=== PATIENT | male | born 1970 | race Two or more races ===

== ENCOUNTER 2020-07-07 16:18 | Emergency (ER) | payer OTHER, SELFPAY ==
[2020-07-07 16:29] VITALS: BP 167/90; PULSE 87; RESP 18; TEMP 36.8; O2SAT 98; BMI 33.4
== END 2020-07-08 00:59 | disposition left against medical advice (07) ==
LOC: HO.ED 07-08 00:33
PROVIDERS: Emergency Provider Emergency Medicine; PCP Internal Medicine
DX: R20.0 Anesthesia of skin (principal)
CPT/HCPCS: 99281; 99282

== ENCOUNTER 2020-10-06 11:44 | Emergency (ER) | payer OTHER, SELFPAY ==
--- NOTE | 2020-10-06 12:58 | ED_ITS ---
HPI - General Adult General Chief complaint: Ear Problems Stated complaint: eye problem,and swollen rt finger Time Seen by Provider: 10/06/20 12:29 Related Data Allergies Allergy/AdvReac Type Severity Reaction Status Date / Time SEASONAL ALLERGIES Allergy Mild stuffy nose Uncoded 07/07/20 16:29 [facility] Past Medical History Medical History (Updated 10/06/20 @ 13:01 by Shashi Montiel) Diabetes HTN (hypertension) Hyperlipemia Stroke Physical Exam Vital Signs: Vital Signs: Last Vital Signs Temp 98 F 10/06/20 12:59 Pulse 88 10/06/20 12:59 Resp 18 10/06/20 12:59 BP 166/80 H 10/06/20 12:59 Pulse Ox 95 10/06/20 12:59 Body Mass Index 31.6 Course Course Course Narrative: 1258-This is a rapid medical exam. 50 yo male with NIDDM, HLD, asthma, HTN here with left eye blurriness/floaters x 3 hours. No EDWARDS, weakness, dizziness. Has been noncompliant with his diabetes medication. Also c/o right finger pain. Pain with flexion and feels like it gets stuck with paresthesias. Had carpal tunnel done by spasukumar. No injury or trauma. BS 471. Charge nurse aware to direct bed.
[2020-10-06 12:59] VITALS: BP 166/80; PULSE 88; RESP 18; TEMP 36.6; O2SAT 95; BMI 31.6
--- NOTE | 2020-10-06 13:03 | XR_ITS ---
EXAMINATION: XR HAND, RIGHT CLINICAL INFORMATION: Pain and swelling COMPARISON: None TECHNIQUE: PA, lateral, and oblique views of the right hand. FINDINGS: Bone alignment is normal. No acute fracture or dislocation is seen. There is question of old trauma to the distal radius. There is mild arthritis at the radiocarpal joint, and first HALFWAY joint Joint spaces are otherwise normal. Soft tissues are normal. XR/XR hand RT min 3V IMPRESSION: Question old trauma to the distal radius. Mild arthritis at the radiocarpal joint and first HALFWAY joint.
[2020-10-06 13:07] LABS: Glucose, Whole Blood 471 mg/dL (60-115)
--- NOTE | 2020-10-06 13:24 | PC.NURSE ---
slight limp noted. pt states this is residual since cva 3 years ago. l eye vision changed to blurry with floaties at 10am. steady on feet. no other neuro deficits noted.
--- NOTE | 2020-10-06 13:42 | ED_ITS ---
HPI - General Adult General Chief complaint: Eye Problems Stated complaint: eye problem,and swollen rt finger Time Seen by Provider: 10/06/20 12:29 Source: patient Mode of arrival: ambulatory Limitations: no limitations History of Present Illness HPI narrative: This is a 50 years old male with history of diabetes type 2 no compliant with the diabetic regimen presented to the emergency room complaining of left blurred vision. He states that these follow by our compensation vice president in [place] Dr Novoa but he was unable to follow-up with him because they COVID the epidemic. Denies any fever, vomiting, diarrhea Onset (ago): day(s) (One day) Location: eyes (Left eye) Radiation: non-radiation Severity: moderate Quality: other (Floaters) Pain Consistency: constant Relieving factors: none Associated symptoms: denies other symptoms Related Data Allergies Allergy/AdvReac Type Severity Reaction Status Date / Time SEASONAL ALLERGIES Allergy Mild stuffy nose Uncoded 07/07/20 16:29 Review of Systems Review of Systems: Yes all other systems are reviewed and are negative Eyes: Eyes: Reports as per HPI ENT: Reports system reviewed and no additional complaints, except as documented Cardiovascular: Cardiovascular: Reports no additional cardiovascular compl aints Neurologic: Reports system reviewed and no additional complaints, except as documented [facility] Past Medical History Attestation statement: The following information was validated with the patient. Medical History Diabetes HTN (hypertension) Hyperlipemia Stroke Social History Social History Alcohol intake: never Smoking Status: Unknown if ever smoked Use of substances other than those prescribed or required for medical reasons: No Advance Directives: No Advance Directives Information Provided: No Physical Exam Vital Signs: Vital Signs: Last Vital Signs Temp 98 F 10/06/20 12:59 Pulse 71 10/06/20 15:11 Resp 16 10/06/20 15:11 BP 159/85 H 10/06/20 15:11 Pulse Ox 97 10/06/20 15:11 Body Mass Index 31.6 Const: General: cooperative Orientation/consciousness: oriented to person, oriented to place, oriented to time and patient oriented x3 HENMT: Head: Yes normal to inspection and Yes No palpable skull fracture present Ears: hearing grossly normal bilaterally Eyes: General: appearance normal, both eyes and all related structures Eyelids: Yes eyelids normal Conjunctivae: conjunctivae normal Sclerae: sclerae normal Corneas: corneas normal Neck: Neck: Yes normal visual inspection and Yes full ROM Chest: Breast/axilla inspection: normal inspection of the breasts Resp: Effort & Inspection: normal respiratory effort and able to speak in complete sentences Cardio: Jugular venous distension: no JVD Palpation: normal PMI Rate: regular rate Rhythm: regular rhythm and abnormal rhythm GI: Inspection: Yes normal to inspection Skin: General skin exam: no rashes or lesions noted Neuro: General: oriented to person, oriented to place, oriented to time and patient oriented x3 Course Reevaluation(s) Reevaluation #1: I discussed the case with the his ophthalmology Dr. Novoa he will see the patient tomorrow 15:00 he states that patient missed the appointment on July most likely is a vitrous hemorragy Time: 13:48 Reevaluation #2: Spoke with the compensation vice president patient will be followed up tomorrow, blood sugars much better he has no ketotic his bicarb is good this I will discharge him or more with Glucophage 500 mg b.i.d. I told the patient that he will need to follow up with is primary care physician as well Time: 16:02 Medical Decision Making Lab Data Result diagrams: 10/06/20 13:42 10/06/20 13:42 Labs: Lab Results 10/06/20 10/06/20 10/06/20 Range/Units 13:04 13:42 13:42 WBC 6.0 (4.8-10.8) X10*3/uL RBC 4.11 L (4.60-5.80) X10*6/uL Hgb 12.0 L (14.0-18.0) g/dl Hct 34.1 L (42-52) % MCV 83.0 (80-98) fL MCH 29.2 (27.0-33.0) pg MCHC 35.2 (31.0-36.0) g/dl RDW 11.9 (11.0-16.0) % Plt Count 198 (160-400) X10*3/uL MPV 9.6 (9.4-12.4) fL Immature Gran % (Auto) 0.2 (0.0-0.4) % Neut % (Auto) 78.4 H (45-73) % Lymph % (Auto) 17.1 L (20-40) % [place] % (Auto) 3.6 (2-11) % Eos % (Auto) 0.5 (0-4) % Baso % (Auto) 0.2 (0-2) % Lymph # (Auto) 1.0 L (1.2-4.9) X10*3/uL [place] # (Auto) 0.2 (0.1-1.2) X10*3/uL Eos # (Auto) 0.0 (0.0-0.4) X10*3/uL Baso # (Auto) 0.0 (0.0-0.2) X10*3/uL Abs Immat Gran (auto) 0.01 (0.00-0.03) X10*3/uL Absolute Neuts (auto) 4.7 (2.0-8.3) X10*3/uL Absolute Nucleated RBC 0.000 (0.0-0.012) X10*3/uL Nucleated RBC % (auto) 0.0 (0.0-0.2) /100WBC Hold Blue Top SEE NOTE Sodium (135-145) mmol/L Potassium (3.3-5.1) mmol/l Chloride (96-108) mmol/L Carbon Dioxide (22-29) mmol/L Anion Gap (12-20) BUN (9-16) mg/dL Creatinine (0.5-1.4) mg/dL Estim Creat Clear Calc Estimated GFR POC Glucose 471 H* (60-115) mg/dL Random Glucose (60-115) mg/dL Calcium (8.4-10.2) mg/dL Urine Color Urine Appearance Urine pH (5.0-8.0) Ur Specific [place] (1.005-1.025) Urine Protein (NEG-TRACE) MG/DL Urine Glucose (UA) (NEG) MG/DL Urine Ketones (NEG) MG/DL Urine Blood (NEG) Urine Nitrite (NEG) Ur Leukocyte Esterase (NEG) Urine RBC (0) /HPF Urine WBC (0-4) /HPF Ur Squamous Epith Cells /LPF Urine Bacteria /LPF 10/06/20 10/06/20 Range/Units 13:42 13:42 WBC (4.8-10.8) X10*3/uL RBC (4.60-5.80) X10*6/uL Hgb (14.0-18.0) g/dl Hct (42-52) % MCV (80-98) fL MCH (27.0-33.0) pg MCHC (31.0-36.0) g/dl RDW (11.0-16.0) % Plt Count (160-400) X10*3/uL MPV (9.4-12.4) fL Immature Gran % (Auto) (0.0-0.4) % Neut % (Auto) (45-73) % Lymph % (Auto) (20-40) % [place] % (Auto) (2-11) % Eos % (Auto) (0-4) % Baso % (Auto) (0-2) % Lymph # (Auto) (1.2-4.9) X10*3/uL [place] # (Auto) (0.1-1.2) X10*3/uL Eos # (Auto) (0.0-0.4) X10*3/uL Baso # (Auto) (0.0-0.2) X10*3/uL Abs Immat Gran (auto) (0.00-0.03) X10*3/uL Absolute Neuts (auto) (2.0-8.3) X10*3/uL Absolute Nucleated RBC (0.0-0.012) X10*3/uL Nucleated RBC % (auto) (0.0-0.2) /100WBC Hold Blue Top Sodium 136 (135-145) mmol/L Potassium 4.2 (3.3-5.1) mmol/l Chloride 102 (96-108) mmol/L Carbon Dioxide 27 (22-29) mmol/L Anion Gap 11 L (12-20) BUN 22 H (9-16) mg/dL Creatinine 1.92 H (0.5-1.4) mg/dL Estim Creat Clear Calc 50.1 Estimated GFR 37 POC Glucose (60-115) mg/dL Random Glucose 545 H* (60-115) mg/dL Calcium 8.4 (8.4-10.2) mg/dL Urine Color STRAW Urine Appearance CLEAR Urine pH 5.5 (5.0-8.0) Ur Specific [place] 1.010 (1.005-1.025) Urine Protein NEG (NEG-TRACE) MG/DL Urine Glucose (UA) >=1000 H (NEG) MG/DL Urine Ketones NEG (NEG) MG/DL Urine Blood NEG (NEG) Urine Nitrite NEG (NEG) Ur Leukocyte Esterase NEG (NEG) Urine RBC 0-2 (0) /HPF Urine WBC 0 (0-4) /HPF Ur Squamous Epith Cells TRACE /LPF Urine Bacteria NONE /LPF Discharge Plan Discharge Clinical Impression: Hyperglycemia Patient Disposition: Home, Self-Care Instructions: Diabetic Hyperglycemia (ED) Referrals: Lance Novoa MD [Physician] - 1 day (You have an appointment Tomorrow at [address] Novoa)
[2020-10-06] MEDS: 0.9 % Sodium Chloride 1,000 ML 999 ML IVCONT ×2 (13:45→15:37)
[2020-10-06 13:53] LABS: MANUAL DIFF FLAG NO
[2020-10-06 13:55] VITALS: BP 145/79; PULSE 78; RESP 18; O2SAT 97
[2020-10-06 13:56] LABS: Basophils Percent Auto 0.2 % (0-2); Eosinophils Percent Auto 0.5 % (0-4); Hematocrit 34.1 % (42-52); Imm Gran Abs Auto 0.01 X10*3/uL (0.00-0.03); Imm Gran Pct Auto 0.2 % (0.0-0.4); Lymphocytes Percent Auto 17.1 % (20-40); Mean Corpuscular HGB Conc 35.2 g/dl (31.0-36.0); Mean Corpuscular Hemoglobin 29.2 pg (27.0-33.0); Mean Platelet Volume 9.6 fL (9.4-12.4); Monocytes Absolute Auto 0.2 X10*3/uL (0.1-1.2); Monocytes Percent Auto 3.6 % (2-11); Neutrophils Absolute Auto 4.7 X10*3/uL (2.0-8.3); Neutrophils Percent Auto 78.4 % (45-73); Platelet Count 198 X10*3/uL (160-400); Red Blood Count 4.11 X10*6/uL (4.60-5.80); Red Cell Distribution Width 11.9 % (11.0-16.0)
[2020-10-06 14:08] LABS: Appearance Urine CLEAR; Color Urine STRAW; Glucose Urine UA >=1000 MG/DL (NEG); Leukocyte Esterase Urine NEG (NEG); Nitrite Urine NEG (NEG); PH 5.5 (5.0-8.0); Urine Blood NEG (NEG); Urine Ketones NEG (NEG); Urine Protein NEG (NEG-TRACE)
[2020-10-06 14:20] LABS: RBC Urine 0-2 /HPF (0); Squamous Epithelial Cell Urine TRACE /LPF; WBC Urine 0 /HPF (0-4)
[2020-10-06 14:31] LABS: Anion Gap 11 (12-20); Blood Urea Nitrogen 22 mg/dL (9-16); Calcium 8.4 mg/dL (8.4-10.2); Carbon Dioxide 27 mmol/L (22-29); Chloride 102 mmol/L (96-108); Creatinine Clr Calc Pharmacy 50.1; Estimated Glomerular Filt Rate 37; Glucose Random 545 mg/dL (60-115); Potassium 4.2 mmol/l (3.3-5.1); Sodium 136 mmol/L (135-145)
[2020-10-06 15:11] VITALS: BP 159/85; PULSE 71; RESP 16; O2SAT 97
--- NOTE | 2020-10-06 15:12 | PC.NURSE ---
no change in vision. up to br. steady on feet.
[2020-10-06] MEDS: Insulin Lispro 100 UNIT/ML 3 ML VIAL SUBCUT (15:37)
--- NOTE | 2020-10-06 15:49 | PC.NURSE ---
resting queitly. nad. no change in vision.
[2020-10-06 16:02] LABS: Glucose, Whole Blood 344 mg/dL (60-115)
[2020-10-06 16:11] LABS: Acetone, serum QL Negative (Negative)
== END 2020-10-06 16:23 | disposition home or self-care (01) ==
PROVIDERS: Nurse Practitioner Family; Emergency Provider Emergency Medicine; PCP Internal Medicine
DX: E11.65 Type 2 diabetes mellitus with hyperglycemia (principal)
CPT/HCPCS: 36415; 73130; 80048; 81001; 81003; 82009; 82947; 85025; 96360; 99284

== ENCOUNTER 2020-12-18 08:53 | Outpatient (REF) | payer OTHER, SELFPAY ==
--- NOTE | 2020-12-18 09:00 | ECG_ITS ---
Test Reason : HTN Blood Pressure : / mmHG Vent. Rate : 067 BPM Atrial Rate : 067 BPM P-R Int : 118 ms QRS Dur : 138 ms QT Int : 456 ms P-R-T Axes : -22 -28 -12 degrees QTc Int : 481 ms Normal sinus rhythm Right bundle branch block Abnormal ECG When compared with ECG of 10-NOV-2018 19:25, No significant change was found Referred By: Allison Santacruz Electronically Signed By:MARCOS SORIA MD
[2020-12-18 09:36] LABS: MANUAL DIFF FLAG NO
[2020-12-18 10:03] LABS: Basophils Percent Auto 0.2 % (0-2); Eosinophils Absolute Auto 0.1 X10*3/uL (0.0-0.4); Hematocrit 34.3 % (42-52); Hemoglobin 12.2 g/dl (14.0-18.0); Imm Gran Abs Auto 0.01 X10*3/uL (0.00-0.03); Imm Gran Pct Auto 0.2 % (0.0-0.4); Lymphocytes Absolute Auto 1.3 X10*3/uL (1.2-4.9); Lymphocytes Percent Auto 23.6 % (20-40); Mean Corpuscular HGB Conc 35.6 g/dl (31.0-36.0); Mean Corpuscular Hemoglobin 29.7 pg (27.0-33.0); Mean Corpuscular Volume 83.5 fL (80-98); Mean Platelet Volume 9.8 fL (9.4-12.4); Monocytes Absolute Auto 0.2 X10*3/uL (0.1-1.2); Monocytes Percent Auto 4.5 % (2-11); Neutrophils Absolute Auto 3.8 X10*3/uL (2.0-8.3); Neutrophils Percent Auto 69.5 % (45-73); Platelet Count 219 X10*3/uL (160-400); Red Blood Count 4.11 X10*6/uL (4.60-5.80); Red Cell Distribution Width 12.1 % (11.0-16.0); White Blood Count 5.4 X10*3/uL (4.8-10.8)
[2020-12-18 11:31] LABS: Alanine Aminotransferase 9 U/L (0-40); Albumin Level 4.5 g/dL (3.5-5.0); Alkaline Phosphatase 79 U/L (39-117); Anion Gap 12 (12-20); Aspartate Amino Transferase 14 U/L (5-37); Bilirubin Total 0.7 mg/dL (0.0-1.0); Blood Urea Nitrogen 21 mg/dL (9-16); Calcium 8.8 mg/dL (8.4-10.2); Carbon Dioxide 26 mmol/L (22-29); Chloride 107 mmol/L (96-108); Cholesterol 228 mg/dL; Estimated Glomerular Filt Rate 44; Glucose Fasting 191 mg/dL (60-99); HDL Cholesterol 51 mg/dL; LDL Cholesterol Calculated 156 mg/dl; Potassium 4.2 mmol/L (3.3-5.1); Sodium 141 mmol/L (135-145); Total Protein 6.8 g/dL (6.5-8.0); Triglycerides 108 mg/dL
== END 2020-12-18 08:54 | disposition home or self-care (01) ==
LOC: HO.LAB 08:53
PROVIDERS: PCP Internal Medicine; Visit Provider Internal Medicine
DX: D64.9 Anemia, unspecified (principal); E11.9 Type 2 diabetes mellitus without complications; E78.5 Hyperlipidemia, unspecified; I10 Essential (primary) hypertension; I45.10 Unspecified right bundle-branch block; R94.31 Abnormal electrocardiogram [ECG] [EKG]
CPT/HCPCS: 36415; 80053; 80061; 85025; 93005

== ENCOUNTER → 2020-12-22 08:21 | Outpatient (BNVA) | payer OTHER, SELFPAY | PROVIDERS: PCP Internal Medicine; Visit Provider Nurse Practitioner Gerontology | DX: E11.319 Type 2 diabetes mellitus with unspecified 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 macular edema (principal); E78.5 Hyperlipidemia, unspecified; I10 Essential (primary) hypertension | CPT/HCPCS: 82947; 99212 ==

== ENCOUNTER 2021-02-13 08:48 | Emergency (ER) | payer OTHER, SELFPAY ==
--- NOTE | ~2021-02-13 | XR_ITS ---
EXAMINATION: XR CHEST CLINICAL INFORMATION: Chest pain. COMPARISON: Chest 11/10/2018 TECHNIQUE: Frontal view of the chest was obtained. FINDINGS: No significant abnormality is noted involving the heart, lungs, mediastinum, bony thorax or soft tissues. XR/XR chest 1V IMPRESSION: Unremarkable chest examination.
--- NOTE | ~2021-02-13 | CT_ITS ---
EXAMINATION: CT ANGIOGRAM OF THE CHEST WITH AND WITHOUT CONTRAST (CT PULMONARY ANGIOGRAM FOR PE) CLINICAL INFORMATION: Reason for Exam chest pain elevated ddimer COMPARISON: Previous chest x-ray from earlier the same day TECHNIQUE: Prior to contrast administration, noncontrast localization images were obtained. Subsequently, multidetector volumetric imaging was performed from the thoracic inlet to below the diaphragms following the administration of 65 mL Omnipaque 350 intravenous contrast. No contrast reaction reported Sagittal, coronal, and MIP oblique sagittal reformatted images were obtained on the CT workstation, uploaded to PACS, and reviewed. This CT examination was performed using dose optimization techniques as appropriate, variously including the following: *Automated exposure control *Adjustment of mA and/or kV according to patient size (this includes techniques or standardized protocols for targeted exams where dose is matched to indication/reason for exam; i.e. extremities or head) *Use of iterative reconstruction technique Total exam dose-length product 291 mGy-cm FINDINGS: QUALITY OF STUDY/CONTRAST BOLUS: Satisfactory. PULMONARY ARTERIES: No central or segmental pulmonary emboli. THORACIC AORTA: No aneurysm or dissection. LUNG: No focal consolidation, nodules or masses. PLEURA: No pleural effusion or pneumothorax. MEDIASTINUM: The heart is slightly enlarged.. No pericardial effusion. No hilar or mediastinal lymphadenopathy. No evidence of septal bowing or right heart strain. CHEST WALL/AXILLA: No axillary or internal mammary lymphadenopathy. OSSEOUS STRUCTURES: There is congenital scoliosis and T5 hemivertebra or butterfly vertebrae. There are degenerative changes of the lower thoracic spine. UPPER ABDOMEN: Unremarkable. No reflux of contrast into the hepatic veins to suggest elevated right heart pressures. CT/CT angio chest PE protocol IMPRESSION: No evidence of pulmonary embolism. Probably enlarged heart. Congenital scoliosis. VTE: negative
--- NOTE | 2021-02-13 09:00 | ED.CHESTPAIN ---
HPI - Chest Pain General Chief Complaint: Chest Pain Stated Complaint: CHEST TIGHTNESS Time Seen by Provider: 02/13/21 09:00 Source: patient Mode of arrival: ambulatory Limitations: no limitations History of Present Illness MD complaint: chest pain Onset (ago): week(s) (1) Timing of current episode: episodic Prior episodes: No Onset: during exertion Pain location: left chest and right chest Pain radiation: none Severity: moderate Quality: tightness Relieving factors: rest Exacerbating factors: exertion Associated symptoms: dyspnea Treatment prior to arrival: none Related Data Previous Rx's Medication Instructions Recorded lisinopril 40 mg tablet 40 mg PO DAILY 90 Days #90 tab 11/05/20 metformin 1,000 mg tablet,extended 1,000 mg PO BID 90 Days #180 tab 11/05/20 release 24hr atorvastatin 40 mg tablet 40 mg PO BEDTIME #30 tab 12/22/20 blood sugar diagnostic #50 ea 12/22/20 blood-glucose meter #1 ea 12/22/20 flash glucose sensor 1 ea TOPICAL Q2W #6 ea 12/22/20 lancets 28 gauge #100 ea 12/22/20 dulaglutide 0.75 mg/0.5 mL 0.75 mg SUBCUT QWEEK #2 ml 01/22/21 subcutaneous pen injector Allergies Allergy/AdvReac Type Severity Reaction Status Date / Time SEASONAL ALLERGIES Allergy Mild stuffy nose Uncoded 12/22/20 08:45 Review of Systems Review of Systems: Constitutional : No Weight loss, No Fever, No Chills ENT/Mouth : No sore throat, No Rhinorrhea Eyes: No Eye Pain, No Swelling Cardiovascular : pos Chest Pain, pos SOB, pos Dyspnea on Exertion, No Orthopnea, No Edema, No Palpitations Respiratory : No Cough, No Sputum Gastrointestinal : no Nausea, No Vomiting, No Diarrhea, No abdominal Pain, No Hematochezia, No Melena Genitourinary : No Dysuria, No Urinary Frequency Musculoskeletal : No joint pain, No Myalgias, No Joint Swelling Skin : No Skin Lesions, No rash Neuro : No Weakness, No Numbness, No Dizziness, No Headache Psych : No Anxiety/Panic, No Depression Heme/Lymph: No Bruising, No Lymphadenopathy Endocrine : No Polyuria, No Polydipsia All other systems reviewed and are negative PMFSH Past Medical History Attestation statement: The following information was validated with the patient. Medical History Anemia Arthritis Carpal tunnel syndrome Diabetes Essential hypertension HTN (hypertension) Hyperlipemia Hyperlipidemia LDL goal <70 Nephrolithiasis Phlebitis Stroke Type 2 diabetes mellitus with unspecified 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 macular edema Surgical History H/O vitrectomy History of carpal tunnel surgery of right wrist Family History Family History Father Asthma Mother Diabetes mellitus Social History Social History Household Members: Significant Other Alcohol intake: never Smoking Status: Never smoker Tobacco Type: Cigarette Use of substances other than those prescribed or required for medical reasons: No Advance Directives: No Advance Directives Information Provided: No Physical Exam Vital Signs: Vital Signs: Last Vital Signs Temp 99.1 F 02/13/21 09:12 Pulse 62 02/13/21 10:18 Resp 20 02/13/21 10:18 BP 162/85 H 02/13/21 10:18 Pulse Ox 98 02/13/21 10:18 Body Mass Index 30.2 Appearance: Alert. Oriented X3. No acute distress. Eyes: Pupils equal, round and reactive to light. ENT: Pharynx normal. Neck: Normal inspection. Neck supple. CVS: Normal heart rate and rhythm. Pulses normal. Respiratory: No respiratory distress. Breath sounds normal. Abdomen: Soft and nontender. Skin: Skin warm and dry. Normal skin color. Normal skin turgor. Extremities: No lower extremity edema. No calf ttp Neuro: Oriented X 3. No motor deficit. No sensory deficit. Course Course Course Narrative: ddimer elevated CTA PE ordered to r/o PE discussed case with Dr. Shetty patient notes he feels better with nitro and aspirin plan is to obtain CTA if negative contact Dr. Shetty for transfer to [facility] and heparinize the patient aspirin and metoprolol ordered as well plan to transfer to [facility] MDM - Chest Pain MDM Narrative Medical decision making narrative: 50 yo male with DM, HTN, HLD here with chest pain on and off with dyspnea on exertion x 1 week, at this time will need labs, troponin, CXR, EKG, nitro and aspirin for symptoms, no known CAD no prior cardiac workup Lab Data Result diagrams: 02/13/21 09:23 02/13/21 09:23 Labs: Lab Results 02/13/21 02/13/21 02/13/21 Range/Units 09:23 09:23 09:23 WBC 4.8 (4.8-10.8) X10*3/uL RBC 3.53 L (4.60-5.80) X10*6/uL Hgb 10.5 L (14.0-18.0) g/dl Hct 30.4 L (42-52) % MCV 86.1 (80-98) fL MCH 29.7 (27.0-33.0) pg MCHC 34.5 (31.0-36.0) g/dl RDW 12.3 (11.0-16.0) % Plt Count 174 (160-400) X10*3/uL MPV 9.6 (9.4-12.4) fL Immature Gran % (Auto) 0.2 (0.0-0.4) % Neut % (Auto) 72.3 (45-73) % Lymph % (Auto) 22.5 (20-40) % [place] % (Auto) 3.8 (2-11) % Eos % (Auto) 1.0 (0-4) % Baso % (Auto) 0.2 (0-2) % Lymph # (Auto) 1.1 L (1.2-4.9) X10*3/uL [place] # (Auto) 0.2 (0.1-1.2) X10*3/uL Eos # (Auto) 0.1 (0.0-0.4) X10*3/uL Baso # (Auto) 0.0 (0.0-0.2) X10*3/uL Abs Immat Gran (auto) 0.01 (0.00-0.03) X10*3/uL Absolute Neuts (auto) 3.5 (2.0-8.3) X10*3/uL Absolute Nucleated RBC 0.000 (0.0-0.012) X10*3/uL Nucleated RBC % (auto) 0.0 (0.0-0.2) /100WBC PT 12.4 (10.8-13.0) SEC INR 1.0 (0.9-1.1) APTT 32.5 (24.1-38.0) SEC D-Dimer 935 NG/ML Sodium 142 (135-145) mmol/L Potassium 4.1 (3.3-5.1) mmol/L Chloride 107 (96-108) mmol/L Carbon Dioxide 28 (22-29) mmol/L Anion Gap 11 L (12-20) BUN 18 H (9-16) mg/dL Creatinine 1.40 (0.5-1.4) mg/dL Estim Creat Clear Calc 67.6 Estimated GFR 53 Random Glucose 185 H D (60-115) mg/dL Calcium 8.7 (8.4-10.2) mg/dL Magnesium 1.5 L (1.6-2.6) mg/dL Total Bilirubin 0.4 (0.0-1.0) mg/dL Direct Bilirubin 0.2 (0.0-0.5) mg/dL AST 13 (5-37) U/L ALT 10 (0-40) U/L Alkaline Phosphatase 59 D (39-117) U/L Troponin I High Sens (<3.5-35.0) ng/L Total Protein 6.1 L (6.5-8.0) g/dL Albumin 4.0 (3.5-5.0) g/dL Lipase 37 (8-78) U/L COVID-19 (JAMIE) (Negative) COVID-19 Clin Com 02/13/21 02/13/21 Range/Units 09:23 09:26 WBC (4.8-10.8) X10*3/uL RBC (4.60-5.80) X10*6/uL Hgb (14.0-18.0) g/dl Hct (42-52) % MCV (80-98) fL MCH (27.0-33.0) pg MCHC (31.0-36.0) g/dl RDW (11.0-16.0) % Plt Count (160-400) X10*3/uL MPV (9.4-12.4) fL Immature Gran % (Auto) (0.0-0.4) % Neut % (Auto) (45-73) % Lymph % (Auto) (20-40) % [place] % (Auto) (2-11) % Eos % (Auto) (0-4) % Baso % (Auto) (0-2) % Lymph # (Auto) (1.2-4.9) X10*3/uL [place] # (Auto) (0.1-1.2) X10*3/uL Eos # (Auto) (0.0-0.4) X10*3/uL Baso # (Auto) (0.0-0.2) X10*3/uL Abs Immat Gran (auto) (0.00-0.03) X10*3/uL Absolute Neuts (auto) (2.0-8.3) X10*3/uL Absolute Nucleated RBC (0.0-0.012) X10*3/uL Nucleated RBC % (auto) (0.0-0.2) /100WBC PT (10.8-13.0) SEC INR (0.9-1.1) APTT (24.1-38.0) SEC D-Dimer NG/ML Sodium (135-145) mmol/L Potassium (3.3-5.1) mmol/L Chloride (96-108) mmol/L Carbon Dioxide (22-29) mmol/L Anion Gap (12-20) BUN (9-16) mg/dL Creatinine (0.5-1.4) mg/dL Estim Creat Clear Calc Estimated GFR Random Glucose (60-115) mg/dL Calcium (8.4-10.2) mg/dL Magnesium (1.6-2.6) mg/dL Total Bilirubin (0.0-1.0) mg/dL Direct Bilirubin (0.0-0.5) mg/dL AST (5-37) U/L ALT (0-40) U/L Alkaline Phosphatase (39-117) U/L Troponin I High Sens 20.6 (<3.5-35.0) ng/L Total Protein (6.5-8.0) g/dL Albumin (3.5-5.0) g/dL Lipase (8-78) U/L COVID-19 (JAMIE) Negative (Negative) COVID-19 Clin Com See Note ECG Data ECG #1: Attestation: I personally reviewed and interpreted this ECG as follows: ECG interpretation date: 02/13/21 ECG interpretation time: 09:16 Interpretation: Rate: 72 Rhythm: NSR [place]: left Normal P waves. Normal JUNIOR. RBBB ST T wave : nonspecific in V4-V6, no ANDREI qTC: normal prior studies: slight change in V4-V6 nonspecific The study has been interpreted contemporaneously by me. . Discharge Plan Discharge Clinical Impression: Unstable angina pectoris Patient Disposition: [facility] Transfer Details: [facility] Prescriptions: No Action (DME) FreeStyle Test Strip See Rx Instructions .ROUTE .MEDSUPPLY Qty: 50 RF: 11 (DME) blood-glucose meter [FreeStyle [place] Lite] Kit See Rx Instructions .ROUTE .MEDSUPPLY Qty: 1 RF: 0 FreeStyle Ronen 14 Day Sensor Kit 1 ea topical Q2W Qty: 6 RF: 3 (DME) lancets [FreeStyle Lancets] 28 gauge misc See Rx Instructions .ROUTE .MEDSUPPLY Qty: 100 RF: 11 dulaglutide [Trulicity] 0.75 mg/0.5 mL pen injector 0.75 mg subcut QWEEK Qty: 2 RF: 0 lisinopril 40 mg tablet 40 mg PO DAILY 90 Days Qty: 90 RF: 1 metformin 1,000 mg tablet extended release 24hr 1,000 mg PO BID 90 Days Qty: 180 RF: 3 atorvastatin 40 mg tablet 40 mg PO BEDTIME Qty: 30 RF: 3
--- NOTE | 2021-02-13 09:05 | ECG_ITS ---
Test Reason : CHEST PAIN Blood Pressure : / mmHG Vent. Rate : 072 BPM Atrial Rate : 072 BPM P-R Int : 114 ms QRS Dur : 134 ms QT Int : 446 ms P-R-T Axes : -11 -43 002 degrees QTc Int : 488 ms Normal sinus rhythm Left axis deviation Right bundle branch block Abnormal ECG When compared with ECG of 18-DEC-2020 08:05, No significant change was found Referred By: Guera Buitrago Electronically Signed By:MARCOS SORIA MD
[2021-02-13 09:12] VITALS: BP 167/77; PULSE 75; RESP 13; TEMP 37.3; O2SAT 99; BMI 30.5
[2021-02-13] MEDS: Aspirin 81 MG TAB.CHEW 162 MG PO (09:18)
[2021-02-13 09:19] VITALS: BP 167/77; PULSE 75
[2021-02-13] MEDS: Nitroglycerin 0.4 MG TAB.SUBL SUBLINGUAL (09:19)
[2021-02-13 09:36] LABS: MANUAL DIFF FLAG NO
[2021-02-13 09:37] LABS: Basophils Percent Auto 0.2 % (0-2); Eosinophils Absolute Auto 0.1 X10*3/uL (0.0-0.4); Hematocrit 30.4 % (42-52); Hemoglobin 10.5 g/dl (14.0-18.0); Imm Gran Abs Auto 0.01 X10*3/uL (0.00-0.03); Imm Gran Pct Auto 0.2 % (0.0-0.4); Lymphocytes Absolute Auto 1.1 X10*3/uL (1.2-4.9); Lymphocytes Percent Auto 22.5 % (20-40); Mean Corpuscular HGB Conc 34.5 g/dl (31.0-36.0); Mean Corpuscular Hemoglobin 29.7 pg (27.0-33.0); Mean Corpuscular Volume 86.1 fL (80-98); Mean Platelet Volume 9.6 fL (9.4-12.4); Monocytes Absolute Auto 0.2 X10*3/uL (0.1-1.2); Monocytes Percent Auto 3.8 % (2-11); Neutrophils Absolute Auto 3.5 X10*3/uL (2.0-8.3); Neutrophils Percent Auto 72.3 % (45-73); Platelet Count 174 X10*3/uL (160-400); Red Blood Count 3.53 X10*6/uL (4.60-5.80); Red Cell Distribution Width 12.3 % (11.0-16.0); White Blood Count 4.8 X10*3/uL (4.8-10.8)
[2021-02-13 09:46] LABS: D Dimer 935 NG/ML
[2021-02-13 09:48] LABS: COVID-19 Test Negative (Negative)
[2021-02-13 09:57] LABS: Alanine Aminotransferase 10 U/L (0-40); Alkaline Phosphatase 59 U/L (39-117); Anion Gap 11 (12-20); Aspartate Amino Transferase 13 U/L (5-37); Bilirubin Direct 0.2 mg/dL (0.0-0.5); Bilirubin Total 0.4 mg/dL (0.0-1.0); Blood Urea Nitrogen 18 mg/dL (9-16); Calcium 8.7 mg/dL (8.4-10.2); Carbon Dioxide 28 mmol/L (22-29); Chloride 107 mmol/L (96-108); Creatinine Clr Calc Pharmacy 67.6; Estimated Glomerular Filt Rate 53; Glucose Random 185 mg/dL (60-115); Lipase 37 U/L (8-78); Magnesium 1.5 mg/dL (1.6-2.6); Potassium 4.1 mmol/L (3.3-5.1); Sodium 142 mmol/L (135-145); Total Protein 6.1 g/dL (6.5-8.0)
[2021-02-13 10:01] LABS: Troponin-I High Sensitivity 20.6 ng/L (<3.5-35.0)
[2021-02-13 10:18] VITALS: BP 162/85; PULSE 62; RESP 20; O2SAT 98
[2021-02-13] MEDS: Magnesium Sulfate/H2O 2 GM/50 ML PIGGYBACK IV (10:18)
--- NOTE | 2021-02-13 10:22 | P.CONCA_ITS ---
History of Present Illness History of Present Illness Date of Service: 02/14/21 Requesting physician: Guera Buitrago Chief complaint: CHEST TIGHTNESS Narrative: 50-year-old gentleman who is here for shortness of breath and chest tightness ongoing for few days. He said he started noticing chest tightness with exercise. There has not been any symptoms at rest. He is able to walk close to 1 block when he gets chest tightness. He is saying his symptoms are progressing any he is having more frequent episodes. He is diabetic. He has a previous stroke. He was noticed to have elevated D-dimer and was waiting to get CTA to rule out pulmonary embolism. ECG showing right bundle-branch block with nonspecific ST-T changes. Review of Systems Review of Systems: Chest pain Yes all other systems are reviewed and are negative [facility] Past Medical History Medical History Anemia Arthritis Carpal tunnel syndrome Diabetes Essential hypertension HTN (hypertension) Hyperlipemia Hyperlipidemia LDL goal <70 Nephrolithiasis Phlebitis Stroke Type 2 diabetes mellitus with unspecified 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 macular edema Family History Family History Father Asthma Mother Diabetes mellitus Surgical History Surgical History H/O vitrectomy History of carpal tunnel surgery of right wrist Social History Social History Household Members: Significant Other Alcohol intake: never Smoking Status: Never smoker Tobacco Type: Cigarette Use of substances other than those prescribed or required for medical reasons: No Advance Directives: No Advance Directives Information Provided: No Meds Allergies Allergy/AdvReac Type Severity Reaction Status Date / Time SEASONAL ALLERGIES Allergy Mild stuffy nose Uncoded 12/22/20 08:45 Active Medications: Current Medications Generic Name Dose Route Start Last Admin Trade Name Freq PRN Reason Stop Dose Admin Magnesium Sulfate 2 gm in 50 mls @ 50 mls/hr 02/13/21 10:11 02/13/21 10:18 IV 02/13/21 11:10 50 mls/hr ONCE ONE Administration Physical Exam Vital Signs: Vital Signs: Last Vital Signs Temp 99.1 F 02/13/21 09:12 Pulse 62 02/13/21 10:18 Resp 20 02/13/21 10:18 BP 162/85 H 02/13/21 10:18 Pulse Ox 98 02/13/21 10:18 Body Mass Index 30.5 GENERAL APPEARANCE: in no acute distress, pleasant. NECK: no carotid bruit, no jugular venous distention. SKIN: no suspicious lesions, warm and dry. HEART: no murmurs, regular rate and rhythm. LUNGS: clear to auscultation bilaterally. ABDOMEN: soft, nontender. EXTREMITIES: no edema. PERIPHERAL PULSES: equal. Results Labs and Meds Result diagrams: 02/13/21 09:23 02/13/21 09:23 Lab results: Laboratory Results - last 24 hr 02/13/21 02/13/21 02/13/21 09:23 09:23 09:23 WBC 4.8 RBC 3.53 L Hgb 10.5 L Hct 30.4 L MCV 86.1 MCH 29.7 MCHC 34.5 RDW 12.3 Plt Count 174 MPV 9.6 Immature Gran % (Auto) 0.2 Neut % (Auto) 72.3 Lymph % (Auto) 22.5 [place] % (Auto) 3.8 Eos % (Auto) 1.0 Baso % (Auto) 0.2 Lymph # (Auto) 1.1 L [place] # (Auto) 0.2 Eos # (Auto) 0.1 Baso # (Auto) 0.0 Abs Immat Gran (auto) 0.01 Absolute Neuts (auto) 3.5 Absolute Nucleated RBC 0.000 Nucleated RBC % (auto) 0.0 D-Dimer 935 Sodium 142 Potassium 4.1 Chloride 107 Carbon Dioxide 28 Anion Gap 11 L BUN 18 H Creatinine 1.40 Estim Creat Clear Calc 67.6 Estimated GFR 53 Random Glucose 185 H D Calcium 8.7 Magnesium 1.5 L Total Bilirubin 0.4 Direct Bilirubin 0.2 AST 13 ALT 10 Alkaline Phosphatase 59 D Troponin I High Sens Total Protein 6.1 L Albumin 4.0 Lipase 37 COVID-19 (JAMIE) COVID-19 Clin Com 02/13/21 02/13/21 09:23 09:26 WBC RBC Hgb Hct MCV MCH MCHC RDW Plt Count MPV Immature Gran % (Auto) Neut % (Auto) Lymph % (Auto) [place] % (Auto) Eos % (Auto) Baso % (Auto) Lymph # (Auto) [place] # (Auto) Eos # (Auto) Baso # (Auto) Abs Immat Gran (auto) Absolute Neuts (auto) Absolute Nucleated RBC Nucleated RBC % (auto) D-Dimer Sodium Potassium Chloride Carbon Dioxide Anion Gap BUN Creatinine Estim Creat Clear Calc Estimated GFR Random Glucose Calcium Magnesium Total Bilirubin Direct Bilirubin AST ALT Alkaline Phosphatase Troponin I High Sens 20.6 Total Protein Albumin Lipase COVID-19 (JAMIE) Negative COVID-19 Clin Com See Note Imaging Radiologist's impression: Impressions Chest X-Ray 02/13/21 09:06 IMPRESSION: Unremarkable chest examination. Assessment and Plan (1) Unstable angina: Status: Acute (2) Essential hypertension: Status: Acute 50-year-old gentleman who is here for exertional chest discomfort and shor tness of breath. D-dimer is elevated. He is going to get pulmonary CT angiogram to rule out PE. If he does not have pulmonary embolism, I think he should be treated as unstable angina and should be started on heparin drip. Add metoprolol 25 mg twice a day. Blood pressure is elevated and he will need better control. I have discussed with the patient that if he does not have pulmonary embolism t hen we should transfer to [facility] and do diagnostic angiogram. He is agreeable. I will do echocardiogram to assess LV for any wall motion abnormality. Thank you for allowing me to participate in the care of your patient. Please feel free to contact me if you have any questions.
[2021-02-13 10:49] LABS: Prothrombin Time 12.4 SEC (10.8-13.0)
[2021-02-13 10:52] LABS: Partial Thromboplastin Time 32.5 SEC (24.1-38.0)
[2021-02-13] MEDS: iohexoL 350 MG/ML 100 ML INFUS..BTL IV (11:05)
[2021-02-13 11:12] VITALS: BMI 30.2
[2021-02-13 11:47] VITALS: BP 164/85; PULSE 64
[2021-02-13] MEDS: Metoprolol Tartrate 25 MG TABLET PO (11:47)
[2021-02-13] MEDS: Heparin Sodium,Porcine 5,000 UNIT/ML VIAL 4000 UNIT IVPUSH (11:50)
[2021-02-13] MEDS: Heparin Sodium,Porcine/1/2NS 25,000 UNIT/250 ML IV.SOLN 12.6 UNIT IVCONT (11:54)
--- NOTE | 2021-02-13 12:00 | CA_ITS ---
Transthoracic Echocardiogram Patient (Last, First, Middle): Kal Sellers, Gender: Male Date of : 1970 Age: 50 Procedure Date: 02/13/2021 Procedure Type: Transthoracic Echocardiogram Location: ER Height: 172.72 cm Weight: 99.79 kg BSA: 2.13 m2 Heart Rate: bpm BP: 164 / 85 mmHg Staff Design Engineer: Referring MD: Reynaldo Shetty MD Symptoms: Chest pain and SOB Study Quality: Good ECG Rhythm: Sinus Conclusions: - 1. Moderately reduced LV systolic function with regional wall motion abnormality with impaired relaxation filling pattern 2. Mildly dilated left atrium 3. Normal cardiac valvular Doppler 4. Normal RV systolic pressure 5. No pericardial effusion Findings Left Ventricle Normal left ventricular cavity size. There is mildly increased left ventricular wall thickness. The left ventricular systolic function is moderately decreased. The visually estimated ejection fraction is between 35 40%. Spectral Doppler is indicative of an impaired relaxation filling pattern. E/E prime ratio is between 8 and 15 consistent with indeterminate filling pressures. Wall Motion Rest Echo Findings The inferolateral wall and basal anterolateral segment are hypokinetic. The basal inferior segment is akinetic. All other scored wall segments showed normal motion. Right Ventricle Normal right ventricular cavity size and systolic function. Atria The left atrium is mildly dilated. There is no evidence of interatrial shunt. The right atrium is normal in size. Aortic Valve Normal aortic valve structure and function. There is no aortic valve stenosis. There is no aortic valve regurgitation. Mitral Valve Normal mitral valve structure and function. There is trace mitral valve regurgitation. There is no mitral valve stenosis. Pulmonic Valve The pulmonic valve is likely normal. There is trace to mild pulmonic valve regurgitation. Tricuspid Valve Normal tricuspid valve structure. There is trace tricuspid valve regurgitation. The right ventricular systolic pressure is normal. The right ventricular systolic pressure is 17 mmHg. Normal right atrial pressure. There is no evidence of pulmonary hypertension. Great Vessels All visible segments of the aorta are normal in size. The pulmonary artery was not well visualized. Venous The inferior vena cava is normal in size and collapses greater than 50% with inspiration. Pericardium/Pleural There is no evidence of pericardial effusion. Prior Study Comparison No prior study available for comparison. Measurements 2D Linear Measurements IVSd: 1.20 0.6-0.9/0.6-1.0 cm LVIDd: 5.52 3.9-5.3/4.2-5.9 cm LVIDd Index: 2.59 2.4-3.2/2.2-3.1 cm/m2 LVIDs: 4.64 2.0-3.6 cm LVPWd: 1.29 0.7-1.1 cm Ao Root: 3.70 2.1-3.5 cm LA Diam: 3.60 2.7-3.8/3.0-4.0 cm LAIDs Index: 1.69 1.5-2.3 cm/m2 LV Mass: 359.55 67-162/88-224 g LV Mass Index: 168.81 43-95/49-115 g/m2 LVOT Diam: 2.20 3.0+(-)1.3 cm 2D Systolic Function EF 4C: 40.90 >55% EF 2C: 35.50 >55% EF BiP: 37.80 >55% Mitral Valve MV Pk E: 1.10 MV PK A: 0.96 MV Decel Time: 176.00 E/A: 1.20 E'Lateral: 7.45 E'Medial: 6.19 E/E' Med: 17.80 E/E' Lat: 14.80 PHT: 52.00 MVA PHT: 4.23 Decel [place]: 6.25 Aortic Valve AoV Pk Reji: 1.57 AoV Mn Reji: 0.97 AoV VTI: 0.38 AoV Pk Grad: 10.00 Aov Mn Grad: 5.00 MARY Cont.VTI: 2.27 LVOT LVOT Pk Reji: 0.95 LVOT Mn Reji: 0.63 LVOT VTI: 0.23 LVOT Pk Grad: 4.00 LVOT Mn Grad: 2.00 LVOT Diam: 2.20 LVOT Area: 3.80 Diastolic Function MV Pk E: 1.10 MV Pk A: 0.96 E/A: 1.20 E'Medial: 6.19 E/E' Med: 17.80 E' Laterial: 7.45 E/E' Lat: 14.80 Tricuspid Valve TR Pk Reji: 1.88 TR Pk Grad: 14.00 RA Press: 3.00 RVSP: 17.00 Great Vessels Aorta Ao Root-2D: 3.70 2.0-3.7 cm Ao Asc: 3.50 2.1-3.4 cm Pulmonary Valve PV Pk Reji: 0.93 Peak PV Grad: 3.00 Updated in Other Vendor System with Status of Final Eze Watt MD electronically signed on 02/13/2021 12:38:39 PM with status of Final
--- NOTE | 2021-02-13 12:12 | PC.NURSE ---
REPORT GIVEN TO [facility] RN, PATIENT WAITING ON EMS FOR TRANSPORT, HEPARIN INFUSING.
== END 2021-02-13 12:28 | disposition short-term general hospital (02) ==
PROVIDERS: Emergency Provider Emergency Medicine; PCP Internal Medicine
DX: I20.0 Unstable angina (principal); I10 Essential (primary) hypertension; Z20.822 Contact with and (suspected) exposure to COVID-19; Z79.899 Other long term (current) drug therapy
CPT/HCPCS: 36415; 71045; 71275; 80048; 80076; 83690; 83735; 84484; 85025; 85379; 85610; 85730; 87635; 93005; 93306; 96365; 96375; 99285; J3475; Q9967

== ENCOUNTER 2021-03-30 10:56 | Emergency (ER) | payer OTHER, SELFPAY ==
--- NOTE | ~2021-03-30 | XR_ITS ---
EXAMINATION: XR TOES, LEFT CLINICAL INFORMATION: Trauma COMPARISON: None TECHNIQUE: 3 views of the left toes were obtained. FINDINGS: There is no visible acute fracture, dislocation or subluxation seen. Mild loss of first MTP joint with periapical spurring is noted. There is mild soft tissue swelling along the first digit. XR/XR toe LT min 2V IMPRESSION: No visible acute fracture or dislocation. Mild soft tissue swelling first digit distal toe
[2021-03-30 11:33] VITALS: BP 164/91; PULSE 66; RESP 18; TEMP 36.7; O2SAT 98; BMI 29.0
--- NOTE | 2021-03-30 12:30 | ED_ITS ---
HPI - Wound/Laceration General Chief Complaint: Wound/Laceration Stated Complaint: left foot lac Time Seen by Provider: 03/30/21 12:27 Source: patient Mode of arrival: ambulatory Limitations: no limitations History of Present Illness HPI narrative: 50 y/o male presenting with left great toe laceration that he sustained this morning when he accidentally kicked the metal part on a stair while bringing in groceries. He reports a deep laceration at the base of his left great toe on the bottom. No active bleeding. He is ambulatory but reports some discomfort when he walks. No numbness, tingling. He states his last tdap was >10 years ago. Onset (ago): hour(s) (1) Extremity Location: left: foot (base of left great toe) Place: home Patient tetanus UTD: No Context: accidental Associated symptoms: pain Related Data Home Medications Medication Instructions Recorded Confirmed amlodipine 5 mg tablet 5 mg PO DAILY 02/24/21 02/24/21 aspirin 81 mg tablet,delayed 81 mg PO DAILY 02/24/21 02/24/21 release isosorbide mononitrate 30 mg 30 mg PO DAILY 02/24/21 02/24/21 tablet,extended release 24 hr metoprolol tartrate 50 mg tablet 50 mg PO BID 02/24/21 02/24/21 Previous Rx's Medication Instructions Recorded lisinopril 40 mg tablet 40 mg PO DAILY 90 Days #90 tab 11/05/20 metformin 1,000 mg tablet,extended 1,000 mg PO BID 90 Days #180 tab 11/05/20 release 24hr blood sugar diagnostic #50 ea 12/22/20 blood-glucose meter #1 ea 12/22/20 flash glucose sensor 1 ea TOPICAL Q2W #6 ea 12/22/20 lancets 28 gauge #100 ea 12/22/20 dulaglutide 0.75 mg/0.5 mL 0.75 mg SUBCUT QWEEK #2 ml 01/22/21 subcutaneous pen injector atorvastatin 40 mg tablet 40 mg PO BEDTIME #90 tab 03/24/21 cephalexin 500 mg PO Q6H 7 Days #28 cap 03/30/21 Allergies Allergy/AdvReac Type Severity Reaction Status Date / Time SEASONAL ALLERGIES Allergy Mild stuffy nose Uncoded 03/30/21 11:33 Review of Systems Review of Systems: Constitutional: No Fever, No Chills Gastrointestinal: No Nausea, No Vomiting Musculoskeletal: + joint pain, No Myalgias Skin: + Skin Lesions, No rash Neuro: No Weakness, No Numbness, No Dizziness, No Headache Psych: No Anxiety/Panic, No Depression Heme/Lymph: No Bruising, No Lymphadenopathy PMFSH Past Medical History Attestation statement: The following information was validated with the patient. Medical History Anemia Arthritis Carpal tunnel syndrome Diabetes Essential hypertension HTN (hypertension) Hyperlipemia Hyperlipidemia LDL goal <70 Nephrolithiasis Phlebitis Stroke Type 2 diabetes mellitus with unspecified 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 macular edema Surgical History (Updated 03/30/21 @ 11:37 by Aisha Mead RN) H/O cardiac catheterization H/O vitrectomy History of carpal tunnel surgery of right wrist Family History Family History Father Asthma Mother Diabetes mellitus Social History Social History (Updated 02/24/21 @ 08:12 by Allison Santacruz MD) Household Members: Significant Other Alcohol intake: never Advance Directives: No Advance Directives Information Provided: No Physical Exam Vital Signs: Vital Signs: Last Vital Signs Temp 98.0 F 03/30/21 11:33 Pulse 66 03/30/21 11:33 Resp 18 03/30/21 11:33 BP 164/91 H 03/30/21 11:33 Pulse Ox 98 03/30/21 11:33 Body Mass Index 29.0 Appearance: Alert. Oriented X3. No acute distress. HEENT: normal inspection CVS: Normal heart rate and rhythm. Pulses normal. Respiratory: No respiratory distress. Skin: Skin warm and dry. Normal skin color. Normal skin turgor. No rashes. Extremities: plantar aspect of left great toe base with laceration along the en tire base of his toe, normal toe ROM, sensation, NV intact distally. Neuro: Oriented X 3. No motor deficit. No sensory deficit. Course Course Course Narrative: 50 yo male presenting with laceration to left great toe, amenable to suture repair. Xray negative. Tdap given. Hx Dm will give ppx keflex to prevent infection. Procedures Laceration Laceration 1: Site: lower extremity Side (If applicable): left Size (cm): 4 Description: linear Depth: simple, single layer Local Anesthetic: lidocaine 2% Amount of anesthesia used (mL): 3 Pre-repair: wound explored, irrigated extensively and deep structures intact Skin layer closed with: nylon Size (cm): 4-0 Number of sutures: 6 Critical Care Time Critical Care Time Critical Care Time: No Discharge Plan Discharge Clinical Impression: Laceration Patient Disposition: Home, Self-Care Instructions: Laceration (ED) Additional Instructions: You will need your sutures out in 10 days. Do not get wet for 24 hours. After that you can briefly wash with soap and water then pat dry. Do not submerge in water, no swimming. Use bacitracin two times per day and keep clean and dry. Take the prescribed antibiotic as directed to help prevent infection. Follow up with your doctor as needed. If you develop signs of infection including worsening pain, swelling, redness or drainage of pus come back to the ER for further evaluation. Prescriptions: New cephalexin 500 mg capsule 500 mg PO Q6H 7 Days Qty: 28 RF: 0 No Action (DME) FreeStyle Test Strip See Rx Instructions .ROUTE .MEDSUPPLY Qty: 50 RF: 11 (DME) blood-glucose meter [FreeStyle [place] Lite] Kit See Rx Instructions .ROUTE .MEDSUPPLY Qty: 1 RF: 0 FreeStyle [place] 14 Day Sensor Kit 1 ea topical Q2W Qty: 6 RF: 3 (DME) lancets [FreeStyle Lancets] 28 gauge misc See Rx Instructions .ROUTE .MEDSUPPLY Qty: 100 RF: 11 dulaglutide [Trulicity] 0.75 mg/0.5 mL pen injector 0.75 mg subcut QWEEK Qty: 2 RF: 0 atorvastatin 40 mg tablet 40 mg PO BEDTIME Qty: 90 RF: 0 lisinopril 40 mg tablet 40 mg PO DAILY 90 Days Qty: 90 RF: 1 metformin 1,000 mg tablet extended release 24hr 1,000 mg PO BID 90 Days Qty: 180 RF: 3 aspirin [Adult Aspirin Regimen] 81 mg tablet,delayed release (DR/EC) 81 mg PO DAILY RF: 0 amlodipine 5 mg tablet 5 mg PO DAILY RF: 0 metoprolol tartrate 50 mg tablet 50 mg PO BID RF: 0 isosorbide mononitrate 30 mg tablet extended release 24 hr 30 mg PO DAILY RF: 0 Interventions: ED Discharge Assessment Last Done: 03/30/21 14:03 Discharge Date/Time: 03/30/21 14:04
[2021-03-30] MEDS: Lidocaine HCl 2 % MPF 5 ML VIAL INFILTRATI (12:47)
[2021-03-30] MEDS: Diphth,Pertus(ACell),Tet Adult 0.5 ML SYRINGE IM (12:47)
== END 2021-03-30 14:04 | disposition home or self-care (01) ==
PROVIDERS: Emergency Provider Emergency Medicine Emergency Medical Services; PCP Internal Medicine
DX: S91.112A Laceration without foreign body of left great toe without damage to nail, initial encounter (principal); E11.9 Type 2 diabetes mellitus without complications; I10 Essential (primary) hypertension; Z79.84 Long term (current) use of oral hypoglycemic drugs; Z79.899 Other long term (current) drug therapy; W22.09XA Striking against other stationary object, initial encounter; Y93.89 Activity, other specified; Y92.009 Unspecified place in unspecified non-institutional (private) residence as the place of occurrence of the external cause; Y99.9 Unspecified external cause status
CPT/HCPCS: 12002; 73660; 90471; 90715; 99283; 99284

== ENCOUNTER 2021-04-09 09:47 | Emergency (ER) | payer OTHER, SELFPAY ==
[2021-04-09 09:50] VITALS: BP 193/95; PULSE 71; RESP 16; TEMP 36.7; O2SAT 99; BMI 28.1
--- NOTE | 2021-04-09 10:21 | ED.WOUNDLAC ---
HPI - Wound/Laceration General Chief Complaint: Wound/Laceration Stated Complaint: suture removal Time Seen by Provider: 04/09/21 10:21 History of Present Illness HPI narrative: patient presents for suture removal at base of left big toe after lacerating 10 days ago, no complaints no redness no pain no swelling Related Data Home Medications Medication Instructions Recorded Confirmed amlodipine 5 mg tablet 5 mg PO DAILY 02/24/21 02/24/21 aspirin 81 mg tablet,delayed 81 mg PO DAILY 02/24/21 02/24/21 release isosorbide mononitrate 30 mg 30 mg PO DAILY 02/24/21 02/24/21 tablet,extended release 24 hr metoprolol tartrate 50 mg tablet 50 mg PO BID 02/24/21 02/24/21 Previous Rx's Medication Instructions Recorded lisinopril 40 mg tablet 40 mg PO DAILY 90 Days #90 tab 11/05/20 metformin 1,000 mg tablet,extended 1,000 mg PO BID 90 Days #180 tab 11/05/20 release 24hr blood sugar diagnostic #50 ea 12/22/20 blood-glucose meter #1 ea 12/22/20 flash glucose sensor 1 ea TOPICAL Q2W #6 ea 12/22/20 lancets 28 gauge #100 ea 12/22/20 dulaglutide 0.75 mg/0.5 mL 0.75 mg SUBCUT QWEEK #2 ml 01/22/21 subcutaneous pen injector atorvastatin 40 mg tablet 40 mg PO BEDTIME #90 tab 03/24/21 cephalexin 500 mg PO Q6H 7 Days #28 cap 03/30/21 Allergies Allergy/AdvReac Type Severity Reaction Status Date / Time SEASONAL ALLERGIES Allergy Mild stuffy nose Uncoded 03/30/21 11:33 Review of Systems Review of Systems: no fever no redness no pain no swelling no numbness no weakness Yes all other systems are reviewed and are negative PMFSH Past Medical History Source: nursing notes reviewed Medical History Anemia Arthritis Carpal tunnel syndrome Diabetes Essential hypertension HTN (hypertension) Hyperlipemia Hyperlipidemia LDL goal <70 Nephrolithiasis Phlebitis Stroke Type 2 diabetes mellitus with unspecified 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 macular edema Surgical History (Updated 03/30/21 @ 11:37 by Aisha Mead RN) H/O cardiac catheterization H/O vitrectomy History of carpal tunnel surgery of right wrist Family History Family History Father Asthma Mother Diabetes mellitus Social History Social History (Updated 02/24/21 @ 08:12 by Allison Santacruz MD) Household Members: Significant Other Alcohol intake: never Advance Directives: No Advance Directives Information Provided: No Physical Exam Vital Signs: Vital Signs: Last Vital Signs Temp 98.0 F 04/09/21 09:50 Pulse 71 04/09/21 09:50 Resp 16 04/09/21 09:50 BP 193/95 H 04/09/21 09:50 Pulse Ox 99 04/09/21 09:50 Body Mass Index 28.1 general appearance no acute distress Head is normocephalic atraumatic Neck is supple Respiratory no distress Left foot exam there are sutures in place on the palmar surface of left big toe at the base of the toe, there is no redness no swelling no discharge no lymphangitis there is full range of motion in the toe no evidence of infection Course Course Course Narrative: sutures are removed with no wound dehiscence no discharge no surrounding infection Discharge Plan Discharge Clinical Impression: Visit for suture removal Patient Disposition: Home, Self-Care Additional Instructions: sutures removed, wound looks good no sign of infection Return any concerns Prescriptions: No Action (DME) FreeStyle Test Strip See Rx Instructions .ROUTE .MEDSUPPLY Qty: 50 RF: 11 (DME) blood-glucose meter [FreeStyle [place] Lite] Kit See Rx Instructions .ROUTE .MEDSUPPLY Qty: 1 RF: 0 FreeStyle [place] 14 Day Sensor Kit 1 ea topical Q2W Qty: 6 RF: 3 (DME) lancets [FreeStyle Lancets] 28 gauge misc See Rx Instructions .ROUTE .MEDSUPPLY Qty: 100 RF: 11 dulaglutide [Trulicity] 0.75 mg/0.5 mL pen injector 0.75 mg subcut QWEEK Qty: 2 RF: 0 atorvastatin 40 mg tablet 40 mg PO BEDTIME Qty: 90 RF: 0 cephalexin 500 mg capsule 500 mg PO Q6H 7 Days Qty: 28 RF: 0 lisinopril 40 mg tablet 40 mg PO DAILY 90 Days Qty: 90 RF: 1 metformin 1,000 mg tablet extended release 24hr 1,000 mg PO BID 90 Days Qty: 180 RF: 3 aspirin [Adult Aspirin Regimen] 81 mg tablet,delayed release (DR/EC) 81 mg PO DAILY RF: 0 amlodipine 5 mg tablet 5 mg PO DAILY RF: 0 metoprolol tartrate 50 mg tablet 50 mg PO BID RF: 0 isosorbide mononitrate 30 mg tablet extended release 24 hr 30 mg PO DAILY RF: 0 Interventions: ED Discharge Assessment Last Done: 04/09/21 10:31 Discharge Date/Time: 04/09/21 10:32
== END 2021-04-09 10:32 | disposition home or self-care (01) ==
PROVIDERS: Emergency Provider Emergency Medicine; PCP Internal Medicine
DX: Z48.02 Encounter for removal of sutures (principal); S91.112D Laceration without foreign body of left great toe without damage to nail, subsequent encounter; X58.XXXD Exposure to other specified factors, subsequent encounter
CPT/HCPCS: 99283

== ENCOUNTER → 2021-08-20 14:21 | Outpatient (BNVA) | payer MEDICAID, SELFPAY | PROVIDERS: PCP Internal Medicine; Referring Provider Internal Medicine; Visit Provider Internal Medicine Cardiovascular Disease | DX: I10 Essential (primary) hypertension (principal); I47.2 Ventricular tachycardia; E11.319 Type 2 diabetes mellitus with unspecified 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 macular edema; E78.5 Hyperlipidemia, unspecified; Z87.891 Personal history of nicotine dependence; Z98.61 Coronary angioplasty status; Z98.890 Other specified postprocedural states; J30.2 Other seasonal allergic rhinitis; Z79.4 Long term (current) use of insulin; Z79.82 Long term (current) use of aspirin; Z79.899 Other long term (current) drug therapy | CPT/HCPCS: 99212 ==

== ENCOUNTER → 2021-11-19 13:46 | Outpatient (BNVA) | payer MEDICAID, SELFPAY | PROVIDERS: PCP Nurse Practitioner Family; Referring Provider Nurse Practitioner Family; Visit Provider Internal Medicine Cardiovascular Disease | DX: I47.2 Ventricular tachycardia (principal); I20.8 Other forms of angina pectoris; Z98.61 Coronary angioplasty status | CPT/HCPCS: 93005; 99212 ==

== ENCOUNTER → 2021-12-30 13:23 | Outpatient (REF) | payer MEDICAID, SELFPAY ==
--- NOTE | 2021-12-30 13:26 | CA_ITS ---
Transthoracic Echocardiogram Patient (Last, First, Middle): Kal Sellers, Gender: Male Date of : 1970 Age: 51 Procedure Date: 12/30/2021 Procedure Type: Transthoracic Echocardiogram Location: OP Height: 172.72 cm Weight: 89.81 kg BSA: 2.04 m2 Heart Rate: bpm BP: 136 / 78 mmHg Doctor Of Naprapathic Medicine: NEERAJ Referring MD: Reynaldo Shetty MD Symptoms: I47.2 - Ventricular tachycardia Study Quality: Fair Conclusions: - Normal left ventricular size and systolic function. There is mildly increased left ventricular wall thickness. The visually estimated ejection fraction is between 55-60%. - Spectral Doppler is indicative of an impaired relaxation filling pattern. E/E prime ratio is >15, consistent with elevated filling pressures. Low global longitudinal strain. - The basal inferior and basal inferoseptal segments are akinetic. - The left atrium is moderately dilated. Findings Left Ventricle Normal left ventricular size and systolic function. There is mildly increased left ventricular wall thickness. The visually estimated ejection fraction is between 55-60%. Abnormal diastolic function is noted. Spectral Doppler is indicative of an impaired relaxation filling pattern. E/E prime ratio is >15, consistent with elevated filling pressures. Low global longitudinal strain. Wall Motion Rest Echo Findings The basal inferior and basal inferoseptal segments are akinetic. Right Ventricle Normal right ventricular cavity size and systolic function. Atria The left atrium is moderately dilated. The right atrium is normal in size. Aortic Valve Normal aortic valve structure and function. There is no aortic valve stenosis. There is no aortic valve regurgitation. Mitral Valve The mitral valve appears normal. There is no mitral valve regurgitation. There is no mitral valve stenosis. Pulmonic Valve The pulmonic valve is likely normal. There is no pulmonic valve regurgitation. Tricuspid Valve Normal tricuspid valve structure. There is trace tricuspid valve regurgitation. Normal right atrial pressure. There is no evidence of pulmonary hypertension. Great Vessels All visible segments of the aorta are normal in size. The visualized portions of the pulmonary artery and branches are normal. Venous The inferior vena cava is normal in size and collapses greater than 50% with inspiration. Pericardium/Pleural There is no evidence of pericardial effusion. Prior Study Comparison Changes noted compared to prior study dated: 02/13/2021. LVEF is normal. Measurements 2D Linear Measurements IVSd: 1.25 0.6-0.9/0.6-1.0 cm LVIDd: 4.86 3.9-5.3/4.2-5.9 cm LVIDd Index: 2.38 2.4-3.2/2.2-3.1 cm/m2 LVIDs: 3.03 2.0-3.6 cm LVPWd: 1.52 0.7-1.1 cm LA Diam: 3.50 2.7-3.8/3.0-4.0 cm LAIDs Index: 1.72 1.5-2.3 cm/m2 LV Mass: 342.58 67-162/88-224 g LV Mass Index: 167.93 43-95/49-115 g/m2 LVOT Diam: 2.20 3.0+(-)1.3 cm 2D Systolic Function EF 4C: 60.50 >55% EF 2C: 61.00 >55% EF BiP: 60.10 >55% Mitral Valve MV Pk E: 0.94 MV PK A: 1.02 MV Decel Time: 232.00 E/A: 0.90 E'Lateral: 7.51 E'Medial: 4.79 E/E' Med: 19.50 E/E' Lat: 12.50 PHT: 68.00 MVA PHT: 3.24 Decel [place]: 4.03 Aortic Valve AoV Pk Reji: 1.84 AoV Mn Reji: 1.20 AoV VTI: 0.37 AoV Pk Grad: 14.00 Aov Mn Grad: 7.00 MARY Cont.VTI: 2.39 LVOT LVOT Pk Reji: 1.04 LVOT Mn Reji: 0.73 LVOT VTI: 0.23 LVOT Pk Grad: 4.00 LVOT Mn Grad: 2.00 LVOT Diam: 2.20 LVOT Area: 3.80 Diastolic Function MV Pk E: 0.94 MV Pk A: 1.02 E/A: 0.90 E'Medial: 4.79 E/E' Med: 19.50 E' Laterial: 7.51 E/E' Lat: 12.50 Right Ventricle TAPSE (mm): 21.20 TVS' Reji: 11.10 Tricuspid Valve TR Pk Reji: 1.72 TR Pk Grad: 12.00 RA Press: 3.00 RVSP: 15.00 Great Vessels Aorta Sinus of Valsalva: 3.80 2.0-3.[address] [place]: 2.41 1.7-3.4 cm Ao Asc: 3.30 2.1-3.4 cm Ao Arch: 3.40 Updated in Other Vendor System with Status of Final Reynaldo Shetty MD electronically signed on 01/01/2022 10:54:39 PM with status of Final
== END ==
LOC: HO.CARD 13:23
PROVIDERS: PCP Nurse Practitioner Family; Visit Provider Internal Medicine Cardiovascular Disease
DX: I47.2 Ventricular tachycardia (principal)
CPT/HCPCS: 93306

== ENCOUNTER 2022-01-07 13:44 | Outpatient (REF) | payer MEDICAID, SELFPAY ==
--- NOTE | ~2022-01-07 | US_ITS ---
EXAMINATION: US VENOUS ULTRASOUND WITH DOPPLER LOWER EXTREMITY, LEFT CLINICAL INFORMATION: Left foot swelling and redness COMPARISON: None TECHNIQUE: Ultrasound of the deep veins is performed from the hip to the calf with compression sonography and color and pulse Doppler assessment. Spectral analysis with color-flow imaging is performed. FINDINGS: There is normal venous compression and respiratory variation and augmented flow. The visualized common femoral vein, superficial femoral vein, profunda femoral vein, popliteal vein, and the trifurcation region shows no evidence of deep venous thrombosis. There is no significant popliteal fossa cyst. If the patient's symptoms persist, followup ultrasound in 5 days 7 days might be of value to exclude proximal propagation from a non-visualized calf vein. US/US venous duplex LE LT IMPRESSION: No DVT demonstrated in the left lower extremity.
== END 2022-01-07 13:45 | disposition home or self-care (01) ==
LOC: HO.US 13:44
PROVIDERS: Visit Provider Nurse Practitioner Family
DX: R60.0 Localized edema (principal); M79.89 Other specified soft tissue disorders
CPT/HCPCS: 93971

== ENCOUNTER → 2022-04-28 13:16 | Outpatient (BNVA) | payer MEDICAID, SELFPAY | PROVIDERS: PCP Nurse Practitioner Family; Referring Provider Nurse Practitioner Family; Visit Provider Internal Medicine Cardiovascular Disease | DX: I20.8 Other forms of angina pectoris (principal); I47.2 Ventricular tachycardia; Z98.61 Coronary angioplasty status | CPT/HCPCS: 99212 ==

== ENCOUNTER 2022-11-16 10:02 | Emergency (ER) | payer MEDICAID, SELFPAY ==
--- NOTE | ~2022-11-16 | XR_ITS ---
EXAMINATION: XR CHEST CLINICAL INFORMATION: Chest pain COMPARISON: 02/13/2021 TECHNIQUE: 2 views of the chest were obtained. FINDINGS: Lungs are well expanded and clear. No pleural effusion or pneumothorax. Cardiac silhouette is normal in size. Pulmonary vascular pattern is normal. A loop recorder projects over the left anterior chest wall. Chronic mild scoliosis of the mildly degenerated thoracic spine. XR/XR chest 2V IMPRESSION: No acute pulmonary disease compared to 02/13/2021.
--- NOTE | 2022-11-16 10:04 | ECG_ITS ---
Test Reason : chest pain Blood Pressure : / mmHG Vent. Rate : 059 BPM Atrial Rate : 059 BPM P-R Int : 120 ms QRS Dur : 122 ms QT Int : 436 ms P-R-T Axes : -24 -31 -05 degrees QTc Int : 431 ms Sinus bradycardia Left axis deviation Right bundle branch block Abnormal ECG When compared with ECG of 13-FEB-2021 09:15, T wave inversion no longer evident in Anterior leads QT has shortened Referred By: Generic ED Physician Electronically Signed By:
[2022-11-16 10:05] VITALS: BP 144/65; PULSE 65; RESP 20; TEMP 36.3; O2SAT 98; BMI 29.2
--- NOTE | 2022-11-16 10:40 | ED.CHESTPAIN ---
HPI - Chest Pain General Chief Complaint: Chest Pain Stated Complaint: Chest tightness Time Seen by Provider: 11/16/22 10:40 Source: patient Mode of arrival: ambulatory Limitations: no limitations History of Present Illness HPI narrative: 52 [id number] with pmHx of HLD, HTN, unstable angina, DMII, NSVT, s/p ILR placement c/o 4 days intermittent sternal chest tightness and 1 day of intermittent RLQ tenderness, diarrhea, cough, and subjective fevers. Chest tightness reproducible with palpation, no change with inspiration. Denies chills, fatigue, weight loss, N/V, dysuria, or SOB. MD complaint: chest heaviness Onset (ago): day(s) (4) Timing of current episode: episodic Pain location: parasternal Pain radiation: none Quality: tightness Related Data Home Medications Medication Instructions Recorded Confirmed amlodipine 5 mg tablet 5 mg PO DAILY 02/24/21 04/28/22 aspirin 81 mg tablet,delayed 81 mg PO DAILY 02/24/21 04/28/22 release (Adult Aspirin Regimen) atorvastatin 80 mg tablet 80 mg PO DAILY 08/20/21 04/28/22 isosorbide mononitrate 60 mg 60 mg PO QAM 08/20/21 04/28/22 tablet,extended release 24 hr metoprolol tartrate 75 mg tablet 75 mg PO BID 08/20/21 04/28/22 ticagrelor 90 mg tablet (Brilinta) 90 mg PO BID 08/20/21 04/28/22 cholecalciferol (vitamin D3) 50 50 mcg PO DAILY 11/19/21 04/28/22 mcg (2,000 unit) capsule empagliflozin 10 mg tablet 10 mg PO QAM 11/19/21 04/28/22 (Jardiance) hydroxyzine HCl 10 mg tablet 10 - 20 mg PO BID PRN anxiety 11/19/21 04/28/22 Previous Rx's Medication Instructions Recorded metformin 1,000 mg tablet,extended 1,000 mg PO BID 90 days #180 tabs 11/05/20 release 24hr blood sugar diagnostic (FreeStyle #50 ea 12/22/20 Test strips) blood-glucose meter (FreeStyle #1 ea 12/22/20 Grapevine Lite kit) flash glucose sensor (FreeStyle 1 ea topical Q2W #6 ea 12/22/20 Ronen 14 Day Sensor kit) lancets 28 gauge (FreeStyle #100 ea 12/22/20 Lancets) lisinopril 40 mg tablet 40 mg PO DAILY 90 days #90 tabs 06/17/21 Allergies Allergy/AdvReac Type Severity Reaction Status Date / Time SEASONAL ALLERGIES Allergy Mild stuffy nose Uncoded 04/28/22 13:25 Review of Systems Constitutional: Constitutional: Reports no additional constitutional complaints, Denies chills, Reports fever(s) and Denies night sweats Eyes: Eyes: Reports no additional eye complaints, Denies blurry vision, Denies change in vision, Denies diplopia, Denies eye discharge, Denies loss of vision and Denies eye pain ENT: Denies dizziness Cardiovascular: Cardiovascular: Reports no additional cardiovascular complaints, Reports chest pain, Reports chest pain at rest, Reports chest pain with activity, Denies lightheadedness, Denies Loss of Consciousness and Denies dyspnea Respiratory: Respiratory: Reports no additional respiratory complaints and Denies dyspnea Gastrointestinal: Gastrointestinal: Reports no additional gastrointestinal complaints, Reports abdominal pain (RLQ), Denies melena, Denies hematochezia, Denies change in bowel habits, Denies change in stool character and Reports diarrhea Genitourinary: Genitourinary: Reports no additional male genitourinary complaints, Denies hematuria, Denies oliguria, Denies difficulty urinating, Denies dysuria, Denies urinary frequency, Denies urinary hesitancy, Denies urinary incontinence and Denies urinary urgency Musculoskeletal: Musculoskeletal: Reports no additional musculoskeletal complaints, Denies numbness and Denies tingling Neurologic: Denies dizziness, Denies loss of vision, Denies numbness and Denies tingling Psychiatric: Psychiatric: Reports no additional psychiatric complaints Endocrine: Endocrine: Reports no additional endocrine complaints Hematologic/Lymphatic: Hematologic/Lymphatic: Reports no additional hematologic/lymphatic complaints Allergic/Immunologic: Allergic/Immunologic: Reports no additional allergic/immunologic complaints PMFSH Past Medical History Attestation statement: The following information was validated with the patient. 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 macular edema Surgical History H/O cardiac catheterization H/O vitrectomy History of carpal tunnel surgery of right wrist Family History Family History Father Asthma Mother Diabetes mellitus Social History Social History Household Members: Significant Other Alcohol intake: never Patient Tobacco Use Status: Former Tobacco user Quit Date: 2012 Years Smoked: 6 +/- Advance Directives: No Advance Directives Information Provided: Yes Physical Exam Vital Signs: Vital Signs: Last Vital Signs Temp 97.3 F 11/16/22 10:05 Pulse 50 11/16/22 14:02 Resp 12 11/16/22 14:02 BP 148/62 H 11/16/22 14:02 Pulse Ox 98 11/16/22 14:02 O2 Del Method 11/16/22 14:02 BMI result Body Mass Index 29.2 Const: General: cooperative, comfortable, alert, awake and poor hygiene Nutritional Appearance: well nourished Orientation/consciousness: patient oriented x3 Limitations: no limitations HEENT: Head: Yes normal to inspection and Yes atraumatic Ears: hearing grossly normal bilaterally and external ears normal General nose exam: Normal external nose present, no nasal discharge noted and no epistaxis Face and sinus: Yes normal facial exam, No abrasion and No laceration Mouth: Normal oral and palatal mucosa present, no drooling and no muffled voice Eyes: General: appearance normal, both eyes and all related structures Periorbital: periorbital findings normal Eyelids: Yes eyelids normal Conjunctivae: conjunctivae normal Pupils: Equal, round and reactive pupils present EOM: EOMs intact bilaterally Neck: Neck: Yes normal visual inspection, Yes full ROM and Yes no lymphadenopathy Lymphatic: no lymphadenopathy noted Chest: Chest palpation & inspection: normal inspection of the chest and other (ILR left chest wall) Resp: Effort & Inspection: normal respiratory effort and able to speak in complete sentences Auscultation: clear to auscultation bilaterally Cardio: Rate: regular rate Rhythm: regular rhythm Heart sounds: S1 normal heart sound present and S2 normal heart sound present GI: Inspection: Yes normal to inspection Auscultation: normal bowel sounds Rectal Exam - Male: Yes tenderness (RLQ) Neuro: General: patient oriented x3 and moves all extremities Cranial nerves: Yes Equal, round and reactive pupils present Cognition (Neuro): normal cognition Motor exam (neuro): 5/5 motor strength present throughout Sensory Exam: Normal double simultaneous stimulation for sensation Coordination: [id number] test normal Extrem: General: Yes normal to inspection, Yes full ROM and Yes capillary refill normal Psych: Appearance: grossly normal Mental Status: mental status grossly normal Affect: normal affect Attitude: cooperative Thought process: Normal thought process present Thought content: Normal thought content present Insight: Good insight present (Psych) Medications Administered Discontinued Medications Generic Name Dose Route Start Last Admin Trade Name Freq PRN Reason Stop Dose Admin Sodium Chloride 1,000 mls @ 999 mls/hr 11/16/22 11:15 11/16/22 15:32 Ns IV 11/16/22 12:15 Infused .Q1H1M PRINCESS Infusion Medical Decision Making Medical Decision Making [facility] Narrative: Patient is a 52 year old assigned male at with a history of HLD, HTN, unstable angina, DMII, NSVT, s/p ILR placement c/o 4 days intermittent sternal chest tightness and 1 day of intermittent RLQ tenderness, diarrhea, cough, and subjective fevers. Patient's physical exam showed pain with palpation of the chest but was otherwise unremarkable. Patient's blood work was unremarkable. Patient's EKG was unremarkable. Patient's chest x-ray showed no acute process. I explained my physical exam findings as well as all test results to the patient. I answered all questions asked by the patient. I stressed the importance of the patient taking his medication as prescribed. I stressed the importance of the patient following up with his primary care provider and his proposal lead writer. I stressed the importance of the patient returning to the emergency department immediately if his symptoms were to worsen or if he were to develop any dizziness, shortness of breath, difficulty breathing, chest pain, blurry vision, loss of vision, nausea, vomiting, abdominal pain, fever, chills, back pain, or any other complaints. Patient verbalized agreement and understanding with this treatment plan and discharge. Differential Diagnosis Differential Diagnoses: The differential diagnosis associated with the presentation includes chest pain, chest wall pain Lab Data [facility] Lab Attestation statement: I reviewed the patient's lab results. 11/16/22 10:37 11/16/22 10:37 Labs: Lab Results 11/16/22 11/16/22 11/16/22 Range/Units 10:37 10:37 10:37 WBC 5.3 (4.8-10.8) X10*3/uL RBC 3.86 L (4.60-5.80) X10*6/uL Hgb 11.6 L (14.0-18.0) g/dl Hct 33.5 L (42.0-52.0) % MCV 86.8 (80.0-98.0) fL MCH 30.1 (27.0-33.0) pg MCHC 34.6 (31.0-36.0) g/dl RDW 12.9 (11.0-16.0) % Plt Count 208 (160-400) X10*3/uL MPV 9.5 (9.4-12.4) fL Immature Gran % (Auto) 0.2 (0.0-0.4) % Neut % (Auto) 79.6 H (45-73) % Lymph % (Auto) 13.6 L (20-40) % Deuel % (Auto) 5.1 (2-11) % Eos % (Auto) 1.3 (0-4) % Baso % (Auto) 0.2 (0-2) % Lymph # (Auto) 0.7 L (1.2-4.9) X10*3/uL Deuel # (Auto) 0.3 (0.1-1.2) X10*3/uL Eos # (Auto) 0.1 (0.0-0.4) X10*3/uL Baso # (Auto) 0.0 (0.0-0.2) X10*3/uL Abs Immat Gran (auto) 0.01 (0.00-0.03) X10*3/uL Absolute Neuts (auto) 4.2 (2.0-8.3) x10*3/uL Absolute Nucleated RBC 0.000 (0.0-0.012) X10*3/uL Nucleated RBC % (auto) 0.0 (0.0-0.2) /100WBC PT (10.0-13.1) SEC INR (0.9-1.1) APTT (26.0-36.4) SEC Sodium 143 (135-145) mmol/L Potassium 4.5 (3.3-5.1) mmol/L Chloride 110 H (96-108) mmol/L Carbon Dioxide 24 (22-29) mmol/L Anion Gap 14 (12-20) BUN 19 H (9-16) mg/dL Creatinine 1.60 H (0.5-1.4) mg/dL Estim Creat Clear Calc 56.6 Estimated GFR 45 Random Glucose 130 H (60-115) mg/dL Calcium 8.8 (8.4-10.2) mg/dL Total Bilirubin 0.7 (0.0-1.0) mg/dL Direct Bilirubin 0.2 (0.0-0.5) mg/dL AST 19 (5-37) U/L ALT 22 (0-40) U/L Alkaline Phosphatase 68 (39-117) U/L Troponin I High Sens 6.6 (<3.5-35.0) ng/L Total Protein 6.2 L (6.5-8.0) g/dL Albumin 4.2 (3.5-5.0) g/dL Lipase 29 (8-78) U/L Urine Opiates Screen (Not Detect) Urine Fentanyl Screen (Not Detect) Ur Barbiturates Screen (Not Detect) Ur Phencyclidine Scrn (Not Detect) Ur Amphetamines Screen (Not Detect) U Benzodiazepines Scrn (Not Detect) Urine Cocaine Screen (Not Detect) U Marijuana (THC) Screen (Not Detect) COVID-19 (JAMIE) (Negative) COVID-19 Clin Com Influenza Type A (PCR) (Negative) Influenza Type B (PCR) (Negative) RSV RNA Qual (PCR) (Negative) SARS-CoV-2 RNA (RT-PCR) (Negative) 11/16/22 11/16/22 11/16/22 Range/Units 10:37 11:27 11:31 WBC (4.8-10.8) X10*3/uL RBC (4.60-5.80) X10*6/uL Hgb (14.0-18.0) g/dl Hct (42.0-52.0) % MCV (80.0-98.0) fL MCH (27.0-33.0) pg MCHC (31.0-36.0) g/dl RDW (11.0-16.0) % Plt Count (160-400) X10*3/uL MPV (9.4-12.4) fL Immature Gran % (Auto) (0.0-0.4) % Neut % (Auto) (45-73) % Lymph % (Auto) (20-40) % Deuel % (Auto) (2-11) % Eos % (Auto) (0-4) % Baso % (Auto) (0-2) % Lymph # (Auto) (1.2-4.9) X10*3/uL Deuel # (Auto) (0.1-1.2) X10*3/uL Eos # (Auto) (0.0-0.4) X10*3/uL Baso # (Auto) (0.0-0.2) X10*3/uL Abs Immat Gran (auto) (0.00-0.03) X10*3/uL Absolute Neuts (auto) (2.0-8.3) x10*3/uL Absolute Nucleated RBC (0.0-0.012) X10*3/uL Nucleated RBC % (auto) (0.0-0.2) /100WBC PT 11.9 (10.0-13.1) SEC INR 1.0 (0.9-1.1) APTT 30.1 (26.0-36.4) SEC Sodium (135-145) mmol/L Potassium (3.3-5.1) mmol/L Chloride (96-108) mmol/L Carbon Dioxide (22-29) mmol/L Anion Gap (12-20) BUN (9-16) mg/dL Creatinine (0.5-1.4) mg/dL Estim Creat Clear Calc Estimated GFR Random Glucose (60-115) mg/dL Calcium (8.4-10.2) mg/dL Total Bilirubin (0.0-1.0) mg/dL Direct Bilirubin (0.0-0.5) mg/dL AST (5-37) U/L ALT (0-40) U/L Alkaline Phosphatase (39-117) U/L Troponin I High Sens (<3.5-35.0) ng/L Total Protein (6.5-8.0) g/dL Albumin (3.5-5.0) g/dL Lipase (8-78) U/L Urine Opiates Screen (Not Detect) Urine Fentanyl Screen (Not Detect) Ur Barbiturates Screen (Not Detect) Ur Phencyclidine Scrn (Not Detect) Ur Amphetamines Screen (Not Detect) U Benzodiazepines Scrn (Not Detect) Urine Cocaine Screen (Not Detect) U Marijuana (THC) Screen (Not Detect) COVID-19 (JAMIE) Negative (Negative) COVID-19 Clin Com See Note Influenza Type A (PCR) NEGATIVE (Negative) Influenza Type B (PCR) NEGATIVE (Negative) RSV RNA Qual (PCR) NEGATIVE (Negative) SARS-CoV-2 RNA (RT-PCR) NEGATIVE (Negative) 11/16/22 11/16/22 11/16/22 Range/Units 11:31 14:11 14:11 WBC (4.8-10.8) X10*3/uL RBC (4.60-5.80) X10*6/uL Hgb (14.0-18.0) g/dl Hct (42.0-52.0) % MCV (80.0-98.0) fL MCH (27.0-33.0) pg MCHC (31.0-36.0) g/dl RDW (11.0-16.0) % Plt Count (160-400) X10*3/uL MPV (9.4-12.4) fL Immature Gran % (Auto) (0.0-0.4) % Neut % (Auto) (45-73) % Lymph % (Auto) (20-40) % Deuel % (Auto) (2-11) % Eos % (Auto) (0-4) % Baso % (Auto) (0-2) % Lymph # (Auto) (1.2-4.9) X10*3/uL Deuel # (Auto) (0.1-1.2) X10*3/uL Eos # (Auto) (0.0-0.4) X10*3/uL Baso # (Auto) (0.0-0.2) X10*3/uL Abs Immat Gran (auto) (0.00-0.03) X10*3/uL Absolute Neuts (auto) (2.0-8.3) x10*3/uL Absolute Nucleated RBC (0.0-0.012) X10*3/uL Nucleated RBC % (auto) (0.0-0.2) /100WBC PT (10.0-13.1) SEC INR (0.9-1.1) APTT (26.0-36.4) SEC Sodium (135-145) mmol/L Potassium (3.3-5.1) mmol/L Chloride (96-108) mmol/L Carbon Dioxide (22-29) mmol/L Anion Gap (12-20) BUN (9-16) mg/dL Creatinine (0.5-1.4) mg/dL Estim Creat Clear Calc Estimated GFR Random Glucose (60-115) mg/dL Calcium (8.4-10.2) mg/dL Total Bilirubin (0.0-1.0) mg/dL Direct Bilirubin (0.0-0.5) mg/dL AST (5-37) U/L ALT (0-40) U/L Alkaline Phosphatase (39-117) U/L Troponin I High Sens 6.9 7.7 (<3.5-35.0) ng/L Total Protein (6.5-8.0) g/dL Albumin (3.5-5.0) g/dL Lipase (8-78) U/L Urine Opiates Screen Not Detected (Not Detect) Urine Fentanyl Screen Not Detected (Not Detect) Ur Barbiturates Screen Not Detected (Not Detect) Ur Phencyclidine Scrn Not Detected (Not Detect) Ur Amphetamines Screen Not Detected (Not Detect) U Benzodiazepines Scrn Not Detected (Not Detect) Urine Cocaine Screen Not Detected (Not Detect) U Marijuana (THC) Screen Not Detected (Not Detect) COVID-19 (JAMIE) (Negative) COVID-19 Clin Com Influenza Type A (PCR) (Negative) Influenza Type B (PCR) (Negative) RSV RNA Qual (PCR) (Negative) SARS-CoV-2 RNA (RT-PCR) (Negative) Independent Interpretation I performed an independent interpretation of an: EKG Interpretation: Vent. Rate: 059 BPM ? ? Atrial Rate: 059 BPM P-R Int: 120 ms? QRS Dur: 122 ms QT Int: 436 ms ? ? ? P-R-T Axes: -24 -31 -05 degrees QTc Int: 431 ms ? Sinus bradycardia Left axis deviation Right bundle branch block Abnormal ECG When compared with ECG of 13-FEB-2021 09:15, T wave inversion no longer evident in Anterior leads QT has shortened DD/ 1022 Radiology Impression Radiologist Impression: My interpretation is in agreement with the radiologist's impression of this imaging study. EXAMINATION: XR CHEST CLINICAL INFORMATION: Chest pain COMPARISON: 02/13/2021 TECHNIQUE: 2 views of the chest were obtained. FINDINGS: Lungs are well expanded and clear. No pleural effusion or pneumothorax. Cardiac silhouette is normal in size. Pulmonary vascular pattern is normal. A loop recorder projects over the left anterior chest wall. Chronic mild scoliosis of the mildly degenerated thoracic spine. XR/XR chest 2V IMPRESSION: No acute pulmonary disease compared to 02/13/2021. Dictated By: Kevin Mcgovern MD Signed By: Electronically signed by Kevin Mcgovern MD 11/16/22 1210 Discharge Plan Discharge Clinical Impression: Chest pain Patient Disposition: Home, Self-Care Additional Instructions: Follow up with your primary care provider. Return to the emergency department immediately if your symptoms worsen or if you develop any dizziness, shortness of breath, difficulty breathing, chest pain, blurry vision, loss of vision, nausea, vomiting, abdominal pain, fever, chills, back pain, or any other complaints. Prescriptions: No Action (DME) FreeStyle Test Strip See Rx Instructions .ROUTE .MEDSUPPLY Qty: 50 11RF Rx Instructions: Use 1 test strip twice a day (DME) blood-glucose meter [FreeStyle Grapevine Lite] Kit See Rx Instructions .ROUTE .MEDSUPPLY Qty: 1 0RF Rx Instructions: As directed FreeStyle Ronen 14 Day Sensor Kit 1 ea topical Q2W Qty: 6 3RF (DME) lancets [FreeStyle Lancets] [address] [facility] See Rx Instructions .ROUTE .MEDSUPPLY Qty: 100 11RF Rx Instructions: Use 1 lancet twice a day lisinopril 40 mg tablet 40 mg PO DAILY 90 Days Qty: 90 1RF metformin 1,000 mg tablet extended release 24hr 1,000 mg PO BID 90 Days Qty: 180 3RF aspirin [Adult Aspirin Regimen] 81 mg tablet,delayed release (DR/EC) 81 mg PO DAILY amlodipine 5 mg tablet 5 mg PO DAILY Brilinta 90 mg tablet 90 mg PO BID metoprolol tartrate 75 mg tablet 75 mg PO BID isosorbide mononitrate 60 mg tablet extended release 24 hr 60 mg PO QAM atorvastatin 80 mg tablet 80 mg PO DAILY cholecalciferol (vitamin D3) 50 mcg (2,000 unit) capsule 50 mcg PO DAILY hydroxyzine HCl 10 mg tablet 10 - 20 mg PO BID PRN (Reason: anxiety) Jardiance 10 mg tablet 10 mg PO QAM [place] [facility] [place] (Follow up with your proposal lead writer. ) [facility] [place] (Call to establish and follow up with a primary care provider. If you already have a primary care provider, please follow up with them. ) [facility] [place]Provider Group] (Call to establish and follow up with a primary care provider. If you already have a primary care provider, please follow up with them. ) [facility] [place] Group] (Call to establish and follow up with a primary care provider. If you already have a primary care provider, please follow up with them. ) Stand Alone Forms: Work/School Release Interventions: ED Discharge Assessment Last Done: 11/16/22 15:33 Discharge Date/Time: 11/16/22 15:33 Print Language: Bengali
[2022-11-16 10:44] LABS: Basophils Percent Auto 0.2 % (0-2); Eosinophils Absolute Auto 0.1 X10*3/uL (0.0-0.4); Eosinophils Percent Auto 1.3 % (0-4); Hematocrit 33.5 % (42.0-52.0); Hemoglobin 11.6 g/dl (14.0-18.0); Imm Gran Abs Auto 0.01 X10*3/uL (0.00-0.03); Imm Gran Pct Auto 0.2 % (0.0-0.4); Lymphocytes Absolute Auto 0.7 X10*3/uL (1.2-4.9); Lymphocytes Percent Auto 13.6 % (20-40); MANUAL DIFF FLAG NO; Mean Corpuscular HGB Conc 34.6 g/dl (31.0-36.0); Mean Corpuscular Hemoglobin 30.1 pg (27.0-33.0); Mean Corpuscular Volume 86.8 fL (80.0-98.0); Mean Platelet Volume 9.5 fL (9.4-12.4); Monocytes Absolute Auto 0.3 X10*3/uL (0.1-1.2); Monocytes Percent Auto 5.1 % (2-11); Neutrophils Absolute Auto 4.2 x10*3/uL (2.0-8.3); Neutrophils Percent Auto 79.6 % (45-73); Platelet Count 208 X10*3/uL (160-400); Red Blood Count 3.86 X10*6/uL (4.60-5.80); Red Cell Distribution Width 12.9 % (11.0-16.0); White Blood Count 5.3 X10*3/uL (4.8-10.8)
[2022-11-16 11:01] LABS: Alanine Aminotransferase 22 U/L (0-40); Albumin Level 4.2 g/dL (3.5-5.0); Alkaline Phosphatase 68 U/L (39-117); Anion Gap 14 (12-20); Aspartate Amino Transferase 19 U/L (5-37); Bilirubin Direct 0.2 mg/dL (0.0-0.5); Bilirubin Total 0.7 mg/dL (0.0-1.0); Blood Urea Nitrogen 19 mg/dL (9-16); Calcium 8.8 mg/dL (8.4-10.2); Carbon Dioxide 24 mmol/L (22-29); Chloride 110 mmol/L (96-108); Creatinine Clr Calc Pharmacy 56.6; Estimated Glomerular Filt Rate 45; Glucose Random 130 mg/dL (60-115); Lipase 29 U/L (8-78); Potassium 4.5 mmol/L (3.3-5.1); Sodium 143 mmol/L (135-145); Total Protein 6.2 g/dL (6.5-8.0)
[2022-11-16 11:11] LABS: Troponin-I High Sensitivity 6.6 ng/L (<3.5-35.0)
[2022-11-16 11:35] LABS: COVID-19 Test Negative (Negative); IDNOW Serial# 55D5AD1C
[2022-11-16 11:44] LABS: Prothrombin Time 11.9 SEC (10.0-13.1)
[2022-11-16 11:46] LABS: Partial Thromboplastin Time 30.1 SEC (26.0-36.4)
[2022-11-16 12:02] LABS: Troponin-I High Sensitivity 6.9 ng/L (<3.5-35.0)
[2022-11-16] MEDS: 0.9 % Sodium Chloride 1,000 ML 999 ML IV (12:11)
[2022-11-16 12:46] VITALS: BP 135/68; PULSE 55; RESP 16; O2SAT 98
--- NOTE | 2022-11-16 12:47 | PC.NURSE ---
pt resting quiety in nsr on the monitor unable to provide urine spec at this time
[2022-11-16 13:03] LABS: Influenza A PCR NEGATIVE (Negative); Influenza B PCR NEGATIVE (Negative); Resp Syncy Virus RNA Qual PCR NEGATIVE (Negative); SARS COV2 PCR INHOUSE NEGATIVE (Negative)
[2022-11-16 14:02] VITALS: BP 148/62; PULSE 50; RESP 12; O2SAT 98
[2022-11-16 14:28] LABS: Amphetamine Screen Urine Not Detected (Not Detect); Barbiturates, Urine Not Detected (Not Detect); Benzodiazepines Screen Urine Not Detected (Not Detect); Cannabinoid Screen Urine Not Detected (Not Detect); Cocaine Screen Urine Not Detected (Not Detect); Fentanyl, urine Not Detected (Not Detect); Opiate Screen Urine Not Detected (Not Detect); Phencyclidine Screen Urine Not Detected (Not Detect)
[2022-11-16 14:37] LABS: Troponin-I High Sensitivity 7.7 ng/L (<3.5-35.0)
--- NOTE | 2022-11-16 15:26 | PC.NURSE ---
this rn assumed care of pt @ 1500. awaiting for completion of iv fluids. once fluids have completed pt ready for discharge.
--- NOTE | 2022-11-16 15:32 | PC.NURSE ---
iv removed at time of discharge. pt ambulatory at time of discharge. pt provided with discharge packet and work note. pt verbalized understanding of discharge plan
== END 2022-11-16 15:33 | disposition home or self-care (01) ==
PROVIDERS: Physician Assistant Medical; Emergency Provider Emergency Medicine
DX: R07.89 Other chest pain (principal); I10 Essential (primary) hypertension; Z20.822 Contact with and (suspected) exposure to COVID-19; Z20.828 Contact with and (suspected) exposure to other viral communicable diseases; Z79.899 Other long term (current) drug therapy
CPT/HCPCS: 0241U; 36415; 71046; 80048; 80076; 80307; 83690; 84484; 85025; 85610; 85730; 87635; 93005; 96360; 96361; 99284; 99285

== ENCOUNTER 2022-12-12 13:37 | Inpatient (IN) | payer MEDICAID, SELFPAY ==
--- NOTE | ~2022-12-12 | CT_ITS ---
EXAMINATION: CT abdomen pelvis wo IV con CLINICAL INFORMATION: Reason for Exam right flank/lower quad pain COMPARISON: No prior CT available for comparison. TECHNIQUE: Multidetector volumetric imaging was performed from the superior aspect of the liver through the pubic symphysis , noncontrasted study Sagittal and coronal reformatted images were obtained on the technologist's workstation. This CT examination was performed using dose optimization techniques as appropriate, variously including the following: *Automated exposure control *Adjustment of mA and/or kV according to patient size (this includes techniques or standardized protocols for targeted exams where dose is matched to indication/reason for exam; i.e. extremities or head) *Use of iterative reconstruction technique DLP: 515 mGy-cm FINDINGS: LOWER THORAX: Included lung bases are clear. HEPATOBILIARY: No focal hepatic lesions. No biliary ductal dilatation. GALLBLADDER: There are multiple gallstones in the gallbladder. SPLEEN: Spleen is normal in size. PANCREAS: No focal mass or ductal dilatation. STOMACH AND GASTROINTESTINAL TRACT: Stomach is grossly unremarkable. Diffusely dilated small bowel loops, reaching up to the terminal ileum, the content of which is fecalized suggesting an ileus versus partial and/or early small bowel obstruction. There is excess amount of stool in the colon cecum, ascending, transverse, descending and sigmoid colon and rectum possible constipation. No CT evidence of appendicitis. ADRENALS: No adrenal nodules. KIDNEYS/URETERS: No hydronephrosis, stones or solid mass lesions. URINARY BLADDER: Partially decompressed. PELVIC VISCERA: Unremarkable PERITONEUM: No free air or fluid. LYMPH NODES: No lymphadenopathy. VASCULAR:Abdominal aorta normal in size, no aneurysm found. BONES, ABDOMINAL WALL AND SOFT TISSUES: Age-appropriate changes of the spine and skeletal system, no destructive osteolytic or osteosclerotic bone lesion found CT/CT abdomen pelvis wo IV con IMPRESSION: * Diffusely dilated small bowel loops reaching up to the terminal ileum, the content of which is fecalized suggesting an ileus versus partial and/or early small bowel obstruction. * Excess amount of stool in the colon possible constipation. * Cholelithiasis. * No CT evidence of bowel perforation.
[2022-12-12 13:44] VITALS: BP 143/65; PULSE 51; RESP 17; TEMP 36.6; O2SAT 98; BMI 28.1
--- NOTE | 2022-12-12 14:04 | PC.NURSE ---
Patient presents to ED RUQ abd pain some tenderness noted with auscultation palpation no guarding noted. BS quad x 4 patient reports flatus. Denies hematuria or dysuria reports pain feels like when he has had kidney stones in the past. AOx 4 neuros intact patient ambulatory with steady gait. No SOB or respiratory distress noted. IV access obtained labs collected and sent will CTM
[2022-12-12 14:05] LABS: Glucose, Whole Blood 155 mg/dL (60-115)
[2022-12-12 14:05] LABS: Glucose, Whole Blood 54 mg/dL (60-115)
[2022-12-12 14:05] LABS: MANUAL DIFF FLAG NO
--- NOTE | 2022-12-12 14:07 | ED.ABDPAIN ---
HPI - Abdominal Pain General Chief Complaint: Abdominal Pain Stated Complaint: Abd pain/vomiting Time Seen by Provider: 12/12/22 13:56 Source: patient Mode of arrival: ambulatory History of Present Illness HPI narrative: 52-year-old male with a history of renal colic and denies any intra-abdominal surgeries presents with abdominal discomfort primarily on the right . This all started at approximately 03:00 this morning and patient states he has had vomiting but denies any fevers or chills and denies any passing of gas. Patient states that he has continued to have a bowel movement. Related Data Home Medications Medication Instructions Recorded Confirmed aspirin 81 mg tablet,delayed 81 mg PO DAILY 02/24/21 12/12/22 release (Adult Aspirin Regimen) atorvastatin 80 mg tablet 80 mg PO BEDTIME 08/20/21 12/12/22 isosorbide mononitrate 60 mg 60 mg PO DAILY 08/20/21 12/12/22 tablet,extended release 24 hr metoprolol tartrate 75 mg tablet 75 mg PO BID 08/20/21 12/12/22 ticagrelor 90 mg tablet (Brilinta) 90 mg PO BID 08/20/21 12/12/22 empagliflozin 10 mg tablet 10 mg PO DAILY 11/19/21 12/12/22 (Jardiance) hydroxyzine HCl 10 mg tablet 10 - 20 mg PO BID PRN anxiety 11/19/21 12/12/22 amlodipine 10 mg tablet 1 tab PO DAILY 12/12/22 12/12/22 Previous Rx's Medication Instructions Recorded metformin 1,000 mg tablet,extended 1,000 mg PO BID 90 days #180 tabs 11/05/20 release 24hr blood sugar diagnostic (FreeStyle #50 ea 12/22/20 Test strips) blood-glucose meter (FreeStyle #1 ea 12/22/20 [place] Lite kit) lancets 28 gauge (FreeStyle #100 ea 12/22/20 Lancets) lisinopril 40 mg tablet 40 mg PO DAILY 90 days #90 tabs 06/17/21 Allergies Allergy/AdvReac Type Severity Reaction Status Date / Time SEASONAL ALLERGIES Allergy Mild stuffy nose Uncoded 04/28/22 13:25 Review of Systems Review of Systems Pertinent positives and negatives as stated in HPI PMFSH Past Medical History Source: nursing notes reviewed Medical History Anemia Arthritis Carpal tunnel syndrome Diabetes Essential hypertension HTN (hypertension) Hyperlipemia Hyperlipidemia LDL goal <70 Nephrolithiasis Phlebitis Stroke Type 2 diabetes mellitus with unspecified 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 macular edema Surgical History H/O cardiac catheterization H/O vitrectomy History of carpal tunnel surgery of right wrist Family History Family History Father Asthma Mother Diabetes mellitus Social History Social History Household Members: Significant Other Alcohol intake: unknown Patient Tobacco Use Status: Former Tobacco user Quit Date: 2012 Smoked: 6 +/- Smoked in Last 30 Days: No Use of substances other than those prescribed or required for medical reasons: Unknown Advance Directives: No Advance Directives Information Provided: Yes Physical Exam ED Vital Signs: Vital Signs - 24 hr 12/12/22 13:44 Temperature 98 F Pulse Rate 51 Respiratory Rate 17 Blood Pressure 143/65 H Pulse Oximetry 98 Oxygen Delivery Method Room Air BMI result Body Mass Index 28.1 VITAL SIGNS: Reviewed. GENERAL: Well developed, well nourished, in no acute distress. HEAD: Normocephalic/atraumatic EYES: PERRLA, EOMI LUNGS: Normal breath sounds. No adventitious sounds or accessory muscle use. SpO2<98> CARDIOVASCULAR: Regular rate and rhythm without noted murmurs ABDOMEN: Soft, non-tender, non-distended with bowel sounds. MUSCULOSKELETAL: No tenderness, deformities, or effusions noted on gross inspection. EXTREMITIES: No cyanosis, clubbing or edema. SKIN: Inspection of the skin reveals no rashes NEUROLOGIC: Alert and oriented x 4. Strength and sensation to light touch were grossly intact x 4. Medical Decision Making Medical Decision Making MDM Narrative: 52-year-old male with history and clinical presentation for which we will rule out renal colic, appendicitis, UTI, SBO although based on history this is felt to be less likely patient's symptoms seem more consistent with SBO. - The noted point of care glucose of 54 is erroneously, this is contaminated with IV fluids. I a reviewed all the investigations in my interpretation is that this patient has an SBO/ ileus. On further discussion with General surgery they have determined that patient's findings are most consistent with ileus and recommend admission to medicine and they will consult on the patient. 1734: I spoke with patient at bedside with manager of planning and explained to him that he does not have a kidney stone and instead that he has a blockage of his bowels and that he will not be able to either drink presently and will need to be on IV fluids and admitted. Patient acknowledges understanding and states that his pain has completely resolved at this time. Differential Diagnosis Please see the discussion above Consult Healthcare Provider 1721: I discussed this patient with the inpatient hospitalist who accepts admission. Lab Data please see the discussion above 12/12/22 13:56 12/12/22 13:56 Labs: Lab Results 12/12/22 12/12/22 12/12/22 Range/Units 13:56 13:56 13:56 WBC 9.6 (4.8-10.8) X10*3/uL RBC 4.22 L (4.60-5.80) X10*6/uL Hgb 12.6 L (14.0-18.0) g/dl Hct 36.0 L (42.0-52.0) % MCV 85.3 (80.0-98.0) fL MCH 29.9 (27.0-33.0) pg MCHC 35.0 (31.0-36.0) g/dl RDW 12.8 (11.0-16.0) % Plt Count 257 (160-400) X10*3/uL MPV 9.1 L (9.4-12.4) fL Immature Gran % (Auto) 0.3 (0.0-0.4) % Neut % (Auto) 85.7 H (45-73) % Lymph % (Auto) 8.9 L (20-40) % [place] % (Auto) 4.2 (2-11) % Eos % (Auto) 0.8 (0-4) % Baso % (Auto) 0.1 (0-2) % Lymph # (Auto) 0.9 L (1.2-4.9) X10*3/uL [place] # (Auto) 0.4 (0.1-1.2) X10*3/uL Eos # (Auto) 0.1 (0.0-0.4) X10*3/uL Baso # (Auto) 0.0 (0.0-0.2) X10*3/uL Abs Immat Gran (auto) 0.03 (0.00-0.03) X10*3/uL Absolute Neuts (auto) 8.2 (2.0-8.3) x10*3/uL Absolute Nucleated RBC 0.000 (0.0-0.012) X10*3/uL Nucleated RBC % (auto) 0.0 (0.0-0.2) /100WBC Sodium 143 (135-145) mmol/L Potassium 4.0 (3.3-5.1) mmol/L Chloride 109 H (96-108) mmol/L Carbon Dioxide 21 L (22-29) mmol/L Anion Gap 17 (12-20) BUN 19 H (9-16) mg/dL Creatinine 1.65 H (0.5-1.4) mg/dL Estim Creat Clear Calc 54.0 Estimated GFR 44 POC Glucose (60-115) mg/dL Random Glucose 154 H (60-115) mg/dL Calcium 9.2 (8.4-10.2) mg/dL Total Bilirubin 0.9 (0.0-1.0) mg/dL AST 22 (5-37) U/L ALT 29 (0-40) U/L Alkaline Phosphatase 60 (39-117) U/L Total Protein 6.4 L (6.5-8.0) g/dL Albumin 4.3 (3.5-5.0) g/dL Urine Color Yellow Urine Appearance Clear Urine pH 5.0 (5.0-9.0) Ur Specific [place] >= 1.030 H (1.005-1.025) Urine Protein Negative (Neg-Trace) mg/dL Urine Glucose (UA) >=1000 H (Negative) mg/dL Urine Ketones Negative (Negative) mg/dL Urine Blood Negative (Negative) Urine Nitrite Negative (Negative) Ur Leukocyte Esterase Small (1+) H (Negative) Urine RBC 0-2 (0-2) /HPF Urine WBC 21-50 H (0-5) /HPF Ur Squamous Epith Cells 3-5 (0-2) /HPF Urine Bacteria 1+ (None Seen) Hyaline Casts 3-5 (0-2) /LPF Urine Yeast Present 12/12/22 12/12/22 Range/Units 14:00 14:02 WBC (4.8-10.8) X10*3/uL RBC (4.60-5.80) X10*6/uL Hgb (14.0-18.0) g/dl Hct (42.0-52.0) % MCV (80.0-98.0) fL MCH (27.0-33.0) pg MCHC (31.0-36.0) g/dl RDW (11.0-16.0) % Plt Count (160-400) X10*3/uL MPV (9.4-12.4) fL Immature Gran % (Auto) (0.0-0.4) % Neut % (Auto) (45-73) % Lymph % (Auto) (20-40) % [place] % (Auto) (2-11) % Eos % (Auto) (0-4) % Baso % (Auto) (0-2) % Lymph # (Auto) (1.2-4.9) X10*3/uL [place] # (Auto) (0.1-1.2) X10*3/uL Eos # (Auto) (0.0-0.4) X10*3/uL Baso # (Auto) (0.0-0.2) X10*3/uL Abs Immat Gran (auto) (0.00-0.03) X10*3/uL Absolute Neuts (auto) (2.0-8.3) x10*3/uL Absolute Nucleated RBC (0.0-0.012) X10*3/uL Nucleated RBC % (auto) (0.0-0.2) /100WBC Sodium (135-145) mmol/L Potassium (3.3-5.1) mmol/L Chloride (96-108) mmol/L Carbon Dioxide (22-29) mmol/L Anion Gap (12-20) BUN (9-16) mg/dL Creatinine (0.5-1.4) mg/dL Estim Creat Clear Calc Estimated GFR POC Glucose 54 L* 155 H (60-115) mg/dL Random Glucose (60-115) mg/dL Calcium (8.4-10.2) mg/dL Total Bilirubin (0.0-1.0) mg/dL AST (5-37) U/L ALT (0-40) U/L Alkaline Phosphatase (39-117) U/L Total Protein (6.5-8.0) g/dL Albumin (3.5-5.0) g/dL Urine Color Urine Appearance Urine pH (5.0-9.0) Ur Specific [place] (1.005-1.025) Urine Protein (Neg-Trace) mg/dL Urine Glucose (UA) (Negative) mg/dL Urine Ketones (Negative) mg/dL Urine Blood (Negative) Urine Nitrite (Negative) Ur Leukocyte Esterase (Negative) Urine RBC (0-2) /HPF Urine WBC (0-5) /HPF Ur Squamous Epith Cells (0-2) /HPF Urine Bacteria (None Seen) Hyaline Casts (0-2) /LPF Urine Yeast External Record Review External record reviewed: Outpatient record and Prior outpatient labs Chronic Conditions Patient?s care impacted by: Diabetes and Hypertension Medications Administered Discontinued Medications Generic Name Dose Route Start Last Admin Trade Name Joseq PRN Reason Stop Dose Admin Sodium Chloride 1,000 mls @ 999 mls/hr 12/12/22 15:45 12/12/22 16:55 Ns IV 12/12/22 16:45 Infused .Q1H1M PRINCESS Infusion Ketorolac Tromethamine 15 mg 12/12/22 15:34 12/12/22 15:40 Ketorolac Tromethamine 30 Mg/Ml Vial IVPUSH 12/12/22 15:35 15 mg ONCE ONE Administration Discharge Plan Discharge Clinical Impression: Ileus Patient Disposition: Admitted As Inpatient Prescriptions: No Action (DME) FreeStyle Test Strip See Rx Instructions .ROUTE .MEDSUPPLY Qty: 50 11RF Rx Instructions: Use 1 test strip twice a day (DME) blood-glucose meter [FreeStyle [place] Lite] Kit See Rx Instructions .ROUTE .MEDSUPPLY Qty: 1 0RF Rx Instructions: As directed (DME) lancets [FreeStyle Lancets] 28 gauge misc See Rx Instructions .ROUTE .MEDSUPPLY Qty: 100 11RF Rx Instructions: Use 1 lancet twice a day lisinopril 40 mg tablet 40 mg PO DAILY 90 Days Qty: 90 1RF amlodipine 10 mg tablet 1 tab PO DAILY metformin 1,000 mg tablet extended release 24hr 1,000 mg PO BID 90 Days Qty: 180 3RF aspirin [Adult Aspirin Regimen] 81 mg tablet,delayed release (DR/EC) 81 mg PO DAILY Brilinta 90 mg tablet 90 mg PO BID metoprolol tartrate 75 mg tablet 75 mg PO BID isosorbide mononitrate 60 mg tablet extended release 24 hr 60 mg PO DAILY atorvastatin 80 mg tablet 80 mg PO BEDTIME hydroxyzine HCl 10 mg tablet 10 - 20 mg PO BID PRN (Reason: anxiety) Jardiance 10 mg tablet 10 mg PO DAILY
[2022-12-12 14:09] LABS: Basophils Percent Auto 0.1 % (0-2); Eosinophils Absolute Auto 0.1 X10*3/uL (0.0-0.4); Eosinophils Percent Auto 0.8 % (0-4); Hemoglobin 12.6 g/dl (14.0-18.0); Imm Gran Abs Auto 0.03 X10*3/uL (0.00-0.03); Imm Gran Pct Auto 0.3 % (0.0-0.4); Lymphocytes Absolute Auto 0.9 X10*3/uL (1.2-4.9); Lymphocytes Percent Auto 8.9 % (20-40); Mean Corpuscular Hemoglobin 29.9 pg (27.0-33.0); Mean Corpuscular Volume 85.3 fL (80.0-98.0); Mean Platelet Volume 9.1 fL (9.4-12.4); Monocytes Absolute Auto 0.4 X10*3/uL (0.1-1.2); Monocytes Percent Auto 4.2 % (2-11); Neutrophils Absolute Auto 8.2 x10*3/uL (2.0-8.3); Neutrophils Percent Auto 85.7 % (45-73); Platelet Count 257 X10*3/uL (160-400); Red Blood Count 4.22 X10*6/uL (4.60-5.80); Red Cell Distribution Width 12.8 % (11.0-16.0); White Blood Count 9.6 X10*3/uL (4.8-10.8)
[2022-12-12 14:10] LABS: Appearance Urine Clear; Color Urine Yellow; Glucose Urine UA >=1000 mg/dL (Negative); Leukocyte Esterase Urine Small (1+) (Negative); Nitrite Urine Negative (Negative); Specific Gravity - Urine >= 1.030 (1.005-1.025); UMIC TRIGGER UACC YES; Urine Blood Negative (Negative); Urine Ketones Negative (Negative); Urine Protein Negative (Neg-Trace)
[2022-12-12 14:22] LABS: Alanine Aminotransferase 29 U/L (0-40); Albumin Level 4.3 g/dL (3.5-5.0); Alkaline Phosphatase 60 U/L (39-117); Anion Gap 17 (12-20); Aspartate Amino Transferase 22 U/L (5-37); Bilirubin Total 0.9 mg/dL (0.0-1.0); Blood Urea Nitrogen 19 mg/dL (9-16); Calcium 9.2 mg/dL (8.4-10.2); Carbon Dioxide 21 mmol/L (22-29); Chloride 109 mmol/L (96-108); Estimated Glomerular Filt Rate 44; Glucose Random 154 mg/dL (60-115); Sodium 143 mmol/L (135-145); Total Protein 6.4 g/dL (6.5-8.0)
[2022-12-12 14:41] LABS: Bacteria Urine 1+ (None Seen); RBC Urine 0-2 /HPF (0-2); UACC Culture Trigger YES; WBC Urine 21-50 /HPF (0-5)
--- NOTE | 2022-12-12 15:22 | PC.NURSE ---
Patient sleeping easily aroused no distress noted will CTM
[2022-12-12] MEDS: 0.9 % Sodium Chloride 1,000 ML 999 ML IV (15:40)
[2022-12-12] MEDS: Ketorolac Tromethamine 30 MG/ML VIAL 15 MG IVPUSH (15:40)
--- NOTE | 2022-12-12 16:40 | ECG_ITS ---
Test Reason : abd pain Blood Pressure : / mmHG Vent. Rate : 063 BPM Atrial Rate : 063 BPM P-R Int : 120 ms QRS Dur : 118 ms QT Int : 438 ms P-R-T Axes : -27 -47 004 degrees QTc Int : 448 ms Normal sinus rhythm Incomplete right bundle branch block Left anterior fascicular block Abnormal ECG When compared with ECG of 16-NOV-2022 10:28, No significant change was found Referred By: Chery Curiel Electronically Signed By:Reynaldo Shetty
--- NOTE | 2022-12-12 17:13 | PM.CNGS ---
History of Present Illness Consult details Consult date: 12/13/22 Reason for consult: abdominal pain Narrative: The patient is a 52-year-old gentleman with a past history of type 2 diabetes with a hemoglobin A1c of 5.8, anemia secondary to chronic kidney issues who states he has never had an EGD or colonoscopy to evaluate his anemia. The patient is seen in consultation for abdominal pain and a CT concerning for ileus versus constipation versus small-bowel obstruction. The patient reports he is passing gas this morning and relates a history that he felt hungry at 02:30 in the morning on Tuesday and ate a oscar. Several hours later, he developed gas bloating the nausea and vomiting and then came to the emergency department. CT demonstrated a fair stool burden and small bowel dilation so is asked to get involved since he has no prior abd surgical history. The patient has radiopaque gallstones but denies any upper abdominal pain. He lives by himself and no one he has been in contact with as any GI illness that he is aware of. This morning, the patient reports he is passing gas and feels better. Review of Systems Review of Systems: Yes all other systems are reviewed and are negative Constitutional: Constitutional: Reports as per HPI [facility] Past Medical History Medical History Anemia Arthritis Carpal tunnel syndrome Diabetes Essential hypertension HTN (hypertension) Hyperlipemia Hyperlipidemia LDL goal <70 Nephrolithiasis Phlebitis Stroke Type 2 diabetes mellitus with unspecified 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 macular edema Family History Family History Father Asthma Mother Diabetes mellitus Surgical History Surgical History H/O cardiac catheterization H/O vitrectomy History of carpal tunnel surgery of right wrist Social History Social History Household Members: None Housing: Apartment Do you presently have visiting nurse or other home services: No Alcohol intake: unknown Patient Tobacco Use Status: Former Tobacco user Quit Date: 2012 Years Smoked: 6 +/- Smoked in Last 30 Days: No Use of substances other than those prescribed or required for medical reasons: No Currently Displaying Signs/Symptoms of Drug Intoxication Withdrawal: No Have you been hit, kicked, punched, or otherwise hurt by someone within the past year? If so, by whom?: No Do you feel safe in your current relationship?: No Current Relationship Advance Directives: No Advance Directives Information Provided: Yes Do you have thoughts of harming others: None Do you have a plan to hurt others: No Plan Recently lost weight without trying: No Nutrition Risks: No Nutritional Risk Poor oral hygiene: No Meds Allergies Allergy/AdvReac Type Severity Reaction Status Date / Time No Known Allergies Allergy Verified 12/12/22 21:57 Active Medications: Current Medications Pharmacy Consult (Consult Rx Perform Med Rec) 1 each MISCELLANE ONCE PRN PRN Reason: Consult order Home Medications Medication Instructions Recorded Confirmed Last Taken Type aspirin 81 mg tablet,delayed 81 mg PO DAILY 02/24/21 12/12/22 12/12/22 09:00 History release (Adult Aspirin Regimen) atorvastatin 80 mg tablet 80 mg PO BEDTIME 08/20/21 12/12/22 12/11/22 History isosorbide mononitrate 60 mg 60 mg PO DAILY 08/20/21 12/12/22 12/12/22 09:00 History tablet,extended release 24 hr metoprolol tartrate 75 mg tablet 75 mg PO BID 08/20/21 12/12/22 12/12/22 09:00 History ticagrelor 90 mg tablet (Brilinta) 90 mg PO BID 08/20/21 12/12/22 12/12/22 09:00 History empagliflozin 10 mg tablet 10 mg PO DAILY 11/19/21 12/12/22 12/12/22 09:00 History (Jardiance) hydroxyzine HCl 10 mg tablet 10 - 20 mg PO BID PRN anxiety 11/19/21 12/12/22 Unknown History amlodipine 10 mg tablet 1 tab PO DAILY 12/12/22 12/12/22 12/12/22 09:00 History Physical Exam Vital Signs: Vital Signs: Last Vital Signs Temp 98 F 12/12/22 13:44 Pulse 51 12/12/22 13:44 Resp 17 12/12/22 13:44 BP 143/65 H 12/12/22 13:44 Pulse Ox 98 12/12/22 13:44 O2 Del Method 12/12/22 13:44 BMI result Body Mass Index 28.1 The patient is non-toxic & in good spirits NC/AT, PERRLA, EOMI Mood, affect & judgment all appear appropriate Sclera anicteric conjunctiva pink and moist Oropharynx is clear with no aphthous ulcers, Mallampati class 4, mucous membranes moist Neck is supple with no masses, adenopathy or bruits Heart is regular, normal S1-S2 no rubs or murmurs Lungs are clear and equal anteriorly with no audible wheezing, rubs or dullness to percussion Abdomen is overweight with no demonstrable hernias. His abdomen is completely benign with no peritoneal irritation to percussion and no HSM, rebound, rigidity, guarding, masses or bruits are present. Rectal exam is deferred Skin has good turgor and is free of rashes Extremities free of cyanosis clubbing edema Results Labs 12/12/22 13:56 12/12/22 13:56 Labs: Abnormal lab results 12/12/22 12/12/22 12/12/22 Range/Units 13:56 13:56 13:56 RBC 4.22 L (4.60-5.80) X10*6/uL Hgb 12.6 L (14.0-18.0) g/dl Hct 36.0 L (42.0-52.0) % MPV 9.1 L (9.4-12.4) fL Neut % (Auto) 85.7 H (45-73) % Lymph % (Auto) 8.9 L (20-40) % Lymph # (Auto) 0.9 L (1.2-4.9) X10*3/uL Chloride 109 H (96-108) mmol/L Carbon Dioxide 21 L (22-29) mmol/L BUN 19 H (9-16) mg/dL Creatinine 1.65 H (0.5-1.4) mg/dL POC Glucose (60-115) mg/dL Random Glucose 154 H (60-115) mg/dL Total Protein 6.4 L (6.5-8.0) g/dL Ur Specific [place] >= 1.030 H (1.005-1.025) Urine Glucose (UA) >=1000 H (Negative) mg/dL Ur Leukocyte Esterase Small (1+) H (Negative) Urine WBC 21-50 H (0-5) /HPF 12/12/22 12/12/22 Range/Units 14:00 14:02 RBC (4.60-5.80) X10*6/uL Hgb (14.0-18.0) g/dl Hct (42.0-52.0) % MPV (9.4-12.4) fL Neut % (Auto) (45-73) % Lymph % (Auto) (20-40) % Lymph # (Auto) (1.2-4.9) X10*3/uL Chloride (96-108) mmol/L Carbon Dioxide (22-29) mmol/L BUN (9-16) mg/dL Creatinine (0.5-1.4) mg/dL POC Glucose 54 L* 155 H (60-115) mg/dL Random Glucose (60-115) mg/dL Total Protein (6.5-8.0) g/dL Ur Specific [place] (1.005-1.025) Urine Glucose (UA) (Negative) mg/dL Ur Leukocyte Esterase (Negative) Urine WBC (0-5) /HPF Short CBC 12/12/22 Range/Units 13:56 WBC 9.6 (4.8-10.8) X10*3/uL Hgb 12.6 L (14.0-18.0) g/dl Hct 36.0 L (42.0-52.0) % Plt Count 257 (160-400) X10*3/uL BMP 12/12/22 13:56 Sodium 143 Potassium 4.0 Chloride 109 H Carbon Dioxide 21 L BUN 19 H Creatinine 1.65 H Calcium 9.2 Liver Function 12/12/22 Range/Units 13:56 Total Bilirubin 0.9 (0.0-1.0) mg/dL AST 22 (5-37) U/L ALT 29 (0-40) U/L Alkaline Phosphatase 60 (39-117) U/L Albumin 4.3 (3.5-5.0) g/dL Urine 12/12/22 Range/Units 13:56 Urine Color Yellow Urine Appearance Clear Urine pH 5.0 (5.0-9.0) Ur Specific [place] >= 1.030 H (1.005-1.025) Urine Protein Negative (Neg-Trace) mg/dL Urine Glucose (UA) >=1000 H (Negative) mg/dL All other labs normal. 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 Anemia should be evaluated if no endoscopy/colonoscopy has been performed at his age. Will follow--call with questions Dr. Curiel raised concerns about possible gallstone ileus. Since there is no pneumobilia and the patient has calcified stones with no evidence of a calcified intraluminal mass, I would encourage repeating the CT with oral contrast to better assess the patient's anatomy or considering a small-bowel follow-through. Given the patient's interval improvement in passing gas, I do not believe this to be a surgical case based on interval improvement, benign abdomen and passing of flatus. Time Spent With Patient Time: Total time managing care of this patient today ____ minutes. Procedures Date of Service Date of Service: 12/13/22
--- NOTE | 2022-12-12 17:23 | PHA.MEDREC ---
Pharmacy Consult ? Medication Reconciliation Pharmacy has completed the medication reconciliation. Spoke to patient to confirm meds.
[2022-12-12] MEDS: 0.9 % Sodium Chloride 1,000 ML 100 ML IVCONT (17:41)
--- NOTE | 2022-12-12 17:42 | PM.IMHP ---
History of Present Illness Date of Service: 12/12/22 Attending physician on admission: Alexandro Lujan Chief Complaint: Abdominal Pain Pt is a 52-year-old male with a PMH significant for?cardiomyopathy, LAD PCI, hx of VT with ILR , HTN, HLD, CKD stage 3, CVA 2 years ago, and scg-prpswwy-ayotxniit diabetes who presents to the ED with?severe abdominal pain. Pt states pain began early this morning at 2:30 after eating a oscar. Pain was located primarily in the right lower quadrant, felt like his intestines were being compressed, and rated a 9/10. He tried to sleep but was kept up d/t pain. Pain continued throughout the morning and pt also experienced 3 episodes of vomiting, which was uncharacteristic for him and prompted his visit to the ED. patient notes he did have a normal bowel movement this morning, but denies passing any flatus since. Patient denies a history of abdominal surgeries. No fever, chills, diarrhea. Denies chest pain/pressure, palpitations. No shortness of breath. Pt also complains of small subcutaneous lesion on right thigh which he associates with increased muscle cramps the past few months. In the ED labs were significant for stable H&H of 12.6/36.0, creatinine of 1.65 (seemingly at baseline), and POC of 54. CT?of abdomen/pelvis showed diffusely dilated small bowel loops with fecalized content, suggestive of ileus versus partial and/or SBO. Pt was treated with IVF and ketorolac. Pt will be admitted to the hospital for treatment and management of ileus. [facility] Medical History Anemia Arthritis Carpal tunnel syndrome Diabetes Essential hypertension HTN (hypertension) Hyperlipemia Hyperlipidemia LDL goal <70 Nephrolithiasis Phlebitis Stroke Type 2 diabetes mellitus with unspecified 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 macular edema Family History Father Asthma Mother Diabetes mellitus Surgical History H/O cardiac catheterization H/O vitrectomy History of carpal tunnel surgery of right wrist Social History Household Members: None Housing: Apartment Do you presently have visiting nurse or other home services: No Alcohol intake: unknown Patient Tobacco Use Status: Former Tobacco user Quit Date: 2012 Smoked: 6 +/- Smoked in Last 30 Days: No Use of substances other than those prescribed or required for medical reasons: No Currently Displaying Signs/Symptoms of Drug Intoxication Withdrawal: No Have you been hit, kicked, punched, or otherwise hurt by someone within the past year? If so, by whom?: No Do you feel safe in your current relationship?: No Current Relationship Advance Directives: No Advance Directives Information Provided: Yes Do you have thoughts of harming others: None Do you have a plan to hurt others: No Plan Recently lost weight without trying: No Nutrition Risks: No Nutritional Risk Poor oral hygiene: No Meds Allergies Allergy/AdvReac Type Severity Reaction Status Date / Time No Known Allergies Allergy Verified 12/12/22 21:57 Active Medications: Current Medications Sodium Chloride (Ns) 1,000 mls @ 100 mls/hr IVCONT .Q10H PRINCESS Last Admin: 12/12/22 17:41 Dose: 100 mls/hr Pharmacy Consult (Consult Rx Perform Med Rec) 1 each MISCELLANE ONCE PRN PRN Reason: Consult order Home Medications Medication Instructions Recorded Confirmed Last Taken Type aspirin 81 mg tablet,delayed 81 mg PO DAILY 02/24/21 12/12/22 12/12/22 09:00 History release (Adult Aspirin Regimen) atorvastatin 80 mg tablet 80 mg PO BEDTIME 08/20/21 12/12/22 12/11/22 History isosorbide mononitrate 60 mg 60 mg PO DAILY 08/20/21 12/12/22 12/12/22 09:00 History tablet,extended release 24 hr metoprolol tartrate 75 mg tablet 75 mg PO BID 08/20/21 12/12/22 12/12/22 09:00 History ticagrelor 90 mg tablet (Brilinta) 90 mg PO BID 08/20/21 12/12/22 12/12/22 09:00 History empagliflozin 10 mg tablet 10 mg PO DAILY 11/19/21 12/12/22 12/12/22 09:00 History (Jardiance) hydroxyzine HCl 10 mg tablet 10 - 20 mg PO BID PRN anxiety 11/19/21 12/12/22 Unknown History amlodipine 10 mg tablet 1 tab PO DAILY 12/12/22 12/12/22 12/12/22 09:00 History Physical Exam Vital Signs and Narrative: Vital Signs: Last Vital Signs Temp 98 F 12/12/22 13:44 Pulse 51 12/12/22 13:44 Resp 17 12/12/22 13:44 BP 143/65 H 12/12/22 13:44 Pulse Ox 98 12/12/22 13:44 O2 Del Method 12/12/22 13:44 BMI result Body Mass Index 28.1 Results Labs 12/12/22 13:56 12/12/22 13:56 Labs: Laboratory Results - last 24 hr 12/12/22 12/12/22 12/12/22 13:56 13:56 13:56 MCV 85.3 MCH 29.9 MCHC 35.0 RDW 12.8 Plt Count 257 MPV 9.1 L Immature Gran % (Auto) 0.3 Neut % (Auto) 85.7 H Lymph % (Auto) 8.9 L [place] % (Auto) 4.2 Eos % (Auto) 0.8 Baso % (Auto) 0.1 Lymph # (Auto) 0.9 L [place] # (Auto) 0.4 Eos # (Auto) 0.1 Baso # (Auto) 0.0 Abs Immat Gran (auto) 0.03 Absolute Neuts (auto) 8.2 Absolute Nucleated RBC 0.000 Nucleated RBC % (auto) 0.0 Anion Gap 17 Estim Creat Clear Calc 54.0 Estimated GFR 44 POC Glucose Random Glucose 154 H Calcium 9.2 Total Bilirubin 0.9 AST 22 ALT 29 Alkaline Phosphatase 60 Total Protein 6.4 L Albumin 4.3 Urine Color Yellow Urine Appearance Clear Urine pH 5.0 Ur Specific [place] >= 1.030 H Urine Protein Negative Urine Glucose (UA) >=1000 H Urine Ketones Negative Urine Blood Negative Urine Nitrite Negative Ur Leukocyte Esterase Small (1+) H Urine RBC 0-2 Urine WBC 21-50 H Ur Squamous Epith Cells 3-5 Urine Bacteria 1+ Hyaline Casts 3-5 Urine Yeast Present 12/12/22 12/12/22 14:00 14:02 MCV MCH MCHC RDW Plt Count MPV Immature Gran % (Auto) Neut % (Auto) Lymph % (Auto) [place] % (Auto) Eos % (Auto) Baso % (Auto) Lymph # (Auto) [place] # (Auto) Eos # (Auto) Baso # (Auto) Abs Immat Gran (auto) Absolute Neuts (auto) Absolute Nucleated RBC Nucleated RBC % (auto) Anion Gap Estim Creat Clear Calc Estimated GFR POC Glucose 54 L* 155 H Random Glucose Calcium Total Bilirubin AST ALT Alkaline Phosphatase Total Protein Albumin Urine Color Urine Appearance Urine pH Ur Specific [place] Urine Protein Urine Glucose (UA) Urine Ketones Urine Blood Urine Nitrite Ur Leukocyte Esterase Urine RBC Urine WBC Ur Squamous Epith Cells Urine Bacteria Hyaline Casts Urine Yeast Imaging Radiologist's Impressions: Impressions Abdomen/Pelvis CT 12/12/22 16:17 IMPRESSION: * Diffusely dilated small bowel loops reaching up to the terminal ileum, the content of which is fecalized suggesting an ileus versus partial and/or early small bowel obstruction. * Excess amount of stool in the colon possible constipation. * Cholelithiasis. * No CT evidence of bowel perforation. Assessment and Plan (1) Ileus: Status: Acute Plan Pt is a 52-year-old male with a PMH significant for?cardiomyopathy, LAD PCI, hx of VT with ILR , HTN, HLD, CKD stage 3, CVA 2 years ago, and pyq-iinjtff-mdyalcnio diabetes who presents to the ED with?severe abdominal pain. Pt will be admitted to the hospital for treatment and management of ileus Abdominal pain Patient complains of sudden onset right-sided abdominal pain CT with air and stool in colon and rectum most consistent with ileus Patient will be placed on bowel rest, NPO IVF: Lactated Ringer's Discontinue ketorolac due to CKD Morphine 2 mg for pain management Follow [facility], [facility] General surgery consult CKD stage 3 Patient's creatinine 1.65, stable seemingly at baseline Patient will be receiving IVF Continue lisinopril Follow [facility] Anemia of chronic disease Patient's H&H 12.6/36.0, stable seemingly at baseline Most likely secondary to CKD No indication of acute blood loss Right thigh lesion Patient complaining of small subcutaneous lesion on right thigh Follow-up outpatient with PCP CAD Continue Brilinta Hx of CVA Continue aspirin, statin HTN Continue amlodipine Non insulin-dependent diabetes Continue Jardiance Hold metformin SSI Full Code Attending:?Dr. Lujan DVT Prophylaxis: Lovenox Pt will require a hospitalization of at least two nights for treatment of?ileus with bowel rest and IVF. Time Spent With Patient Time: Total time managing care of this patient today ____ minutes. Quality Stroke Does the patient have a stroke diagnosis?: No VTE Prior VTE?: No VTE Risk Level:: Medical - moderate - high VTE Device Contraindication: Treatment Not Indicated VTE Drug Contraindication: N/A - Med Ordered
[2022-12-12 17:54] LABS: Magnesium 1.8 mg/dL (1.6-2.6)
[2022-12-12 18:02] LABS: COVID-19 Test Negative (Negative); IDNOW Serial# 16C4AD1C
[2022-12-12] MEDS: Lactated Ringers 1,000 ML 100 ML IVCONT (18:45)
--- NOTE | 2022-12-12 18:55 | PM.EVENT ---
Event Note Date of Service: 12/12/22 Event Note: Addendum to history and physical by the advanced practice provider, ANGI Dick I interviewed and examined the patient. I discussed their presentation and management with the YAMILEX. I reviewed the history and physical and agree with the documentation, with the following additions and corrections: 52yo M with DM2, CAD, CKD3, hx CVA Presenting with abdominal discomfort and lack of gas or BM since this morning. No surgical history. Abd mildly distended with faint bowel sounds. Found on CT to have ileus vs. early pSBO. Plan admit to M/S, IV fluids, bowel rest, surgical consultation. Time Spent With Patient Time: Total time managing care of this patient today ____ minutes.
[2022-12-12 19:01] LABS: Estimated Average Glucose 120 mg/dL; Hemoglobin A1c % 5.8 %
--- NOTE | 2022-12-12 19:40 | PC.NURSE ---
assumed care of pt aox4, denies pain, denies n/v pt ambulated to restroom safely/independently
[2022-12-12 20:35] LABS: Glucose, Whole Blood 97 mg/dL (60-115)
--- NOTE | 2022-12-12 20:50 | PC.NURSE ---
PO meds not given, hospitalist held meds
--- NOTE | 2022-12-12 20:54 | PC.NURSE ---
Report given to MENDEL Barnes (S3).
[2022-12-12] MEDS: Heparin Sodium,Porcine 5,000 UNIT/ML VIAL 5000 UNIT SUBCUT (20:58)
--- NOTE | 2022-12-12 21:13 | PC.NURSE ---
per hospitalist (on floor at time) discontinue NS and start LR
--- NOTE | 2022-12-12 21:15 | PC.NURSE ---
med rec completed by pharmacy
[2022-12-12 21:33] LABS: Glucose, Whole Blood 95 mg/dL (60-115)
[2022-12-12 23:42] VITALS: BP 126/66; PULSE 66; RESP 16; TEMP 36.3; O2SAT 99
[2022-12-13] MEDS: Lactated Ringers 1,000 ML 100 ML IVCONT ×2 (01:59→12:18)
[2022-12-13 03:01] VITALS: BP 121/58; PULSE 55; RESP 16; TEMP 36.8; O2SAT 97
[2022-12-13] MEDS: Heparin Sodium,Porcine 5,000 UNIT/ML VIAL 5000 UNIT SUBCUT ×3 (04:05→20:59)
[2022-12-13 06:52] VITALS: BP 143/75; PULSE 55; RESP 18; TEMP 36.6; O2SAT 98
[2022-12-13 06:55] LABS: Anion Gap 12 (12-20); Blood Urea Nitrogen 18 mg/dL (9-16); Calcium 8.1 mg/dL (8.4-10.2); Carbon Dioxide 24 mmol/L (22-29); Chloride 113 mmol/L (96-108); Estimated Glomerular Filt Rate 57; Glucose Random 81 mg/dL (60-115); Magnesium 1.7 mg/dL (1.6-2.6); Potassium 3.9 mmol/L (3.3-5.1); Sodium 145 mmol/L (135-145)
[2022-12-13 07:12] LABS: Glucose, Whole Blood 69 mg/dL (60-115)
[2022-12-13] MEDS: Aspirin Enteric Coated 81 MG TABLET.DR PO (08:19)
[2022-12-13] MEDS: Isosorbide Mononitrate 60 MG TAB.ER.24H PO (08:19)
[2022-12-13] MEDS: Empagliflozin 10 MG TABLET PO (08:19)
[2022-12-13] MEDS: Ticagrelor 90 MG TABLET PO (08:19)
[2022-12-13] MEDS: amLODIPine Besylate 10 MG TABLET PO (08:19)
[2022-12-13] MEDS: lisinopriL 40 MG TABLET PO (08:19)
[2022-12-13] MEDS: Metoprolol Tartrate 25 MG TABLET 75 MG PO (08:21)
[2022-12-13] MEDS: 0.9 % Sodium Chloride Flush 3 ML SYRINGE IVFLUSH ×2 (08:23→21:01)
[2022-12-13 11:12] LABS: Glucose, Whole Blood 78 mg/dL (60-115)
--- NOTE | 2022-12-13 11:22 | P.PNIM_ITS ---
Subjective Subjective Date of Service: 12/13/22 Interval History: passed small amount gas this morning minimal abd pain Review of Systems Review of Systems: Yes all other systems are reviewed and are negative Physical Exam Vital Signs: Vital Signs: Last Vital Signs Temp 98 F 12/13/22 06:52 Pulse 55 12/13/22 06:52 Resp 18 12/13/22 06:52 BP 143/75 H 12/13/22 06:52 Pulse Ox 98 12/13/22 06:52 O2 Del Method 12/13/22 06:52 BMI result Body Mass Index 28.1 Gen: in no acute distress HEENT: sclera anicteric, moist mucus membranes Neck: supple Lungs: clear to auscultation bilaterally Heart: regular rate and rhythm, no murmurs Abd: soft but no bowel sounds auscultated Ext: no edema Skin: warm/well-perfused Neuro: alert and oriented x3, no focal findings Psych: appropriate affect Objective Data Active Medications Acetaminophen (Acetaminophen 325 Mg Tablet) 650 mg PO Q6H PRN PRN Reason: Pain, Mild (Pain Scale 1-3) Amlodipine Besylate (Amlodipine Besylate 10 Mg Tablet) 10 mg PO DAILY [facility]; Protocol Last Admin: 12/13/22 08:19 Dose: 10 mg Documented By: BENITA Aspirin (Aspirin Enteric Coated 81 Mg Tablet.) 81 mg PO DAILY [facility] Last Admin: 12/13/22 08:19 Dose: 81 mg Documented By: BENITA Atorvastatin Calcium (Atorvastatin Calcium 80 Mg Tablet) 80 mg PO BEDTIME [facility] Last Admin: 12/12/22 20:48 Dose: Not Given Documented By: JOYCE Non-Admin Reason: NPO Empagliflozin (Empagliflozin 10 Mg Tablet) 10 mg PO DAILY [facility] Last Admin: 12/13/22 08:19 Dose: 10 mg Documented By: BENITA Glucose (Glucose Gel 15 Gm Gel..Gram.) 15 gm PO Q15M PRN; Protocol PRN Reason: per Hypoglycemia Standing Ord. Heparin Sodium (Porcine) (Heparin Sodium,Porcine 5,000 Unit/Ml Vial) 5,000 unit SUBCUT Q8H [facility] Last Admin: 12/13/22 04:05 Dose: 5,000 unit Documented By: MITCH Dextrose (D10) 250 mls @ 750 mls/hr IV Q15M PRN; Protocol PRN Reason: per Hypoglycemia Standing Ord. Lactated Ringer's (Lr) 1,000 mls @ 100 mls/hr IVCONT .Q10H [facility] Last Admin: 12/13/22 01:59 Dose: 100 mls/hr Documented By: MITCH Insulin Human Lispro (Insulin Lispro 100 Unit/Ml 3 Ml Vial) 0 unit SUBCUT QIDACHS [facility]; Protocol Last Admin: 12/13/22 11:15 Dose: Not Given Documented By: BENITA Non-Admin Reason: No Insulin Coverage Isosorbide Mononitrate (Isosorbide Mononitrate 60 Mg Tab.Er.24h) 60 mg PO DAILY [facility]; Protocol Last Admin: 12/13/22 08:19 Dose: 60 mg Documented By: BENITA Lisinopril (Lisinopril 40 Mg Tablet) 40 mg PO DAILY [facility]; Protocol Last Admin: 12/13/22 08:19 Dose: 40 mg Documented By: BENITA Metoprolol Tartrate (Metoprolol Tartrate 25 Mg Tablet) 75 mg PO BID [facility]; Protocol Last Admin: 12/13/22 08:21 Dose: 75 mg Documented By: BENITA Morphine Sulfate (Morphine Sulfate 2 Mg/Ml Cartridge) 2 mg IVPUSH Q4H PRN; Protocol PRN Reason: Pain, Severe (Pain Scale 7-10) Ondansetron HCl (Ondansetron Hcl 4 Mg/2 Ml Vial) 4 mg IVPUSH Q8H PRN PRN Reason: Nausea and Vomiting Pharmacy Consult (Consult Rx Perform Med Rec) 1 each MISCELLANE ONCE PRN PRN Reason: Consult order Sodium Chloride (0.9 % Sodium Chloride Flush 3 Ml Syringe) 3 ml IVFLUSH QSHIFT [facility] Last Admin: 12/13/22 08:23 Dose: 3 ml Documented By: BENITA Ticagrelor (Ticagrelor 90 Mg Tablet) 90 mg PO BID [facility] Last Admin: 12/13/22 08:19 Dose: 90 mg Documented By: BENITA Labs 12/12/22 13:56 12/13/22 05:33 Labs: Laboratory Results - last 24 hr 12/12/22 12/12/22 12/12/22 13:56 13:56 13:56 MCV 85.3 MCH 29.9 MCHC 35.0 RDW 12.8 Plt Count 257 MPV 9.1 L Immature Gran % (Auto) 0.3 Neut % (Auto) 85.7 H Lymph % (Auto) 8.9 L [place] % (Auto) 4.2 Eos % (Auto) 0.8 Baso % (Auto) 0.1 Lymph # (Auto) 0.9 L [place] # (Auto) 0.4 Eos # (Auto) 0.1 Baso # (Auto) 0.0 Abs Immat Gran (auto) 0.03 Absolute Neuts (auto) 8.2 Absolute Nucleated RBC 0.000 Nucleated RBC % (auto) 0.0 Anion Gap 17 Estim Creat Clear Calc 54.0 Estimated GFR 44 POC Glucose Random Glucose 154 H Estimat Average Glucose Hemoglobin A1c % Calcium 9.2 Magnesium 1.8 Total Bilirubin 0.9 AST 22 ALT 29 Alkaline Phosphatase 60 Total Protein 6.4 L Albumin 4.3 Urine Color Yellow Urine Appearance Clear Urine pH 5.0 Ur Specific [place] >= 1.030 H Urine Protein Negative Urine Glucose (UA) >=1000 H Urine Ketones Negative Urine Blood Negative Urine Nitrite Negative Ur Leukocyte Esterase Small (1+) H Urine RBC 0-2 Urine WBC 21-50 H Ur Squamous Epith Cells 3-5 Urine Bacteria 1+ Hyaline Casts 3-5 Urine Yeast Present COVID-19 (JAMIE) [facility] 12/12/22 12/12/22 12/12/22 14:00 14:00 14:02 MCV MCH MCHC RDW Plt Count MPV Immature Gran % (Auto) Neut % (Auto) Lymph % (Auto) [place] % (Auto) Eos % (Auto) Baso % (Auto) Lymph # (Auto) [place] # (Auto) Eos # (Auto) Baso # (Auto) Abs Immat Gran (auto) Absolute Neuts (auto) Absolute Nucleated RBC Nucleated RBC % (auto) Anion Gap Estim Creat Clear Calc Estimated GFR POC Glucose 54 L* 155 H Random Glucose Estimat Average Glucose 120 Hemoglobin A1c % 5.8 Calcium Magnesium Total Bilirubin AST ALT Alkaline Phosphatase Total Protein Albumin Urine Color Urine Appearance Urine pH Ur Specific [place] Urine Protein Urine Glucose (UA) Urine Ketones Urine Blood Urine Nitrite Ur Leukocyte Esterase Urine RBC Urine WBC Ur Squamous Epith Cells Urine Bacteria Hyaline Casts Urine Yeast COVID-19 (JAMIE) [facility] 03/09/2412/12/22 12/12/22 17:16 20:32 21:29 MCV MCH MCHC RDW Plt Count MPV Immature Gran % (Auto) Neut % (Auto) Lymph % (Auto) [place] % (Auto) Eos % (Auto) Baso % (Auto) Lymph # (Auto) [place] # (Auto) Eos # (Auto) Baso # (Auto) Abs Immat Gran (auto) Absolute Neuts (auto) Absolute Nucleated RBC Nucleated RBC % (auto) Anion Gap Estim Creat Clear Calc Estimated GFR POC Glucose 97 95 Random Glucose Estimat Average Glucose Hemoglobin A1c % Calcium Magnesium Total Bilirubin AST ALT Alkaline Phosphatase Total Protein Albumin Urine Color Urine Appearance Urine pH Ur Specific [place] Urine Protein Urine Glucose (UA) Urine Ketones Urine Blood Urine Nitrite Ur Leukocyte Esterase Urine RBC Urine WBC Ur Squamous Epith Cells Urine Bacteria Hyaline Casts Urine Yeast COVID-19 (JAMIE) Negative COVID-19 Clin Com See Note 12/13/22 12/13/22 12/13/22 05:33 06:52 11:01 MCV MCH MCHC RDW Plt Count MPV Immature Gran % (Auto) Neut % (Auto) Lymph % (Auto) [place] % (Auto) Eos % (Auto) Baso % (Auto) Lymph # (Auto) [place] # (Auto) Eos # (Auto) Baso # (Auto) Abs Immat Gran (auto) Absolute Neuts (auto) Absolute Nucleated RBC Nucleated RBC % (auto) Anion Gap 12 Estim Creat Clear Calc 68.0 Estimated GFR 57 POC Glucose 69 78 Random Glucose 81 Estimat Average Glucose Hemoglobin A1c % Calcium 8.1 L D Magnesium 1.7 Total Bilirubin AST ALT Alkaline Phosphatase Total Protein Albumin Urine Color Urine Appearance Urine pH Ur Specific [place] Urine Protein Urine Glucose (UA) Urine Ketones Urine Blood Urine Nitrite Ur Leukocyte Esterase Urine RBC Urine WBC Ur Squamous Epith Cells Urine Bacteria Hyaline Casts Urine Yeast COVID-19 (JAMIE) COVID-19 Clin Com Microbiology Microbiology Results: Microbiology 12/12/22 Unknown Urine Culture - Final Urine clean catch - Urine amanda top No growth. Assessment and Plan (1) Ileus: Status: Acute Plan 52yo M with DM2, CAD s/p PCI, hx VT currently with ILR, CKD3, hx CVA, HTN admitted for ileus # ileus - Surgery consulted, continue bowel rest pending return of bowel function, continue IV fluids # CKD3 - SCr at baseline # HTN - continue lisinopril, amlodipine, metoprolol # anemia of CKD - H+H stable # CAD # hx CVA - continue ASA, ticagrelor, statin, Imdur, metoprolol # DM2 - continue empagliflozin # VTE ppx: UFH # dispo: anticipate home once ileus resolved In my clinical judgment, the patient requires continued inpatient hospitalization for the following reasons: IV fluids Time Spent With Patient Time: Total time managing care of this patient today 35____ minutes. Quality Stroke Does the patient have a stroke diagnosis?: No VTE Prior VTE?: No VTE Risk Level:: Medical - moderate - high VTE Device Contraindication: Treatment Not Indicated VTE Drug Contraindication: N/A - Med Ordered
--- NOTE | 2022-12-13 11:23 | MHC.CM.PN ---
pt is independent lives alone will not need servceis when dcd his car is in [place] he is covid vax x 3
[2022-12-13] MEDS: Acetaminophen 325 MG TABLET 650 MG PO (13:43)
--- NOTE | 2022-12-13 15:00 | PM.CNCAR ---
History of Present Illness History of Present Illness Date of Service: 12/13/22 Requesting physician: Alexandro Lujan Chief complaint: Ileus, h/o CAD Narrative: Pleasant 52 gentleman who follows with me in the office presenting with abdominal pain, nausea and obstipation and diagnosed with ileus. He has history of coronary disease with previous LAD PCI in July 2021. He also had moderate RCA stenosis at that time which was assessed with IFR and was negative. With conservative management his ileus is improving already. He is denying any significant chest discomfort shortness of breath. He has been compliant with medications. He previously had nonsustained VT but after the LAD PCI he did not have any further nonsustained ventricular tachycardia. COUNT INCLUDES THE [facility] Past Medical History Medical History Anemia Arthritis Carpal tunnel syndrome Diabetes Essential hypertension HTN (hypertension) Hyperlipemia Hyperlipidemia LDL goal <70 Nephrolithiasis Phlebitis Stroke Type 2 diabetes mellitus with unspecified 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 macular edema Family History Family History Father Asthma Mother Diabetes mellitus Surgical History Surgical History H/O cardiac catheterization H/O vitrectomy History of carpal tunnel surgery of right wrist Social History Social History Household Members: None Housing: Apartment Do you presently have visiting nurse or other home services: No Alcohol intake: unknown Patient Tobacco Use Status: Former Tobacco user Quit Date: 2012 Years Smoked: 6 +/- Smoked in Last 30 Days: No Use of substances other than those prescribed or required for medical reasons: No Currently Displaying Signs/Symptoms of Drug Intoxication Withdrawal: No Have you been hit, kicked, punched, or otherwise hurt by someone within the past year? If so, by whom?: No Do you feel safe in your current relationship?: No Current Relationship Advance Directives: No Advance Directives Information Provided: Yes Do you have thoughts of harming others: None Do you have a plan to hurt others: No Plan Recently lost weight without trying: No Nutrition Risks: No Nutritional Risk Poor oral hygiene: No service: No Meds Allergies Allergy/AdvReac Type Severity Reaction Status Date / Time No Known Allergies Allergy Verified 12/12/22 21:57 Active Medications: Current Medications Acetaminophen (Acetaminophen 325 Mg Tablet) 650 mg PO Q6H PRN PRN Reason: Pain, Mild (Pain Scale 1-3) Last Admin: 12/13/22 13:43 Dose: 650 mg Amlodipine Besylate (Amlodipine Besylate 10 Mg Tablet) 10 mg PO DAILY ON LICENSE OF [facility]; Protocol Last Admin: 12/13/22 08:19 Dose: 10 mg Aspirin (Aspirin Enteric Coated 81 Mg Tablet.Dr) 81 mg PO DAILY ON LICENSE OF [facility] Last Admin: 12/13/22 08:19 Dose: 81 mg Atorvastatin Calcium (Atorvastatin Calcium 80 Mg Tablet) 80 mg PO BEDTIME ON LICENSE OF [facility] Last Admin: 12/12/22 20:48 Dose: Not Given Empagliflozin (Empagliflozin 10 Mg Tablet) 10 mg PO DAILY ON LICENSE OF [facility] Last Admin: 12/13/22 08:19 Dose: 10 mg Glucose (Glucose Gel 15 Gm Gel..Gram.) 15 gm PO Q15M PRN; Protocol PRN Reason: per Hypoglycemia Standing Ord. Heparin Sodium (Porcine) (Heparin Sodium,Porcine 5,000 Unit/Ml Vial) 5,000 unit SUBCUT Q8H ON LICENSE OF [facility] Last Admin: 12/13/22 12:27 Dose: 5,000 unit Dextrose (D10) 250 mls @ 750 mls/hr IV Q15M PRN; Protocol PRN Reason: per Hypoglycemia Standing Ord. Lactated Ringer's (Lr) 1,000 mls @ 100 mls/hr IVCONT .Q10H ON LICENSE OF [facility] Last Admin: 12/13/22 12:18 Dose: 100 mls/hr Insulin Human Lispro (Insulin Lispro 100 Unit/Ml 3 Ml Vial) 0 unit SUBCUT QIDACHS ON LICENSE OF [facility]; Protocol Last Admin: 12/13/22 11:15 Dose: Not Given Isosorbide Mononitrate (Isosorbide Mononitrate 60 Mg Tab.Er.24h) 60 mg PO DAILY ON LICENSE OF [facility]; Protocol Last Admin: 12/13/22 08:19 Dose: 60 mg Lisinopril (Lisinopril 40 Mg Tablet) 40 mg PO DAILY ON LICENSE OF [facility]; Protocol Last Admin: 12/13/22 08:19 Dose: 40 mg Metoprolol Tartrate (Metoprolol Tartrate 25 Mg Tablet) 75 mg PO BID ON LICENSE OF [facility]; Protocol Last Admin: 12/13/22 08:21 Dose: 75 mg Morphine Sulfate (Morphine Sulfate 2 Mg/Ml Cartridge) 2 mg IVPUSH Q4H PRN; Protocol PRN Reason: Pain, Severe (Pain Scale 7-10) Ondansetron HCl (Ondansetron Hcl 4 Mg/2 Ml Vial) 4 mg IVPUSH Q8H PRN PRN Reason: Nausea and Vomiting Pharmacy Consult (Consult Rx Perform Med Rec) 1 each MISCELLANE ONCE PRN PRN Reason: Consult order Sodium Chloride (0.9 % Sodium Chloride Flush 3 Ml Syringe) 3 ml [facility] Last Admin: 12/13/22 08:23 Dose: 3 ml Home Medications Medication Instructions Recorded Confirmed Last Taken Type aspirin 81 mg tablet,delayed 81 mg PO DAILY 02/24/21 12/12/22 12/12/22 09:00 History release (Adult Aspirin Regimen) atorvastatin 80 mg tablet 80 mg PO BEDTIME 08/20/21 12/12/22 12/11/22 History isosorbide mononitrate 60 mg 60 mg PO DAILY 08/20/21 12/12/22 12/12/22 09:00 History tablet,extended release 24 hr metoprolol tartrate 75 mg tablet 75 mg PO BID 08/20/21 12/12/22 12/12/22 09:00 History ticagrelor 90 mg tablet (Brilinta) 90 mg PO BID 08/20/21 12/12/22 12/12/22 09:00 History empagliflozin 10 mg tablet 10 mg PO DAILY 11/19/21 12/12/22 12/12/22 09:00 History (Jardiance) hydroxyzine HCl 10 mg tablet 10 - 20 mg PO BID PRN anxiety 11/19/21 12/12/22 Unknown History amlodipine 10 mg tablet 1 tab PO DAILY 12/12/22 12/12/22 12/12/22 09:00 History Physical Exam Vital Signs: Vital Signs: Last Vital Signs Temp 98 F 12/13/22 06:52 Pulse 55 12/13/22 06:52 Resp 18 12/13/22 06:52 BP 143/75 H 12/13/22 06:52 Pulse Ox 98 12/13/22 06:52 O2 Del Method 12/13/22 06:52 BMI result Body Mass Index 28.1 GENERAL APPEARANCE: in no acute distress, pleasant. NECK: no carotid bruit, no jugular venous distention. SKIN: no suspicious lesions, warm and dry. HEART: no murmurs, regular rate and rhythm. LUNGS: clear to auscultation bilaterally. ABDOMEN: soft, nontender. EXTREMITIES: no edema. PERIPHERAL PULSES: equal. NEUROLOGIC: No gross deficits, AAO X 3 Objective Labs and Meds 12/12/22 13:56 12/13/22 05:33 Lab results: Laboratory Results - last 24 hr 12/12/22 12/12/22 12/12/22 13:56 14:00 17:16 Sodium Potassium Chloride Carbon Dioxide Anion Gap BUN Creatinine Estim Creat Clear Calc Estimated GFR POC Glucose Random Glucose Estimat Average Glucose 120 Hemoglobin A1c % 5.8 Calcium Magnesium 1.8 COVID-19 (JAMIE) Negative COVID-19 Clin Com See Note 12/12/22 12/12/22 12/13/22 20:32 21:29 05:33 Sodium 145 Potassium 3.9 Chloride 113 H Carbon Dioxide 24 Anion Gap 12 BUN 18 H Creatinine 1.31 Estim Creat Clear Calc 68.0 Estimated GFR 57 POC Glucose 97 95 Random Glucose 81 Estimat Average Glucose Hemoglobin A1c % Calcium 8.1 L D Magnesium 1.7 COVID-19 (JAMIE) COVID-19 Clin Com 12/13/22 12/13/22 06:52 11:01 Sodium Potassium Chloride Carbon Dioxide Anion Gap BUN Creatinine Estim Creat Clear Calc Estimated GFR POC Glucose 69 78 Random Glucose Estimat Average Glucose Hemoglobin A1c % Calcium Magnesium COVID-19 (JAMIE) COVID-19 Clin Com Imaging Radiologist's impression: Impressions Abdomen/Pelvis CT 12/12/22 16:17 IMPRESSION: * Diffusely dilated small bowel loops reaching up to the terminal ileum, the content of which is fecalized suggesting an ileus versus partial and/or early small bowel obstruction. * Excess amount of stool in the colon possible constipation. * Cholelithiasis. * No CT evidence of bowel perforation. Assessment and Plan (1) Ileus: Status: Acute (2) S/P coronary angioplasty: Status: Acute Plan Pleasant 2-year-old gentleman who is here with ileus. He is already improving with conservative management. He has known history of coronary disease with previous LAD PCI in July 2021. He also already finished 1 year of dual antiplatelet therapy. Brilinta can be stopped. He should continue baby aspirin as before and aspirin should not be interrupted. If he requires any procedures then he is intermediate risk for perioperative cardiovascular complications. No further workup is required inpatient. Thank you for allowing me to participate in the care of your patient. Please feel free to contact me if you have any questions. Time Spent With Patient Time: Total time managing care of this patient today ____ minutes. Procedures Date of Service Date of Service: 12/13/22
[2022-12-13 15:12] VITALS: BP 133/74; PULSE 58; RESP 16; TEMP 37.1; O2SAT 95
[2022-12-13 16:22] LABS: Glucose, Whole Blood 137 mg/dL (60-115)
[2022-12-13 20:44] LABS: Glucose, Whole Blood 131 mg/dL (60-115)
[2022-12-13] MEDS: Atorvastatin Calcium 80 MG TABLET PO (20:59)
[2022-12-13 23:22] VITALS: BP 134/72; PULSE 61; RESP 16; TEMP 36.9; O2SAT 98
[2022-12-14] MEDS: Heparin Sodium,Porcine 5,000 UNIT/ML VIAL 5000 UNIT SUBCUT (05:39)
[2022-12-14 07:30] VITALS: BP 143/79; PULSE 53; RESP 16; TEMP 36.9; O2SAT 97
[2022-12-14] MEDS: Metoprolol Tartrate 25 MG TABLET 75 MG PO (07:37)
[2022-12-14] MEDS: lisinopriL 40 MG TABLET PO (07:37)
[2022-12-14] MEDS: Isosorbide Mononitrate 60 MG TAB.ER.24H PO (07:37)
[2022-12-14] MEDS: Empagliflozin 10 MG TABLET PO (07:37)
[2022-12-14] MEDS: 0.9 % Sodium Chloride Flush 3 ML SYRINGE IVFLUSH (07:37)
[2022-12-14] MEDS: amLODIPine Besylate 10 MG TABLET PO (07:37)
[2022-12-14] MEDS: Aspirin Enteric Coated 81 MG TABLET.DR PO (07:37)
[2022-12-14 07:40] LABS: Hematocrit 32.6 % (42.0-52.0); Hemoglobin 11.5 g/dl (14.0-18.0); Mean Corpuscular HGB Conc 35.3 g/dl (31.0-36.0); Mean Corpuscular Hemoglobin 29.7 pg (27.0-33.0); Mean Corpuscular Volume 84.2 fL (80.0-98.0); Mean Platelet Volume 9.5 fL (9.4-12.4); Platelet Count 219 X10*3/uL (160-400); Red Blood Count 3.87 X10*6/uL (4.60-5.80); Red Cell Distribution Width 12.6 % (11.0-16.0); White Blood Count 4.4 X10*3/uL (4.8-10.8)
[2022-12-14 07:42] LABS: Glucose, Whole Blood 102 mg/dL (60-115)
--- NOTE | 2022-12-14 09:10 | P.PNGS_ITS ---
Subjective Subjective Date of Service: 12/14/22 Patient reports: no new complaints, feels better, tolerating a regular diet, flatus and bowel movement Interval history: The patient continues to endorse interval improvement. He had a regular breakfast, states he is passing gas and having bowel movements and denies any abdominal pain. He also denies chest pain, difficulty breathing or shortness of breath. He has no new complaints. Physical Exam Vital Signs: Vital Signs: Last Vital Signs Temp 98.4 F 12/14/22 07:30 Pulse 53 12/14/22 07:30 Resp 16 12/14/22 07:30 BP 143/79 H 12/14/22 07:30 Pulse Ox 97 12/14/22 07:30 O2 Del Method 12/14/22 07:30 BMI result Body Mass Index 28.1 On exam he is nontoxic Sclera remain anicteric He is in no acute respiratory distress Abdomen is soft and nontender with no hernia, rebound, rigidity guarding or tenderness. Lower extremities are free of any swelling or palpable cord Objective Data Active Medications Acetaminophen (Acetaminophen 325 Mg Tablet) 650 mg PO Q6H PRN PRN Reason: Pain, Mild (Pain Scale 1-3) Last Admin: 12/13/22 13:43 Dose: 650 mg Documented By: BENITA Amlodipine Besylate (Amlodipine Besylate 10 Mg Tablet) 10 mg PO DAILY [facility]; Protocol Last Admin: 12/14/22 07:37 Dose: 10 mg Documented By: BENITA Aspirin (Aspirin Enteric Coated 81 Mg Tablet.) 81 mg PO DAILY [facility] Last Admin: 12/14/22 07:37 Dose: 81 mg Documented By: BENITA Atorvastatin Calcium (Atorvastatin Calcium 80 Mg Tablet) 80 mg PO BEDTIME [facility] Last Admin: 12/13/22 20:59 Dose: 80 mg Documented By: VANCE Empagliflozin (Empagliflozin 10 Mg Tablet) 10 mg PO DAILY [facility] Last Admin: 12/14/22 07:37 Dose: 10 mg Documented By: BENITA Glucose (Glucose Gel 15 Gm Gel..Gram.) 15 gm PO Q15M PRN; Protocol PRN Reason: per Hypoglycemia Standing Ord. Heparin Sodium (Porcine) (Heparin Sodium,Porcine 5,000 Unit/Ml Vial) 5,000 unit SUBCUT Q8H [facility] Last Admin: 12/14/22 05:39 Dose: 5,000 unit Documented By: VANCE Comments: pt was asleep Dextrose (D10) 250 mls @ 750 mls/hr IV Q15M PRN; Protocol PRN Reason: per Hypoglycemia Standing Ord. Insulin Human Lispro (Insulin Lispro 100 Unit/Ml 3 Ml Vial) 0 unit SUBCUT QIDACHS [facility]; Protocol Last Admin: 12/14/22 07:29 Dose: Not Given Documented By: BENITA Non-Admin Reason: No Insulin Coverage Isosorbide Mononitrate (Isosorbide Mononitrate 60 Mg Tab.Er.24h) 60 mg PO DAILY [facility]; Protocol Last Admin: 12/14/22 07:37 Dose: 60 mg Documented By: BENITA Lisinopril (Lisinopril 40 Mg Tablet) 40 mg PO DAILY [facility]; Protocol Last Admin: 12/14/22 07:37 Dose: 40 mg Documented By: BENITA Metoprolol Tartrate (Metoprolol Tartrate 25 Mg Tablet) 75 mg PO BID [facility]; Protocol Last Admin: 12/14/22 07:37 Dose: 75 mg Documented By: BENITA Morphine Sulfate (Morphine Sulfate 2 Mg/Ml Cartridge) 2 mg IVPUSH Q4H PRN; Protocol PRN Reason: Pain, Severe (Pain Scale 7-10) Ondansetron HCl (Ondansetron Hcl 4 Mg/2 Ml Vial) 4 mg IVPUSH Q8H PRN PRN Reason: Nausea and Vomiting Pharmacy Consult (Consult Rx Perform Med Rec) 1 each MISCELLANE ONCE PRN PRN Reason: Consult order Sodium Chloride (0.9 % Sodium Chloride Flush 3 Ml Syringe) 3 ml IVFLUSH QSHIFT [facility] Last Admin: 12/14/22 07:37 Dose: 3 ml Documented By: BENITA Labs 12/14/22 05:37 12/13/22 05:33 Labs: Laboratory Results - last 24 hr 12/13/22 12/13/22 12/13/22 11:01 16:11 20:23 MCV MCH MCHC RDW Plt Count MPV Absolute Nucleated RBC Nucleated RBC % (auto) POC Glucose 78 137 H 131 H 12/14/22 12/14/22 05:37 07:28 MCV 84.2 MCH 29.7 MCHC 35.3 RDW 12.6 Plt Count 219 MPV 9.5 Absolute Nucleated RBC 0.000 Nucleated RBC % (auto) 0.0 POC Glucose 102 Microbiology Microbiology Results: Microbiology 12/12/22 Unknown Urine Culture - Final Urine clean catch - Urine amanda top No growth. Procedures Date of Service Date of Service: 12/14/22 Progress Note: A&P Assessment and plan (1) Ileus: Status: Acute (2) Stable angina: Status: Acute (3) Type 2 diabetes mellitus with unspecified 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 macular edema: Status: Acute (4) Hyperlipidemia LDL goal <70: Status: Acute (5) Anemia: Status: Acute (6) Diabetes: Status: Acute Plan It is unclear whether the patient had a GI bug, constipation that was clinically significant but there is no acute surgical pathology so I will sign off the case. If there is ongoing concern, repeat CT with oral and IV contrast or small-bowel follow-through is an option but clinically, I would expect this to be low yield. His chronic comorbidities and anemia should be evaluated on an outpatient basis by his PCP and sap fico architect. Thank you for asking me to participate in his care. Time Spent With Patient Time: Total time managing care of this patient today ____ minutes. Quality Stroke Does the patient have a stroke diagnosis?: No VTE Prior VTE?: No VTE Risk Level:: Medical - moderate - high VTE Device Contraindication: Treatment Not Indicated VTE Drug Contraindication: N/A - Med Ordered
--- NOTE | 2022-12-14 10:31 | PM.DS ---
DS: Providers Provider Date of Service: 12/14/22 Date of admission: 12/12/22 18:31 Date of discharge: 12/14/22 Primary care physician: [facility] Consults: 12/12/22 18:36 Consult to Cardiology Routine Consulting Provider: [facility] Cardiovascular Services Reason for consultation: Ileus Has provider been notified: Yes 12/12/22 19:01 Consult to General Surgery Stat Consulting Provider: Rashad Acevdeo Reason for consultation: SBO Has provider been notified: Yes DS: Diagnosis Discharge Diagnosis (1) Ileus: Status: Acute (2) Anemia: Status: Acute (3) S/P coronary angioplasty: Status: Acute DS: Summary Hospital Course Hospital Course: from admission H+P by hospitalist ANGI Ann, 12/12/22: Pt is a 52-year-old male with a PMH significant for?cardiomyopathy, LAD PCI, hx of VT with ILR , HTN, HLD, CKD stage 3, CVA 2 years ago, and aun-[id number]-[id number] diabetes who presents to the ED with?severe abdominal pain. Pt states pain began early this morning at 2:30 after eating a oscar. Pain was located primarily in the right lower quadrant, felt like his intestines were being compressed, and rated a 9/10. He tried to sleep but was kept up d/t pain. Pain continued throughout the morning and pt also experienced 3 episodes of vomiting, which was uncharacteristic for him and prompted his visit to the ED. patient notes he did have a normal bowel movement this morning, but denies passing any flatus since.? Patient denies a history of abdominal surgeries.? No fever, chills, diarrhea.? Denies chest pain/pressure, palpitations. No shortness of breath. Pt also complains of small subcutaneous lesion on right thigh which he associates with increased muscle cramps the past few months. In the ED labs were significant for stable H&H of 12.6/36.0, creatinine of 1.65 (seemingly at baseline), and POC of 54. CT?of abdomen/pelvis showed diffusely dilated small bowel loops with fecalized content, suggestive of ileus versus partial and/or SBO. Pt was treated with IVF and ketorolac. Pt will be admitted to the hospital for treatment and management of ileus. 52yo M with DM2, CAD s/p PCI, hx VT currently with ILR, CKD3, hx CVA, HTN admitted for ileus. Surgery consulted, no operative management indicated. Ileus resolved with bowel rest and IV fluid hydration. As for CKD3, SCr remained at baseline. He has normocytic anemia that is chronic and likely due to CKD3 but should undergo age-appropriate colon CA screening as outpt. He was seen by his try on baster and Brillinta was discontinued as it has been over a year since PCI. He was discharged home in stable condition. Time Spent with Patient Time attestation: Total time managing care of this patient today ____ minutes. Discharge coordination time: Greater than 30 minutes Quality: Safe Use of Opioids Does Pt have an Active Cancer Diagnosis on the Problem List?: No Quality: Stroke Does the patient have a stroke diagnosis?: No Physical Exam Vital Signs: Vital Signs: Last Vital Signs Temp 98.4 F 12/14/22 07:30 Pulse 53 12/14/22 07:30 Resp 16 12/14/22 07:30 BP 143/79 H 12/14/22 07:30 Pulse Ox 97 12/14/22 07:30 O2 Del Method 12/14/22 07:30 BMI result Body Mass Index 28.1 Gen: in no acute distress HEENT: sclera anicteric, moist mucus membranes Neck: supple Lungs: clear to auscultation bilaterally Heart: regular rate and rhythm, no murmurs Abd: soft, non-tender, non-distended Ext: no edema Skin: warm/well-perfused Neuro: alert and oriented x3, no focal findings Psych: appropriate affect DS: Data Data Completed and Pending Completed studies during hospitalization [Text1]: Laboratory Results WBC 4.4 X10*3/uL (4.8-10.8) L 12/14/22 05:37 RBC 3.87 X10*6/uL (4.60-5.80) L 12/14/22 05:37 Hgb 11.5 g/dl (14.0-18.0) L 12/14/22 05:37 Hct 32.6 % (42.0-52.0) L 12/14/22 05:37 MCV 84.2 fL (80.0-98.0) 12/14/22 05:37 MCH 29.7 pg (27.0-33.0) 12/14/22 05:37 MCHC 35.3 g/dl (31.0-36.0) 12/14/22 05:37 RDW 12.6 % (11.0-16.0) 12/14/22 05:37 Plt Count 219 X10*3/uL (160-400) 12/14/22 05:37 MPV 9.5 fL (9.4-12.4) 12/14/22 05:37 Immature Gran % (Auto) 0.3 % (0.0-0.4) 12/12/22 13:56 Neut % (Auto) 85.7 % (45-73) H 12/12/22 13:56 Lymph % (Auto) 8.9 % (20-40) L 12/12/22 13:56 [place] % (Auto) 4.2 % (2-11) 12/12/22 13:56 Eos % (Auto) 0.8 % (0-4) 12/12/22 13:56 Baso % (Auto) 0.1 % (0-2) 12/12/22 13:56 Lymph # (Auto) 0.9 X10*3/uL (1.2-4.9) L 12/12/22 13:56 [place] # (Auto) 0.4 X10*3/uL (0.1-1.2) 12/12/22 13:56 Eos # (Auto) 0.1 X10*3/uL (0.0-0.4) 12/12/22 13:56 Baso # (Auto) 0.0 X10*3/uL (0.0-0.2) 12/12/22 13:56 Abs Immat Gran (auto) 0.03 X10*3/uL (0.00-0.03) 12/12/22 13:56 Absolute Neuts (auto) 8.2 x10*3/uL (2.0-8.3) 12/12/22 13:56 Absolute Nucleated RBC 0.000 X10*3/uL (0.0-0.012) 12/14/22 05:37 Nucleated RBC % (auto) 0.0 /100WBC (0.0-0.2) 12/14/22 05:37 Sodium 145 mmol/L (135-145) 12/13/22 05:33 Potassium 3.9 mmol/L (3.3-5.1) 12/13/22 05:33 Chloride 113 mmol/L (96-108) H 12/13/22 05:33 Carbon Dioxide 24 mmol/L (22-29) 12/13/22 05:33 Anion Gap 12 (12-20) 12/13/22 05:33 BUN 18 mg/dL (9-16) H 12/13/22 05:33 Creatinine 1.31 mg/dL (0.5-1.4) 12/13/22 05:33 Estim Creat Clear Calc 68.0 12/13/22 05:33 Estimated GFR 57 12/13/22 05:33 POC Glucose 102 mg/dL (60-115) 12/14/22 07:28 Random Glucose 81 mg/dL (60-115) 12/13/22 05:33 Estimat Average Glucose 120 mg/dL 12/12/22 14:00 Hemoglobin A1c % 5.8 % 12/12/22 14:00 Calcium 8.1 mg/dL (8.4-10.2) L D 12/13/22 05:33 Magnesium 1.7 mg/dL (1.6-2.6) 12/13/22 05:33 Total Bilirubin 0.9 mg/dL (0.0-1.0) 12/12/22 13:56 AST 22 U/L (5-37) 12/12/22 13:56 ALT 29 U/L (0-40) 12/12/22 13:56 Alkaline Phosphatase 60 U/L (39-117) 12/12/22 13:56 Total Protein 6.4 g/dL (6.5-8.0) L 12/12/22 13:56 Albumin 4.3 g/dL (3.5-5.0) 12/12/22 13:56 Urine Color Yellow 12/12/22 13:56 Urine Appearance Clear 12/12/22 13:56 Urine pH 5.0 (5.0-9.0) 12/12/22 13:56 Ur Specific [place] >= 1.030 (1.005-1.025) H 12/12/22 13:56 Urine Protein Negative mg/dL (Neg-Trace) 12/12/22 13:56 Urine Glucose (UA) >=1000 mg/dL (Negative) H 12/12/22 13:56 Urine Ketones Negative mg/dL (Negative) 12/12/22 13:56 Urine Blood Negative (Negative) 12/12/22 13:56 Urine Nitrite Negative (Negative) 12/12/22 13:56 Ur Leukocyte Esterase Small (1+) (Negative) H 12/12/22 13:56 Urine RBC 0-2 /HPF (0-2) 12/12/22 13:56 Urine WBC 21-50 /HPF (0-5) H 12/12/22 13:56 Ur Squamous Epith Cells 3-5 /HPF (0-2) 12/12/22 13:56 Urine Bacteria 1+ (None Seen) 12/12/22 13:56 Hyaline Casts 3-5 /LPF (0-2) 12/12/22 13:56 Urine Yeast Present 12/12/22 13:56 COVID-19 (JAMIE) Negative (Negative) 12/12/22 17:16 COVID-19 Clin Com See Note 12/12/22 17:16 Impressions Abdomen/Pelvis CT 12/12/22 16:17 IMPRESSION: * Diffusely dilated small bowel loops reaching up to the terminal ileum, the content of which is fecalized suggesting an ileus versus partial and/or early small bowel obstruction. * Excess amount of stool in the colon possible constipation. * Cholelithiasis. * No CT evidence of bowel perforation. Discharge Plan Discharge Anticipated Discharge Date/Time: 12/14/22 10:22 Patient Disposition: Home, Self-Care Discharge Diagnosis: ileus, coronary artery diseae Referrals: [facility] [Primary Care Provider] - 1 Week Reynaldo Shetty MD [Physician] - 1 Week Discharge Medications: Continued (DME) FreeStyle Test Strip See Rx Instructions .ROUTE .MEDSUPPLY Qty: 50 11RF Rx Instructions: Use 1 test strip twice a day (DME) blood-glucose meter [FreeStyle [place] Lite] Kit See Rx Instructions .ROUTE .MEDSUPPLY Qty: 1 0RF Rx Instructions: As directed (DME) lancets [FreeStyle Lancets] 28 gauge misc See Rx Instructions .ROUTE .MEDSUPPLY Qty: 100 11RF Rx Instructions: Use 1 lancet twice a day lisinopril 40 mg tablet 40 mg PO DAILY 90 Days Qty: 90 1RF amlodipine 10 mg tablet 1 tab PO DAILY metformin 1,000 mg tablet extended release 24hr 1,000 mg PO BID 90 Days Qty: 180 3RF aspirin [Adult Aspirin Regimen] 81 mg tablet,delayed release (DR/EC) 81 mg PO DAILY metoprolol tartrate 75 mg tablet 75 mg PO BID isosorbide mononitrate 60 mg tablet extended release 24 hr 60 mg PO DAILY atorvastatin 80 mg tablet 80 mg PO BEDTIME hydroxyzine HCl 10 mg tablet 10 - 20 mg PO BID PRN (Reason: anxiety) Jardiance 10 mg tablet 10 mg PO DAILY Discontinued Brilinta 90 mg tablet 90 mg PO BID Discharge Orders: Discharge Order (Routine); Ordered 12/14/22 Ordered By: Alexandro Lujan Diet: Diabetic diet Activity on Discharge: As tolerated Stand Alone Forms: Patient Portal Discharge page Care Plan Goals: GI health, heart health Health Concerns: ileus, coronary artery diseae Plan of Treatment: ileus resolved CAD: stop Brillinta, follow-up with Cardiology in 1 month Please follow up with your primary care doctor within 1 week. Return to the hospital if you experience recurrent or worsening symptoms. Assessment: See Discharge Summary.
--- NOTE | 2022-12-14 10:43 | MHC.CM.PN ---
DP: PT HAS BEEN MEDICALLY CLEARED FOR DC HOME, NO SERVICES. RN AWARE. PT HAS OWN RIDE HOME, CAR IN LOT
== END 2022-12-14 10:51 | disposition home or self-care (01) | DRG 247 ==
LOC: HO.ED 17:38 → HO.EDOVER 18:40 → HO.S3 20:15
PROVIDERS: Surgery; Admitting Provider Student in an Organized Health Care Education/Training Program; Emergency Provider Student in an Organized Health Care Education/Training Program; Visit Provider Family Medicine
DX: K56.7 Ileus, unspecified (principal); E11.22 Type 2 diabetes mellitus with diabetic chronic kidney disease; D63.1 Anemia in chronic kidney disease; I12.9 Hypertensive chronic kidney disease with stage 1 through stage 4 chronic kidney disease, or unspecified chronic kidney disease; N18.30 Chronic kidney disease, stage 3 unspecified; I25.118 Atherosclerotic heart disease of native coronary artery with other forms of angina pectoris; Z86.73 Personal history of transient ischemic attack (TIA), and cerebral infarction without residual deficits; E78.5 Hyperlipidemia, unspecified; E11.319 Type 2 diabetes mellitus with unspecified 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 macular edema; Z95.5 Presence of coronary angioplasty implant and graft; Z20.822 Contact with and (suspected) exposure to COVID-19; Z87.891 Personal history of nicotine dependence; Z79.82 Long term (current) use of aspirin; Z79.84 Long term (current) use of oral hypoglycemic drugs; Z79.899 Other long term (current) drug therapy
CPT/HCPCS: 36415; 74176; 80048; 80053; 81001; 82947; 83036; 83735; 85025; 85027; 87086; 87635; 93005; 99285; J1643; J1885

== ENCOUNTER 2023-01-12 06:36 | Emergency (ER) | payer MEDICAID, SELFPAY ==
[2023-01-12 06:43] VITALS: BP 132/65; PULSE 61; RESP 16; TEMP 36.4; O2SAT 97; BMI 27.3
[2023-01-12 07:02] VITALS: BP 127/70; PULSE 61; RESP 18; TEMP 36.4; O2SAT 98
--- NOTE | 2023-01-12 07:06 | PC.NURSE ---
Pt arrived d/t ? of metal fraqment in Right and maybe Left eye. Pt states he was grinding metal yesterday and feels like a piece went into his eye. Right eye is red, and tearful. Describes a burning and scratching pain /10
--- NOTE | 2023-01-12 08:36 | ED_ITS ---
HPI - Eye Problem General Chief complaint: Eye Problems Stated complaint: Eye issue Time Seen by Provider: 01/12/23 07:51 Source: patient and RN notes reviewed Limitations: no limitations History of Present Illness HPI Narrative: This is a 52-year-old male, with a past medical history of diabetes, and asthma who presents emergency department today with complaints of ?foreign body in his bilateral eyes since yesterday. Patient reports that while he was working on his car he believes that a piece of metal flew into his right eye. He immediately attempted to remove the metal from his eye but is unsure if he was able to. He reports that he feels as though there are foreign bodies in his bilateral eyes right worse than left. He woke up this morning in his right eye was crusted shut. He reports that he has also had excessive drainage from his right eye. He denies any visual changes or eye pain. He has a history of foreign bodies in his eye in the past and this feels similar. No other complaints or concerns at this time. MD chief complaint: eye injury Onset (ago): day(s) Onset description: sudden Duration: constant Location: both eyes Eye Symptoms: foreign body sensation and discharge Place: home Mechanism: direct trauma and occurred while hammering/grinding Severity: moderate If Pain, Quality: aching Associated symptoms: none Treatments Prior to Arrival: none Related Data Home Medications Medication Instructions Recorded Confirmed aspirin 81 mg tablet,delayed 81 mg PO DAILY 02/24/21 12/12/22 release (Adult Aspirin Regimen) atorvastatin 80 mg tablet 80 mg PO BEDTIME 08/20/21 12/12/22 isosorbide mononitrate 60 mg 60 mg PO DAILY 08/20/21 12/12/22 tablet,extended release 24 hr metoprolol tartrate 75 mg tablet 75 mg PO BID 08/20/21 12/12/22 empagliflozin 10 mg tablet 10 mg PO DAILY 11/19/21 12/12/22 (Jardiance) hydroxyzine HCl 10 mg tablet 10 - 20 mg PO BID PRN anxiety 11/19/21 12/12/22 amlodipine 10 mg tablet 1 tab PO DAILY 12/12/22 12/12/22 Previous Rx's Medication Instructions Recorded metformin 1,000 mg tablet,extended 1,000 mg PO BID 90 days #180 tabs 11/05/20 release 24hr blood sugar diagnostic (FreeStyle #50 ea 12/22/20 Test strips) blood-glucose meter (FreeStyle #1 ea 12/22/20 Midkiff Lite kit) lancets 28 gauge (FreeStyle #100 ea 12/22/20 Lancets) lisinopril 40 mg tablet 40 mg PO DAILY 90 days #90 tabs 06/17/21 sulfacetamide sodium 10 % eye drops 1 drp ophthalmic (eye) Q3H #15 mL 01/12/23 Allergies Allergy/AdvReac Type Severity Reaction Status Date / Time No Known Allergies Allergy Verified 12/12/22 21:57 Review of Systems Review of Systems: Yes all other systems are reviewed and are negative [facility] Past Medical History Medical History Anemia Arthritis Carpal tunnel syndrome Diabetes Essential hypertension HTN (hypertension) Hyperlipemia Hyperlipidemia LDL goal <70 Nephrolithiasis Phlebitis Stroke Type 2 diabetes mellitus with unspecified 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 macular edema Surgical History H/O cardiac catheterization H/O vitrectomy History of carpal tunnel surgery of right wrist Family History Family History Father Asthma Mother Diabetes mellitus Social History Social History Household Members: None Housing: Apartment Do you presently have visiting nurse or other home services: No Alcohol intake: unknown Patient Tobacco Use Status: Former Tobacco user Quit Date: 2012 Years Smoked: 6 +/- Smoked in Last 30 Days: No Use of substances other than those prescribed or required for medical reasons: No Advance Directives: No Advance Directives Information Provided: Yes service: No Physical Exam Vital Signs: Vital Signs: Last Vital Signs Temp 98.0 F 01/12/23 09:28 Pulse 54 01/12/23 09:28 Resp 18 01/12/23 09:28 BP 134/76 01/12/23 09:28 Pulse Ox 98 01/12/23 09:28 O2 Del Method Room Air 01/12/23 09:28 BMI result Body Mass Index 27.3 Appearance: Alert. Oriented X3. No acute distress. Eyes: Pupils equal, round and reactive to light. EOMI without pain. Right eye conjunctiva with no obvious foreign body, conjunctivae is injected with clear drainage. Left eye conjunctiva mildly injected with no obvious foreign body. Linear, black, 3 mm in foreign body noted to the right upper inner eyelid with lid eversion, successfully removed with tip of cotton swab. Fluorescein uptake noted at the 8 o'clock position of the right eye. Left eye with no fluorescein uptake, no foreign body visualized. No residual rust ring. Left ocular pressure 20mmHg, right ocular pressure 15mmHg. ENT: Pharynx normal. Neck: Normal inspection. Neck supple. CVS: Normal heart rate and rhythm. Pulses normal. Respiratory: No respiratory distress. Breath sounds normal. Skin: Skin warm and dry. Normal skin color. Normal skin turgor. No rashes. Extremities: No lower extremity edema. Neuro: Oriented X 3. No motor deficit. No sensory deficit. Medications Administered Discontinued Medications Generic Name Dose Route Start Last Admin Trade Name Freq PRN Reason Stop Dose Admin Fluorescein Sodium 1 strip 01/12/23 08:22 01/12/23 08:56 Fluorescein Sodium Strip EYE-BOTH 01/12/23 08:23 1 strip ONCE ONE Administration Tetracaine HCl 3 drop 01/12/23 08:22 01/12/23 08:56 Tetracaine Hcl/Pf 0.5% Oph Susanna 4 Ml Drops EYE-BOTH 01/12/23 08:23 3 drop ONCE ONE Administration Medical Decision Making Medical Decision Making MDM Narrative: 52-year-old male, with a past medical history of diabetes and asthma, presenting for evaluation of foreign body sensation in his bilateral eyes since yesterday. Visual acuity test within normal limits, eye examination performed, see procedure note. Foreign body successfully removed from right eye. Pt feeling better and does not feel foreign body sensation after removal of this. Patient is a diabetic also having corneal abrasion after removal of foreign body, will treat with 7 day course of bleph-10. Counseled the importance of wearing safety glasses. Advised to return with any new or worsening symptoms. Patient understands and agrees with plan. Differential Diagnosis Differential Diagnoses: The differential diagnosis associated with the presentation includes Foreign body, conjunctivitis, iritis, periorbital cellulitis, hordeolum Chronic Conditions Patient?s care impacted by: Diabetes Procedures FB Removal Eye Time Out performed: Yes Location: eye (L) and eye (R) Topical anesthetic used: tetracaine Foreign body: metal Evidence of corneal penetration: No Technique: cotton tip swab Procedure performed under: direct visualization with magnification Patient tolerated procedure: well Discharge Plan Discharge Clinical Impression: Abrasion, corneal, Foreign body in eye Patient Disposition: Home, Self-Care Instructions: Corneal Abrasion (ED), Eye Foreign Body (ED) Additional Instructions: We successfully removed a foreign body from the right eye today. Please use antibiotic eyedrops in both eyes as directed to prevent infection. Use these eyedrops for seven days. Please follow-up with your eye doctor regarding this visit. If any new or worsening symptoms occur, please return for re-evaluation. Prescriptions: New sulfacetamide sodium 10 % drops 1 drp ophthalmic (eye) Q3H Qty: 15 0RF No Action (DME) FreeStyle Test Strip See Rx Instructions .ROUTE .MEDSUPPLY Qty: 50 11RF Rx Instructions: Use 1 test strip twice a day (DME) blood-glucose meter [FreeStyle Midkiff Lite] Kit See Rx Instructions .ROUTE .MEDSUPPLY Qty: 1 0RF Rx Instructions: As directed (DME) lancets [FreeStyle Lancets] 28 gauge misc See Rx Instructions .ROUTE .MEDSUPPLY Qty: 100 11RF Rx Instructions: Use 1 lancet twice a day lisinopril 40 mg tablet 40 mg PO DAILY 90 Days Qty: 90 1RF amlodipine 10 mg tablet 1 tab PO DAILY metformin 1,000 mg tablet extended release 24hr 1,000 mg PO BID 90 Days Qty: 180 3RF aspirin [Adult Aspirin Regimen] 81 mg tablet,delayed release (DR/EC) 81 mg PO DAILY metoprolol tartrate 75 mg tablet 75 mg PO BID isosorbide mononitrate 60 mg tablet extended release 24 hr 60 mg PO DAILY atorvastatin 80 mg tablet 80 mg PO BEDTIME hydroxyzine HCl 10 mg tablet 10 - 20 mg PO BID PRN (Reason: anxiety) Jardiance 10 mg tablet 10 mg PO DAILY Interventions: ED Discharge Assessment Last Done: 01/12/23 09:28 Discharge Date/Time: 01/12/23 09:29
[2023-01-12] MEDS: Fluorescein Sodium STRIP 1 STRIP EYE-BOTH (08:56)
[2023-01-12] MEDS: Tetracaine HCl/PF 0.5% Oph Sol 4 ML DROPS 3 DROP EYE-BOTH (08:56)
[2023-01-12 09:28] VITALS: BP 134/76; PULSE 54; RESP 18; TEMP 36.7; O2SAT 98
== END 2023-01-12 09:29 | disposition home or self-care (01) ==
PROVIDERS: Emergency Provider Emergency Medicine
DX: T15.01XA Foreign body in cornea, right eye, initial encounter (principal); X58.XXXA Exposure to other specified factors, initial encounter; Y93.89 Activity, other specified; Y92.9 Unspecified place or not applicable; Y99.9 Unspecified external cause status; J45.909 Unspecified asthma, uncomplicated; E11.9 Type 2 diabetes mellitus without complications; I10 Essential (primary) hypertension; E78.5 Hyperlipidemia, unspecified
CPT/HCPCS: 99283; 99284

== ENCOUNTER 2023-03-30 16:25 | Emergency (ER) | payer MEDICAID, SELFPAY ==
--- NOTE | ~2023-03-30 | XR_ITS ---
EXAMINATION: XR CHEST CLINICAL INFORMATION: Chest pain. COMPARISON: 11/16/2022 chest radiographs. TECHNIQUE: Frontal view of the chest was obtained. FINDINGS: No significant abnormality is noted involving the heart, lungs, mediastinum, bony thorax or soft tissues. A leadless pacemaker is again seen in place. XR/XR chest 1V IMPRESSION: No acute cardiopulmonary process.
[2023-03-30 16:27] VITALS: BP 107/59; PULSE 59; RESP 18; TEMP 36.8; O2SAT 96; BMI 25.8
--- NOTE | 2023-03-30 16:29 | ED.CHESTPAIN ---
HPI - Chest Pain General Chief Complaint: Chest Pain Stated Complaint: Chest pain/SOB/Has pace maker Time Seen by Provider: 03/30/23 18:14 Source: patient Mode of arrival: ambulatory History of Present Illness HPI narrative: 52-year-old male with history sternal chest discomfort for 3 days that radiates into his back and he describes as tightness, denies any new cough/sore throat/fever/chills/skozus-dlibqykt-ouvovego. Patient is reporting a headache and has a pacemaker at baseline but denies any associated diaphoresis/dizziness. Related Data Home Medications Medication Instructions Recorded Confirmed aspirin 81 mg tablet,delayed 81 mg PO DAILY 02/24/21 12/12/22 release (Adult Aspirin Regimen) atorvastatin 80 mg tablet 80 mg PO BEDTIME 08/20/21 12/12/22 isosorbide mononitrate 60 mg 60 mg PO DAILY 08/20/21 12/12/22 tablet,extended release 24 hr metoprolol tartrate 75 mg tablet 75 mg PO BID 08/20/21 12/12/22 empagliflozin 10 mg tablet 10 mg PO DAILY 11/19/21 12/12/22 (Jardiance) hydroxyzine HCl 10 mg tablet 10 - 20 mg PO BID PRN anxiety 11/19/21 12/12/22 amlodipine 10 mg tablet 1 tab PO DAILY 12/12/22 12/12/22 Previous Rx's Medication Instructions Recorded metformin 1,000 mg tablet,extended 1,000 mg PO BID 90 days #180 tabs 11/05/20 release 24hr blood sugar diagnostic (FreeStyle #50 ea 12/22/20 Test strips) blood-glucose meter (FreeStyle #1 ea 12/22/20 Tolna Lite kit) lancets 28 gauge (FreeStyle #100 ea 12/22/20 Lancets) lisinopril 40 mg tablet 40 mg PO DAILY 90 days #90 tabs 06/17/21 sulfacetamide sodium 10 % eye drops 1 drp ophthalmic (eye) Q3H #15 mL 01/12/23 Allergies Allergy/AdvReac Type Severity Reaction Status Date / Time No Known Allergies Allergy Verified 03/30/23 16:30 Review of Systems Review of Systems: Pertinent positives and negatives as stated in HPI PMFSH Past Medical History Source: nursing notes reviewed Medical History Anemia Arthritis Carpal tunnel syndrome Diabetes Essential hypertension HTN (hypertension) Hyperlipemia Hyperlipidemia LDL goal <70 Nephrolithiasis NSVT (nonsustained ventricular tachycardia) Phlebitis Stable angina Stroke Type 2 diabetes mellitus with unspecified 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 macular edema Unstable angina Surgical History H/O cardiac catheterization H/O vitrectomy History of carpal tunnel surgery of right wrist S/P coronary angioplasty Family History Family History Father Asthma Mother Diabetes mellitus Social History Social History Household Members: None Housing: Apartment Do you presently have visiting nurse or other home services: No Alcohol intake: never Patient Tobacco Use Status: Former Tobacco user Quit Date: 2012 Smoked: 6 +/- Smoked in Last 30 Days: No Use of substances other than those prescribed or required for medical reasons: No Advance Directives: No Advance Directives Information Provided: No service: No Physical Exam Vital Signs: Vital Signs: Last Vital Signs Temp 98.4 F 03/30/23 22:03 Pulse 70 03/30/23 22:03 Resp 17 03/30/23 22:03 BP 140/79 H 03/30/23 22:03 Pulse Ox 97 03/30/23 22:03 O2 Del Method Room Air 03/30/23 22:03 BMI result Body Mass Index 25.8 VITAL SIGNS: Reviewed. GENERAL: Well developed, well nourished, in no acute distress. HEAD: Normocephalic/atraumatic EYES: PERRLA, EOMI EARS: Ext canals without abnormality NOSE: Nares patent bilateral OROPHARYNX: no oral lesions noted, posterior pharynx clear NECK: Supple, no adenopathy LUNGS: Normal breath sounds. No adventitious sounds or accessory muscle use. SpO2<96> CARDIOVASCULAR: Regular rate and rhythm without noted murmurs, no JVD or lower extremity edema. ABDOMEN: Soft, non-tender, non-distended with bowel sounds. MUSCULOSKELETAL: No tenderness, deformities, or effusions noted on gross inspection. EXTREMITIES: No cyanosis, clubbing or edema. SKIN: Inspection of the skin reveals no rashes NEUROLOGIC: Alert and oriented x 4. Strength and sensation to light touch were grossly intact x 4. Course Course Course Narrative: RME: 52yo M w/PMHx CAD, HTN, CKD, DM, Pacemarker on Eliquis (per patient), c/o nonradiating substernal CP & SOB x 3 days. Denies N/V. Admits received exciting news yesterday which may be related EKG, Labs, CXR ordered Full HPI, ROS and PE to be performed by primary ED provider. Medications Administered Discontinued Medications Generic Name Dose Route Start Last Admin Trade Name Megan PRN Reason Stop Dose Admin Al Hydroxide/Mg Hydroxide 30 ml 03/30/23 19:53 03/30/23 20:13 Magnesium Hydrox/Alum Hydrox 30 Ml Oral.Susp PO 03/30/23 19:54 30 ml ONCE ONE Administration Sodium Chloride 1,000 mls @ 999 mls/hr 03/30/23 20:00 03/30/23 22:34 Ns IV 03/30/23 21:00 Infused .Q1H1M PRINCESS Infusion Lidocaine HCl 10 ml 03/30/23 19:53 03/30/23 20:26 Lidocaine Hcl Viscous 2 % 15 Ml Solution MUCOUS MEM 03/30/23 19:54 Not Given ONCE ONE Medical Decision Making Medical Decision Making MDM Narrative: 52-year-old male with history and clinical presentation suggestive of possible cardiopulmonary etiology no clinical suspicion at this time for pneumonia, the discomfort increases with deep inspiration and suspect the possibility of musculoskeletal etiology or possible GI via acid reflux. Manner of pain is not consistent with pericarditis. In addition, patient endorse that he had received emotional news yesterday in the form of his daughter contacting him after 20 years. On review of patient's chart he is had a recent device check on 03/16. I reviewed all investigations and the troponin is not elevated and in the context of no acute changes on the EKG on likely to be cardiac related, no evidence to suggest pneumonia there is no leukocytosis, anemia as chronically stable, patient does have a new ANA but on review of his medication list there are several medications that may have contributed to this in the context of decreased water intake. He will receive 1 L of IV fluids and if the renal function trends downward who will be given strict instructions to follow-up with his primary care provider for reassessment of medications and alternatives. On re-evaluation and repeat lab work, patient's renal function is improving indicative of reversibility in the outpatient setting and will strongly encourage patient to increase water intake as well as discuss his medications with his primary care provider as there are numerous medications that may need to be adjusted or alternatives be started in place of. My interpretation is that this patient is experienced noncardiac type chest pain and may be musculoskeletal or reflux in etiology. Differential Diagnosis Please see the discussion above Admission/Observation Consideration of admission/observation: Escalation of care including admission/observation considered Lab Data Please see the discussion above 03/30/23 18:15 03/30/23 18:15 Labs: Lab Results 03/30/23 03/30/23 03/30/23 Range/Units 18:15 18:15 18:15 WBC 7.4 (4.8-10.8) X10*3/uL RBC 3.95 L (4.60-5.80) X10*6/uL Hgb 11.9 L (14.0-18.0) g/dl Hct 34.8 L (42.0-52.0) % MCV 88.1 (80.0-98.0) fL MCH 30.1 (27.0-33.0) pg MCHC 34.2 (31.0-36.0) g/dl RDW 12.4 (11.0-16.0) % Plt Count 214 (160-400) X10*3/uL MPV 9.5 (9.4-12.4) fL Immature Gran % (Auto) 0.1 (0.0-0.4) % Neut % (Auto) 75.3 H (45-73) % Lymph % (Auto) 18.5 L (20-40) % [place] % (Auto) 5.1 (2-11) % Eos % (Auto) 0.9 (0-4) % Baso % (Auto) 0.1 (0-2) % Lymph # (Auto) 1.4 (1.2-4.9) X10*3/uL [place] # (Auto) 0.4 (0.1-1.2) X10*3/uL Eos # (Auto) 0.1 (0.0-0.4) X10*3/uL Baso # (Auto) 0.0 (0.0-0.2) X10*3/uL Abs Immat Gran (auto) 0.01 (0.00-0.03) X10*3/uL Absolute Neuts (auto) 5.6 (2.0-8.3) x10*3/uL Absolute Nucleated RBC 0.000 (0.0-0.012) X10*3/uL Nucleated RBC % (auto) 0.0 (0.0-0.2) /100WBC PT (10.0-13.1) SEC INR (0.9-1.1) Sodium 139 (135-145) mmol/L Potassium 4.5 (3.3-5.1) mmol/L Chloride 108 (96-108) mmol/L Carbon Dioxide 24 (22-29) mmol/L Anion Gap 12 (12-20) BUN 31 H (9-16) mg/dL Creatinine 2.04 H (0.5-1.4) mg/dL Estim Creat Clear Calc 40.0 Estimated GFR 34 Random Glucose 97 (60-115) mg/dL Calcium 9.6 D (8.4-10.2) mg/dL Magnesium 1.8 (1.6-2.6) mg/dL Total Bilirubin 0.9 (0.0-1.0) mg/dL Direct Bilirubin 0.3 (0.0-0.5) mg/dL AST 18 (5-37) U/L ALT 19 (0-40) U/L Alkaline Phosphatase 59 (39-117) U/L Total Creatine Kinase 141 (38-174) U/L Troponin I High Sens 6.7 (<3.5-35.0) ng/L B-Natriuretic Peptide (<100) pg/mL Total Protein 7.1 (6.5-8.0) g/dL Albumin 4.3 (3.5-5.0) g/dL 03/30/23 03/30/23 03/30/23 Range/Units 18:15 18:15 22:14 WBC (4.8-10.8) X10*3/uL RBC (4.60-5.80) X10*6/uL Hgb (14.0-18.0) g/dl Hct (42.0-52.0) % MCV (80.0-98.0) fL MCH (27.0-33.0) pg MCHC (31.0-36.0) g/dl RDW (11.0-16.0) % Plt Count (160-400) X10*3/uL MPV (9.4-12.4) fL Immature Gran % (Auto) (0.0-0.4) % Neut % (Auto) (45-73) % Lymph % (Auto) (20-40) % [place] % (Auto) (2-11) % Eos % (Auto) (0-4) % Baso % (Auto) (0-2) % Lymph # (Auto) (1.2-4.9) X10*3/uL [place] # (Auto) (0.1-1.2) X10*3/uL Eos # (Auto) (0.0-0.4) X10*3/uL Baso # (Auto) (0.0-0.2) X10*3/uL Abs Immat Gran (auto) (0.00-0.03) X10*3/uL Absolute Neuts (auto) (2.0-8.3) x10*3/uL Absolute Nucleated RBC (0.0-0.012) X10*3/uL Nucleated RBC % (auto) (0.0-0.2) /100WBC PT 11.8 (10.0-13.1) SEC INR 1.0 (0.9-1.1) Sodium 139 (135-145) mmol/L Potassium 4.0 (3.3-5.1) mmol/L Chloride 110 H (96-108) mmol/L Carbon Dioxide 23 (22-29) mmol/L Anion Gap 10 L (12-20) BUN 28 H (9-16) mg/dL Creatinine 1.72 H (0.5-1.4) mg/dL Estim Creat Clear Calc 47.5 Estimated GFR 42 Random Glucose 92 (60-115) mg/dL Calcium 8.8 D (8.4-10.2) mg/dL Magnesium (1.6-2.6) mg/dL Total Bilirubin (0.0-1.0) mg/dL Direct Bilirubin (0.0-0.5) mg/dL AST (5-37) U/L ALT (0-40) U/L Alkaline Phosphatase (39-117) U/L Total Creatine Kinase (38-174) U/L Troponin I High Sens (<3.5-35.0) ng/L B-Natriuretic Peptide 43 (<100) pg/mL Total Protein (6.5-8.0) g/dL Albumin (3.5-5.0) g/dL Independent Interpretation I performed an independent interpretation of an: EKG Interpretation: Sinus bradycardia, RBBB at baseline, HR-58, NH within normal limits. Radiology Impression Radiologist Impression: There is no pneumonia and otherwise my interpretation is in agreement with radiology's impression. External Record Review External record reviewed: Office record, Outpatient record and Prior outpatient labs Chronic Conditions Patient?s care impacted by: Diabetes and Hypertension Discharge Plan Discharge Clinical Impression: Atypical chest pain, ANA (acute kidney injury) Patient Disposition: Home, Self-Care Instructions: Acute Kidney Injury (DC), Noncardiac Chest Pain (ED) Additional Instructions: 1. Resume all home medications as prescribed at this time. However, it is important that you follow-up with your primary care provider to discuss adjustment of your medications to help improve your renal function. 2. Please follow-up with your primary care provider by calling the office in the morning. Increase the amount of water that you are drinking. Return to the ER for any worsening symptoms. Prescriptions: No Action (DME) FreeStyle Test Strip See Rx Instructions .ROUTE .MEDSUPPLY Qty: 50 11RF Rx Instructions: Use 1 test strip twice a day (DME) blood-glucose meter [FreeStyle Tolna Lite] Kit See Rx Instructions .ROUTE .MEDSUPPLY Qty: 1 0RF Rx Instructions: As directed (DME) lancets [FreeStyle Lancets] 28 gauge misc See Rx Instructions .ROUTE .MEDSUPPLY Qty: 100 11RF Rx Instructions: Use 1 lancet twice a day lisinopril 40 mg tablet 40 mg PO DAILY 90 Days Qty: 90 1RF amlodipine 10 mg tablet 1 tab PO DAILY sulfacetamide sodium 10 % drops 1 drp ophthalmic (eye) Q3H Qty: 15 0RF metformin 1,000 mg tablet extended release 24hr 1,000 mg PO BID 90 Days Qty: 180 3RF aspirin [Adult Aspirin Regimen] 81 mg tablet,delayed release (DR/EC) 81 mg PO DAILY metoprolol tartrate 75 mg tablet 75 mg PO BID isosorbide mononitrate 60 mg tablet extended release 24 hr 60 mg PO DAILY atorvastatin 80 mg tablet 80 mg PO BEDTIME hydroxyzine HCl 10 mg tablet 10 - 20 mg PO BID PRN (Reason: anxiety) Jardiance 10 mg tablet 10 mg PO DAILY Referrals: [facility] [Primary Care Provider] -
--- NOTE | 2023-03-30 16:30 | ECG_ITS ---
Test Reason : chest pain Blood Pressure : / mmHG Vent. Rate : 058 BPM Atrial Rate : 058 BPM P-R Int : 120 ms QRS Dur : 132 ms QT Int : 448 ms P-R-T Axes : -21 -56 018 degrees QTc Int : 439 ms Sinus bradycardia Right bundle branch block Left anterior fascicular block Bifascicular block Abnormal ECG When compared with ECG of 12-DEC-2022 18:29, T wave inversion no longer evident in Anterior leads Referred By: Dolores Barrera Electronically Signed By:Reynaldo Shetty
[2023-03-30 18:29] LABS: MANUAL DIFF FLAG NO
[2023-03-30 18:31] LABS: Basophils Percent Auto 0.1 % (0-2); Eosinophils Absolute Auto 0.1 X10*3/uL (0.0-0.4); Eosinophils Percent Auto 0.9 % (0-4); Hematocrit 34.8 % (42.0-52.0); Hemoglobin 11.9 g/dl (14.0-18.0); Imm Gran Abs Auto 0.01 X10*3/uL (0.00-0.03); Imm Gran Pct Auto 0.1 % (0.0-0.4); Lymphocytes Absolute Auto 1.4 X10*3/uL (1.2-4.9); Lymphocytes Percent Auto 18.5 % (20-40); Mean Corpuscular HGB Conc 34.2 g/dl (31.0-36.0); Mean Corpuscular Hemoglobin 30.1 pg (27.0-33.0); Mean Corpuscular Volume 88.1 fL (80.0-98.0); Mean Platelet Volume 9.5 fL (9.4-12.4); Monocytes Absolute Auto 0.4 X10*3/uL (0.1-1.2); Monocytes Percent Auto 5.1 % (2-11); Neutrophils Absolute Auto 5.6 x10*3/uL (2.0-8.3); Neutrophils Percent Auto 75.3 % (45-73); Platelet Count 214 X10*3/uL (160-400); Red Blood Count 3.95 X10*6/uL (4.60-5.80); Red Cell Distribution Width 12.4 % (11.0-16.0); White Blood Count 7.4 X10*3/uL (4.8-10.8)
[2023-03-30 18:36] LABS: Prothrombin Time 11.8 SEC (10.0-13.1)
[2023-03-30 18:47] LABS: Alanine Aminotransferase 19 U/L (0-40); Albumin Level 4.3 g/dL (3.5-5.0); Alkaline Phosphatase 59 U/L (39-117); Anion Gap 12 (12-20); Aspartate Amino Transferase 18 U/L (5-37); Bilirubin Direct 0.3 mg/dL (0.0-0.5); Bilirubin Total 0.9 mg/dL (0.0-1.0); Blood Urea Nitrogen 31 mg/dL (9-16); Calcium 9.6 mg/dL (8.4-10.2); Carbon Dioxide 24 mmol/L (22-29); Chloride 108 mmol/L (96-108); Estimated Glomerular Filt Rate 34; Glucose Random 97 mg/dL (60-115); Magnesium 1.8 mg/dL (1.6-2.6); Potassium 4.5 mmol/L (3.3-5.1); Sodium 139 mmol/L (135-145); Total Protein 7.1 g/dL (6.5-8.0)
[2023-03-30 18:51] LABS: B Type Natriuretic Peptide 43 pg/mL (<100)
[2023-03-30 18:53] LABS: Troponin-I High Sensitivity 6.7 ng/L (<3.5-35.0)
[2023-03-30 19:20] VITALS: BP 130/71; PULSE 66; RESP 13; TEMP 36.6; O2SAT 96
[2023-03-30] MEDS: 0.9 % Sodium Chloride 1,000 ML 999 ML IV (19:57)
[2023-03-30] MEDS: Magnesium Hydrox/Alum Hydrox 30 ML ORAL.SUSP PO (20:13)
[2023-03-30 20:16] VITALS: BP 146/76; PULSE 72; RESP 18; TEMP 36.6; O2SAT 95
[2023-03-30 22:03] VITALS: BP 140/79; PULSE 70; RESP 17; TEMP 36.9; O2SAT 97
[2023-03-30 22:30] LABS: Anion Gap 10 (12-20); Blood Urea Nitrogen 28 mg/dL (9-16); Calcium 8.8 mg/dL (8.4-10.2); Carbon Dioxide 23 mmol/L (22-29); Chloride 110 mmol/L (96-108); Creatinine Clr Calc Pharmacy 47.5; Estimated Glomerular Filt Rate 42; Glucose Random 92 mg/dL (60-115); Sodium 139 mmol/L (135-145)
== END 2023-03-30 22:49 | disposition home or self-care (01) ==
PROVIDERS: Physician Assistant; Emergency Provider Student in an Organized Health Care Education/Training Program
DX: R07.89 Other chest pain (principal); N17.9 Acute kidney failure, unspecified; E11.9 Type 2 diabetes mellitus without complications; I10 Essential (primary) hypertension; R06.02 Shortness of breath; Z87.891 Personal history of nicotine dependence; Z79.899 Other long term (current) drug therapy; Z79.84 Long term (current) use of oral hypoglycemic drugs
CPT/HCPCS: 36415; 71045; 80048; 80076; 82550; 83735; 83880; 84484; 85025; 85610; 93005; 96360; 96361; 99284; 99285

== ENCOUNTER 2023-04-15 13:04 | Outpatient (REF) | payer MEDICAID, SELFPAY ==
[2023-04-15 16:31] LABS: Estimated Average Glucose 123 mg/dL; Hemoglobin A1c % 5.9 %
== END 2023-04-15 13:05 | disposition home or self-care (01) ==
LOC: HO.HHCL 13:04
PROVIDERS: Visit Provider Registered Nurse
DX: E11.9 Type 2 diabetes mellitus without complications (principal)
CPT/HCPCS: 36415; 83036

== ENCOUNTER → 2023-04-16 23:59 | Outpatient (BNV) | payer MEDICAID, SELFPAY ==
--- NOTE | 2023-04-27 09:44 | MHC.OFFVIS ---
Intake Intake Visit Reasons: Remote ILR Check- Medtronic Allergies No Known Allergies Allergy (Verified 03/30/23 16:30) PFSH Medical History Anemia Arthritis Carpal tunnel syndrome Diabetes Essential hypertension HTN (hypertension) Hyperlipemia Hyperlipidemia LDL goal <70 Nephrolithiasis NSVT (nonsustained ventricular tachycardia) Phlebitis Stable angina Stroke Type 2 diabetes mellitus with unspecified 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 macular edema Unstable angina Surgical History H/O cardiac catheterization H/O vitrectomy History of carpal tunnel surgery of right wrist S/P coronary angioplasty Family History Father Asthma Mother Diabetes mellitus Social History Household Members: None Housing: Apartment Do you presently have visiting nurse or other home services: No Alcohol intake: never Patient Tobacco Use Status: Former Tobacco user Quit Date: 2012 Years Smoked: 6 +/- service: No Office Procedures Cardiac Device Check Cardiac Device Check Details: Medtronic LINQ II ILR No new [place]. [place]. [id number] Cardiac Interrogation, subcut cardiac rhythm monitor Procedure code (CPT) selection complete Assessment & Plan Assessment & Plan (1) NSVT (nonsustained ventricular tachycardia): Code(s): I47.2 - Ventricular tachycardia Coding Level of Care Code Procedure Only Diagnoses NSVT (nonsustained ventricular tachycardia) I47.2 CPT Codes Cardiac Device Check - Cardiac Device 16: [id number] Cardiac Interrogation, subcut cardiac rhythm monitor ([id number])
== END ==
PROVIDERS: Visit Provider Internal Medicine Cardiovascular Disease
DX: I47.20 Ventricular tachycardia, unspecified (principal)
CPT/HCPCS: 93298

== ENCOUNTER → 2023-05-17 23:59 | Outpatient (BNV) | payer MEDICAID, SELFPAY ==
--- NOTE | 2023-06-08 12:27 | MHC.OFFVIS ---
Intake Intake Visit Reasons: Remote ILR Check- Medtronic Allergies No Known Allergies Allergy (Verified 03/30/23 16:30) PFSH Medical History Anemia Arthritis Carpal tunnel syndrome Diabetes Essential hypertension HTN (hypertension) Hyperlipemia Hyperlipidemia LDL goal <70 Nephrolithiasis NSVT (nonsustained ventricular tachycardia) Phlebitis Stable angina Stroke Type 2 diabetes mellitus with unspecified 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 macular edema Unstable angina Surgical History H/O cardiac catheterization H/O vitrectomy History of carpal tunnel surgery of right wrist S/P coronary angioplasty Family History Father Asthma Mother Diabetes mellitus Social History Household Members: None Housing: Apartment Do you presently have visiting nurse or other home services: No Alcohol intake: never Patient Tobacco Use Status: Former Tobacco user Quit Date: 2012 Years Smoked: 6 +/- service: No Office Procedures Cardiac Device Check Cardiac Device Check Details: Medtronic Implantable loop recorder. No new alerts. [id number] Cardiac Interrogation, subcut cardiac rhythm monitor Procedure code (CPT) selection complete Assessment & Plan Assessment & Plan (1) NSVT (nonsustained ventricular tachycardia): Code(s): I47.2 - Ventricular tachycardia Coding Level of Care Code Procedure Only Diagnoses NSVT (nonsustained ventricular tachycardia) I47.2 CPT Codes Cardiac Device Check - Cardiac Device 16: [id number] Cardiac Interrogation, subcut cardiac rhythm monitor ([id number])
== END ==
PROVIDERS: Visit Provider Internal Medicine Cardiovascular Disease
DX: I47.20 Ventricular tachycardia, unspecified (principal)
CPT/HCPCS: 93298

== ENCOUNTER 2023-05-20 11:28 | Outpatient (REF) | payer MEDICAID, SELFPAY ==
[2023-05-20 13:35] LABS: Appearance Urine Clear; Color Urine Yellow; Glucose Urine UA >=1000 mg/dL (Negative); Leukocyte Esterase Urine Small (1+) (Negative); Nitrite Urine Negative (Negative); PH 5.5 (5.0-9.0); Specific Gravity - Urine >= 1.030 (1.005-1.025); UMIC TRIGGER UACC YES; Urine Blood Negative (Negative); Urine Ketones Negative (Negative); Urine Protein Trace mg/dL (Neg-Trace)
[2023-05-20 13:43] LABS: Bacteria Urine Trace (None Seen); Hyaline Casts Urine 0-2 /LPF (0-2); RBC Urine 0-2 /HPF (0-2); Squamous Epithelial Cell Urine 0-2 /HPF (0-2); UACC Culture Trigger YES
[2023-05-20 14:30] LABS: Prostate Specific Antigen 0.97 ng/mL (<0.05-4.0)
== END 2023-05-20 11:29 | disposition home or self-care (01) ==
LOC: HO.HHCL 11:28
PROVIDERS: Visit Provider Internal Medicine Geriatric Medicine
DX: Z12.5 Encounter for screening for malignant neoplasm of prostate (principal); N40.0 Benign prostatic hyperplasia without lower urinary tract symptoms
CPT/HCPCS: 36415; 81001; 84153; 87086

== ENCOUNTER 2023-06-17 10:10 | Outpatient (REF) | payer MEDICAID, SELFPAY ==
[2023-06-17 12:24] LABS: Alanine Aminotransferase 13 U/L (0-40); Albumin Level 4.6 g/dL (3.5-5.0); Alkaline Phosphatase 71 U/L (39-117); Anion Gap 14 (12-20); Aspartate Amino Transferase 20 U/L (5-37); Bilirubin Total 0.6 mg/dL (0.0-1.0); Blood Urea Nitrogen 12 mg/dL (9-16); Calcium 9.6 mg/dL (8.4-10.2); Carbon Dioxide 28 mmol/L (22-29); Chloride 107 mmol/L (96-108); Cholesterol 140 mg/dL (<200); Estimated Glomerular Filt Rate 44; Glucose Random 128 mg/dL (60-115); HDL Cholesterol 55 mg/dL (>40); LDL Cholesterol Calculated 70 mg/dL (<100); Potassium 4.2 mmol/L (3.3-5.1); Sodium 145 mmol/L (135-145); Total Protein 7.4 g/dL (6.5-8.0); Triglycerides 75 mg/dL (<150)
== END 2023-06-17 10:11 | disposition home or self-care (01) ==
LOC: HO.HHCL 10:10
PROVIDERS: Visit Provider General Practice
DX: I12.9 Hypertensive chronic kidney disease with stage 1 through stage 4 chronic kidney disease, or unspecified chronic kidney disease (principal); N18.31 Chronic kidney disease, stage 3a
CPT/HCPCS: 36415; 80053; 80061

== ENCOUNTER → 2023-06-17 23:59 | Outpatient (BNV) | payer MEDICAID, SELFPAY ==
--- NOTE | 2023-06-29 21:37 | MHC.OFFVIS ---
Intake Intake Visit Reasons: remote ILR check- Medtronic Allergies No Known Allergies Allergy (Verified 03/30/23 16:30) PFSH Medical History Anemia Arthritis Carpal tunnel syndrome Diabetes Essential hypertension HTN (hypertension) Hyperlipemia Hyperlipidemia LDL goal <70 Nephrolithiasis NSVT (nonsustained ventricular tachycardia) Phlebitis Stable angina Stroke Type 2 diabetes mellitus with unspecified 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 macular edema Unstable angina Surgical History H/O cardiac catheterization H/O vitrectomy History of carpal tunnel surgery of right wrist S/P coronary angioplasty Family History Father Asthma Mother Diabetes mellitus Social History Household Members: None Housing: Apartment Do you presently have visiting nurse or other home services: No Alcohol intake: never Patient Tobacco Use Status: Former Tobacco user Quit Date: 2012 Years Smoked: 6 +/- service: No Office Procedures Cardiac Device Check Cardiac Device Check Details: ILR No new alerts. [id number] Cardiac Interrogation, subcut cardiac rhythm monitor Procedure code (CPT) selection complete Assessment & Plan Assessment & Plan (1) NSVT (nonsustained ventricular tachycardia): Code(s): I47.2 - Ventricular tachycardia Coding Level of Care Code Procedure Only Diagnoses NSVT (nonsustained ventricular tachycardia) I47.2 CPT Codes Cardiac Device Check - Cardiac Device 16: [id number] Cardiac Interrogation, subcut cardiac rhythm monitor ([id number])
== END ==
PROVIDERS: Visit Provider Internal Medicine Cardiovascular Disease
DX: I47.20 Ventricular tachycardia, unspecified (principal)
CPT/HCPCS: 93298

== ENCOUNTER 2023-08-16 17:30 | Outpatient (REF) | payer MEDICAID, SELFPAY ==
[2023-08-16 17:42] LABS: Appearance Urine Clear; Color Urine Yellow; Glucose Urine UA >=1000 mg/dL (Negative); Leukocyte Esterase Urine Negative (Negative); Nitrite Urine Negative (Negative); PH 5.5 (5.0-9.0); Specific Gravity - Urine >= 1.030 (1.005-1.025); UMIC TRIGGER UACC YES; Urine Blood Negative (Negative); Urine Ketones Negative (Negative); Urine Protein 100 (2+) mg/dL (Neg-Trace)
[2023-08-16 17:48] LABS: Bacteria Urine None Seen (None Seen); Hyaline Casts Urine 0-2 /LPF (0-2); RBC Urine 0-2 /HPF (0-2); Squamous Epithelial Cell Urine 0-2 /HPF (0-2); WBC Urine 0-5 /HPF (0-5)
== END 2023-08-16 17:31 | disposition home or self-care (01) ==
LOC: HO.HHCLNP 17:30
PROVIDERS: Visit Provider Nurse Practitioner Primary Care
DX: N40.0 Benign prostatic hyperplasia without lower urinary tract symptoms (principal)
CPT/HCPCS: 81001

== ENCOUNTER → 2023-08-18 23:59 | Outpatient (BNV) | payer MEDICAID, SELFPAY ==
--- NOTE | 2023-08-19 16:06 | MHC.OFFVIS ---
Intake Intake Visit Reasons: Remote ILR Check- Medtronic Allergies No Known Allergies Allergy (Verified 03/30/23 16:30) PFSH Medical History Anemia Arthritis Carpal tunnel syndrome Diabetes Essential hypertension HTN (hypertension) Hyperlipemia Hyperlipidemia LDL goal <70 Nephrolithiasis NSVT (nonsustained ventricular tachycardia) Phlebitis Stable angina Stroke Type 2 diabetes mellitus with unspecified 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 macular edema Unstable angina Surgical History H/O cardiac catheterization H/O vitrectomy History of carpal tunnel surgery of right wrist S/P coronary angioplasty Family History Father Asthma Mother Diabetes mellitus Social History Household Members: None Housing: Apartment Do you presently have visiting nurse or other home services: No Alcohol intake: never Patient Tobacco Use Status: Former Tobacco user Quit Date: 2012 Years Smoked: 6 +/- service: No Office Procedures Cardiac Device Check Cardiac Device Check Details: ILR No new alerts. [id number] Cardiac Interrogation, subcut cardiac rhythm monitor Procedure code (CPT) selection complete Assessment & Plan Assessment & Plan (1) NSVT (nonsustained ventricular tachycardia): Code(s): I47.2 - Ventricular tachycardia Orders: Orders AMB Cardiac Device Follow-up 08/18/23 I47.2 - Ventricular tachycardia Coding Level of Care Code Procedure Only Diagnoses NSVT (nonsustained ventricular tachycardia) I47.2 CPT Codes Cardiac Device Check - Cardiac Device 16: [id number] Cardiac Interrogation, subcut cardiac rhythm monitor ([id number])
== END ==
PROVIDERS: Visit Provider Internal Medicine Cardiovascular Disease
DX: I47.20 Ventricular tachycardia, unspecified (principal); Z95.818 Presence of other cardiac implants and grafts
CPT/HCPCS: 93298

== ENCOUNTER 2023-09-05 19:43 | Emergency (ER) | payer MEDICAID, SELFPAY ==
--- NOTE | 2023-09-05 | ECG_ITS ---
Test Reason : chest pain Blood Pressure : / mmHG Vent. Rate : 065 BPM Atrial Rate : 065 BPM P-R Int : 150 ms QRS Dur : 136 ms QT Int : 434 ms P-R-T Axes : -14 -31 -06 degrees QTc Int : 451 ms Normal sinus rhythm Left axis deviation Right bundle branch block Abnormal ECG When compared with ECG of 30-MAR-2023 16:36, T wave inversion now evident in Anterior leads Referred By: Generic ED Physician Electronically Signed By:GUILHERME DRUMMOND
--- NOTE | ~2023-09-05 | XR_ITS ---
EXAMINATION: XR CHEST CLINICAL INFORMATION: Chest pain. COMPARISON: Chest radiographs dated 03/22/2023. TECHNIQUE: AP and lateral views of the chest were obtained. FINDINGS: The heart, great vessels, pulmonary vasculature and mediastinum are normal. A monitoring manager device is noted. The lungs show no focal infiltrate, effusion or pneumothorax. There is no acute osseous abnormality. There is a mild lower thoracic levoscoliosis. There is multi-level thoracolumbar spondylosis. XR/XR chest 2V IMPRESSION: No active cardiopulmonary disease.
--- NOTE | 2023-09-05 19:47 | ED.GENADULT ---
HPI - General Adult General Chief complaint: Chest Pain Stated complaint: chest pain h/o stroke Time Seen by Provider: 09/05/23 23:41 Source: patient Mode of arrival: ambulatory Limitations: no limitations History of Present Illness HPI narrative: 53 yo male with PMH of HTN, CVA, NSVT with medtronic ICD, HTN, LAD PCI, cardiomyopathy, CKD, DM, states three days of chest tightness sore throat and not feeling well. He is fully vaccinated for COVID. complaint: chest tightness, sore throat Onset (ago): day(s) (3) Location: mouth and chest Radiation: non-radiation Severity: mild Quality: other (tight) Pain Consistency: intermittent Relieving factors: none Exacerbating factors: none Associated symptoms: other (cough, cold symptoms) Treatments prior to arrival: none Related Data Home Medications Medication Instructions Recorded Confirmed aspirin 81 mg tablet,delayed 81 mg PO DAILY 02/24/21 12/12/22 release (Adult Aspirin Regimen) atorvastatin 80 mg tablet 80 mg PO BEDTIME 08/20/21 12/12/22 isosorbide mononitrate 60 mg 60 mg PO DAILY 08/20/21 12/12/22 tablet,extended release 24 hr metoprolol tartrate 75 mg tablet 75 mg PO BID 08/20/21 12/12/22 empagliflozin 10 mg tablet 10 mg PO DAILY 11/19/21 12/12/22 (Jardiance) hydroxyzine HCl 10 mg tablet 10 - 20 mg PO BID PRN anxiety 11/19/21 12/12/22 amlodipine 10 mg tablet 1 tab PO DAILY 12/12/22 12/12/22 Previous Rx's Medication Instructions Recorded metformin 1,000 mg tablet,extended 1,000 mg PO BID 90 days #180 tabs 11/05/20 release 24hr blood sugar diagnostic (FreeStyle #50 ea 12/22/20 Test strips) blood-glucose meter (FreeStyle #1 ea 12/22/20 [place] Lite kit) lancets 28 gauge (FreeStyle #100 ea 12/22/20 Lancets) lisinopril 40 mg tablet 40 mg PO DAILY 90 days #90 tabs 06/17/21 sulfacetamide sodium 10 % eye drops 1 drp ophthalmic (eye) Q3H #15 mL 01/12/23 nirmatrelvir 150 mg-ritonavir 100 See Rx Instructions PO .COMPLEX 09/06/23 mg tablets in a dose pack #20 ea (Paxlovid) Allergies Allergy/AdvReac Type Severity Reaction Status Date / Time No Known Allergies Allergy Verified 03/30/23 16:30 Review of Systems Review of Systems: Constitutional : No Weight loss, No Fever, No Chills ENT/Mouth : pos sore throat, No Rhinorrhea Eyes: No Eye Pain, No Swelling Cardiovascular : pos Chest Pain, no SOB, no Dyspnea on Exertion, No Orthopnea, No Edema, No Palpitations Respiratory : No Cough, No Sputum Gastrointestinal : noNausea, No Vomiting, No Diarrhea, No abdominal Pain, No Hematochezia, No Melena Genitourinary : No Dysuria, No Urinary Frequency Musculoskeletal : No joint pain, No Myalgias, No Joint Swelling, pos back pain Skin : No Skin Lesions, No rash Neuro : No Weakness, No Numbness, No Dizziness, No Headache Psych : No Anxiety/Panic, No Depression Heme/Lymph: No Bruising, No Lymphadenopathy Endocrine : No Polyuria, No Polydipsia All other systems reviewed and are negative [facility] Past Medical History Attestation statement: The following information was validated with the patient. Source: old records reviewed Medical History Stable angina NSVT (nonsustained ventricular tachycardia) Unstable angina Carpal tunnel syndrome Nephrolithiasis Phlebitis Arthritis Type 2 diabetes mellitus with unspecified 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 macular edema Essential hypertension Hyperlipidemia LDL goal <70 Anemia HTN (hypertension) Stroke Hyperlipemia Diabetes Surgical History S/P coronary angioplasty H/O cardiac catheterization H/O vitrectomy History of carpal tunnel surgery of right wrist Family History Family History Father Asthma Mother Diabetes mellitus Social History Social History Household Members: None Housing: Apartment Do you presently have visiting nurse or other home services: No Alcohol intake: never Comment: S3 Patient Tobacco Use Status: Former Tobacco user Quit Date: 2012 Smoked: 6 +/- Smoked in Last 30 Days: No Use of substances other than those prescribed or required for medical reasons: No Advance Directives: No Advance Directives Information Provided: Yes service: No Physical Exam ED Vital Signs: Vital Signs - 24 hr 09/05/23 19:48 09/05/23 22:12 09/05/23 23:54 Temperature 98.1 F 98.1 F 97.9 F Pulse Rate 68 62 61 Respiratory Rate 16 18 16 Blood Pressure 139/74 161/72 H 136/76 Pulse Oximetry 98 99 98 Oxygen Delivery Method Room Air Room Air Room Air BMI result Body Mass Index 29.2 Appearance: Alert. Oriented X3. No acute distress. Eyes: Pupils equal, round and reactive to light. ENT: Pharynx normal. Neck: Normal inspection. Neck supple. CVS: Normal heart rate and rhythm. Pulses normal. Respiratory: No respiratory distress. Breath sounds normal. Abdomen: Soft and nontender. Skin: Skin warm and dry. Normal skin color. Normal skin turgor. Extremities: No lower extremity edema. No calf ttp Neuro: Oriented X 3. No motor deficit. No sensory deficit. Course Course Course Narrative: RME performed by Penny Duff PA-C. Patient is a 53 year old assigned male at presenting to the emergency department with chest pain. Labs, imaging, swabs ordered. Patient placed back in the waiting room pending room availability and results. Reevaluation(s) Reevaluation #1: would have to hold amlodipine, atorvastatin, isosorbide, hydroxyzine if he starts renal dose of paxlovid. Reevaluation #2: patient wants paxlovid. Medications Administered Discontinued Medications Generic Name Dose Route Start Last Admin Trade Name Freq PRN Reason Stop Dose Admin Sodium Chloride 1,000 mls @ 999 mls/hr 09/05/23 23:45 09/06/23 00:32 Ns IV 09/06/23 00:45 Infused .Q1H1M PRINCESS Infusion Sodium Chloride 500 mls @ 500 mls/hr 09/06/23 00:15 09/06/23 00:38 Ns IV 09/06/23 01:14 500 mls/hr .Q1H PRINCESS Administration Medical Decision Making Medical Decision Making [facility] Narrative: 53 yo male with PMH of HTN, CVA, NSVT with medtronic ICD, HTN, LAD PCI, cardiomyopathy, CKD, DM, here with c/o viral illness and chest tightness - he has sore throat as well, clear lungs, no hypoxia at this time will need labs, CXR, COVID - given hx troponin x 2 and EKG - ddimer if covid positive. will discuss paxlovid with patient. Differential Diagnosis Differential Diagnoses: The differential diagnosis associated with the presentation includes atypical chest pain, pneumonia, COVID, VTE Admission/Observation Consideration of admission/observation: Escalation of care including admission/observation considered CXR negative, trop flat x 2, unchanged EKG, ddimer negative Lab Data [facility] Lab Attestation statement: I reviewed the patient's lab results. 09/05/23 20:09 09/05/23 20:09 Labs: Lab Results 09/05/23 09/06/23 Range/Units 20:09 00:07 WBC 5.8 (4.8-10.8) X10*3/uL RBC 3.84 L (4.60-5.80) X10*6/uL Hgb 11.6 L (14.0-18.0) g/dl Hct 33.3 L (42.0-52.0) % MCV 86.7 (80.0-98.0) fL MCH 30.2 (27.0-33.0) pg MCHC 34.8 (31.0-36.0) g/dl RDW 12.1 (11.0-16.0) % Plt Count 188 (160-400) X10*3/uL MPV 9.5 (9.4-12.4) fL Immature Gran % (Auto) 0.2 (0.0-0.4) % Neut % (Auto) 69.2 (45-73) % Lymph % (Auto) 24.6 (20-40) % Hayes % (Auto) 4.3 (2-11) % Eos % (Auto) 1.5 (0-4) % Baso % (Auto) 0.2 (0-2) % Lymph # (Auto) 1.4 (1.2-4.9) X10*3/uL Hayes # (Auto) 0.3 (0.1-1.2) X10*3/uL Eos # (Auto) 0.1 (0.0-0.4) X10*3/uL Baso # (Auto) 0.0 (0.0-0.2) X10*3/uL Abs Immat Gran (auto) 0.01 (0.00-0.03) X10*3/uL Absolute Neuts (auto) 4.0 (2.0-8.3) x10*3/uL Absolute Nucleated RBC 0.000 (0.0-0.012) X10*3/uL Nucleated RBC % (auto) 0.0 (0.0-0.2) /100WBC PT 11.4 (11.1-13.3) SEC INR 0.9 (0.9-1.1) APTT 27.4 (26.0-36.4) SEC D-Dimer High Sensitivty < 150 NG/ML Sodium 143 (135-145) mmol/L Potassium 4.3 (3.3-5.1) mmol/L Chloride 108 (96-108) mmol/L Carbon Dioxide 25 (22-29) mmol/L Anion Gap 14 (12-20) BUN 20 H (9-16) mg/dL Creatinine 1.97 H (0.5-1.4) mg/dL Estim Creat Clear Calc 45.4 Estimated GFR 35 Random Glucose 244 H (60-115) mg/dL Calcium 8.8 D (8.4-10.2) mg/dL Magnesium 1.7 (1.6-2.6) mg/dL Total Bilirubin 0.5 (0.0-1.0) mg/dL AST 17 (5-37) U/L ALT 15 (0-40) U/L Alkaline Phosphatase 73 (39-117) U/L Troponin I High Sens 8.7 9.7 (<3.5-35.0) ng/L Total Protein 6.9 (6.5-8.0) g/dL Albumin 4.2 (3.5-5.0) g/dL Influenza Type A (PCR) NEGATIVE (Negative) Influenza Type B (PCR) NEGATIVE (Negative) RSV RNA Qual (PCR) NEGATIVE (Negative) SARS-CoV-2 RNA (RT-PCR) POSITIVE A (Negative) Independent Interpretation I performed an independent interpretation of an: EKG and Plain X-Ray (normal ) Interpretation: Rate:65 Rhythm: NSR [place]: normal Normal P waves. Normal JUNIOR. RBBB ST T wave : inverted t waves in III, V1, and V3, no ANDREI qTC: normal prior studies: no acute ischemia The study has been interpreted contemporaneously by me. . Radiology Impression Discussion of test interpretation with radiology: I have reviewed the radiologist's reading. External Record Review External record reviewed: Office record Prescription Management I considered prescription management with: Antiviral Discharge Plan Discharge Clinical Impression: COVID-19 Patient Disposition: Home, Self-Care Instructions: COVID-19 (Coronavirus Disease 2019) (ED) Additional Instructions: return for worsening pain, inability to eat or drink, difficulty breathing, you are so short of breath you cannot walk to your own bathroom or any other concerns. WHILE ON PAXLOVID HOLD AMLODIPINE, ATORVASTATIN, ISOSORBIDE, HYDROXYZINE AND START 3 DAYS AFTER YOU FINISH THE PAXLOVID. REPEAT KIDNEY FUNCTION WITH YOUR DOCTOR IN 2 DAYS. Prescriptions: New Paxlovid 150-100 mg tablets,dose pack See Rx Instructions .ROUTE .COMPLEX Qty: 20 0RF Rx Instructions: take ONE 150 mg tablet of nirmatrelvir with ONE 100 mg tablet of ritonavir twice daily for 5 days No Action (DME) FreeStyle Test Strip See Rx Instructions .ROUTE .MEDSUPPLY Qty: 50 11RF Rx Instructions: Use 1 test strip twice a day (DME) blood-glucose meter [FreeStyle [place] Lite] Kit See Rx Instructions .ROUTE .MEDSUPPLY Qty: 1 0RF Rx Instructions: As directed (DME) lancets [FreeStyle Lancets] 28 gauge misc See Rx Instructions .ROUTE .MEDSUPPLY Qty: 100 11RF Rx Instructions: Use 1 lancet twice a day lisinopril 40 mg tablet 40 mg PO DAILY 90 Days Qty: 90 1RF amlodipine 10 mg tablet 1 tab PO DAILY sulfacetamide sodium 10 % drops 1 drp ophthalmic (eye) Q3H Qty: 15 0RF metformin 1,000 mg tablet extended release 24hr 1,000 mg PO BID 90 Days Qty: 180 3RF aspirin [Adult Aspirin Regimen] 81 mg tablet,delayed release (DR/EC) 81 mg PO DAILY metoprolol tartrate 75 mg tablet 75 mg PO BID isosorbide mononitrate 60 mg tablet extended release 24 hr 60 mg PO DAILY atorvastatin 80 mg tablet 80 mg PO BEDTIME hydroxyzine HCl 10 mg tablet 10 - 20 mg PO BID PRN (Reason: anxiety) Jardiance 10 mg tablet 10 mg PO DAILY Stand Alone Forms: Work/School Release Interventions: ED Discharge Assessment Last Done: 09/06/23 01:37 Discharge Date/Time: 09/06/23 01:37
[2023-09-05 19:48] VITALS: BP 139/74; PULSE 68; RESP 16; TEMP 36.7; O2SAT 98; BMI 29.2
[2023-09-05 20:15] LABS: MANUAL DIFF FLAG NO
[2023-09-05 20:16] LABS: Basophils Percent Auto 0.2 % (0-2); Eosinophils Absolute Auto 0.1 X10*3/uL (0.0-0.4); Eosinophils Percent Auto 1.5 % (0-4); Hematocrit 33.3 % (42.0-52.0); Hemoglobin 11.6 g/dl (14.0-18.0); Imm Gran Abs Auto 0.01 X10*3/uL (0.00-0.03); Imm Gran Pct Auto 0.2 % (0.0-0.4); Lymphocytes Absolute Auto 1.4 X10*3/uL (1.2-4.9); Lymphocytes Percent Auto 24.6 % (20-40); Mean Corpuscular HGB Conc 34.8 g/dl (31.0-36.0); Mean Corpuscular Hemoglobin 30.2 pg (27.0-33.0); Mean Corpuscular Volume 86.7 fL (80.0-98.0); Mean Platelet Volume 9.5 fL (9.4-12.4); Monocytes Absolute Auto 0.3 X10*3/uL (0.1-1.2); Monocytes Percent Auto 4.3 % (2-11); Neutrophils Percent Auto 69.2 % (45-73); Platelet Count 188 X10*3/uL (160-400); Red Blood Count 3.84 X10*6/uL (4.60-5.80); Red Cell Distribution Width 12.1 % (11.0-16.0); White Blood Count 5.8 X10*3/uL (4.8-10.8)
[2023-09-05 20:23] LABS: INTERNATIONAL NORM RATIO 0.9 (0.9-1.1); Prothrombin Time 11.4 SEC (11.1-13.3)
[2023-09-05 20:25] LABS: Partial Thromboplastin Time 27.4 SEC (26.0-36.4)
[2023-09-05 20:30] LABS: Alanine Aminotransferase 15 U/L (0-40); Albumin Level 4.2 g/dL (3.5-5.0); Alkaline Phosphatase 73 U/L (39-117); Anion Gap 14 (12-20); Aspartate Amino Transferase 17 U/L (5-37); Bilirubin Total 0.5 mg/dL (0.0-1.0); Blood Urea Nitrogen 20 mg/dL (9-16); Calcium 8.8 mg/dL (8.4-10.2); Carbon Dioxide 25 mmol/L (22-29); Chloride 108 mmol/L (96-108); Creatinine Clr Calc Pharmacy 45.4; Estimated Glomerular Filt Rate 35; Glucose Random 244 mg/dL (60-115); Magnesium 1.7 mg/dL (1.6-2.6); Potassium 4.3 mmol/L (3.3-5.1); Sodium 143 mmol/L (135-145); Total Protein 6.9 g/dL (6.5-8.0)
[2023-09-05 20:39] LABS: Troponin-I High Sensitivity 8.7 ng/L (<3.5-35.0)
[2023-09-05 20:53] LABS: Influenza A PCR NEGATIVE (Negative); Influenza B PCR NEGATIVE (Negative); Resp Syncy Virus RNA Qual PCR NEGATIVE (Negative); SARS COV2 PCR INHOUSE POSITIVE (Negative)
[2023-09-05 22:12] VITALS: BP 161/72; PULSE 62; RESP 18; TEMP 36.7; O2SAT 99
[2023-09-05 23:54] VITALS: BP 136/76; PULSE 61; RESP 16; TEMP 36.6; O2SAT 98
[2023-09-06 00:01] LABS: D Dimer High Sensitivity < 150 NG/ML
[2023-09-06] MEDS: 0.9 % Sodium Chloride 1,000 ML 999 ML IV (00:08)
[2023-09-06] MEDS: 0.9 % Sodium Chloride 500 ML IV (00:38)
[2023-09-06 00:59] LABS: Troponin-I High Sensitivity 9.7 ng/L (<3.5-35.0)
== END 2023-09-06 01:37 | disposition home or self-care (01) ==
PROVIDERS: Physician Assistant Medical; Emergency Provider Emergency Medicine
DX: U07.1 COVID-19 (principal); R07.89 Other chest pain; J02.9 Acute pharyngitis, unspecified; R05.9 Cough, unspecified; Z79.899 Other long term (current) drug therapy; Z87.891 Personal history of nicotine dependence
CPT/HCPCS: 0241U; 71046; 80053; 83735; 84484; 85025; 85379; 85610; 85730; 93005; 99285

== ENCOUNTER → 2023-09-05 20:02 | Outpatient (BNV) | payer MEDICAID, SELFPAY | PROVIDERS: Emergency Provider Emergency Medicine; Visit Provider Internal Medicine | DX: I45.10 Unspecified right bundle-branch block (principal); R94.31 Abnormal electrocardiogram [ECG] [EKG] | CPT/HCPCS: 93010 ==

== ENCOUNTER → 2023-09-18 23:59 | Outpatient (BNV) | payer MEDICAID, SELFPAY ==
--- NOTE | 2023-09-22 20:47 | MHC.OFFVIS ---
Intake Intake Visit Reasons: Remote ILR Check- Medtronic Allergies No Known Allergies Allergy (Verified 03/30/23 16:30) PFSH Medical History Stable angina NSVT (nonsustained ventricular tachycardia) Unstable angina Carpal tunnel syndrome Nephrolithiasis Phlebitis Arthritis Type 2 diabetes mellitus with unspecified 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 macular edema Essential hypertension Hyperlipidemia LDL goal <70 Anemia HTN (hypertension) Stroke Hyperlipemia Diabetes Surgical History S/P coronary angioplasty H/O cardiac catheterization H/O vitrectomy History of carpal tunnel surgery of right wrist Family History Father Asthma Mother Diabetes mellitus Social History Household Members: None Housing: Apartment Do you presently have visiting nurse or other home services: No Alcohol intake: never Comment: S3 Patient Tobacco Use Status: Former Tobacco user Quit Date: 2012 Smoked: 6 +/- Smoked in Last 30 Days: No Use of substances other than those prescribed or required for medical reasons: No Advance Directives: No Advance Directives Information Provided: Yes service: No Office Procedures Cardiac Device Check Cardiac Device Check Details: ILR No new alerts [id number] Cardiac Interrogation, subcut cardiac rhythm monitor Procedure code (CPT) selection complete Assessment & Plan Assessment & Plan (1) NSVT (nonsustained ventricular tachycardia): Code(s): I47.2 - Ventricular tachycardia Plan Orders: Orders AMB Cardiac Device Follow-up 09/18/23 I47.2 - Ventricular tachycardia Coding Level of Care Code Procedure Only Diagnoses NSVT (nonsustained ventricular tachycardia) I47.2 CPT Codes Cardiac Device Check - Cardiac Device 16: [id number] Cardiac Interrogation, subcut cardiac rhythm monitor ([id number])
== END ==
PROVIDERS: Visit Provider Internal Medicine Cardiovascular Disease
DX: I47.20 Ventricular tachycardia, unspecified (principal); Z95.818 Presence of other cardiac implants and grafts
CPT/HCPCS: 93298

== ENCOUNTER 2023-09-27 12:05 | Outpatient (REF) | payer MEDICAID, SELFPAY ==
[2023-09-27 14:21] LABS: Anion Gap 12 (12-20); Blood Urea Nitrogen 15 mg/dL (9-16); Calcium 9.1 mg/dL (8.4-10.2); Carbon Dioxide 29 mmol/L (22-29); Chloride 105 mmol/L (96-108); Estimated Glomerular Filt Rate 39; Glucose Random 380 mg/dL (60-115); Potassium 4.7 mmol/L (3.3-5.1); Sodium 141 mmol/L (135-145)
== END 2023-09-27 12:06 | disposition home or self-care (01) ==
LOC: HO.HHCL 12:05
PROVIDERS: Visit Provider Internal Medicine
DX: N18.31 Chronic kidney disease, stage 3a (principal)
CPT/HCPCS: 36415; 80048

== ENCOUNTER → 2023-10-19 23:59 | Outpatient (BNV) | payer MEDICAID, SELFPAY ==
--- NOTE | 2023-10-31 13:49 | MHC.OFFVIS ---
Intake Intake Visit Reasons: Remote ILR Check- Medtronic Allergies No Known Allergies Allergy (Verified 03/30/23 16:30) PFSH Medical History Stable angina NSVT (nonsustained ventricular tachycardia) Unstable angina Carpal tunnel syndrome Nephrolithiasis Phlebitis Arthritis Type 2 diabetes mellitus with unspecified 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 macular edema Essential hypertension Hyperlipidemia LDL goal <70 Anemia HTN (hypertension) Stroke Hyperlipemia Diabetes Surgical History S/P coronary angioplasty H/O cardiac catheterization H/O vitrectomy History of carpal tunnel surgery of right wrist Family History Father Asthma Mother Diabetes mellitus Social History Household Members: None Housing: Apartment Do you presently have visiting nurse or other home services: No Alcohol intake: never Comment: S3 Patient Tobacco Use Status: Former Tobacco user Quit Date: 2012 Years Smoked: 6 +/- service: No Office Procedures Cardiac Device Check Cardiac Device Check Details: ILR No new alerts. [id number] Cardiac Interrogation, subcut cardiac rhythm monitor Procedure code (CPT) selection complete Assessment & Plan Assessment & Plan (1) NSVT (nonsustained ventricular tachycardia): Code(s): I47.2 - Ventricular tachycardia Plan: Coding Level of Care Code Procedure Only Diagnoses NSVT (nonsustained ventricular tachycardia) I47.2 CPT Codes Cardiac Device Check - Cardiac Device 16: [id number] Cardiac Interrogation, subcut cardiac rhythm monitor ([id number])
== END ==
PROVIDERS: PCP Internal Medicine; Visit Provider Internal Medicine Cardiovascular Disease
DX: I47.20 Ventricular tachycardia, unspecified (principal); Z95.818 Presence of other cardiac implants and grafts
CPT/HCPCS: 93298

== ENCOUNTER 2023-10-27 11:49 | Outpatient (REF) | payer MEDICAID, SELFPAY ==
[2023-10-27 14:19] LABS: Anion Gap 13 (12-20); Blood Urea Nitrogen 29 mg/dL (9-16); Calcium 9.2 mg/dL (8.4-10.2); Carbon Dioxide 25 mmol/L (22-29); Chloride 102 mmol/L (96-108); Estimated Glomerular Filt Rate 23; Potassium 5.1 mmol/L (3.3-5.1); Sodium 135 mmol/L (135-145)
[2023-10-27 14:21] LABS: Glucose Random 491 mg/dL (60-115)
== END 2023-10-27 11:50 | disposition home or self-care (01) ==
LOC: HO.HHCL 11:49
PROVIDERS: Visit Provider Nurse Practitioner Primary Care
DX: N18.31 Chronic kidney disease, stage 3a (principal)
CPT/HCPCS: 36415; 80048

== ENCOUNTER 2023-11-02 12:48 | Outpatient (REF) | payer MEDICAID, SELFPAY ==
[2023-11-02 16:29] LABS: Alanine Aminotransferase 15 U/L (0-40); Albumin Level 4.7 g/dL (3.5-5.0); Alkaline Phosphatase 83 U/L (39-117); Anion Gap 17 (12-20); Aspartate Amino Transferase 18 U/L (5-37); Bilirubin Total 0.6 mg/dL (0.0-1.0); Blood Urea Nitrogen 33 mg/dL (9-16); Calcium 9.8 mg/dL (8.4-10.2); Carbon Dioxide 21 mmol/L (22-29); Chloride 107 mmol/L (96-108); Estimated Glomerular Filt Rate 26; Glucose Random 255 mg/dL (60-115); Potassium 5.8 mmol/L (3.3-5.1); Sodium 139 mmol/L (135-145); Total Protein 7.9 g/dL (6.5-8.0)
== END 2023-11-02 12:49 | disposition home or self-care (01) ==
LOC: HO.HHCL 12:48
PROVIDERS: Visit Provider Student in an Organized Health Care Education/Training Program
DX: N17.9 Acute kidney failure, unspecified (principal)
CPT/HCPCS: 36415; 80053

== ENCOUNTER 2023-11-02 17:39 | Emergency (ER) | payer MEDICAID, SELFPAY ==
[2023-11-02 18:34] VITALS: BP 92/51; PULSE 55; RESP 16; TEMP 36.6; O2SAT 98; BMI 28.6
--- NOTE | 2023-11-02 18:40 | ED.GENADULT ---
HPI - General Adult General Chief complaint: Recheck/Abnormal Lab/Rx Stated complaint: high potassium, sent from Time Seen by Provider: 11/02/23 20:47 Source: patient Mode of arrival: ambulatory History of Present Illness HPI narrative: 53-year-old male with history of diabetes and CKD who presents after being evaluated at [facility] and sent in for elevated potassium levels. He denies any chest pain or shortness of breath. Related Data Home Medications Medication Instructions Recorded Confirmed aspirin 81 mg tablet,delayed 81 mg PO DAILY 02/24/21 12/12/22 release (Adult Aspirin Regimen) atorvastatin 80 mg tablet 80 mg PO BEDTIME 08/20/21 12/12/22 isosorbide mononitrate 60 mg 60 mg PO DAILY 08/20/21 12/12/22 tablet,extended release 24 hr metoprolol tartrate 75 mg tablet 75 mg PO BID 08/20/21 12/12/22 empagliflozin 10 mg tablet 10 mg PO DAILY 11/19/21 12/12/22 (Jardiance) hydroxyzine HCl 10 mg tablet 10 - 20 mg PO BID PRN anxiety 11/19/21 12/12/22 amlodipine 10 mg tablet 1 tab PO DAILY 12/12/22 12/12/22 Previous Rx's Medication Instructions Recorded metformin 1,000 mg tablet,extended 1,000 mg PO BID 90 days #180 tabs 11/05/20 release 24hr (osmotic) blood sugar diagnostic (FreeStyle #50 ea 12/22/20 Test strips) blood-glucose meter (FreeStyle #1 ea 12/22/20 [place] Lite kit) lancets 28 gauge (FreeStyle #100 ea 12/22/20 Lancets) lisinopril 40 mg tablet 40 mg PO DAILY 90 days #90 tabs 06/17/21 sulfacetamide sodium 10 % eye drops 1 drp ophthalmic (eye) Q3H #15 mL 01/12/23 nirmatrelvir 150 mg-ritonavir 100 See Rx Instructions PO .COMPLEX 09/06/23 mg tablets in a dose pack #20 ea (Paxlovid) Allergies Allergy/AdvReac Type Severity Reaction Status Date / Time No Known Allergies Allergy Verified 03/30/23 16:30 Review of Systems Review of Systems: Pertinent positives and negatives as stated in HPI [facility] Past Medical History Source: nursing notes reviewed Medical History Stable angina NSVT (nonsustained ventricular tachycardia) Unstable angina Carpal tunnel syndrome Nephrolithiasis Phlebitis Arthritis Type 2 diabetes mellitus with unspecified 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 macular edema Essential hypertension Hyperlipidemia LDL goal <70 Anemia HTN (hypertension) Stroke Hyperlipemia Diabetes Surgical History S/P coronary angioplasty H/O cardiac catheterization H/O vitrectomy History of carpal tunnel surgery of right wrist Family History Family History Father Asthma Mother Diabetes mellitus Social History Social History Household Members: None Housing: Apartment Do you presently have visiting nurse or other home services: No Alcohol intake: never Comment: S3 Patient Tobacco Use Status: Former Tobacco user Quit Date: 2012 Years Smoked: 6 +/- Advance Directives Date on File: 12/15/22 service: No Physical Exam ED Vital Signs: Vital Signs - 24 hr 11/02/23 18:34 11/02/23 20:42 11/02/23 23:48 Temperature 97.8 F 97.5 F 97.9 F Pulse Rate 55 52 54 Respiratory Rate 16 16 20 Blood Pressure 92/51 L 110/64 107/63 Pulse Oximetry 98 98 95 Oxygen Delivery Method Room Air Room Air Room Air 11/03/23 00:06 Temperature 98.4 F Pulse Rate 55 Respiratory Rate 18 Blood Pressure 118/65 Pulse Oximetry 98 Oxygen Delivery Method Room Air BMI result Body Mass Index 28.6 VITAL SIGNS: Reviewed. GENERAL: Well developed, well nourished, in no acute distress. HEAD: Normocephalic/atraumatic EYES: PERRLA, EOMI EARS: Ext canals without abnormality NOSE: Nares patent bilateral OROPHARYNX: no oral lesions noted, posterior pharynx clear NECK: Supple, no adenopathy LUNGS: Normal breath sounds. No adventitious sounds or accessory muscle use. SpO2<98> CARDIOVASCULAR: Regular rate and rhythm without noted murmurs ABDOMEN: Soft, non-tender, non-distended with bowel sounds. MUSCULOSKELETAL: No tenderness, deformities, or effusions noted on gross inspection. EXTREMITIES: No cyanosis, clubbing or edema. SKIN: Inspection of the skin reveals no rashes NEUROLOGIC: Alert and oriented x 4. Strength and sensation to light touch were grossly intact x 4. Course Course Course Narrative: RME; 53 yold male sent from urgent for ANA. Creatine 2.83 and baseline is 1.83 PER URGENT CARE NOTES. REPEAT LABS ORDERED. 7:37: patient is hyperkalemiic and in acute on cronic ANA. EKG, shimonkelnito orderede. Charge nurse imformed. boubacar will be going to the ED. Medications Administered Discontinued Medications Generic Name Dose Route Start Last Admin Trade Name Megan PRN Reason Stop Dose Admin Dextrose 25 gm 11/02/23 21:09 11/02/23 21:34 Dextrose 50 % 25 Gm/50 Ml Syringe IVPUSH 11/02/23 21:10 25 gm ONCE ONE Administration Calcium Gluconate 2 gm in 100 mls @ 400 mls/hr 11/02/23 21:09 11/02/23 23:11 Calcium Gluconate IV 11/02/23 21:23 Infused ONCE ONE Infusion Insulin Human Regular 5 unit 11/02/23 21:09 11/02/23 21:36 Insulin Regular, Human 100 Unit/Ml 3 Ml Vial IVPUSH 11/02/23 21:10 5 unit ONCE ONE Administration Sodium Zirconium Cyclosilicate 10 gm 11/02/23 19:29 11/02/23 20:33 Sodium Zirconium Cyclosilicate 10 Gm Powd.Pack PO 11/02/23 19:30 10 gm ONCE ONE Administration Medical Decision Making Medical Decision Making MDM Narrative: 53-year-old male with poorly-controlled underlying diabetes and patient states that he spent a significant portion of the past few years caring for a significant other and is only recently been able to focus on his health. He denies any other constitutional symptoms, however lab work that was performed by primary care provider demonstrates elevated potassium levels but kidney function appears to be chronically stable since 10/27/2023. Patient states he has a follow-up with Nephrology in approximately 1 month and otherwise denies any chest pain or palpitations or shortness of breath. Patient states he is currently taking all of his medications as prescribed. I reviewed all investigations and hematologic indices are negative for leukocytosis or left shift, there is a stable normocytic anemia no thrombocytopenia. Chemistry indices demonstrate a hyperkalemia with stable decline in kidney function since 09/27/2023 there is a corresponding EKG that demonstrates peaked T-waves but patient is otherwise asymptomatic. Liver enzymes are grossly within normal limits and beta hydroxybutyrate is within normal range. Patient initially given 10 mg of Lokelma and performed repeat basic metabolic panel which demonstrated persistence of elevated potassium level and kidney function. Then proceeded with administering 2 g calcium gluconate with an amp of D50 and 5 units of regular insulin. 0003: Repeat EKG shows significant improvement in T-waves, patient has persistent right bundle branch block, repeat lab work demonstrates a resolved potassium level as well as some mild improvement in renal function. He is stable for discharge to home and was provided with strict instructions to reach out to the kidney doctor 1st thing in the morning to set up an appointment for re-evaluation. Differential Diagnosis Differential Diagnoses: The differential diagnosis associated with the presentation includes Please see the discussion above Admission/Observation Consideration of admission/observation: Escalation of care including admission/observation considered Please see the discussion above Lab Data MDM Lab Attestation statement: I reviewed the patient's lab results. Please see the discussion above 11/02/23 19:07 11/02/23 23:23 Labs: Lab Results 11/02/23 11/02/23 11/02/23 Range/Units 19:07 20:41 21:11 WBC 5.5 (4.8-10.8) X10*3/uL RBC 4.14 L (4.60-5.80) X10*6/uL Hgb 12.4 L (14.0-18.0) g/dl Hct 35.1 L (42.0-52.0) % MCV 84.8 (80.0-98.0) fL MCH 30.0 (27.0-33.0) pg MCHC 35.3 (31.0-36.0) g/dl RDW 12.4 (11.0-16.0) % Plt Count 192 (160-400) X10*3/uL MPV 9.5 (9.4-12.4) fL Immature Gran % (Auto) 0.2 (0.0-0.4) % Neut % (Auto) 63.5 (45-73) % Lymph % (Auto) 28.7 (20-40) % Martin % (Auto) 6.0 (2-11) % Eos % (Auto) 1.4 (0-4) % Baso % (Auto) 0.2 (0-2) % Lymph # (Auto) 1.6 (1.2-4.9) X10*3/uL Martin # (Auto) 0.3 (0.1-1.2) X10*3/uL Eos # (Auto) 0.1 (0.0-0.4) X10*3/uL Baso # (Auto) 0.0 (0.0-0.2) X10*3/uL Abs Immat Gran (auto) 0.01 (0.00-0.03) X10*3/uL Absolute Neuts (auto) 3.5 (2.0-8.3) x10*3/uL Absolute Nucleated RBC 0.000 (0.0-0.012) X10*3/uL Nucleated RBC % (auto) 0.0 (0.0-0.2) /100WBC Sodium 138 139 (135-145) mmol/L Potassium 6.0 H* 5.8 H (3.3-5.1) mmol/L Chloride 108 108 (96-108) mmol/L Carbon Dioxide 22 22 (22-29) mmol/L Anion Gap 14 15 (12-20) BUN 36 H 35 H (9-16) mg/dL Creatinine 2.64 H 2.71 H (0.5-1.4) mg/dL Estim Creat Clear Calc 33.6 32.7 Estimated GFR 25 25 POC Glucose 153 H (60-115) mg/dL Random Glucose 195 H 191 H (60-115) mg/dL Calcium 9.0 D 9.0 (8.4-10.2) mg/dL Total Bilirubin 0.5 (0.0-1.0) mg/dL AST 15 (5-37) U/L ALT 14 (0-40) U/L Alkaline Phosphatase 73 (39-117) U/L Total Protein 7.0 (6.5-8.0) g/dL Albumin 4.3 (3.5-5.0) g/dL Beta-Hydroxybutyrate 0.10 (0.02-0.27) mmol/L 11/02/23 11/02/23 Range/Units 23:19 23:23 WBC (4.8-10.8) X10*3/uL RBC (4.60-5.80) X10*6/uL Hgb (14.0-18.0) g/dl Hct (42.0-52.0) % MCV (80.0-98.0) fL MCH (27.0-33.0) pg MCHC (31.0-36.0) g/dl RDW (11.0-16.0) % Plt Count (160-400) X10*3/uL MPV (9.4-12.4) fL Immature Gran % (Auto) (0.0-0.4) % Neut % (Auto) (45-73) % Lymph % (Auto) (20-40) % Martin % (Auto) (2-11) % Eos % (Auto) (0-4) % Baso % (Auto) (0-2) % Lymph # (Auto) (1.2-4.9) X10*3/uL Martin # (Auto) (0.1-1.2) X10*3/uL Eos # (Auto) (0.0-0.4) X10*3/uL Baso # (Auto) (0.0-0.2) X10*3/uL Abs Immat Gran (auto) (0.00-0.03) X10*3/uL Absolute Neuts (auto) (2.0-8.3) x10*3/uL Absolute Nucleated RBC (0.0-0.012) X10*3/uL Nucleated RBC % (auto) (0.0-0.2) /100WBC Sodium 140 (135-145) mmol/L Potassium 4.9 (3.3-5.1) mmol/L Chloride 110 H (96-108) mmol/L Carbon Dioxide 18 L (22-29) mmol/L Anion Gap 17 (12-20) BUN 34 H (9-16) mg/dL Creatinine 2.44 H (0.5-1.4) mg/dL Estim Creat Clear Calc 36.3 Estimated GFR 28 POC Glucose 130 H (60-115) mg/dL Random Glucose 115 (60-115) mg/dL Calcium 9.5 (8.4-10.2) mg/dL Total Bilirubin (0.0-1.0) mg/dL AST (5-37) U/L ALT (0-40) U/L Alkaline Phosphatase (39-117) U/L Total Protein (6.5-8.0) g/dL Albumin (3.5-5.0) g/dL Beta-Hydroxybutyrate (0.02-0.27) mmol/L Independent Interpretation I performed an independent interpretation of an: EKG Interpretation: Sinus bradycardia, no STEMI, no QTC prolongation and QT is consistent with prior EKG from 09/2023, [place]/QTC is within normal limits, peak T-waves noted. Sinus bradycardia, HR-56, no STEMI, right bundle branch block at baseline External Record Review External record reviewed: Outpatient record, Prior outpatient labs and Prior outpatient radiology Chronic Conditions Patient?s care impacted by: Diabetes and Hypertension Critical Care Time Critical Care Time Critical Care Time: Yes Total Critical Care Time: 60 Attestation: I personally attest to this time spent taking care of the patient. Discharge Plan Discharge Clinical Impression: Hyperkalemia, CKD (chronic kidney disease) Patient Disposition: Home, Self-Care Instructions: Chronic Kidney Disease (ED), Potassium Content of Foods List (ED), Hyperkalemia (ED) Additional Instructions: 1. Resume all home medications as prescribed. 2. Please call your kidney doctor 1st thing in the morning to update on your potassium and kidney evaluation here in the emergency room. 3. Please follow-up with your primary care doctor by calling the office in the morning and discussing a review of medications given your current kidney function. Return to the ER for any worsening of symptoms. Prescriptions: No Action (DME) FreeStyle Test Strip See Rx Instructions .ROUTE .MEDSUPPLY Qty: 50 11RF Rx Instructions: Use 1 test strip twice a day (DME) blood-glucose meter [FreeStyle [place] Lite] Kit See Rx Instructions .ROUTE .MEDSUPPLY Qty: 1 0RF Rx Instructions: As directed (DME) lancets [FreeStyle Lancets] 28 gauge misc See Rx Instructions .ROUTE .MEDSUPPLY Qty: 100 11RF Rx Instructions: Use 1 lancet twice a day lisinopril 40 mg tablet 40 mg PO DAILY 90 Days Qty: 90 1RF amlodipine 10 mg tablet 1 tab PO DAILY sulfacetamide sodium 10 % drops 1 drp ophthalmic (eye) Q3H Qty: 15 0RF Paxlovid 150-100 mg tablets,dose pack See Rx Instructions .ROUTE .COMPLEX Qty: 20 0RF Rx Instructions: take ONE 150 mg tablet of nirmatrelvir with ONE 100 mg tablet of ritonavir twice daily for 5 days metformin 1,000 mg tablet extended release 24hr 1,000 mg PO BID 90 Days Qty: 180 3RF aspirin [Adult Aspirin Regimen] 81 mg tablet,delayed release (DR/EC) 81 mg PO DAILY metoprolol tartrate 75 mg tablet 75 mg PO BID isosorbide mononitrate 60 mg tablet extended release 24 hr 60 mg PO DAILY atorvastatin 80 mg tablet 80 mg PO BEDTIME hydroxyzine HCl 10 mg tablet 10 - 20 mg PO BID PRN (Reason: anxiety) Jardiance 10 mg tablet 10 mg PO DAILY Referrals: [facility] [Primary Care Provider] - Interventions: ED Discharge Assessment Last Done: 11/03/23 00:39 Discharge Date/Time: 11/03/23 00:42
[2023-11-02 19:11] LABS: MANUAL DIFF FLAG NO
[2023-11-02 19:12] LABS: Basophils Percent Auto 0.2 % (0-2); Eosinophils Absolute Auto 0.1 X10*3/uL (0.0-0.4); Eosinophils Percent Auto 1.4 % (0-4); Hematocrit 35.1 % (42.0-52.0); Hemoglobin 12.4 g/dl (14.0-18.0); Imm Gran Abs Auto 0.01 X10*3/uL (0.00-0.03); Imm Gran Pct Auto 0.2 % (0.0-0.4); Lymphocytes Absolute Auto 1.6 X10*3/uL (1.2-4.9); Lymphocytes Percent Auto 28.7 % (20-40); Mean Corpuscular HGB Conc 35.3 g/dl (31.0-36.0); Mean Corpuscular Volume 84.8 fL (80.0-98.0); Mean Platelet Volume 9.5 fL (9.4-12.4); Monocytes Absolute Auto 0.3 X10*3/uL (0.1-1.2); Neutrophils Absolute Auto 3.5 x10*3/uL (2.0-8.3); Neutrophils Percent Auto 63.5 % (45-73); Platelet Count 192 X10*3/uL (160-400); Red Blood Count 4.14 X10*6/uL (4.60-5.80); Red Cell Distribution Width 12.4 % (11.0-16.0); White Blood Count 5.5 X10*3/uL (4.8-10.8)
--- NOTE | 2023-11-02 19:29 | ECG_ITS ---
Test Reason : K LEVELS Blood Pressure : / mmHG Vent. Rate : 056 BPM Atrial Rate : 056 BPM P-R Int : 144 ms QRS Dur : 134 ms QT Int : 464 ms P-R-T Axes : -22 -29 -05 degrees QTc Int : 447 ms Sinus bradycardia Right bundle branch block Abnormal ECG When compared with ECG of 02-NOV-2023 20:54, No significant change was found Referred By: Chery Curiel Electronically Signed By:MARCOS SORIA MD
[2023-11-02 19:31] LABS: Alanine Aminotransferase 14 U/L (0-40); Albumin Level 4.3 g/dL (3.5-5.0); Alkaline Phosphatase 73 U/L (39-117); Anion Gap 14 (12-20); Aspartate Amino Transferase 15 U/L (5-37); Bilirubin Total 0.5 mg/dL (0.0-1.0); Blood Urea Nitrogen 36 mg/dL (9-16); Carbon Dioxide 22 mmol/L (22-29); Chloride 108 mmol/L (96-108); Creatinine Clr Calc Pharmacy 33.6; Estimated Glomerular Filt Rate 25; Glucose Random 195 mg/dL (60-115); Sodium 138 mmol/L (135-145)
[2023-11-02] MEDS: Sodium Zirconium Cyclosilicate 10 GM POWD.PACK PO (20:33)
[2023-11-02 20:42] VITALS: BP 110/64; PULSE 52; RESP 16; TEMP 36.4; O2SAT 98
[2023-11-02 20:45] LABS: Glucose, Whole Blood 153 mg/dL (60-115)
[2023-11-02 21:29] LABS: Anion Gap 15 (12-20); Blood Urea Nitrogen 35 mg/dL (9-16); Carbon Dioxide 22 mmol/L (22-29); Chloride 108 mmol/L (96-108); Creatinine Clr Calc Pharmacy 32.7; Estimated Glomerular Filt Rate 25; Glucose Random 191 mg/dL (60-115); Potassium 5.8 mmol/L (3.3-5.1); Sodium 139 mmol/L (135-145)
[2023-11-02] MEDS: Dextrose 50 % 25 GM/50 ML SYRINGE IVPUSH (21:34)
[2023-11-02] MEDS: Calcium Gluconate/NaCl,Iso-Osm 2 GM/100 ML PLAST..BAG IV (21:35)
[2023-11-02] MEDS: Insulin Regular, Human 100 UNIT/ML 3 ML VIAL IVPUSH (21:36)
[2023-11-02 23:35] LABS: Glucose, Whole Blood 130 mg/dL (60-115)
--- NOTE | 2023-11-02 23:39 | PC.NURSE ---
ASSUMED CARE OF PT
[2023-11-02 23:47] LABS: Anion Gap 17 (12-20); Blood Urea Nitrogen 34 mg/dL (9-16); Calcium 9.5 mg/dL (8.4-10.2); Carbon Dioxide 18 mmol/L (22-29); Chloride 110 mmol/L (96-108); Creatinine Clr Calc Pharmacy 36.3; Estimated Glomerular Filt Rate 28; Glucose Random 115 mg/dL (60-115); Potassium 4.9 mmol/L (3.3-5.1); Sodium 140 mmol/L (135-145)
--- NOTE | 2023-11-02 23:47 | PC.NURSE ---
ASSUMED CARE OF PT
[2023-11-02 23:48] VITALS: BP 107/63; PULSE 54; RESP 20; TEMP 36.6; O2SAT 95
--- NOTE | 2023-11-02 23:52 | ECG_ITS ---
Test Reason : ABNORMAL LABS Blood Pressure : / mmHG Vent. Rate : 051 BPM Atrial Rate : 051 BPM P-R Int : 154 ms QRS Dur : 136 ms QT Int : 448 ms P-R-T Axes : - degrees QTc Int : 412 ms Sinus bradycardia Right bundle branch block Abnormal ECG When compared with ECG of 05-SEP-2023 20:02, T wave inversion no longer evident in Anterior leads Referred By: Chery Curiel Electronically Signed By:MARCOS SORIA MD
[2023-11-03 00:06] VITALS: BP 118/65; PULSE 55; RESP 18; TEMP 36.9; O2SAT 98
== END 2023-11-03 00:42 | disposition home or self-care (01) ==
PROVIDERS: Physician Assistant; Emergency Provider Student in an Organized Health Care Education/Training Program
DX: E11.22 Type 2 diabetes mellitus with diabetic chronic kidney disease (principal); I12.9 Hypertensive chronic kidney disease with stage 1 through stage 4 chronic kidney disease, or unspecified chronic kidney disease; E87.5 Hyperkalemia; N18.9 Chronic kidney disease, unspecified; N17.9 Acute kidney failure, unspecified; E78.5 Hyperlipidemia, unspecified; Z79.84 Long term (current) use of oral hypoglycemic drugs; Z79.82 Long term (current) use of aspirin; Z79.02 Long term (current) use of antithrombotics/antiplatelets; Z79.899 Other long term (current) drug therapy
CPT/HCPCS: 36415; 80048; 80053; 82010; 82947; 85025; 93005; 96365; 96366; 96375; 99284; J0613

== ENCOUNTER → 2023-11-02 19:29 | Outpatient (BNV) | payer MEDICAID, SELFPAY | PROVIDERS: Emergency Provider Student in an Organized Health Care Education/Training Program; Visit Provider Internal Medicine Cardiovascular Disease | DX: R00.1 Bradycardia, unspecified (principal); I45.10 Unspecified right bundle-branch block | CPT/HCPCS: 93010 ==

== ENCOUNTER 2023-11-09 16:40 | Outpatient (REF) | payer MEDICAID, SELFPAY ==
[2023-11-09 18:37] LABS: Anion Gap 14 (12-20); Blood Urea Nitrogen 33 mg/dL (9-16); Calcium 9.5 mg/dL (8.4-10.2); Carbon Dioxide 23 mmol/L (22-29); Chloride 108 mmol/L (96-108); Estimated Glomerular Filt Rate 24; Glucose Random 197 mg/dL (60-115); Potassium 5.5 mmol/L (3.3-5.1); Sodium 139 mmol/L (135-145)
== END 2023-11-09 16:41 | disposition home or self-care (01) ==
LOC: HO.HHCL 16:40
PROVIDERS: Visit Provider General Practice
DX: E87.5 Hyperkalemia (principal)
CPT/HCPCS: 36415; 80048

== ENCOUNTER → 2023-11-19 23:59 | Outpatient (BNV) | payer MEDICAID, SELFPAY ==
--- NOTE | 2023-11-28 08:57 | MHC.OFFVIS ---
Intake Intake Visit Reasons: Remote ILR Check- [employer] Allergies No Known Allergies Allergy (Verified 03/30/23 16:30) PFSH Medical History Stable angina NSVT (nonsustained ventricular tachycardia) Unstable angina Carpal tunnel syndrome Nephrolithiasis Phlebitis Arthritis Type 2 diabetes mellitus with unspecified 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 macular edema Essential hypertension Hyperlipidemia LDL goal <70 Anemia HTN (hypertension) Stroke Hyperlipemia Diabetes Surgical History S/P coronary angioplasty H/O cardiac catheterization H/O vitrectomy History of carpal tunnel surgery of right wrist Family History Father Asthma Mother Diabetes mellitus Social History Household Members: None Housing: Apartment Do you presently have visiting nurse or other home services: No Alcohol intake: never Comment: S3 Patient Tobacco Use Status: Former Tobacco user Quit Date: 2012 Years Smoked: 6 +/- Advance Directives Date on File: 12/15/22 service: No Office Procedures Cardiac Device Check Cardiac Device Check Details: ILR No new alerts. [id number] Cardiac Interrogation, subcut cardiac rhythm monitor Procedure code (CPT) selection complete Assessment & Plan Assessment & Plan (1) NSVT (nonsustained ventricular tachycardia): Code(s): I47.2 - Ventricular tachycardia Plan Coding Level of Care Code Procedure Only Diagnoses NSVT (nonsustained ventricular tachycardia) I47.2 CPT Codes Cardiac Device Check - Cardiac Device 16: [id number] Cardiac Interrogation, subcut cardiac rhythm monitor ([id number])
== END ==
PROVIDERS: PCP Nurse Practitioner Primary Care; Visit Provider Internal Medicine Cardiovascular Disease
DX: I47.20 Ventricular tachycardia, unspecified (principal); Z95.818 Presence of other cardiac implants and grafts
CPT/HCPCS: 93298

== ENCOUNTER 2023-12-01 15:27 | Outpatient (REF) | payer MEDICAID, SELFPAY ==
[2023-12-01 16:48] LABS: Anion Gap 12 (12-20); Blood Urea Nitrogen 31 mg/dL (9-16); Calcium 9.5 mg/dL (8.4-10.2); Carbon Dioxide 24 mmol/L (22-29); Chloride 109 mmol/L (96-108); Estimated Glomerular Filt Rate 28; Glucose Random 141 mg/dL (60-115); Potassium 5.2 mmol/L (3.3-5.1); Sodium 140 mmol/L (135-145)
== END 2023-12-01 15:28 | disposition home or self-care (01) ==
LOC: HO.HHCL 15:27
PROVIDERS: Visit Provider Nurse Practitioner Primary Care
DX: E87.5 Hyperkalemia (principal); E78.5 Hyperlipidemia, unspecified; E11.69 Type 2 diabetes mellitus with other specified complication
CPT/HCPCS: 36415; 80048

== ENCOUNTER 2024-02-01 16:01 | Outpatient (REF) | payer MEDICAID, SELFPAY ==
[2024-02-01 17:56] LABS: Anion Gap 15 (12-20); Blood Urea Nitrogen 31 mg/dL (9-16); Calcium 9.3 mg/dL (8.4-10.2); Carbon Dioxide 20 mmol/L (22-29); Chloride 109 mmol/L (96-108); Estimated Glomerular Filt Rate 28; Glucose Random 264 mg/dL (60-115); Potassium 4.9 mmol/L (3.3-5.1); Sodium 139 mmol/L (135-145)
== END 2024-02-01 16:02 | disposition home or self-care (01) ==
LOC: HO.HHCL 16:01
PROVIDERS: Visit Provider Nurse Practitioner Primary Care
DX: E87.5 Hyperkalemia (principal)
CPT/HCPCS: 36415; 80048

== ENCOUNTER 2024-02-01 17:48 | Emergency (ER) | payer MEDICAID, SELFPAY ==
--- NOTE | 2024-02-01 17:57 | ECG_ITS ---
Test Reason : CHEST PAIN Blood Pressure : / mmHG Vent. Rate : 060 BPM Atrial Rate : 060 BPM P-R Int : 152 ms QRS Dur : 134 ms QT Int : 444 ms P-R-T Axes : -16 -37 004 degrees QTc Int : 444 ms Normal sinus rhythm Left axis deviation Right bundle branch block Abnormal ECG When compared with ECG of 03-NOV-2023 00:03, No significant change was found Referred By: James Alexander Electronically Signed By:GUILHERME DRUMMOND
[2024-02-01 18:05] VITALS: BP 98/60; PULSE 58; RESP 18; TEMP 36.2; O2SAT 100; BMI 28.6
--- NOTE | 2024-02-01 18:05 | ED.GENADULT ---
HPI - General Adult General Chief complaint: Chest Pain Stated complaint: chest pain, low hr, ref by PCP Time Seen by Provider: 02/02/24 00:39 Source: patient Mode of arrival: ambulatory Limitations: no limitations History of Present Illness HPI narrative: 53-year-old male with a history of stable angina, NS VT, nephrolithiasis, diabetes mellitus, hypertension, hyperlipidemia, stroke x2, coronary artery disease who was referred to the emergency department by his PCP for bradycardia and chest pain. The patient states that he has had constant sternal squeezing chest pain for 2-3 days. He states that the pain is constant but waxes and wanes in intensity. He states the pain is 7/10 at its worst. Pain does not radiate to his neck, jaw, arms or back. He states he has had similar pain in the past. The patient had a routine visit with his doctor and his doctor was concerned that he was bradycardic with a heart rate of less than 60. The patient does have a pacemaker. He denied fever, chills, cough, nausea, vomiting, diarrhea. Related Data Home Medications ?Medication ?Instructions ?Recorded ?Confirmed aspirin 81 mg tablet,delayed 81 mg PO DAILY 02/24/21 12/12/22 release (Adult Aspirin Regimen) atorvastatin 80 mg tablet 80 mg PO BEDTIME 08/20/21 12/12/22 isosorbide mononitrate 60 mg 60 mg PO DAILY 08/20/21 12/12/22 tablet,extended release 24 hr metoprolol tartrate 75 mg tablet 75 mg PO BID 08/20/21 12/12/22 empagliflozin 10 mg tablet 10 mg PO DAILY 11/19/21 12/12/22 (Jardiance) hydroxyzine HCl 10 mg tablet 10 - 20 mg PO BID PRN anxiety 11/19/21 12/12/22 amlodipine 10 mg tablet 1 tab PO DAILY 12/12/22 12/12/22 Previous Rx's ?Medication ?Instructions ?Recorded metformin 1,000 mg tablet,extended 1,000 mg PO BID 90 days #180 tabs 11/05/20 release 24hr (osmotic) blood sugar diagnostic (FreeStyle #50 ea 12/22/20 Test strips) blood-glucose meter (FreeStyle #1 ea 12/22/20 [place] Lite kit) lancets 28 gauge (FreeStyle #100 ea 12/22/20 Lancets) lisinopril 40 mg tablet 40 mg PO DAILY 90 days #90 tabs 06/17/21 sulfacetamide sodium 10 % eye drops 1 drp ophthalmic (eye) Q3H #15 mL 01/12/23 nirmatrelvir 150 mg-ritonavir 100 See Rx Instructions PO .COMPLEX 09/06/23 mg tablets in a dose pack #20 ea (Paxlovid) Allergies Allergy/AdvReac Type Severity Reaction Status Date / Time No Known Allergies Allergy Verified 02/01/24 18:09 Review of Systems Review of Systems: Yes all other systems are reviewed and are negative [facility] Past Medical History [facility] Narrative: Social history: He denies tobacco, alcohol and drug use. Medical History Stable angina NSVT (nonsustained ventricular tachycardia) Unstable angina Carpal tunnel syndrome Nephrolithiasis Phlebitis Arthritis Type 2 diabetes mellitus with unspecified 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 macular edema Essential hypertension Hyperlipidemia LDL goal <70 Anemia HTN (hypertension) Stroke Hyperlipemia Diabetes Surgical History S/P coronary angioplasty H/O cardiac catheterization H/O vitrectomy History of carpal tunnel surgery of right wrist Family History Family History Father Asthma Mother Diabetes mellitus Social History Social History Household Members: None Housing: Apartment Do you presently have visiting nurse or other home services: No Alcohol intake: never Comment: S3 Patient Tobacco Use Status: Former Tobacco user Quit Date: 2012 Years Smoked: 6 +/- Smoked in Last 30 Days: No Use of substances other than those prescribed or required for medical reasons: No Advance Directives: Yes Advance Directives on File: Yes Advance Directives Date on File: 12/15/22 Do you have a plan to hurt others: No Plan service: No Physical Exam ED Vital Signs: Vital Signs - 24 hr 02/01/24 18:05 02/01/24 21:34 02/01/24 23:27 Temperature 97.1 F 97.7 F Pulse Rate 58 52 52 Respiratory Rate 18 18 20 Blood Pressure 98/60 118/61 103/65 Pulse Oximetry 100 99 98 Oxygen Delivery Method Room Air Room Air Room Air 02/02/24 02:55 Temperature Pulse Rate 60 Respiratory Rate 12 Blood Pressure 133/79 Pulse Oximetry 100 Oxygen Delivery Method Room Air BMI result Body Mass Index 28.6 Vital signs did reveal low heart rate 52-58 otherwise were unremarkable. Exam: General: Awake, alert in no distress Head: Normocephalic, atraumatic EENT: PERRL, Lids normal, sclera normal, conjunctiva normal, nose normal , ears normal, throat without erythema or exudates Neck: Supple, no adenopathy Lung: breath sounds symmetric, no wheezing, rales or rhonchi Chest: symmetric movement, nontender Heart: regular rate and rhythm, normal S1, S2 no murmurs or rubs Abdomen: soft, non-tender, nondistended, normal bowel sounds Back: no vertebral tenderness, no CVAT Extremities: no deformities, moves all extremities symmetrically Neuro: Awake, alert, oriented, normal speech, cranial nerves intact, moves all extremities symmetrically Psych: Pleasant, cooperative Course Course Course Narrative: RME- 53 year old male presents for evaluation of chest pain. He had a routine follow up with his PCP and had an EKG showing sinus bradycardia at 57 bpm. Chest pain has been present for the last 2 days. Plan for cardiac workup Medical Decision Making Medical Decision Making MDM Narrative: 53-year-old male with a history of stable angina, NS VT, nephrolithiasis, diabetes mellitus, hypertension, hyperlipidemia, stroke x2, coronary artery disease who was referred to the emergency department by his PCP for bradycardia and chest pain. Patient has had a constant squeezing like chest pain in his sternal area for 2-3 days with no significant concerning associated symptoms. Vital signs did reveal bradycardia ranging from 52-58. Physical examination was unremarkable. Differential diagnosis: Includes but is not limited to myocardial infarction, myocardial ischemia, Bradyarrhythmia, tachyarrhythmia, electrolyte abnormalities, anemia Following evaluation was ordered: CBC, CMP, troponin, EKG Course: 03:56 my independent interpretation patient's laboratory evaluation is as follows: Normocytic anemia with an H&H of 11 and 32.8, elevated BUN creatinine 33 and 2.40, this is consistent with his chronic kidney disease he has had similar values in the past. Glucose elevated 189. First troponin was 6.0, 2nd troponin 3 hours later was 6.6 which revealed no significant delta suggesting the patient has not had myocardial injury from his constant chest pain for the past 2-3 days. The patient's [employer] pacemaker was interrogated and the patient had no significant bradyarrhythmias less than 30, no significant tachyarrhythmias greater than 176. The patient's pacemaker is most likely set to fire at a heart rate of less than 50. The patient was asymptomatic therefore he was discharged home and advised to follow-up with his PCP and construction project manager for further care Admission/Observation Consideration of admission/observation: Escalation of care including admission/observation considered Lab Data MDM Lab Attestation statement: I reviewed the patient's lab results. 02/01/24 18:02 02/01/24 18:02 Labs: Lab Results 02/01/24 02/01/24 Range/Units 18:02 23:23 WBC 5.3 (4.8-10.8) X10*3/uL RBC 3.80 L (4.60-5.80) X10*6/uL Hgb 11.8 L (14.0-18.0) g/dl Hct 32.9 L (42.0-52.0) % MCV 86.6 (80.0-98.0) fL MCH 31.1 (27.0-33.0) pg MCHC 35.9 (31.0-36.0) g/dl RDW 12.1 (11.0-16.0) % Plt Count 184 (160-400) X10*3/uL MPV 9.3 L (9.4-12.4) fL Immature Gran % (Auto) 0.6 H (0.0-0.4) % Neut % (Auto) 68.1 (45-73) % Lymph % (Auto) 24.3 (20-40) % [place] % (Auto) 5.7 (2-11) % Eos % (Auto) 1.1 (0-4) % Baso % (Auto) 0.2 (0-2) % Lymph # (Auto) 1.3 (1.2-4.9) X10*3/uL [place] # (Auto) 0.3 (0.1-1.2) X10*3/uL Eos # (Auto) 0.1 (0.0-0.4) X10*3/uL Baso # (Auto) 0.0 (0.0-0.2) X10*3/uL Abs Immat Gran (auto) 0.03 (0.00-0.03) X10*3/uL Absolute Neuts (auto) 3.6 (2.0-8.3) x10*3/uL Absolute Nucleated RBC 0.000 (0.0-0.012) X10*3/uL Nucleated RBC % (auto) 0.0 (0.0-0.2) /100WBC Sodium 138 (135-145) mmol/L Potassium 4.9 (3.3-5.1) mmol/L Chloride 108 (96-108) mmol/L Carbon Dioxide 21 L (22-29) mmol/L Anion Gap 14 (12-20) BUN 33 H (9-16) mg/dL Creatinine 2.40 H (0.5-1.4) mg/dL Estim Creat Clear Calc 36.9 Estimated GFR 28 Random Glucose 189 H (60-115) mg/dL Calcium 9.3 (8.4-10.2) mg/dL Total Bilirubin 0.5 (0.0-1.0) mg/dL AST 15 (5-37) U/L ALT 14 (0-40) U/L Alkaline Phosphatase 67 (39-117) U/L Troponin I High Sens 6.0 6.6 (<3.5-35.0) ng/L Total Protein 7.2 (6.5-8.0) g/dL Albumin 4.3 (3.5-5.0) g/dL Lipase 42 (8-78) U/L Independent Interpretation I performed an independent interpretation of an: EKG Interpretation: My independent interpretation patient's 12 EKG done at 17:52 hours is as follows: Normal sinus rhythm with a rate of 60, normal MD interval, prolonged QRS duration of 134 milliseconds, normal QTC interval of 448 milliseconds, right bundle-branch block, inverted T-wave in lead 3 and V1, no ST segment elevation, no ST segment depression, no PACs, no PVCs, no Q-waves. When compared to EKG dated 11/03/2023 there is no significant change. External Record Review External record reviewed: Other ( [employer] interrogation report) Discharge Plan Discharge Clinical Impression: Chest pain, Bradycardia, sinus Patient Disposition: Home, Self-Care Instructions: Chest Pain (ED) Additional Instructions: Your EKG today was no different from your 1 in November 2023. You have mild anemia with a hematocrit and hemoglobin of 11 and 32.8 however you had similar anemia in the past and I do not think that there is anything to do about this and it has not related to your chest pain. Your kidney function is abnormal however you had similar elevated values in the past and this is related to diabetes. Continue to take your diabetic medications as prescribed by your doctor. Your high sensitive troponin I (marker of heart damage) was initially normal at 6.0 and your repeat 3 hour value was also normal at 6.6. This is very reassuring and suggests that the chest pain that you have been having is not caused by heart attack or heart injury. We did interrogate your pacemaker and the summary sheet revealed that you had no episodes of tachycardia (fast heart rates ) greater than 167 beats per minute and no significant episodes of bradycardia (slow heart rates ) of less than 30 beats per minute. Continue taking medications as prescribed by your providers. Follow-up with your doctor in 2 days. Please return to the emergency department if your symptoms get worse or if you develop any symptoms that are concerning to you. Prescriptions: No Action (DME) FreeStyle Test Strip See Rx Instructions .ROUTE .MEDSUPPLY Qty: 50 11RF Rx Instructions: Use 1 test strip twice a day (DME) blood-glucose meter [FreeStyle [place] Lite] Kit See Rx Instructions .ROUTE .MEDSUPPLY Qty: 1 0RF Rx Instructions: As directed (DME) lancets [FreeStyle Lancets] 28 gauge misc See Rx Instructions .ROUTE .MEDSUPPLY Qty: 100 11RF Rx Instructions: Use 1 lancet twice a day lisinopril 40 mg tablet 40 mg PO DAILY 90 Days Qty: 90 1RF amlodipine 10 mg tablet 1 tab PO DAILY sulfacetamide sodium 10 % drops 1 drp ophthalmic (eye) Q3H Qty: 15 0RF Paxlovid 150-100 mg tablets,dose pack See Rx Instructions .ROUTE .COMPLEX Qty: 20 0RF Rx Instructions: take ONE 150 mg tablet of nirmatrelvir with ONE 100 mg tablet of ritonavir twice daily for 5 days metformin 1,000 mg tablet extended release 24hr 1,000 mg PO BID 90 Days Qty: 180 3RF aspirin [Adult Aspirin Regimen] 81 mg tablet,delayed release (DR/EC) 81 mg PO DAILY metoprolol tartrate 75 mg tablet 75 mg PO BID isosorbide mononitrate 60 mg tablet extended release 24 hr 60 mg PO DAILY atorvastatin 80 mg tablet 80 mg PO BEDTIME hydroxyzine HCl 10 mg tablet 10 - 20 mg PO BID PRN (Reason: anxiety) Jardiance 10 mg tablet 10 mg PO DAILY Print Language: Setswana
[2024-02-01 18:08] LABS: MANUAL DIFF FLAG NO
[2024-02-01 18:18] LABS: Basophils Percent Auto 0.2 % (0-2); Eosinophils Absolute Auto 0.1 X10*3/uL (0.0-0.4); Eosinophils Percent Auto 1.1 % (0-4); Hematocrit 32.9 % (42.0-52.0); Hemoglobin 11.8 g/dl (14.0-18.0); Imm Gran Abs Auto 0.03 X10*3/uL (0.00-0.03); Imm Gran Pct Auto 0.6 % (0.0-0.4); Lymphocytes Absolute Auto 1.3 X10*3/uL (1.2-4.9); Lymphocytes Percent Auto 24.3 % (20-40); Mean Corpuscular HGB Conc 35.9 g/dl (31.0-36.0); Mean Corpuscular Hemoglobin 31.1 pg (27.0-33.0); Mean Corpuscular Volume 86.6 fL (80.0-98.0); Mean Platelet Volume 9.3 fL (9.4-12.4); Monocytes Absolute Auto 0.3 X10*3/uL (0.1-1.2); Monocytes Percent Auto 5.7 % (2-11); Neutrophils Absolute Auto 3.6 x10*3/uL (2.0-8.3); Neutrophils Percent Auto 68.1 % (45-73); Platelet Count 184 X10*3/uL (160-400); Red Cell Distribution Width 12.1 % (11.0-16.0); White Blood Count 5.3 X10*3/uL (4.8-10.8)
[2024-02-01 18:27] LABS: Alanine Aminotransferase 14 U/L (0-40); Albumin Level 4.3 g/dL (3.5-5.0); Alkaline Phosphatase 67 U/L (39-117); Anion Gap 14 (12-20); Aspartate Amino Transferase 15 U/L (5-37); Bilirubin Total 0.5 mg/dL (0.0-1.0); Blood Urea Nitrogen 33 mg/dL (9-16); Calcium 9.3 mg/dL (8.4-10.2); Carbon Dioxide 21 mmol/L (22-29); Chloride 108 mmol/L (96-108); Creatinine Clr Calc Pharmacy 36.9; Estimated Glomerular Filt Rate 28; Glucose Random 189 mg/dL (60-115); Lipase 42 U/L (8-78); Potassium 4.9 mmol/L (3.3-5.1); Sodium 138 mmol/L (135-145); Total Protein 7.2 g/dL (6.5-8.0)
[2024-02-01 21:34] VITALS: BP 118/61; PULSE 52; RESP 18; O2SAT 99
[2024-02-01 23:27] VITALS: BP 103/65; PULSE 52; RESP 20; TEMP 36.5; O2SAT 98
[2024-02-01 23:54] LABS: Troponin-I High Sensitivity 6.6 ng/L (<3.5-35.0)
[2024-02-02 02:55] VITALS: BP 133/79; PULSE 60; RESP 12; O2SAT 100
[2024-02-02 04:01] VITALS: BP 133/79; PULSE 60; RESP 12; TEMP 36.8; O2SAT 100
== END 2024-02-02 04:02 | disposition home or self-care (01) ==
PROVIDERS: Physician Assistant; Emergency Provider Emergency Medicine Emergency Medical Services
DX: R07.9 Chest pain, unspecified (principal); R00.1 Bradycardia, unspecified; I10 Essential (primary) hypertension; E11.9 Type 2 diabetes mellitus without complications; E78.5 Hyperlipidemia, unspecified; Z87.891 Personal history of nicotine dependence; Z95.0 Presence of cardiac pacemaker; Z79.84 Long term (current) use of oral hypoglycemic drugs; Z79.02 Long term (current) use of antithrombotics/antiplatelets; Z79.899 Other long term (current) drug therapy; Z79.82 Long term (current) use of aspirin
CPT/HCPCS: 36415; 80053; 83690; 84484; 85025; 93005; 99283; 99285

== ENCOUNTER → 2024-02-01 17:57 | Outpatient (BNV) | payer MEDICAID, SELFPAY | PROVIDERS: Emergency Provider Emergency Medicine Emergency Medical Services; Visit Provider Internal Medicine | DX: I45.10 Unspecified right bundle-branch block (principal) | CPT/HCPCS: 93010 ==

== ENCOUNTER 2024-03-12 14:32 | Outpatient (AMB) | payer MEDICAID, SELFPAY ==
[2024-03-12 14:59] VITALS: BP 85/53; PULSE 64; BMI 28.7
--- NOTE | 2024-03-12 14:59 | A.OFFVIS_ITS ---
Vital Signs 03/12/24 14:59 Height 5 ft 8 in Weight 188 lb 11.451 oz BMI 28.7 BP 85/53 L Blood Pressure Location Lt brachial Position Sitting Pulse 64 Intake Visit Reasons: f/up-afib Circular Sawyer Stone Required: No Allergies No Known Allergies Allergy (Verified 03/12/24 15:02) Medication List - Last Reconciled 03/12/24 by Caryn Caballero, HAND MARKER-C amlodipine 1 tab PO DAILY aspirin (Adult Aspirin Regimen) 81 mg PO DAILY atorvastatin 80 mg PO BEDTIME blood sugar diagnostic (FreeStyle Test strips) Use 1 test strip twice a day blood-glucose meter (FreeStyle [place] Lite kit) As directed empagliflozin (Jardiance) 10 mg PO DAILY hydroxyzine HCl 10 - 20 mg PO BID PRN insulin glargine (Lantus Solostar U-100 Insulin) 20 units subcut DAILY isosorbide mononitrate ER 60 mg PO DAILY lancets (FreeStyle Lancets) Use 1 lancet twice a day lisinopril 40 mg PO DAILY 90 days metoprolol tartrate 75 mg PO BID nirmatrelvir-ritonavir 150-100 mg (Paxlovid) take ONE 150 mg tablet of nirmatrelvir with ONE 100 mg tablet of ritonavir twice daily for 5 days HPI HPI f/up-afib: Details: Kal is a 53-year-old male past medical history of hypertension, hyperlipidemia, diabetes, CAD with LAD stent, cardiomyopathy, new finding of paroxysmal atrial fibrillation who presents for follow-up. His last prior visit to our office was 08/20/2021. Today he reports that he has had some social issues and he was not taking care of himself as good as he should have in the last few years. He describes that his significant other has dementia and now lives in a long-term care facility. He describes getting some tightness in his chest when he is upset. No chest discomfort with walking. He admits to being mostly sedentary. He has some shortness of breath with activity, no PND, orthopnea or edema. No lightheadedne ss, presyncope, syncope, falls. Tells me that he has a visiting nurse come to his house daily to check his vital signs and help him with meds. He describes that he has a med box. He says his blood pressure has been running low and his nurse tells him to drink more fluids. [facility] Medical History (Updated 03/12/24 @ 16:50 by Caryn Caballero NP-C) Hyperlipidemia LDL goal <70 Stable angina NSVT (nonsustained ventricular tachycardia) Unstable angina Carpal tunnel syndrome Nephrolithiasis Phlebitis Arthritis Type 2 diabetes mellitus with unspecified 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 macular edema Essential hypertension Anemia HTN (hypertension) Stroke Hyperlipemia Diabetes Surgical History (Updated 03/12/24 @ 16:50 by Caryn Caballero NP-C) S/P coronary angioplasty H/O cardiac catheterization H/O vitrectomy History of carpal tunnel surgery of right wrist Family History Father Asthma Mother Diabetes mellitus Social History Household Members: None Housing: Apartment Do you presently have visiting nurse or other home services: No Alcohol intake: never Comment: S3 Patient Tobacco Use Status: Former Tobacco user Years Smoked: 6 +/- Advance Directives Date on File: 12/15/22 service: No Review of Systems Const All systems reviewed & are unremarkable except as noted in HPI and below ENT Denies dizziness Card Details: chest tightness Denies chest pain, Denies chest pain at rest, Denies chest pain with activity, Denies rapid heart rate, Denies pedal edema, Denies edema, Denies leg edema, Denies lightheadedness, Denies palpitations, Reports dyspnea, Reports dyspnea on exertion and Denies orthopnea Resp Denies cough, Reports dyspnea and Reports dyspnea on exertion GI Denies hematochezia and Denies change in stool character Musc Denies abnormal gait, Denies limited range of motion, Denies muscle cramps, Denies muscle weakness, Denies numbness, Denies radiating pain into limb, Denies stiffness and Denies tingling Neuro Denies abnormal gait, Denies dizziness, Denies numbness and Denies tingling Endo Denies palpitations Physical Exam Vital Signs: Last Vital Signs Pulse 64 03/12/24 14:59 BP 85/53 L 03/12/24 14:59 BMI result Body Mass Index 28.7 Const General: cooperative, healthy appearing, comfortable and no acute distress Orientation/consciousness: patient oriented x3 Neck Neck: Yes normal visual inspection and Yes no JVD Resp Effort & Inspection: normal respiratory effort Auscultation: clear to auscultation bilaterally, no rales, no rhonchi and no wheezes Cardio Jugular venous distension: no JVD Rate: regular rate Rhythm: regular rhythm Heart sounds: S1 normal heart sound present, S2 normal heart sound present, no murmurs and no rubs Neuro General: patient oriented x3 Extrem General: Yes normal to inspection and No no pedal edema Psych Appearance: grossly normal Mental Status: mental status grossly normal Speech and movement: Normal speech and movement present Assessment & Plan Assessment & Plan (1) CAD (coronary artery disease): Code(s): I25.10 - Atherosclerotic heart disease of [place] coronary artery without angina pectoris Category: Medical Plan: History of CAD. Last cardiac catheterization done 07/29/2021 showing mid LAD 80% stenosis, VIRAL was placed. He also had residual mid RCA stenosis and distal left circumflex stenosis. He said that he was not caring for himself as well as he should have for the last few years. More recently he is paying better attention to his health and taking all meds as directed. At this time he has a pill pack and a visiting nurse daily. He reports having chest tightness when he is upset. He has some shortness of breath with physical activity. The symptoms are not like his prior angina which he said was more like chest pains. EKG done on 02/01/2024 showed sinus rhythm with right bundle branch block, left axis deviation. Last echocardiogram was done in 2021 and last nuclear stress test in 2020. Will update his echocardiogram to reassess EF, wall motion. Will update nuclear stress test to assess for any ischemia. He tells me he can walk on the treadmill however he does have some difficulty with his left leg. If unable to complete the test with exercise, Lexiscan can be used. Signs and symptoms of angina reviewed. Will have him continue on aspirin, atorvastatin, metoprolol, isosorbide. His blood pressure is low today, gave him 10 oz of water to drink prior to leaving the office. Will decrease his amlodipine down to 5 mg daily from 10 mg daily. Blood pressure checked daily by his home nurse. If continues to run low then amlodipine. Cardiology follow-up in 4-6 weeks, sooner if needed. (2) Chest pain: Code(s): R07.9 - Chest pain, unspecified Category: Medical Plan: As above (3) PAF (paroxysmal atrial fibrillation): Code(s): I48.0 - Paroxysmal atrial fibrillation Category: Medical Plan: Patient has implanted loop recorder in place. Remote monitoring shows a 45 hour episode of atrial fibrillation occurring on 01/12/2024. Patient tells me he could feel heart palpitations. Chads Vasc score of 2 with hypertension and diabetes. Anticoagulation is indicated. To help reduce his stroke risk will start on Eliquis 5 mg b.i.d.. Will continue to follow his loop recorder remotely. (4) HTN (hypertension): Code(s): I10 - Essential (primary) hypertension Category: Medical Qualifiers: Hypertension type: essential hypertension Qualified Code(s): I10 - Essential (primary) hypertension Plan: Running low today. Patient may be mildly dehydrated. Amlodipine dose being reduced. (5) Hyperlipidemia LDL goal <70: Code(s): E78.5 - Hyperlipidemia, unspecified Category: Medical Plan: [place] LDL goal less than 70. Labs done 06/17/2023 shows LDL 70. Continue high- dose atorvastatin. Plan Time spent on chart review, documentation, interview and assessment Orders: Orders CA echo transthoracic complete Today I25.10 - Atherosclerotic heart disease of [place] coronary artery without angina pectoris, I48.0 - Paroxysmal atrial fibrillation, R07.9 - Chest pain, unspecified NM cardiolite stress test Today I25.10 - Atherosclerotic heart disease of [place] coronary artery without angina pectoris, I48.0 - Paroxysmal atrial fibrillation, R07.9 - Chest pain, unspecified CA stress test Today I25.10 - Atherosclerotic heart disease of [place] coronary artery without angina pectoris, I48.0 - Paroxysmal atrial fibrillation, R07.9 - Chest pain, unspecified Medications: New amlodipine dose reduced 5 mg PO DAILY 30 tabs 5RF apixaban (Eliquis) new 5 mg PO BID 60 tabs 5RF atrial fibrillation Discontinued nirmatrelvir-ritonavir 150-100 mg (Paxlovid) Discontinued Reason: Patient Completed Course take ONE 150 mg tablet of nirmatrelvir with ONE 100 mg tablet of ritonavir twice daily for 5 days 20 ea 0RF Coding Level of Care Code Est Pt Level 4 (79263) Diagnoses CAD (coronary artery disease) I25.10 Chest pain R07.9 PAF (paroxysmal atrial fibrillation) I48.0 Essential hypertension I10 Hypertension type: essential hypertension Hyperlipidemia LDL goal <70 E78.5 Time Spent (min) 30
== END 2024-03-12 15:57 | disposition home or self-care (01) ==
PROVIDERS: PCP Nurse Practitioner Primary Care; Visit Provider Nurse Practitioner Family
DX: I25.10 Atherosclerotic heart disease of native coronary artery without angina pectoris (principal); R07.9 Chest pain, unspecified; I48.0 Paroxysmal atrial fibrillation; I10 Essential (primary) hypertension; E78.5 Hyperlipidemia, unspecified
CPT/HCPCS: 99214

== ENCOUNTER → 2024-03-12 14:32 | Outpatient (BNVA) | payer MEDICAID, SELFPAY | PROVIDERS: Visit Provider Nurse Practitioner Family | DX: I25.10 Atherosclerotic heart disease of native coronary artery without angina pectoris (principal); I48.0 Paroxysmal atrial fibrillation; I10 Essential (primary) hypertension; R07.9 Chest pain, unspecified; E78.5 Hyperlipidemia, unspecified | CPT/HCPCS: 99212 ==

== ENCOUNTER → 2024-05-01 08:05 | Outpatient (REF) | payer MEDICAID, SELFPAY ==
--- NOTE | ~2024-05-01 | NM_ITS ---
EXERCISE MYOCARDIAL PERFUSION STUDY INDICATION: Chest pain TECHNIQUE: The patient was brought in for an exercise perfusion study on 05/01/2024. Patient performed exercise as per [facility] protocol and was injected 30 mCi of sestamibi once target heart rate was achieved. Images were obtained using the SPECT gamma camera interlaced with the gating device. Images were obtained in supine position. Resting perfusion study was not performed as the patient did not return. Images were processed with the software and compared side to side in short axis, horizontal long axis and vertical long axis views. FINDINGS: Raw aquisition reviewed. The stress perfusion study showed decreased tracer uptake in the basal part of inferior wall. There is improvement with CT attenuation correction suggestive of diaphragmatic attenuation artifact. The gated study shows normal LV systolic function with calculated LVEF of 69%. LV cavity is normal in size. The gated study shows normal wall thickening and contraction of segments. The findings are consistent with basal inferior perfusion defect that could be related to diaphragmatic attenuation artifact. NM/NM cardiolite stress test IMPRESSION: 1. Myocardial perfusion imaging study shows no clear abnormality during stress only acquisition. Patient did not return for rest. 2. Gated LVEF is 69% during stress. EKG component of the test reported separately. Electronically signed by: Andrew Brown MD 06/21/2024 03:34 PM EDT RP
--- NOTE | 2024-05-01 08:07 | CA_ITS ---
Transthoracic Echocardiogram Patient (Last, First, Middle): Kal Sellers, Gender: Male Date of : 1970 Age: 53 Procedure Date: 05/01/2024 Procedure Type: Transthoracic Echocardiogram Location: OP Height: 172.72 cm Weight: 90.72 kg BSA: 2.04 m2 Heart Rate: bpm BP: 90 / 54 mmHg Laboratory Mechanical Technician: TO Referring MD: Caryn Caballero BANDER HAND-C Symptoms: R07.9 - Chest pain, unspecified Study Quality: Fair/Contrast ECG Rhythm: Sinus Conclusions: - The left ventricular systolic function is normal. The calculated ejection fraction is 64% by biplane method. - The basal inferior segment is akinetic. - The basal inferoseptal segment is hypokinetic. - No obvious valvular pathology seen on this study. Findings Procedure Information Contrast agent, definity, is being given per protocol without apparent complications. Left Ventricle Normal left ventricular cavity size. There is mildly increased left ventricular wall thickness. The left ventricular systolic function is normal. The calculated ejection fraction is 64% by biplane method. There is no evidence of regional wall motion abnormalities. Diastolic function is normal for age. Wall Motion Rest Echo Findings The basal inferoseptal segment is hypokinetic. The basal inferior segment is akinetic. Right Ventricle Normal right ventricular cavity size and systolic function. Atria Both atria are normal in size. Aortic Valve There is a normal trileaflet aortic valve. There is no aortic valve stenosis. There is no aortic valve regurgitation. Mitral Valve The mitral valve appears normal. There is no mitral valve regurgitation. There is no mitral valve stenosis. Pulmonic Valve The pulmonic valve is likely normal. Tricuspid Valve There is no tricuspid valve regurgitation. Tricuspid regurgitation envelope is inadequate for calculation of right ventricular systolic pressure. Great Vessels The asc aorta is normal in size. Venous The inferior vena cava is normal in size and collapses greater than 50% with inspiration. Pericardium/Pleural There is no evidence of pericardial effusion. Prior Study Comparison No significant change compared to prior study dated: 12/30/2021. Recommendations, Care & Conclusions No obvious valvular pathology seen on this study. Measurements 2D Linear Measurements IVSd: 1.29 0.6-0.9/0.6-1.0 cm LVIDd: 5.27 3.9-5.3/4.2-5.9 cm LVIDd Index: 2.58 2.4-3.2/2.2-3.1 cm/m2 LVIDs: 3.12 2.0-3.6 cm LVPWd: 1.21 0.7-1.1 cm LA Diam: 3.40 2.7-3.8/3.0-4.0 cm LAIDs Index: 1.67 1.5-2.3 cm/m2 LV Mass: 335.64 67-162/88-224 g LV Mass Index: 164.53 43-95/49-115 g/m2 LVOT Diam: 2.20 3.0+(-)1.3 cm 2D Systolic Function EF 4C: 67.30 >55% EF 2C: 60.10 >55% EF BiP: 64.40 >55% Mitral Valve MV Pk E: 0.77 MV PK A: 0.72 MV Decel Time: 271.00 E/A: 1.10 E'Lateral: 7.62 E'Medial: 5.87 E/E' Med: 13.10 E/E' Lat: 10.10 PHT: 79.00 MVA PHT: 2.78 Decel Griggs: 2.85 Aortic Valve AoV Pk Reji: 2.07 AoV Mn Reji: 1.28 AoV VTI: 0.41 AoV Pk Grad: 17.00 Aov Mn Grad: 8.00 MARY Cont.VTI: 2.59 LVOT LVOT Pk Reji: 1.14 LVOT Mn Reji: 0.77 LVOT VTI: 0.28 LVOT Pk Grad: 5.00 LVOT Mn Grad: 3.00 LVOT Diam: 2.20 LVOT Area: 3.80 Diastolic Function MV Pk E: 0.77 MV Pk A: 0.72 E/A: 1.10 E'Medial: 5.87 E/E' Med: 13.10 E' Laterial: 7.62 E/E' Lat: 10.10 Right Ventricle TAPSE (mm): 24.30 TVS' Reji: 13.60 Tricuspid Valve RA Press: 3.00 Great Vessels Aorta Sinus of Valsalva: 3.73 2.0-3.5 cm Ao Asc: 3.60 2.1-3.4 cm Updated in Other Vendor System with Status of Final Andrew Brown MD electronically signed on 05/01/2024 1:43:03 PM with status of Final
--- NOTE | 2024-05-01 08:07 | CA_ITS ---
Acquisition Time: 2024-05-01 09:25:35 Total Exercise Time: 00:07:05 Test Indications: CHEST PAIN Medications: Protocol: KADE Max HR: 146 BPM 88% of Pred: 165 BPM Max BP: 132/060 mmHG Max Work Load: 8.0 METS Exercise stress test exercise 7 min 5 sec of Kade protocol achieving 88% MPHR, without anginal symptoms, with isolated PVCs, with normtoensive response to exercise, without EKG changes. Nuclear images pending. Test reviewed with Dr. Shetty. Referred By: Caryn Caballero Overread By: Pat Resendiz
== END ==
LOC: HO.CARD 08:05
PROVIDERS: PCP Nurse Practitioner Primary Care; Visit Provider Nurse Practitioner Family
DX: R07.9 Chest pain, unspecified (principal); I25.10 Atherosclerotic heart disease of native coronary artery without angina pectoris; I48.0 Paroxysmal atrial fibrillation
CPT/HCPCS: 78452; 93017; 93306; A9500; Q9957

== ENCOUNTER → 2024-05-01 08:07 | Outpatient (BNV) | payer MEDICAID, SELFPAY | PROVIDERS: PCP Nurse Practitioner Primary Care; Visit Provider Internal Medicine | DX: R07.9 Chest pain, unspecified (principal) | CPT/HCPCS: 78451; 93016; 93018; 93350; 93352 ==

== ENCOUNTER → 2024-05-23 23:59 | Outpatient (BNV) | payer MEDICAID, SELFPAY ==
--- NOTE | 2024-05-30 12:55 | A.OFFVIS_ITS ---
Intake Visit Reasons: Remote ILR check- [employer] Allergies No Known Allergies Allergy (Verified 03/12/24 15:02) [facility] Medical History (Updated 05/24/24 @ 16:01 by Eze Watt MD) Hyperlipidemia LDL goal <70 Stable angina NSVT (nonsustained ventricular tachycardia) Unstable angina Carpal tunnel syndrome Nephrolithiasis Phlebitis Arthritis Type 2 diabetes mellitus with unspecified 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 macular edema Essential hypertension Anemia HTN (hypertension) Stroke Hyperlipemia Diabetes Surgical History (Updated 03/12/24 @ 16:50 by Caryn Caballero NP-C) S/P coronary angioplasty H/O cardiac catheterization H/O vitrectomy History of carpal tunnel surgery of right wrist Family History Father Asthma Mother Diabetes mellitus Social History Household Members: None Housing: Apartment Do you presently have visiting nurse or other home services: No Alcohol intake: never Comment: S3 Patient Tobacco Use Status: Former Tobacco user Years Smoked: 6 +/- Advance Directives Date on File: 12/15/22 service: No Office Procedures Cardiac Device Check Cardiac Device Check Details: ILR No new alerts. [id number] Cardiac Interrogation, subcut cardiac rhythm monitor Procedure code (CPT) selection complete Assessment & Plan Assessment & Plan (1) NSVT (nonsustained ventricular tachycardia): Code(s): I47.2 - Ventricular tachycardia Category: Medical Plan Orders: Orders AMB Cardiac Device Follow-up 05/23/24 I47.2 - Ventricular tachycardia Coding Level of Care Code Procedure Only Diagnoses NSVT (nonsustained ventricular tachycardia) I47.2 CPT Codes Cardiac Device Check - Cardiac Device 16: [id number] Cardiac Interrogation, subcut cardiac rhythm monitor ([id number])
== END ==
PROVIDERS: PCP Nurse Practitioner Primary Care; Visit Provider Internal Medicine Cardiovascular Disease
DX: I47.20 Ventricular tachycardia, unspecified (principal); Z95.818 Presence of other cardiac implants and grafts
CPT/HCPCS: 93298

== ENCOUNTER → 2024-07-20 11:58 | Outpatient (REF) | payer MEDICAID, SELFPAY ==
--- NOTE | 2024-07-20 12:01 | ECG_ITS ---
Test Reason : Pre OP Blood Pressure : / mmHG Vent. Rate : 049 BPM Atrial Rate : 049 BPM P-R Int : 138 ms QRS Dur : 130 ms QT Int : 482 ms P-R-T Axes : -27 -18 -05 degrees QTc Int : 435 ms Sinus bradycardia Right bundle branch block Abnormal ECG When compared with ECG of 01-FEB-2024 17:52, No significant change was found Referred By: Alexandra Woods Electronically Signed By:GUILHERME DRUMMOND
== END ==
LOC: HO.CARD 11:58
PROVIDERS: PCP Nurse Practitioner Primary Care; Visit Provider Nurse Practitioner Primary Care
DX: Z01.818 Encounter for other preprocedural examination (principal); E11.69 Type 2 diabetes mellitus with other specified complication; E78.5 Hyperlipidemia, unspecified
CPT/HCPCS: 93005

== ENCOUNTER → 2024-07-20 12:01 | Outpatient (BNV) | payer MEDICAID, SELFPAY | PROVIDERS: PCP Nurse Practitioner Primary Care; Visit Provider Internal Medicine | DX: R00.1 Bradycardia, unspecified (principal) | CPT/HCPCS: 93010 ==

== ENCOUNTER 2024-07-23 09:30 | Outpatient (AMB) | payer MEDICAID, SELFPAY ==
--- NOTE | 2024-07-23 09:40 | A.OFFVIS_ITS ---
Intake Visit Reasons: Incomplete bladder emptying, balanitis Intake Note: Patient is present for Incomplete bladder emptying, balanitis Urology Medication:NONE Antibiotic Allergy:NONE Blood Thinner:ELIQUIS TODAY'S PVR: 76ML'S Nurse Anesthesia Program Director Required: No Allergies No Known Allergies Allergy (Verified 07/23/24 09:42) Medication List - Last Reconciled 07/23/24 by Adilia Johnson MD amlodipine 5 mg PO DAILY apixaban (Eliquis) 5 mg PO BID aspirin (Adult Aspirin Regimen) 81 mg PO DAILY atorvastatin 80 mg PO BEDTIME blood sugar diagnostic (FreeStyle Test strips) Use 1 test strip twice a day blood-glucose meter (FreeStyle [place] Lite kit) As directed empagliflozin (Jardiance) 10 mg PO DAILY hydroxyzine HCl 10 - 20 mg PO BID PRN insulin glargine (Lantus Solostar U-100 Insulin) 20 units subcut DAILY isosorbide mononitrate ER 60 mg PO DAILY lancets (FreeStyle Lancets) Use 1 lancet twice a day lisinopril 40 mg PO DAILY 90 days metoprolol tartrate 75 mg PO BID tamsulosin (Flomax) 0.4 mg PO BEDTIME HPI Comments Details: Kal is a 54 year old male who is 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 AUA symptom score-29. He also complains of recurrent balanitis. Comorbidity-Diabetes. Discussed avoid dietary bladder irritants, will trial flomax. Discussed Circumcision. [facility] Medical History (Updated 08/06/24 @ 14:29 by Perlita Sunshine CMA) Diabetes Hyperlipidemia LDL goal <70 Stable angina NSVT (nonsustained ventricular tachycardia) Unstable angina Carpal tunnel syndrome Nephrolithiasis Phlebitis Arthritis Type 2 diabetes mellitus with unspecified 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 macular edema Essential hypertension Anemia HTN (hypertension) Stroke Hyperlipemia Surgical History (Updated 08/06/24 @ 14:29 by Perlita Sunshine CMA) Cataract S/P coronary angioplasty H/O cardiac catheterization H/O vitrectomy History of carpal tunnel surgery of right wrist Family History Father Asthma Mother Diabetes mellitus Social History Household Members: None Housing: Apartment Do you presently have visiting nurse or other home services: No Alcohol intake: never Comment: S3 Patient Tobacco Use Status: Former Tobacco user Years Smoked: 6 +/- Advance Directives Date on File: 12/15/22 service: No Review of Systems Const All systems reviewed & are unremarkable except as noted in HPI and below Reports no additional complaints Eyes Reports no additional complaints ENT Reports no additional complaints Card Reports no additional complaints Resp Reports no additional complaints GI Reports no additional complaints Reports as per HPI Musc Reports no additional complaints Skin/Breast Reports system reviewed and no additional complaints, except as documented Neuro Reports no additional complaints Psych Reports no additional complaints Endo Reports no additional complaints Arya/Lymph Reports no additional complaints Aller/Immun Reports no additional complaints Physical Exam Const General: healthy appearing, no acute distress and well developed Orientation/consciousness: patient oriented x3 HEENT Head: Yes normocephalic and Yes atraumatic Eyes Conjunctivae: conjunctivae normal Neck Neck: Yes normal visual inspection Chest Chest palpation & inspection: normal inspection of the chest Resp Effort & Inspection: normal respiratory effort Cardio Rate: regular rate GI Inspection: Yes normal to inspection Palpation (GI): Soft to palpation Penis: uncircumcised Scrotum: scrotum normal Neuro General: patient oriented x3 Extrem General: No pedal edema Psych Appearance: grossly normal Affect: normal affect Office Procedures Post Void Residual Post Residual Void Post Void Residual (PVR): 78 [id number] Void Residual by ultrasound Results AMB Urinalysis, Automated UA Leukoctes 125 Juliano/uL Last Edit by TIERRA Tafoya on 07/23/24 09:51 UA Nitrite Negative Last Edit by TIERRA Tafoya on 07/23/24 09:51 UA Urobilinogen 0.2 mg/dL Last Edit by TIERRA Tafoya on 07/23/24 09:5 1 UA Protein 0 mg/dL Last Edit by TIERRA Tafoya on 07/23/24 09:51 UA pH 5.5 Last Edit by TIERRA Tafoya on 07/23/24 09:51 UA Blood 10 Gerardo/uL Last Edit by TIERRA Tafoya on 07/23/24 09:51 UA Specific [place] 1.015 Last Edit by TIERRA Tafoya on 07/23/24 09: 51 UA Ketone Negative Last Edit by TIERRA Tafoya on 07/23/24 09:51 UA Bilirubin 0 mg/dL Last Edit by TIERRA Tafoya on 07/23/24 09:51 UA Glucose 1000 mg/dL Last Edit by TIERRA Tafoya on 07/23/24 09:51 Quality Reporting (2019) Benign Prostatic Hyperplasia ([facility] 771) AUA symptom score: 29 Quality of life due to urinary symptoms: If you were to spend the rest of your life with your urinary condition the way it is now, how would you feel about that?: Unhappy Results Reviewed Results Reviewed: Laboratory Last Values Urine pH (Auto) 5.5 07/23/24 09:50 Specific [place] (Auto) 1.015 07/23/24 09:50 Urine Protein (Auto) 0 mg/dL 07/23/24 09:50 Glucose (UA)(Auto) 1000 mg/dL 07/23/24 09:50 Urine Ketones (Auto) Negative 07/23/24 09:50 Urine Blood (Auto) 10 Gerardo/uL 07/23/24 09:50 Urine Nitrite (Auto) Negative 07/23/24 09:50 Urine Bilirubin (Auto) 0 mg/dL 07/23/24 09:50 Urine Urobilinogen (Auto) 0.2 mg/dL 07/23/24 09:50 Leukocyte Esterase (Auto) 125 Juliano/uL 07/23/24 09:50 Assessment & Plan Assessment & Plan (1) Diabetes: Code(s): E11.9 - Type 2 diabetes mellitus without complications Category: Medical Qualifiers: Diabetes mellitus complication status: with hyperglycemia Diabetes mellitus intermediate teacher insulin use: without intermediate teacher use Diabetes mellitus type: type 2 Qualified Code(s): E11.65 - Type 2 diabetes mellitus with hyperglycemia (2) Balanitis: Code(s): N48.1 - Balanitis Category: Medical (3) Phimosis: Code(s): N47.1 - Phimosis Category: Medical Plan Flomax, circumcision Orders: Orders AMB Urinalysis Automated 07/23/24 Z13.9 - Encounter for screening, unspecified Medications: New tamsulosin (Flomax) 0.4 mg PO BEDTIME 90 caps 1RF Patient Instructions: The patient had an opportunity to ask questions regarding treatment plan. The patient expressed understanding and agreement with the above treatment plan. The patient is aware they should contact our office by phone for worsening of their current condition or the appearance of new symptoms. Compliance is encouraged with any medications and followup testing that is ordered. It is a privilege to be allowed the opportunity to participate in the urologic care of your patient. If you have any questions or concerns regarding treatment for the above conditions please do not hesitate to contact me. The office telephone contact is [phone]. This note is constructed in part using voice recognition software. While every effort has been made to ensure accuracy lathe operator errors may have been included. Yours sincerely, Adilia Johnson MD Coding Level of Care Code New Pt Level 4 (34427) Diagnoses Type 2 diabetes mellitus with hyperglycemia, without long-term current use of insulin E11.65 Diabetes mellitus complication status: with hyperglycemia Diabetes mellitus intermediate teacher insulin use: without retirement use Diabetes mellitus type: type 2 Balanitis N48.1 Phimosis N47.1 CPT Codes Post Residual Void - PVR CPT Code: 19601-Eici Void Residual by ultrasound ([id number]) AUA Symptom Score AUA Incomplete emptying - It does not feel like I empty my bladder all the way.: 4 - More than half the time Frequency - I have to go again less than two hours after I finish urinating.: 4 - More than half the time Intermittency - I stop and start again several times when I urinate.: 4 - More than half the time Urgency - It is hard to wait when I have to urinate.: 4 - More than half the time Weak stream - I have a weak urinary stream.: 4 - More than half the time Straining - I have to push or strain to begin urination.: 4 - More than half the time Nocturia - I get up to urinate after I go to bed until the time I get up in the morning.: 5 time or more AUA Symptom Score: 29 Quality of life due to urinary symptoms: If you were to spend the rest of your life with your urinary condition the way it is now, how would you feel about that?: Unhappy Source: Harry FLANAGAN, Irineo DIAMOND Jr, O'Danielle MP, et al, and the Measurement Committee of the [place] [employer]. The [place] [employer] sy mptom index for benign prostatic hyperplasia. J Urol. 1992; 148: 0615-6350. Copyright 1992 [place] [employer]
== END 2024-07-23 10:38 | disposition home or self-care (01) ==
PROVIDERS: PCP Nurse Practitioner Primary Care; Visit Provider Urology
DX: E11.65 Type 2 diabetes mellitus with hyperglycemia (principal); N48.1 Balanitis; N47.1 Phimosis
CPT/HCPCS: 99204

== ENCOUNTER → 2024-07-23 09:30 | Outpatient (BNVA) | payer MEDICAID, SELFPAY | PROVIDERS: PCP Nurse Practitioner Primary Care; Visit Provider Urology | DX: N48.1 Balanitis (principal); N47.1 Phimosis; E11.65 Type 2 diabetes mellitus with hyperglycemia | CPT/HCPCS: 51798; 81003; 99202 ==

== ENCOUNTER 2024-08-06 11:04 | Outpatient (REF) | payer MEDICAID, SELFPAY ==
[2024-08-06 13:50] LABS: Hematocrit 37.3 % (42.0-52.0); Mean Corpuscular HGB Conc 34.9 g/dl (31.0-36.0); Mean Corpuscular Hemoglobin 30.2 pg (27.0-33.0); Mean Corpuscular Volume 86.7 fL (80.0-98.0); Mean Platelet Volume 9.9 fL (9.4-12.4); Platelet Count 198 X10*3/uL (160-400); White Blood Count 5.7 X10*3/uL (4.8-10.8)
[2024-08-06 13:56] LABS: Estimated Average Glucose 146 mg/dL; Hemoglobin A1C 161.6503 umol/L; Hemoglobin A1c % 6.7 % (<6.0); Total Hemoglobin (HGBA1C) 3261.4804 umol/L
[2024-08-06 14:36] LABS: Alanine Aminotransferase 19 U/L (0-40); Albumin Level 4.5 g/dL (3.5-5.0); Anion Gap 13 (12-20); Aspartate Amino Transferase 26 U/L (5-37); Bilirubin Total 0.9 mg/dL (0.0-1.0); Blood Urea Nitrogen 25 mg/dL (9-16); Calcium 9.6 mg/dL (8.4-10.2); Carbon Dioxide 22 mmol/L (22-29); Chloride 110 mmol/L (96-108); Cholesterol 151 mg/dL (<200); Estimated Glomerular Filt Rate 36; Glucose Random 185 mg/dL (60-115); HDL Cholesterol 38 mg/dL (>40); LDL Cholesterol Calculated 91 mg/dL (<100); Potassium 4.5 mmol/L (3.3-5.1); Sodium 140 mmol/L (135-145); Total Protein 7.6 g/dL (6.5-8.0); Triglycerides 114 mg/dL (<150)
[2024-08-06 14:50] LABS: Folate 11.3 ng/mL (> or = 4.0); Prostate Specific Antigen 0.79 ng/mL (<0.05-4.0); Vitamin B12 268 pg/mL (200-900)
[2024-08-06 15:02] LABS: Alkaline Phosphatase 87 U/L (39-117)
[2024-08-06 17:23] LABS: CT PCR NOT DETECTED (Not Detect.); NG PCR NOT DETECTED (Not Detect.)
[2024-08-07 03:34] LABS: Syphilis Screen Nonreactive (Nonreactive)
[2024-08-07 03:49] LABS: HBS Num1 18.31 mIU/mL (0-7.99); HBc Num1 0.08 S/CO (0.00-0.79); HBsAGNum1 0.28 S/CO (0.00-0.99); HIV AB/AG Nonreactive (Nonreactive); HIV Num 1 0.05 S/CO (0.00-0.99); Hepatitis B Core Antibody Nonreactive (Nonreactive); Hepatitis B Surface Antigen Negative (Negative); ~HepC Num1 0.07 S/CO (0.00-0.79); ~Hepatitis B Surface Antibody REACTIVE (Nonreactive); ~Hepatitis C Antibody Nonreactive (Nonreactive)
== END 2024-08-06 11:05 | disposition home or self-care (01) ==
LOC: HO.HHCL 11:04
PROVIDERS: Visit Provider Student in an Organized Health Care Education/Training Program
DX: Z00.00 Encounter for general adult medical examination without abnormal findings (principal); I10 Essential (primary) hypertension; I48.0 Paroxysmal atrial fibrillation; I47.20 Ventricular tachycardia, unspecified; I25.10 Atherosclerotic heart disease of native coronary artery without angina pectoris
CPT/HCPCS: 36415; 80053; 80061; 82607; 82746; 83036; 84153; 84443; 85027; 86704; 86706; 86780; 86803; 87340; 87389; 87491; 87591; 99212

== ENCOUNTER 2024-08-06 14:24 | Outpatient (AMB) | payer MEDICAID, SELFPAY ==
[2024-08-06 14:24] VITALS: BP 110/58; PULSE 91; BMI 29.8
--- NOTE | 2024-08-06 14:24 | A.OFFVIS_ITS ---
Vital Signs 08/06/24 14:24 Height 5 ft 8 in Weight 196 lb 3.382 oz BMI 29.8 BP 110/58 L Blood Pressure Location Lt brachial Position Sitting Pulse 91 Pulse Source Pulse Oximeter Intake Visit Reasons: f/up-stress test Intake Note: Pt c/o of intermittent chest pain. Glass Fitter Required: No Accompanied by: Self / Same As Patient Allergies No Known Allergies Allergy (Verified 07/23/24 09:42) Medication List - Last Reconciled 08/06/24 by Reynaldo Shetty MD amlodipine 5 mg PO DAILY apixaban (Eliquis) 5 mg PO BID aspirin (Adult Aspirin Regimen) 81 mg PO DAILY atorvastatin 80 mg PO BEDTIME blood sugar diagnostic (FreeStyle Test strips) Use 1 test strip twice a day blood-glucose meter (FreeStyle [place] Lite kit) As directed empagliflozin (Jardiance) 10 mg PO DAILY hydroxyzine HCl 10 - 20 mg PO BID PRN insulin glargine (Lantus Solostar U-100 Insulin) 14 units subcut DAILY isosorbide mononitrate ER 60 mg PO DAILY lancets (FreeStyle Lancets) Use 1 lancet twice a day lisinopril 40 mg PO DAILY 90 days metoprolol tartrate 75 mg PO BID tamsulosin (Flomax) 0.4 mg PO BEDTIME HPI Comments Details: 54-year-old gentleman for follow-up. He had cardiomyopathy. He had LAD PCI. Denying any chest pain at this stage. Clinically stable. No syncope. ILR has been interrogated and has no significant arrhythmia at this point. Repeat echocardiography in December 2021 showing normal LVEF with regional wall motion abnormality in the basal inferior and basal inferoseptal segments. Elevated filling pressures were noted. His ILR has not shown any evidence of recurrent VT. He has been doing well. He is exercising and has lost weight. No bleeding issues. 08/06/2024: He is here for follow-up. He was seen in March by Caryn and at that stage he was complaining of some shortness of breath. He was referred for exercise stress test he and he had stress only imaging and did not show up for rest imaging. Stress imaging was normal with exercise and he did not have any dynamic EKG changes or symptoms during exercise. He said he had an episode of chest discomfort while having an argument. It was a pressure-like feeling on the left side of chest and he was very angry at that time. He said while walking or going upstairs to his 2nd story apartment he does not get any symptoms. Blood pressure is well controlled. [facility] Medical History (Updated 08/06/24 @ 14:29 by Perlita Sunshine CMA) Diabetes Hyperlipidemia LDL goal <70 Stable angina NSVT (nonsustained ventricular tachycardia) Unstable angina Carpal tunnel syndrome Nephrolithiasis Phlebitis Arthritis Type 2 diabetes mellitus with unspecified 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 macular edema Essential hypertension Anemia HTN (hypertension) Stroke Hyperlipemia Surgical History (Updated 08/06/24 @ 14:29 by Perlita Sunshine CMA) Cataract S/P coronary angioplasty H/O cardiac catheterization H/O vitrectomy History of carpal tunnel surgery of right wrist Family History Father Asthma Mother Diabetes mellitus Social History Household Members: None Housing: Apartment Do you presently have visiting nurse or other home services: No Alcohol intake: never Comment: S3 Patient Tobacco Use Status: Former Tobacco user Years Smoked: 6 +/- Advance Directives Date on File: 12/15/22 service: No Review of Systems Const Denies chills, Denies fatigue, Denies fever(s), Denies weight gain and Denies weight loss ENT Denies dizziness Card Denies chest pain, Denies leg edema, Denies lightheadedness, Denies palpitations, Denies dyspnea on exertion, Denies orthopnea and Denies other Resp Denies cough and Denies dyspnea on exertion GI Denies hematochezia and Denies change in stool character Musc Denies abnormal gait, Denies muscle weakness, Denies numbness, Denies radiating pain into limb and Denies tingling Neuro Denies abnormal gait, Denies dizziness, Denies numbness and Denies tingling Endo Denies fatigue and Denies palpitations Physical Exam Vital Signs: Last Vital Signs Pulse 91 08/06/24 14:24 BP 110/58 L 08/06/24 14:24 BMI result Body Mass Index 29.8 GENERAL APPEARANCE: in no acute distress, pleasant. NECK: no carotid bruit, no jugular venous distention. SKIN: no suspicious lesions, warm and dry. HEART: no murmurs, regular rate and rhythm. LUNGS: clear to auscultation bilaterally. ABDOMEN: soft, nontender. EXTREMITIES: no edema. PERIPHERAL PULSES: equal. NEUROLOGIC: No gross deficits, AAO X 3 Assessment & Plan Assessment & Plan (1) HTN (hypertension): Code(s): I10 - Essential (primary) hypertension Category: Medical Qualifiers: Hypertension type: essential hypertension Qualified Code(s): I10 - Essential (primary) hypertension (2) PAF (paroxysmal atrial fibrillation): Code(s): I48.0 - Paroxysmal atrial fibrillation Category: Medical (3) NSVT (nonsustained ventricular tachycardia): Code(s): I47.2 - Ventricular tachycardia Category: Medical (4) CAD (coronary artery disease): Code(s): I25.10 - Atherosclerotic heart disease of [place] coronary artery without angina pectoris Category: Medical Plan [age] year gentleman who is here for follow-up. He has known history of coronary disease with previous LAD PCI performed in 07/22/2021. At that time he has 70% mid RCA stenosis. Recent stress test which was normal. He is complaining of 1 episode of chest discomfort while he was having an emotional argument. He has not had any further episodes since then. He goes upstairs to [address] [place] [address] apartment and does not get any symptoms while going up and down during the day. He also walked approximately 2-1/2 miles from home to our office without any symptoms. He had paroxysmal atrial fibrillation and has been on apixaban at this stage. He is taking baby aspirin 81 mg daily. Blood pressure is well controlled. He will continue to monitor his symptoms and will reach out to us if he has any further chest discomfort. In that situation I think he will need diagnostic angiography. Follow-up in 3 months. Thank you for allowing me to participate in the care of your patient. Please feel free to contact me if you have any questions. Coding Level of Care Code Est Pt Level 4 (86009) Diagnoses Essential hypertension I10 Hypertension type: essential hypertension PAF (paroxysmal atrial fibrillation) I48.0 NSVT (nonsustained ventricular tachycardia) I47.2 CAD (coronary artery disease) I25.10
== END 2024-08-06 14:47 | disposition home or self-care (01) ==
LOC: HO.HCS 14:24
PROVIDERS: PCP Nurse Practitioner Primary Care; Visit Provider Internal Medicine Cardiovascular Disease
DX: I10 Essential (primary) hypertension (principal); I48.0 Paroxysmal atrial fibrillation; I47.20 Ventricular tachycardia, unspecified; I25.10 Atherosclerotic heart disease of native coronary artery without angina pectoris
CPT/HCPCS: 99214

== ENCOUNTER → 2024-08-24 23:59 | Outpatient (BNV) | payer MEDICAID, SELFPAY ==
--- NOTE | 2024-09-03 19:21 | A.OFFVIS_ITS ---
Intake Visit Reasons: Remote ILR- [employer] Allergies No Known Allergies Allergy (Verified 07/23/24 09:42) [facility] Medical History (Updated 08/06/24 @ 14:29 by Perlita Sunshine CMA) Diabetes Hyperlipidemia LDL goal <70 Stable angina NSVT (nonsustained ventricular tachycardia) Unstable angina Carpal tunnel syndrome Nephrolithiasis Phlebitis Arthritis Type 2 diabetes mellitus with unspecified 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 macular edema Essential hypertension Anemia HTN (hypertension) Stroke Hyperlipemia Surgical History (Updated 08/06/24 @ 14:29 by Perlita Sunshine CMA) Cataract S/P coronary angioplasty H/O cardiac catheterization H/O vitrectomy History of carpal tunnel surgery of right wrist Family History Father Asthma Mother Diabetes mellitus Social History Household Members: None Housing: Apartment Do you presently have visiting nurse or other home services: No Alcohol intake: never Comment: S3 Patient Tobacco Use Status: Former Tobacco user Years Smoked: 6 +/- Advance Directives Date on File: 12/15/22 service: No Office Procedures Cardiac Device Check Cardiac Device Check Details: ILR No new alerts. [id number] Cardiac Device Check, subcut cardiac rhythm monitor Procedure code (CPT) selection complete Assessment & Plan Assessment & Plan (1) Implantable loop recorder present: Code(s): Z95.818 - Presence of other cardiac implants and grafts Category: Medical Plan: Coding Level of Care Code Procedure Only Diagnoses Implantable loop recorder present Z95.818 CPT Codes Cardiac Device Check - Cardiac Device 7: [id number] Cardiac Device Check, subcut cardiac rhythm monitor ([id number])
== END ==
PROVIDERS: PCP Nurse Practitioner Primary Care; Visit Provider Internal Medicine Cardiovascular Disease
DX: Z45.09 Encounter for adjustment and management of other cardiac device (principal)
CPT/HCPCS: 93298

== ENCOUNTER → 2024-09-24 23:59 | Outpatient (BNV) | payer MEDICAID, SELFPAY ==
--- NOTE | 2024-10-04 18:16 | MHC.OFFVIS ---
Intake Visit Reasons: Remote ILR- [employer] Allergies No Known Allergies Allergy (Verified 07/23/24 09:42) [facility] Medical History (Updated 08/06/24 @ 14:29 by Perlita Sunshine CMA) Diabetes Hyperlipidemia LDL goal <70 Stable angina NSVT (nonsustained ventricular tachycardia) Unstable angina Carpal tunnel syndrome Nephrolithiasis Phlebitis Arthritis Type 2 diabetes mellitus with unspecified 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 macular edema Essential hypertension Anemia HTN (hypertension) Stroke Hyperlipemia Surgical History (Updated 08/06/24 @ 14:29 by Perlita Sunshine CMA) Cataract S/P coronary angioplasty H/O cardiac catheterization H/O vitrectomy History of carpal tunnel surgery of right wrist Family History Father Asthma Mother Diabetes mellitus Social History Household Members: None Housing: Apartment Do you presently have visiting nurse or other home services: No Alcohol intake: never Comment: S3 Patient Tobacco Use Status: Former Tobacco user Years Smoked: 6 +/- Advance Directives Date on File: 12/15/22 service: No Office Procedures Cardiac Device Check Cardiac Device Check Details: ILR No new alerts. [id number] Cardiac Device Check, subcut cardiac rhythm monitor Procedure code (CPT) selection complete Assessment & Plan Assessment & Plan (1) Implantable loop recorder present: Code(s): Z95.818 - Presence of other cardiac implants and grafts Category: Medical Plan: Coding Level of Care Code Procedure Only Diagnoses Implantable loop recorder present Z95.818 CPT Codes Cardiac Device Check - Cardiac Device 7: [id number] Cardiac Device Check, subcut cardiac rhythm monitor ([id number])
== END ==
PROVIDERS: PCP Nurse Practitioner Primary Care; Visit Provider Internal Medicine Cardiovascular Disease
DX: Z45.09 Encounter for adjustment and management of other cardiac device (principal)
CPT/HCPCS: 93298

== ENCOUNTER → 2024-11-25 23:59 | Outpatient (BNV) | payer MEDICAID, SELFPAY ==
--- NOTE | 2024-12-10 08:35 | MHC.OFFVIS ---
Intake Visit Reasons: Remote ILR- [employer] Allergies No Known Allergies Allergy (Verified 11/27/24 08:38) [facility] Medical History Ambulates with cane Hx of degenerative disc disease Back pain Cardiomyopathy Implantable loop recorder present Stable angina NSVT (nonsustained ventricular tachycardia) Unstable angina Carpal tunnel syndrome Nephrolithiasis Phlebitis Arthritis Type 2 diabetes mellitus with unspecified 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 macular edema Essential hypertension Hyperlipidemia LDL goal <70 Anemia HTN (hypertension) Stroke (~2019) Hyperlipemia Diabetes Surgical History Cataract S/P coronary angioplasty H/O cardiac catheterization H/O vitrectomy History of carpal tunnel surgery of right wrist Family History Father Asthma Mother Diabetes mellitus Social History Household Members: None Housing: Apartment Are you a primary childcare administrator to a significant other at home: No Do you presently have visiting nurse or other home services: Yes (daily nurse BP and meds) Alcohol intake: never Comment: S3 Patient Tobacco Use Status: Former Tobacco user Tobacco use type: Cigarette Years Smoked: 6 +/- Advance Directives Date on File: 12/15/22 service: No Office Procedures Cardiac Device Check Cardiac Device Check Details: ILR No new alerts. [id number] Cardiac Interrogation, subcut cardiac rhythm monitor Procedure code (CPT) selection complete Assessment & Plan Assessment & Plan (1) NSVT (nonsustained ventricular tachycardia): Code(s): I47.2 - Ventricular tachycardia Category: Medical Plan Medications: On Hold apixaban (Eliquis) Hold Comment: Resume on 12/02/24. Do not resume eliquis if there is any bleeding from the incision site. Call Dr Johnson's office to report 5 mg PO BID 180 tabs 3RF atrial fibrillation Coding Level of Care Code Procedure Only Diagnoses NSVT (nonsustained ventricular tachycardia) I47.2 CPT Codes Cardiac Device Check - Cardiac Device 16: [id number] Cardiac Interrogation, subcut cardiac rhythm monitor ([id number])
== END ==
PROVIDERS: PCP Nurse Practitioner Primary Care; Visit Provider Internal Medicine Cardiovascular Disease
DX: I47.20 Ventricular tachycardia, unspecified (principal); Z95.818 Presence of other cardiac implants and grafts
CPT/HCPCS: 93298

== ENCOUNTER 2024-11-27 09:13 | Day surgery (SDC) | payer MEDICAID, SELFPAY ==
[2024-11-23 15:08] VITALS: BMI 30.4
--- NOTE | 2024-11-26 09:44 | HO.ANESPROP2 ---
Documented by User: Mary Lara NP 11/26/24 09:49 HPI - Anesthesia Eval Consult details Narrative: 54yo M for Follows [facility] Cardiology for CAD s/p LAD PCI performed in 07/22/2021. Stable at 08/2024 office visit. (reports 1 x episode CP, but good exercise tolerance with daily walking and stairs) Eliquis for PAF ILR in situ Anesthesia Pre-Procedure Meds Is the patient on any of the following meds?: SGLT2 Inhib PMFSH Active Problems Active Problems: All Active Problems Phimosis (Acute) Balanitis (Acute) Implantable loop recorder present (Acute) PAF (paroxysmal atrial fibrillation) (Acute) CAD (coronary artery disease) (Acute) COVID-19 (Acute) Diabetes (Acute) Hyperlipidemia LDL goal <70 (Acute) H/O cardiac catheterization (Acute) NSVT (nonsustained ventricular tachycardia) (Acute) HTN (hypertension) (Acute) Past Medical History Medical History Ambulates with cane Hx of degenerative disc disease Back pain Cardiomyopathy Implantable loop recorder present Stable angina NSVT (nonsustained ventricular tachycardia) Unstable angina Carpal tunnel syndrome Nephrolithiasis Phlebitis Arthritis Type 2 diabetes mellitus with unspecified 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 macular edema Essential hypertension Hyperlipidemia LDL goal <70 Anemia HTN (hypertension) Stroke (~2019) Hyperlipemia Diabetes Family History Family History Father Asthma Mother Diabetes mellitus Surgical History Surgical History Cataract S/P coronary angioplasty H/O cardiac catheterization H/O vitrectomy History of carpal tunnel surgery of right wrist Social History Social History Household Members: None Housing: Apartment Are you a primary director of critical care to a significant other at home: No Do you presently have visiting nurse or other home services: Yes (daily nurse BP and meds) Alcohol intake: never Comment: S3 Patient Tobacco Use Status: Former Tobacco user Tobacco use type: Cigarette Years Smoked: 6 +/- Advance Directives Date on File: 12/15/22 service: No Meds Allergies Allergy/AdvReac Type Severity Reaction Status Date / Time No Known Allergies Allergy Verified 11/27/24 08:38 Home Medications ?Medication ?Instructions ?Recorded ?Confirmed ?Last Taken ?Type aspirin 81 mg tablet,delayed 81 mg PO DAILY 02/24/21 11/23/24 11/26/24 History release (Adult Aspirin Regimen) atorvastatin 80 mg tablet 80 mg PO BEDTIME 08/20/21 11/23/24 12/11/22 History isosorbide mononitrate 60 mg 60 mg PO DAILY 08/20/21 11/23/24 12/12/22 09:00 History tablet,extended release 24 hr metoprolol tartrate 75 mg tablet 75 mg PO BID 08/20/21 11/23/24 12/12/22 09:00 History empagliflozin 10 mg tablet 10 mg PO DAILY 11/19/21 11/23/24 11/24/24 History (Jardiance) hydroxyzine HCl 10 mg tablet 10 - 20 mg PO BID PRN anxiety 11/19/21 11/23/24 Unknown History insulin glargine 100 unit/mL (3 14 unit subcut QAM 08/06/24 11/23/24 Unknown History mL) subcutaneous pen (Lantus Solostar U-100 Insulin) Exam Height,Weight and Vital Signs: Height 5 ft 8 in Weight 90.718 kg Pertinent Lab Results Pertinent Lab Results: Laboratory Tests 08/06/24 11:10 WBC 5.7 Hgb 13.0 L Hct 37.3 L Plt Count 198 Sodium 140 Potassium 4.5 Chloride 110 H Carbon Dioxide 22 BUN 25 H Creatinine 1.93 H Narrative Narrative: Cardiac Device Check 11/2024 Details: ILR No new alerts. [id number] Cardiac Device Check, subcut cardiac rhythm monitor EKG 05/2024 Vent. Rate : 049 BPM Atrial Rate : 049 BPM P-R Int : 138 ms QRS Dur : 130 ms QT Int : 482 ms P-R-T Axes : -27 -18 -05 degrees QTc Int : 435 ms Sinus bradycardia Right bundle branch block Abnormal ECG When compared with ECG of 01-FEB-2024 17:52, No significant change was found ECHO 04/2024 Conclusions: - The left ventricular systolic function is normal. The calculated ejection fraction is 64% by biplane method. - The basal inferior segment is akinetic. - The basal inferoseptal segment is hypokinetic. - No obvious valvular pathology seen on this study. Exercise Stress 04/2024 Protocol: KADE Max HR: 146 BPM 88% of Pred: 165 BPM Max BP: 132/060 mmHG Max Work Load: 8.0 METS Exercise stress test exercise 7 min 5 sec of Kade protocol achieving 88% MPHR, without anginal symptoms, with isolated PVCs, with normtoensive response to exercise, without EKG changes. Nuclear images pending. Test reviewed with Dr. Shetty. Assessment and Plan Assessment Anesthesia Assessment: Chart Reviewed Documented by User: Chery Melendrez MD 11/27/24 10:55 [facility] Past Medical History Medical History Ambulates with cane Hx of degenerative disc disease Back pain Cardiomyopathy Implantable loop recorder present Stable angina NSVT (nonsustained ventricular tachycardia) Unstable angina Carpal tunnel syndrome Nephrolithiasis Phlebitis Arthritis Type 2 diabetes mellitus with unspecified 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 macular edema Essential hypertension Hyperlipidemia LDL goal <70 Anemia HTN (hypertension) Stroke (~2019) Hyperlipemia Diabetes Family History Family History Father Asthma Mother Diabetes mellitus Surgical History Surgical History Cataract S/P coronary angioplasty H/O cardiac catheterization H/O vitrectomy History of carpal tunnel surgery of right wrist History of Problems with Anesthesia: No Social History Social History Household Members: None Housing: Apartment Are you a primary director of critical care to a significant other at home: No Do you presently have visiting nurse or other home services: Yes (daily nurse BP and meds) Alcohol intake: never Comment: S3 Patient Tobacco Use Status: Former Tobacco user Tobacco use type: Cigarette Years Smoked: 6 +/- Advance Directives Date on File: 12/15/22 service: No Meds Allergies Allergy/AdvReac Type Severity Reaction Status Date / Time No Known Allergies Allergy Verified 11/27/24 08:38 Home Medications ?Medication ?Instructions ?Recorded ?Confirmed ?Last Taken ?Type aspirin 81 mg tablet,delayed 81 mg PO DAILY 02/24/21 11/23/24 11/26/24 History release (Adult Aspirin Regimen) atorvastatin 80 mg tablet 80 mg PO BEDTIME 08/20/21 11/23/24 12/11/22 History isosorbide mononitrate 60 mg 60 mg PO DAILY 08/20/21 11/23/24 12/12/22 09:00 History tablet,extended release 24 hr metoprolol tartrate 75 mg tablet 75 mg PO BID 08/20/21 11/23/24 12/12/22 09:00 History empagliflozin 10 mg tablet 10 mg PO DAILY 11/19/21 11/23/24 11/24/24 History (Jardiance) hydroxyzine HCl 10 mg tablet 10 - 20 mg PO BID PRN anxiety 11/19/21 11/23/24 Unknown History insulin glargine 100 unit/mL (3 14 unit subcut QAM 08/06/24 11/23/24 Unknown History mL) subcutaneous pen (Lantus Solostar U-100 Insulin) Exam Airway Mallampati Class: III TM Dist: >3cm Neck ROM: Full Loose/Missing/Broken Teeth: No Heart: RRR Lungs: CTA Assessment and Plan Assessment Anesthesia Assessment: Anesthesia Plan Discussed Final Anesthetic Review History of Problems with Anesthesia: No NPO: Yes ASA Class: III Final Preanesthetic Review: Meds/Allgs Chart Reviewed, Consent Obtained/Reviewed and Anes Risks/Benef Reviewed Patient Risk: Intermediate Procedure Risk: Low Anesthetic Plan Anesthetic Plan: GA Disposition: Standard PACU
[2024-11-27] VITALS (7 sets, daily range): BP systolic 120–140; BP diastolic 68–85; PULSE 64–94; RESP 14–18; TEMP 36.5–36.6; O2SAT 93–100
[2024-11-27] MEDS: ceFAZolin Sodium/Dextrose,Iso 2 GM/50 ML PIGGYBACK IV (08:20)
[2024-11-27] MEDS: Lactated Ringers 1,000 ML 100 ML IVCONT (08:57)
--- NOTE | 2024-11-27 09:01 | MHC.SHP ---
Pre-Procedural Eval Section A - 24 Hr Update-Section A only Date of Service: 11/27/24 The patient is an INPATIENT: No The patient has been examined within 24 hours of the surgical procedure. The History & Physical has been completed within 30 days and I have reviewed it.: Yes Section B - Complete if H&P > 30 days Chief Complaint: Phimosis, recurrent balanitis Allergies: Allergies Allergy/AdvReac Type Severity Reaction Status Date / Time No Known Allergies Allergy Verified 11/27/24 08:38 Plan Diagnosis/Plan: Unchanged I have reviewed the history and physical and performed a pertinent physical examination on my patient. No changes have occurred unless specified. Circumcision. Time Spent With Patient Time: Total time managing care of this patient today ____ minutes.
--- NOTE | 2024-11-27 09:02 | W.PM.OPN ---
Operative Note Operative Note Date of Service: 11/27/24 Narrative: PreOperative Diagnosis:? ? Recurrent Balanitis, phimosis Post Operative Diagnosis:?Recurrent Balanitis, phimosis Procedure:?Circumcision Surgeon:?Dr Adilia Johnson Anesthesia:? General Procedure: After informed consent was verified the patient was brought to the operating room and placed in a supine position.? Anesthesia was performed per protocol. The patient was prepped and draped in the usual sterile fashion. Safety pause time-out was performed. Antibiotics confirmed. Penile block was performed. The foreskin was phimotic. A dorsal slit was performed, the with the foreskin over the glans an incision was continued at the level of the danielson. The foreskin was then retracted and a circumferential incision was made 0.5 cm below the danielson. The foreskin was removed with cautery. The skin is closed in 4 quadrants with 4-0 chromic, each quadrant closed with running/locking 4-0 chromic. There was some oozing at the frenulum and an additional suture was placed and pressure was applied to obtain adequate hemostasis. Bacitracin ointment was used over the incision and incision covered with cling. The patient tolerated the procedure well and was transferred to the recovery area upon completion. Complications: None EBL: minimal (<5 mL)
[2024-11-27 09:23] LABS: Glucose, Whole Blood 180 mg/dL (60-115)
== END 2024-11-27 12:01 | disposition home or self-care (01) ==
PROVIDERS: PCP Nurse Practitioner Primary Care; Visit Provider Urology
PROC: (CPT 54161; principal; 2024-11-27 09:40)
DX: N47.1 Phimosis (principal); N48.1 Balanitis; I10 Essential (primary) hypertension; I47.29 Other ventricular tachycardia; E78.5 Hyperlipidemia, unspecified; D64.9 Anemia, unspecified; E11.319 Type 2 diabetes mellitus with unspecified 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 macular edema; E11.65 Type 2 diabetes mellitus with hyperglycemia; Z79.4 Long term (current) use of insulin; Z79.84 Long term (current) use of oral hypoglycemic drugs; Z79.01 Long term (current) use of anticoagulants; Z79.82 Long term (current) use of aspirin; Z79.899 Other long term (current) drug therapy; Z86.73 Personal history of transient ischemic attack (TIA), and cerebral infarction without residual deficits; Z98.890 Other specified postprocedural states; Z87.891 Personal history of nicotine dependence; Z99.89 Dependence on other enabling machines and devices
CPT/HCPCS: 54161; 82947; 88304; J0131; J0690; J1885; J2003; J2250; J2405; J2704; J2795; J3010

== ENCOUNTER → 2024-11-27 09:13 | Outpatient (BNV) | payer MEDICAID, SELFPAY | PROVIDERS: PCP Nurse Practitioner Primary Care; Visit Provider Urology | DX: N48.1 Balanitis (principal) | CPT/HCPCS: 54161 ==

== ENCOUNTER → 2024-12-05 14:09 | Outpatient (BNVA) | payer MEDICAID, SELFPAY | PROVIDERS: PCP Nurse Practitioner Primary Care; Visit Provider Urology ==

== ENCOUNTER 2024-12-11 10:51 | Outpatient (AMB) | payer MEDICAID, SELFPAY ==
--- NOTE | 2024-12-11 10:52 | A.OFFVIS_ITS ---
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: No Allergies No Known Allergies Allergy (Verified 12/11/24 10:55) Medication List - Last Reconciled 12/11/24 by RASHEL Berman apixaban (Eliquis) 5 mg PO BID aspirin (Adult Aspirin Regimen) 81 mg PO DAILY atorvastatin 80 mg PO BEDTIME blood sugar diagnostic (FreeStyle Test strips) Use 1 test strip twice a day blood-glucose meter (FreeStyle [place] Lite kit) As directed cephalexin 500 mg PO BID 3 days empagliflozin (Jardiance) 10 mg PO DAILY ezetimibe (Zetia) 10 mg PO DAILY hydroxyzine HCl 10 - 20 mg PO BID PRN insulin glargine (Lantus Solostar U-100 Insulin) 14 units subcut QAM isosorbide mononitrate ER 60 mg PO DAILY lancets (FreeStyle Lancets) Use 1 lancet twice a day lisinopril 40 mg PO DAILY 90 days metoprolol tartrate 75 mg PO BID oxycodone-acetaminophen 5-325 mg (Percocet) 1 tab PO Q6-8H PRN 2 days tamsulosin (Flomax) 0.4 mg PO BEDTIME HPI HPI 3mth f/up- km pt: Details: Kal is a 53-year-old male past medical history of hypertension, hyperlipidemia, diabetes, CAD with LAD stent, cardiomyopathy, new finding of paroxysmal atrial fibrillation who presents for follow-up. Today he reports that he has been doing well since his last visit in August. He he has had no recurrent chest discomfort. He describes himself as sedentary. He has some shortness of breath with activity, no PND, orthopnea or edema. No lightheadedness, presyncope, syncope, falls. Tells me that he has a visiting nurse come to his house daily to check his vital signs and help him with meds. He describes that he has a med box. He says his blood pressure has been running low and his nurse tells him to drink more fluids. He says he does not drink much because he is lazy . Note: he was 1 hour late for this appointment. [facility] Medical History Ambulates with cane Hx of degenerative disc disease Back pain Cardiomyopathy Implantable loop recorder present Stable angina NSVT (nonsustained ventricular tachycardia) Unstable angina Carpal tunnel syndrome Nephrolithiasis Phlebitis Arthritis Type 2 diabetes mellitus with unspecified 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 macular edema Essential hypertension Hyperlipidemia LDL goal <70 Anemia HTN (hypertension) Stroke (~2019) Hyperlipemia Diabetes Surgical History Cataract S/P coronary angioplasty H/O cardiac catheterization H/O vitrectomy History of carpal tunnel surgery of right wrist Family History Father Asthma Mother Diabetes mellitus Social History Household Members: None Housing: Apartment Are you a primary child care education coordinator to a significant other at home: No Do you presently have visiting nurse or other home services: Yes (daily nurse BP and meds) Alcohol intake: never Comment: S3 Patient Tobacco Use Status: Former Tobacco user Tobacco use type: Cigarette Years Smoked: 6 +/- Advance Directives Date on File: 12/15/22 service: No Review of Systems Const All systems reviewed & are unremarkable except as noted in HPI and below Reports fatigue (feeling lazy) ENT Denies dizziness Card Denies chest pain, Denies chest pain at rest, Denies chest pain with activity, Denies rapid heart rate, Denies pedal edema, Denies edema, Denies leg edema, Denies lightheadedness, Denies palpitations, Denies dyspnea, Denies dyspnea on exertion and Denies orthopnea Resp Denies cough, Denies dyspnea and Denies dyspnea on exertion GI Denies hematochezia and Denies change in stool character Musc Denies abnormal gait, Denies limited range of motion, Denies muscle cramps, Denies muscle weakness, Denies numbness, Denies radiating pain into limb, Denies stiffness and Denies tingling Neuro Denies abnormal gait, Denies dizziness, Denies numbness and Denies tingling Endo Reports fatigue (feeling lazy) and Denies palpitations Physical Exam Vital Signs: Last Vital Signs Pulse 61 12/11/24 10:53 BP 80/52 L 12/11/24 10:53 BMI result Body Mass Index 28.8 Const General: cooperative, healthy appearing, comfortable and no acute distress Orientation/consciousness: patient oriented x3 Neck Neck: Yes normal visual inspection and Yes no JVD Resp Effort & Inspection: normal respiratory effort Auscultation: clear to auscultation bilaterally, no rales, no rhonchi and no wheezes Cardio Jugular venous distension: no JVD Rate: regular rate Rhythm: regular rhythm Heart sounds: S1 normal heart sound present, S2 normal heart sound present, no murmurs and no rubs Neuro General: patient oriented x3 Extrem General: Yes normal to inspection and No no pedal edema Psych Appearance: grossly normal Mental Status: mental status grossly normal Speech and movement: Normal speech and movement present Office Procedures EKG Details: Today - read by me, SR, RBBB, LAFB, inferior infarct age undetermined, rate 61, QTc 467ms [id number], Complete Assessment & Plan Assessment & Plan (1) CAD (coronary artery disease): Code(s): I25.10 - Atherosclerotic heart disease of [place] coronary artery without angina pectoris Category: Medical Plan: History of CAD. Last cardiac catheterization done 07/29/2021 showing mid LAD 80% stenosis, VIRAL was placed. He also had residual mid RCA stenosis and distal left circumflex stenosis. He had reported 1 episode of chest discomfort when he was very upset. He then had echocardiogram on 05/01/2024 showing EF 64%, basal inferior akinetic, basal inferior septal hypokinetic. A nuclear stress test done 05/01/2024 showed no clear abnormality on the stress images, he did not come back for the rest images. No recurrent chest discomfort since that time. EKG today showing normal sinus rhythm, right bundle branch block, left anterior fascicular block, inferior Q-waves rate 61. Will continue with med management for stable CAD including high-dose atorvastatin, metoprolol, isosorbide. He is not on aspirin as he is on Eliquis. Signs and symptoms of angina reviewed with him. Emergency care if ever needed for symptoms. If he does have recurrent chest pain then may need cardiac catheterization. Cardiology follow-up 6 months, sooner if needed. (2) Chest pain: Code(s): R07.9 - Chest pain, unspecified Category: Medical Plan: As above (3) PAF (paroxysmal atrial fibrillation): Code(s): I48.0 - Paroxysmal atrial fibrillation Category: Medical Plan: Patient has implanted loop recorder in place for CVA. Remote monitoring has shown a 45 hour episode of atrial fibrillation occurring on 01/12/2024, no recurrent PAF since then. Chads Vasc score of 2 with hypertension and diabetes. He is now on Eliquis 5 mg b.i.d.. Will continue to follow his loop recorder remotely. (4) HTN (hypertension): Code(s): I10 - Essential (primary) hypertension Category: Medical Qualifiers: Hypertension type: essential hypertension Qualified Code(s): I10 - Essential (primary) hypertension Plan: Running low today and on last visit. He admits to not drinking enough liquids. Gave him 2 cups of water to drink now. Nurse check his BP daily at home. Instructed to increase fluids to six 8 oz glasses per day. Explained how hydration can affect his BP. Will continue Amlodipine, Isosorbide and Metoprolol. Recent labs show Cr 1.93, known CKD. Will reduce Lisinopril to 10mg daily. Will have office nurse reach out to him in 1 week to check on BP readings. (5) Hyperlipidemia LDL goal <70: Code(s): E78.5 - Hyperlipidemia, unspecified Category: Medical Plan: [place] LDL goal less than 70. Labs done 08/06/24 shows LDL 91. Continue high- dose atorvastatin. will add Zetia 10mg daily. (6) Implantable loop recorder present: Code(s): Z95.818 - Presence of other cardiac implants and grafts Category: Medical Plan: Following remotely. Recent remote transmission shows only the 1 prior episode of PAF. Plan Time spent on chart review, documentation, interview and assessment Medications: New ezetimibe (Zetia) 10 mg PO DAILY 90 tabs 3RF amlodipine ( disregard prior order to cx) 5 mg PO DAILY 90 tabs 1RF lisinopril dose reduced 10 mg PO DAILY 30 tabs 5RF Discontinued lisinopril Discontinued Reason: Doctor's Order 40 mg PO DAILY 90 days 90 tabs 1RF amlodipine Discontinued Reason: Doctor's Order 5 mg PO DAILY 90 tabs 3RF Coding Level of Care Code Est Pt Level 4 (58953) Complex EM visit Add On G2211 Diagnoses CAD (coronary artery disease) I25.10 Chest pain R07.9 PAF (paroxysmal atrial fibrillation) I48.0 Essential hypertension I10 Hypertension type: essential hypertension Hyperlipidemia LDL goal <70 E78.5 Implantable loop recorder present Z95.818 CPT Codes EKG - CPT: 90733-Aszxpfenbxcknkmal, Complete ([id number]) Time Spent (min) 32
[2024-12-11 10:53] VITALS: BP 80/52; PULSE 61; BMI 28.8
--- OUTSIDE RECORDS SUMMARY | 2024-12-11 13:14 | XMS_ITS | Encounter Summary ---
Author Organization [employer] Address [address] [facility] 7[address] [place] [address] Care Team Providers Care Assortment Planner Name Role Phone Lois Contreras CHACHO Primary Care Provider [phone] Alexandra Woods Primary Care Provider Encounter Details Date Type Department Care Team (Late st Contact Info) Description 12/07/2022 Orders Only [facility] MED [facility] PEDS [address] [place], [place] [phone] Ursula Martell LPN Social History Tobacco Use Types Packs/Day Years Used Date Smoking Tobacco: Never Assessed Sex and Gender Information Value Date Recorded Sex Assigned at Male 08/02/2022 10:39 AM EDT Legal Sex Male 10:39 AM EDT Gender Identity Male 08/02/2022 10:39 AM EDT Sexual Orientation Straight 08/02/2022 10 :39 AM EDT documented as of this encounter Plan of Treatment Upcoming Encounters Date Type Department Care Team (Late st Contact Info) Description 02/01/2025 3:00 PM EDT Office Visit [facility] ADULT DENTAL [address] [place] [address] Zaki, Yaritza [address] [place] [address] 02/15/2025 1:45 PM EDT Office Visit [facility] MEDICINE [address], [place] [phone] Alexandra Woods ANP [address] [place] [address] documented as of this encounter Procedures Procedure Name Priority Date/Time Associated Diagnosis Comments CULTURE, URINE, ROUTINE Routine 05/20/2023 12:00 AM EDT HEMOGLOBIN A1C Routine 04/15/2023 1:08 PM EDT BASIC METABOLIC PANEL Routine 03/30/2023 10:14 PM EDT HIGH SENSITIVITY TROPONIN I Routine 03/30/2023 6:15 PM EDT CBC WITH AUTO DIFFERENTIAL Routine 03/30/2023 6:15 PM EDT PROTHROMBIN TIME-INR Routine 03/30/2023 6:15 PM EDT B TYPE NATRIURETIC PEPTIDE (BNP) Routine 03/30/2023 6:15 PM EDT MAGNESIUM Routine 03/30/2023 6:15 PM EDT CREATINE KINASE, TOTAL Routine 6:15 PM EDT HEPATIC FUNCTION PANEL Routine 6:15 PM EDT BASIC METABOLIC PANEL Routine 03/30/2023 6:15 PM EDT COVID-19 ID NOW (CESAR) Routine 12/12/2022 5:16 PM EDT GLUCOSE, WHOLE BLOOD Routine 12/12/2022 2:02 PM EDT GLUCOSE, WHOLE BLOOD Routine 12/12/2022 2:00 PM EDT URINALYSIS, COMPLETE, WITH REFLEX TO CULTURE Routine 12/12/2022 1:56 PM EDT CBC WITH AUTO DIFFERENTIAL Routine 12/12/2022 1:56 PM EDT MAGNESIUM Routine 12/12/2022 1:56 PM EDT COMPREHENSIVE METABOLIC PANEL Routine 12/12/2022 1:56 PM EDT documented in this encounter Results * Culture, Urine, Routine (05/20/2023 12:00 AM EDT) Urine specimen obtained by clean catch procedure / Unknown 05/20/2023 05/20/2023 Comment:UACC Narrative [facility] - 05/21/2023 1:40 PM EDT Urine Culture No growth. Specimen Source: Urine clean catch Mehul Mack MD LAB MICROBIOLOGY - GENERAL ORDER BECKA Final Result Performing Organization Address City/[facility]/ZIP Co de Phone Number [facility] [address] [place] [address] [phone] * Hemoglobin A1c (04/15/2023 1:08 PM EDT) Hemoglobin A1c 5.9 % [facility] Comment:Hemoglobin A1C Refer ence Range Adults: 4.8 - 6.0 % Non diabetic: < 6.0 % Goal: < 7.0 %Additional Action Suggested: > 8.0 %Note: Hemoglobin A1c results are invalid for patients with abnormal amounts of HbF. Blood transfusions may impact the HbA1c concentration in the patient sample. Estimated Average Glucose 123 mg/dL [facility] Comment:eAG = Estimated ave rage glucose which is %A1C expressed asaverage glucose, using the formula of the H6V-KzvztduXlzonnn Glucose study (ADAG), Diabetes Care, Vol.31,#8,May. 2007 04/15/2023 1:08 PM EDT 04/15/2023 4:01 PM EDT [facility] External Provider LAB BLO OD ORDERABLES Final Result Performing Organization Address [facility]/ZIP Co de Phone Number [facility] [address] [place] [address] [phone] * (ABNORMAL) Basic Metabolic Panel (03/30/2023 10:14 PM EDT) Sodium 139 135 - 145 mmol/L [facility] Potassium 4.0 3.3 - 5.1 mmol/L [facility] Chloride 110(H) 96 - 108 mmol/L [facility] Carbon Dioxide 23 22 - 29 mmol/L [facility] Anion Gap 10(L) 12 - 20 [facility] Urea Nitrogen (BUN) 28(H) 9 - 16 mg/dL [facility] Creatinine, Serum 1.72(H) 0.5 - 1.4 mg/dL [facility] Creatinine Clr Calc Pharmacy 47.5 [facility] Comment:eGFR (calculated fro m the MDRD study equation) and eCrCl(calculated from the Cockcroft-Gault equation) are based ondifferent parameters and may not yield comparable results.If eCrCl result is absurd, please check patient'sheight/weight. Estimated Glomerular Filt Rate 42 [facility] Comment:NOTE: For -Am erican individuals, multiply the result by 1.210.Chronic Kidney Disease: Estimated GFR < 60 mL/min/1.33f9Cosvmx Kidney Disease: Estimated GFR < 15 mL/min/1.73m2 Glucose 92 60 - 115 mg/dL [facility] Calcium 8.8 8.4 - 10.2 mg/dL [facility] 03/30/2023 10:1 4 PM EDT 03/30/2023 10:17 PM EDT [facility] External Provider LAB BLO OD ORDERABLES Final Result Performing Organization Address City/[facility]/ZIP Co de Phone Number [facility] [address] [place] [phone] * Creatine Kinase, Total (03/30/2023 6:15 PM EDT) Creatine Kinase Total 141 38 - 174 U/L [facility] 03/30/2023 6:15 PM EDT 03/30/2023 6:28 PM EDT [facility] External Provider LAB BLO OD ORDERABLES Final Result [facility] [address] [place] [address] [phone] * High Sensitivity Troponin I (03/30/2023 6:15 PM EDT) TROPONIN I HIGH SENSITIVITY 6.7 <3.5 - 35.0 ng/L [facility] Comment:The Cesar high sens itivity Troponin-I results should beused in conjunction with other diagnostic information suchas ECG, clinical observations and information, and patientsymptoms to aid in the diagnosis of [place]. 03/30/2023 6:15 PM EDT 03/30/2023 6:28 PM EDT [facility] External Provider LAB BLO OD ORDERABLES Final Result Performing Organization Address [facility] [employer] [facility] Number [facility] [address] [place] [address] [phone] * B Type Natriuretic Peptide (BNP) (03/30/2023 6:15 PM EDT) [facility] B Type Natriuretic Peptide 43 <100 pg/mL [facility] Comment:For those patients w ho are being treated with Natrecor(nesiritide, recombinant BNP), BNP testing should beperformed at least two hours post treatment in order toensure that only endogenous levels of BNP are detected. 03/30/2023 6:15 PM EDT 03/30/2023 6:28 PM EDT [facility] External Provider LAB BLO OD ORDERABLES Final Result Performing Organization Address [facility]/[employer] Co de Phone Number [facility] [address] [place] [address] [phone] * Magnesium (03/30/2023 6:15 PM EDT) [facility] Magnesium 1.8 1.6 - 2.6 mg/dL [facility] 03/30/2023 6:15 PM EDT 03/30/2023 6:28 PM EDT [facility] External Provider LAB BLO OD ORDERABLES Final Result Performing Organization Address City/[facility]/ZIP Co de Phone Number [facility] [address] [place] [address] [phone] * (ABNORMAL) Basic Metabolic Panel (03/30/2023 6:15 PM EDT) Sodium 139 135 - 145 mmol/L [facility] Potassium 4.5 3.3 - 5.1 mmol/L [facility] Chloride 108 96 - 108 mmol/L [facility] Carbon Dioxide 24 22 - 29 mmol/L [facility] Anion Gap 12 12 - 20 [facility] Urea Nitrogen (BUN) 31(H) 9 - 16 mg/dL [facility] Creatinine, Serum 2.04(H) 0.5 - 1.4 mg/dL [facility] Creatinine Clr Calc Pharmacy 40.0 [facility] Comment:eGFR (calculated fro m the MDRD study equation) and eCrCl(calculated from the Cockcroft-Gault equation) are based ondifferent parameters and may not yield comparable results.If eCrCl result is absurd, please check patient'sheight/weight. Estimated Glomerular Filt Rate 34 [facility] Comment:NOTE: For -Am erican individuals, multiply the result by 1.210.Chronic Kidney Disease: Estimated GFR < 60 mL/min/1.17b5Ybagck Kidney Disease: Estimated GFR < 15 mL/min/1.73m2 Glucose 97 60 - 115 mg/dL [facility] Calcium 9.6 8.4 - 10.2 mg/dL [facility] 03/30/2023 6:15 PM EDT 03/30/2023 6:28 PM EDT [facility] External Provider LAB BLO OD ORDERABLES Final Result Performing Organization Address City/[facility]/ZIP Co de Phone Number [facility] [address] [place] [address] [phone] * Hepatic Function Panel (03/30/2023 6:15 PM EDT) Bilirubin, Total 0.9 0.0 - 1.0 mg/dL [facility] Bilirubin, Direct 0.3 0.0 - 0.5 mg/dL [facility] Aspartate Amino Transferase 18 5 - 37 U/L [facility] Alanine Aminotransferase 19 0 - 40 U/L [facility] Total Protein 7.1 6.5 - 8.0 g/dL [facility] Albumin Level 4.3 3.5 - 5.0 g/dL [facility] Alkaline Phosphatase 59 39 - 117 U/L [facility] 03/30/2023 6:15 PM EDT 03/30/2023 6:28 PM EDT [facility] External Provider LAB BLO OD ORDERABLES Final Result Performing Organization Address City/State/[place] Co de Phone Number [facility] [address] [place] [address] [phone] * Prothrombin Time-INR (03/30/2023 6:15 PM EDT) Prothrombin Time 11.8 10.0 - 13.1 SEC [facility] INTERNATIONAL NORM RATIO 1.0 0.9 - 1.1 [facility] Comment:INTERNATIONAL NORMAL IZED RATIO (INR) REFERENCE RANGES Reference RangeFor patients not on anticoagulant therapy: 0.9 - 1.1INR ranges for oral anticoagulanttherapy:For prevention and treatment of venous thrombosis and pulmonary embolism: 2.0 - 3.0For acute myocardial infarction with aspirin therapy: 2.0 - 3.0For acute myocardial infarction without aspirin therapy: 3.0 - 4.0For patients with mechanical prosthetic heart valves: 2.5 - 3.5 03/30/2023 6:15 PM EDT 03/30/2023 6:28 PM EDT [facility] External Provider LAB BLO OD ORDERABLES Final Result [facility] [address] [place], [place] [phone] * (ABNORMAL) CBC auto differential (03/30/2023 6:15 PM EDT) White Blood Count 7.4 4.8 - 10.8 X10*3/uL [facility] Red Blood Count 3.95(L) 4.60 - 5.80 X10*6/uL [facility] Hemoglobin 11.9(L) 14.0 - 18.0 g/dl [facility] Hematocrit 34.8(L) 42.0 - 52.0 % [facility] Mean Corpuscular Volume 88.1 80.0 - 98.0 fL [facility] Mean Corpuscular Hemoglobin 30.1 27.0 - 33.0 pg [facility] Mean Corpuscular HGB Conc 34.2 31.0 - 36.0 g/dl [facility] Red Cell Distribution Width 12.4 11.0 - 16.0 % [facility] Platelet Count 214 160 - 400 X10*3/uL [facility] Mean Platelet Volume 9.5 9.4 - 12.4 fL [facility] Neutrophils Percent Auto 75.3(H) 45 - 73 % [facility] Imm Gran Pct Auto 0.1 0.0 - 0.4 % [facility] Lymphocytes Percent Auto 18.5(L) 20 - 40 % [facility] Monocytes Percent Auto 5.1 2 - 11 % [facility] Eosinophils Percent Auto 0.9 0 - 4 % [facility] Basophils Percent Auto 0.1 0 - 2 % [facility] NRBC Pct Auto 0.0 0.0 - 0.2 /100WBC [facility] Neutrophils Absolute Auto 5.6 2.0 - 8.3 x10*3/uL [facility] Imm Gran Abs Auto 0.01 0.00 - 0.03 X10*3/uL [facility] Lymphocytes Absolute Auto 1.4 1.2 - 4.9 X10*3/uL [facility] Monocytes Absolute Auto 0.4 0.1 - 1.2 X10*3/uL [facility] Eosinophils Absolute Auto 0.1 0.0 - 0.4 X10*3/uL [facility] Basophils Absolute Auto 0.0 0.0 - 0.2 X10*3/uL [facility] NRBC Abs Auto 0.000 0.0 - 0.012 X10*3/uL [facility] 03/30/2023 6:15 PM EDT 03/30/2023 6:28 PM EDT us [facility] External Provider LAB BLO OD ORDERABLES Final Result [facility] [address] [place] [address] [phone] * COVID-19 ID NOW (CESAR) (12/12/2022 5:16 PM EDT) IDNOW SERIAL# [id number] [facility] COVID-19 TEST Negative Negative [facility] COVID-19 NOTE See Note [facility] Comment: Results are for the identification of SARS-CoV2 RNA. TheSARS-CoV2 RNA is generally detectable in respiratory samplesduring the acute phase of infection. Positive results areindicative of the presence of SARS-CoV-2 RNA; clinicalcorrelation with patient history and other diagnosticinformation is necessary to determine patient infectionstatus. Positive results do not rule out bacterial infectionor co- infection with other viruses.Testing facilities within the [facility] and itsterritories are required to report all positive results tothe appropriate public health authorities.Negative results should be treated as presumptive and, ifinconsistent with clinical signs and symptoms or necessaryfor patient management, should be tested with differentauthorized or cleared molecular tests. Negative results donot preclude SARS-CoV2 RNA infection and should not be usedas the sole basis for patient management decisions. Negativeresults should be considered in the context of a patient'srecent exposures, history and the presence of clinical signsand symptoms consistent with COVID-19.This test has been authorized by the FDA under an EmergencyUse Authorization (EUA) for use by authorized laboratories.Testing performed on the [employer] ID NOW utilizing NAAT. 12/12/2022 5:16 PM EDT 12/12/2022 5:22 PM EDT [facility] Exter nal Provider LAB MOLECULAR DIAGNOSTICS ORDERABLES Final Result Performing Organization Address City/[facility]/ZIP Co de Phone Number [facility] [address] [place] [phone] * (ABNORMAL) GLUCOSE, WHOLE BLOOD (12/12/2022 2:02 PM EDT) Glucose, Whole Blood 155(H) 60 - 115 mg/dL [facility] Comment:METER #: [id number] 1 12/12/2022 2:02 PM EDT 12/12/2022 2:05 PM EDT Result [facility] External Provider LAB BLO OD ORDERABLES Final Result Performing Organization Address [facility]UST Co de Phone Number [facility] [address] [place] [phone] * (ABNORMAL) GLUCOSE, WHOLE BLOOD (12/12/2022 2:00 PM EDT) Glucose, Whole Blood 54(LL) 60 - 115 mg/dL [facility] Comment:METER #: [id number] 1 12/12/2022 2:00 PM EDT 12/12/2022 2:05 PM EDT [facility] External Provider LAB BLO OD ORDERABLES Final Result Performing Organization Address [facility]/[employer] Co de Phone Number [facility] [address] [place] [phone] * Magnesium (12/12/2022 1:56 PM EDT) Magnesium 1.8 1.6 - 2.6 mg/dL [facility] 12/12/2022 1:56 PM EDT 12/12/2022 2:02 PM EDT [facility] External Provider LAB BLO OD ORDERABLES Final Result [facility] [address] [place] [address] [phone] * (ABNORMAL) Comprehensive Metabolic Panel (12/12/2022 1:56 PM EDT) Sodium 143 135 - 145 mmol/L [facility] Potassium 4.0 3.3 - 5.1 mmol/L [facility] Chloride 109(H) 96 - 108 mmol/L [facility] Carbon Dioxide 21(L) 22 - 29 mmol/L [facility] Anion Gap 17 12 - 20 [facility] Urea Nitrogen (BUN) 19(H) 9 - 16 mg/dL [facility] Creatinine, Serum 1.65(H) 0.5 - 1.4 mg/dL [facility] Creatinine Clr Calc Pharmacy 54.0 [facility] Comment:eGFR (calculated fro m the MDRD study equation) and eCrCl(calculated from the Cockcroft-Gault equation) are based ondifferent parameters and may not yield comparable results.If eCrCl result is absurd, please check patient'sheight/weight. Estimated Glomerular Filt Rate 44 [facility] Comment:NOTE: For -Am erican individuals, multiply the result by 1.210.Chronic Kidney Disease: Estimated GFR < 60 mL/min/1.79f9Ovpqnz Kidney Disease: Estimated GFR < 15 mL/min/1.73m2 Glucose 154(H) 60 - 115 mg/dL [facility] Calcium 9.2 8.4 - 10.2 mg/dL [facility] Bilirubin, Total 0.9 0.0 - 1.0 mg/dL [facility] Aspartate Amino Transferase 22 5 - 37 U/L [facility] Alanine Aminotransferase 29 0 - 40 U/L [facility] Total Protein 6.4(L) 6.5 - 8.0 g/dL [facility] Albumin Level 4.3 3.5 - 5.0 g/dL [facility] Alkaline Phosphatase 60 39 - 117 U/L [facility] 12/12/2022 1:56 PM EDT 12/12/2022 2:02 PM EDT us [facility] External Provider LAB BLO OD ORDERABLES Final Result [facility] [address] [place] [address] [phone] * (ABNORMAL) Urinalysis, Complete, with Reflex to Culture (12/12/2022 1:56 PM EDT) Color Urine Yellow [facility] Appearance Urine Clear [facility] PH 5.0 5.0 - 9.0 [facility] Glucose Urine UA >=1000(A) Negative mg/dL [facility] Urine Blood Negative Negative [facility] Specific Steele - Urine >=1.030(H) 1.005 - 1.025 [facility] Urine Protein Negative Neg-Trace mg/dL [facility] Urine Ketones Negative Negative mg/dL [facility] Nitrite Urine Negative Negative [facility] Leukocyte Esterase Urine Small (1+)(A) Negative [facility] RBC Urine 0-2 0 - 2 /HPF [facility] Urine WBC 21-50(A) 0 - 5 /HPF [facility] Urine Squamous Epithelial Cell 3-5 0 - 2 /HPF [facility] Urine Bacteria 1+ None Seen [facility] Hyaline Casts, Urine 3-5 0 - 2 /LPF [facility] Urine Yeast Present [facility] 12/12/2022 1:56 PM EDT 12/12/2022 2:02 PM EDT Narrative [facility] - 12/12/2022 2:44 PM EDT Urine, Clean Catch us [facility] External Provider LAB URI NE ORDERABLES Final Result [facility] [address] [place] [address] [phone] * (ABNORMAL) CBC auto differential (12/12/2022 1:56 PM EDT) White Blood Count 9.6 4.8 - 10.8 X10*3/uL [facility] Red Blood Count 4.22(L) 4.60 - 5.80 X10*6/uL [facility] Hemoglobin 12.6(L) 14.0 - 18.0 g/dl [facility] Hematocrit 36.0(L) 42.0 - 52.0 % [facility] Mean Corpuscular Volume 85.3 80.0 - 98.0 fL [facility] Mean Corpuscular Hemoglobin 29.9 27.0 - 33.0 pg [facility] Mean Corpuscular HGB Conc 35.0 31.0 - 36.0 g/dl [facility] Red Cell Distribution Width 12.8 11.0 - 16.0 % [facility] Platelet Count 257 160 - 400 X10*3/uL [facility] Mean Platelet Volume 9.1(L) 9.4 - 12.4 fL [facility] Neutrophils Percent Auto 85.7(H) 45 - 73 % [facility] Imm Gran Pct Auto 0.3 0.0 - 0.4 % [facility] Lymphocytes Percent Auto 8.9(L) 20 - 40 % [facility] Monocytes Percent Auto 4.2 2 - 11 % [facility] Eosinophils Percent Auto 0.8 0 - 4 % [facility] Basophils Percent Auto 0.1 0 - 2 % [facility] NRBC Pct Auto 0.0 0.0 - 0.2 /100WBC [facility] Neutrophils Absolute Auto 8.2 2.0 - 8.3 x10*3/uL [facility] Imm Gran Abs Auto 0.03 0.00 - 0.03 X10*3/uL [facility] Lymphocytes Absolute Auto 0.9(L) 1.2 - 4.9 X10*3/uL [facility] Monocytes Absolute Auto 0.4 0.1 - 1.2 X10*3/uL [facility] Eosinophils Absolute Auto 0.1 0.0 - 0.4 X10*3/uL [facility] Basophils Absolute Auto 0.0 0.0 - 0.2 X10*3/uL [facility] NRBC Abs Auto 0.000 0.0 - 0.012 X10*3/uL [facility] 12/12/2022 1:56 PM EDT 12/12/2022 2:02 PM EDT us [facility] External Provider LAB BLO OD ORDERABLES Final Result Performing Organization Address City/State/RUST Co de Phone Number [facility] [address] [place] [address] [phone] documented in this encounter Visit Diagnoses Not on filedocumented in this encounter Care Teams Assortment Planner Relationship Specialty Start Date End Date Lois Contreras FNP [address] [place] [address] PCP - General Family Medicine 05/31/22 07/28/23 Alexandra Woods ANP [address] [place] [address] PCP - General Family Medicine 07/29/23 [employer] 11/16/23 Sina Matamoros Plate ConditionerNnp 11/14/24 documented as of this encounter
--- OUTSIDE RECORDS SUMMARY | 2024-12-11 13:14 | XMS_ITS | Encounter Summary ---
Author Organization [employer] Address [address] [facility] [address] [place] [address] Care Team Providers Care Irrigation Flume Layer Name Role Phone Lois Contreras Primary Care Provider [phone] Alexandra Woods Primary Care Provider [phone] Reason for Visit * Reason Comments Med Refill Encounter Details Date Type Department Care Team (Late st Contact Info) Description 01/05/2023 Refill [facility] [address] [place] [address] Lois Contreras FNP [address] [place] [address] Social History Tobacco Use Types Packs/Day Years [...] Description 02/01/2025 3:00 PM EDT Office Visit [facility] [address] [place] [address] Yaritza Haines [address] [place] [address] 02/15/2025 1:45 PM EDT Office Visit [facility] [address] [place] [address] Alexandra Woods ANP [address] [place] [address] documented as of this encounter Visit Diagnoses Not on filedocumented in this encounter Care Teams Irrigation Flume Layer Relationship Specialty Start Date End Date Lois Contreras FNP [address] [place] [address] PCP - General Family Medicine 05/31/22 07/28/23 Alexandra Woods ANP [address] [place] [address] PCP - General Family Medicine 07/29/23 [employer] 11/16/23 Sina Matamoros Sleeve Bottom FellerAssociate Project Manager 11/14/24 documented as of this encounter
--- OUTSIDE RECORDS SUMMARY | 2024-12-11 13:14 | XMS_ITS | Clinical Summary ---
Author Organization [facility] ity Address [address] [place] [address] Care Team Providers Care Reel Cart Operator Name Role Phone Allison Santacruz MD Primary Care Provider [phone] Social History Tobacco Use Types Packs/Day Years Used Date Smoking Tobacco: Never Assessed Sex and Gender Information Value Date Recorded Sex Assigned at Not on file Legal Sex Male 4:56 PM EST Gender Identity Not on file Sexual Orientation Not on file Plan of Treatment Health Maintenance Due Date Last Done Comments DTaP,Tdap,and Td Vaccines (1 - Tdap) 1987 Hepatitis B Vaccines (1 of 3 - 19+ 3-dose series) 1987 Pneumococcal Vaccine: 50+ Ye ars (1 of 1 - PCV) 2018 Zoster Vaccines (1 of 2) 2018 COVID-19 Vaccine ( - 2023-2 5 season) 2024 Influenza Vaccine (#1) 2024 HIB Vaccines Aged Out No longer eligi ble based on patient's age to complete this topic HPV Vaccines Aged Out No longer eligi ble based on patient's age to complete this topic Hepatitis A Vaccines Aged Out No long er eligible based on patient's age to complete this topic IPV Vaccines Aged Out No longer eligi ble based on patient's age to complete this topic MMR Vaccines Aged Out No longer eligi ble based on patient's age to complete this topic Meningococcal ACWY Vaccine Aged Out N o longer eligible based on patient's age to complete this topic Meningococcal B Vacine Aged Out No lo nger eligible based on patient's age to complete this topic Pneumococcal Vaccine: Pediat rics (0 to 5 Years) and At-Risk Patients (6 to 64 Years) Aged Out No longer eligible b ased on patient's age to complete this topic RSV Immunization Patients Un george 20 months Aged Out No longer eligible b ased on patient's age to complete this topic Varicella Vaccines Aged Out No longer eligible based on patient's age to complete this topic Care Teams Reel Cart Operator Relationship Specialty Start Date End Date Allison Santacruz MD [address] [place] [address] , [address] [facility] D[facility]A: [facility] ERICH Shields PCP - General Internal Medicine 09/01/18
--- OUTSIDE RECORDS SUMMARY | 2024-12-11 13:14 | XMS_ITS | Encounter Summary ---
Author Organization [employer] Address [address] [facility] 7t [place] [address] Care Team Providers Care Shoe Sprayer Name Role Phone Lois Contreras Primary Care Provider [phone] Alexandra Woods Primary Care Provider [phone] Reason for Visit * Reason Onset Date Comments Appointment Request 12/16/2022 Encounter Details Date Type Department Care Team (Late Contact Info) Description 12/16/2022 Telephone [facility] MEDICINE [address] [place] [address] Lois Contreras FNP [address] [place], [place] [phone] Appointment Request Social History Tobacco Use Types Packs/Day Years Used Date Smoking Tobacco: Never Assessed Sex and Gender Information Value Date Recorded Sex Assigned at Male 08/02/2022 10:39 AM EDT Legal Sex Male 10:39 AM EDT Gender Identity Male 08/02/2022 10:39 AM EDT Sexual Orientation Straight 08/02/2022 10 :39 AM EDT documented as of this encounter Miscellaneous Notes * Telephone Encounter - Alverto Agrawal - 12/16/2022 12:46 PM EDT Tc from [facility] requesting for to have a physical appt. Please contact pt to schedule at [phone] documented in this encounter Plan of Treatment Upcoming Encounters Date Type Department Care Team (Late Contact Info) Description 02/01/2025 3:00 PM EDT Office Visit [facility] ADULT DENTAL [address], [place] [phone] Yaritza Haines [address], [place] [phone] 02/15/2025 1:45 PM EDT Office Visit [facility] MEDICINE [address], [place] [phone] Alexandra Woods ANP [address] [place], [place] [phone] documented as of this encounter Visit Diagnoses Not on filedocumented in this encounter Care Teams Shoe Sprayer Relationship Specialty Start Date End Date Lois Contreras FNP [address], [place] [phone] PCP - General Family Medicine 05/31/22 07/28/23 Alexandra Woods ANP [address] [place] [id number] PCP - General Family Medicine 07/29/23 [employer] 11/16/23 Sina Matamoros Military Equipment SpecialistEditor News 11/14/24 documented as of this encounter
--- OUTSIDE RECORDS SUMMARY | 2024-12-11 13:14 | XMS_ITS | Encounter Summary ---
Author Organization [facility] Address [address] [facility] 7t [place] [address] Care Team Providers Care Rivet Machine Operator Name Role Phone Lois Contreras Primary Care Provider [phone] Alexandra Woods Primary Care Provider Encounter Details Date Type Department Care Team (Latest Contact Info) Description 02/22/2022 Abstract [facility] CONVERSIONS Dental, Provider, DDS Social History Tobacco Use Types Packs/Day Years [...] Upcoming Encounters Date Type Department Care Team ( st Contact Info) Description 02/01/2025 3:00 PM EDT Office Visit [facility] ADULT DENTAL [address] [place] [address] Yairtza Haines [address] [place] [address] 02/15/2025 1:45 PM EDT Office Visit [facility] MEDICINE [address] [place] [address] Alexandra Woods ANP [address] [place] [address] documented as of this encounter Visit Diagnoses Not on filedocumented in this encounter Care Teams Rivet Machine Operator Relationship Specialty Start Date End Date Lois Contreras FNP [address] [place] [address] PCP - General Family Medicine 05/31/22 07/28/23 Alexandra Woods ANP [address] [place] [address] [place] [address] PCP - General Family Medicine 07/29/23 [employer]and [employer] Delivery Business Plan 11/16/23 Sina Matamoros Manager Massage DepartmentContinuous Pickling Line Pickler Helper 11/14/24 documented as of this encounter
--- OUTSIDE RECORDS SUMMARY | 2024-12-11 13:14 | XMS_ITS | Encounter Summary ---
Author Organization [employer] Address [address] [facility] [address] 7t [place] [address] Care Team Providers Care Optical Glass Wet Inspector Name Role Phone lAexandra Woods Primary Care Provider [phone] Reason for Visit * Reason Onset Date Comments Durable Medical Equipment 11/09/2024 Encounter Details Date Type Department Care Team (Late st Contact Info) Description 11/09/2024 Telephone [facility] MEDICINE [address] [place] [address] Alexandra Woods ANP [address] [place] [address] Durable Medical Equipment Social History Tobacco Use Types Packs/Day Years Used Date Smoking Tobacco: Former Cigarettes Passive Smoke Exposure: Past Smokeless Tobacco: Never Comments:Started tobacco smo eduar at 14 y of age until 15 y , 10 cig ,stopped smoking 38 y ago Alcohol Use Standard Drinks/Week Comments Never 0 (1 standard drink = 0.6 oz pur e alcohol) Alcohol Answer Date Recorded Frequency of Alcohol Consumption Not on file 12/01/2023 Average Number of Drinks Not on file 024 Frequency of Binge Drinking Not on file 11/04 Score 0 12/01/2023 Depression Answer Date Recorded Patient Health Questionnaire-9 Score 8 02/13/2024 Patient Health Questionnaire-9 Score 8 02/13/2024 Last PHQ-9: Questionnaire Data Not on file 0 02/13/2024 Housing Stability Answer Date Recorded What is your housing situation today? I have tim orozco 07/29/[address] you li ve. Do you have problems with any of the following? None of the above 07/29/2023 Food Insecurity Answer Date Recorded Within the past 12 months, y ou worried that your food would run out before you got money to buy more: Never True 02/02/2024 Within the past 12 months,th e food you bought just didn't last and you didn't have enough money to get more: Never True 11/2023 Transportation Answer Date Recorded In the past 12 months, has l ack of transportation kept you from medical appts, meetings, work or from getting things needed for daily living? No 02/02/2024 Utilities Answer Date Recorded In the past 12 months, has t he [employer], gas, oil or water [employer] threatened to shut off services in your home? No 07/29/2023 Depression Answer Date Recorded Patient Health Questionnaire-2 Score 4 02/13/2024 Sex and Gender Information Value Date Recorded Sex Assigned at Male 08/02/2022 10:39 AM EDT Legal Sex Male 10:39 AM EDT Gender Identity Male 08/02/2022 10:39 AM EDT Sexual Orientation Straight 08/02/2022 10 :39 AM EDT documented as of this encounter Miscellaneous Notes * Telephone Encounter - Camila Hines RN - 11/14/2024 4:43 PM EST Faxed signed DME packet for cane to [facility] as below * Telephone Encounter - Camila Hines RN - 11/13/2024 4:16 PM EST Script generated and placed on PCP's desk. Pending signature. * Telephone Encounter - IVONNE Sheth - 11/12/2024 4:52 PM EST Please generate RX for cane, left sided weakness s/p CVA, thanks * Telephone Encounter - IVONNE Sheth - 11/12/2024 3:12 PM EST Thank you! Will generate rx. * Telephone Encounter - Camila Hines RN - 11/12/2024 2:00 PM EST Telephone call placed to pt who declines decline in mobility status or needing a walker. Does report that he lost his cane when he moved so would like a new cane but doesn't need a walker and is still very mobile. Can you please reach out to patient to clarify request for walker? He is usually pretty mobile. I know that he has left leg weakness or left-sided weakness status post CVA in 2018 however I have notknown him to need a walker before. I did did recommend he do physical therapy to help strengthen his left side if he has not done this I would recommend he do. I am happy to send a prescription for awalker but again I am concerned that he had sudden worsening of symptoms or if he needs to be seen. * Telephone Encounter - Ashish Chau - 11/09/2024 2:07 PM EST TC from [facility] with [facility] [place] Stating that pt is requesting to get a DME Walker due to him struggling Walking. Contact Pt at [phone] documented in this encounter Plan of Treatment Upcoming Encounters Date Type Department Care Team (Late st Contact Info) Description 02/01/2025 3:00 PM EDT Office Visit [facility] ADULT DENTAL [address] [place] [address] Yaritza Haines [address] [place] [address] 02/15/2025 1:45 PM EDT Office Visit [facility] MEDICINE [address] [place] [address] Alexandra Woods ANP [address] [place] [address] documented as of this encounter Goals Goal Patient Goal Type Associated Problems Recent Progress Patient-Stated? Author Take your medication every day Lifestyle No Mamie Jimenez, Baron Hemoglobin A1c < 7 Result Component 6.7( 4 11:10 AM EST) Mamie Kramer, PharmD documented as of this encounter Visit Diagnoses Not on filedocumented in this encounter Additional Health Concerns Assessment Noted Time PHQ-9 Depression Total Score: 8 02/13/20 24 1:53 PM EDT documented as of this encounter Care Teams Optical Glass Wet Inspector Relationship Specialty Start Date End Date Alexandra Woods ANP [address] [place] [address] PCP - General Family Medicine 07/29/23 [employer] 11/16/23 Sina Matamoros Aircraft Ordnance TechnicianFitness And Wellness Coordinator 11/14/24 documented as of this encounter
--- OUTSIDE RECORDS SUMMARY | 2024-12-11 13:14 | XMS_ITS | Encounter Summary ---
Author Organization [employer] Address [address] [facility] [address] 7t [place] [address] Care Team Providers Care Bridge Painter Name Role Phone Alexandra Woods Primary Care Provider [phone] Encounter Details Date Type Department Care Team (Late st Contact Info) Description 11/10/2023 Abstract [facility] ADULT DENTAL [address] [place] [address] Yaritza Haines [address] [place] [address] Social History Tobacco Use Types Packs/Day Years Used Date Smoking Tobacco: Former Cigarettes Passive Smoke Exposure: Past Smokeless Tobacco: Never Alcohol Use Standard Drinks/Week Comments Never 0 (1 standard drink = 0.6 oz pur e alcohol) Depression Answer Date Recorded Patient Health Questionnaire-9 Score 15 11/10/2023 Patient Health Questionnaire-9 Score 15 11/10/2023 Last PHQ-9: Questionnaire Data Not on file 0 11/10/2023 Housing Stability Answer Date Recorded What is [...] got money to buy more: Never True 07/29/2023 Within the past 12 months,th e food you bought just didn't last and you didn't have enough money to get more: Never True Transportation Answer Date Recorded In the past 12 months, has l ack of transportation kept you from medical appts, meetings, work or from getting things needed for daily living? No 07/29/2023 Utilities Answer Date Recorded In the past 12 months, has t he electric, gas, oil or water company threatened to shut off services in your home? No 07/29/2023 Depression Answer Date Recorded Patient Health Questionnaire-2 Score 5 11/10/2023 Sex and Gender Information Value Date Recorded Sex Assigned at Male 08/02/2022 10:39 AM EDT Legal Sex Male 10:39 AM EDT Gender Identity Male 08/02/2022 10:39 AM EDT Sexual Orientation Straight 08/02/2022 10 :39 AM EDT documented as of this encounter Plan of Treatment Upcoming Encounters Date Type Department Care Team (Late st Contact Info) Description 02/01/2025 3:00 PM EDT Office Visit [facility] ADULT DENTAL [address] [place], [place] [phone] Kike Hainesaris [address] [place] [address] 02/15/2025 1:45 PM EDT Office Visit [facility] MEDICINE [address] [place] [address] Alexandra Woods ANP [address] [place] [address] documented as of this encounter Goals Goal Patient Goal Type Associated Problems Recent Progress Patient-Stated? Author Take your medication every day Lifestyle No Mamie Jimenez PharmD Hemoglobin A1c < 7 Result Component 6.7( 4 11:10 AM EST) No Mamie Jimenez PharmD documented as of this encounter Visit Diagnoses Not on filedocumented in this encounter Additional Health Concerns Assessment Noted Time PHQ-9 Depression Total Score: 15 024 10:08 AM EST documented as of this encounter Care Teams Bridge Painter Relationship Specialty Start Date End Date Alexandra Woods ANP [address] [place] [address] PCP - General Family Medicine 07/29/23 [employer] 11/16/23 Sina Matamoros Director AmbulatoryWaybill Clerk 11/14/24 documented as of this encounter
--- OUTSIDE RECORDS SUMMARY | 2024-12-11 13:14 | XMS_ITS | Encounter Summary ---
Author Organization [employer] Address [address] [facility] [address] 7t [place] [address] Care Team Providers Care Remnants Cutter Name Role Phone Alexandra Woods Primary Care Provider [phone] Reason for Visit * Reason Onset Date Comments Call Back Request 12/15/2023 Encounter Details Date Type Department Care Team ([facility] st Contact Info) Description 12/15/2023 Telephone [facility] MEDICINE [address] [place] [address] Alexandra Woods ANP [address] [place] [address] Call Back Request Social History Tobacco Use Types Packs/Day [...] before you got money to buy more: Sometimes True 2023 Within the past 12 months,th e food you bought just didn't last and you didn't have enough money to get more: Sometimes True 11/23/2023 Transportation Answer Date Recorded In the past 12 months, has l ack of transportation kept you from medical appts, meetings, work or from getting things needed for daily living? Yes, it has kept me from medical appointments or getting medications. 11/23/2023 Utilities Answer Date Recorded In the past [...] encounter Miscellaneous Notes * Telephone Encounter - Reji Parham - 12/15/2023 9:26 AM EDT Tc from patient calling to request additional Occupational Therapy for the hand documented in this encounter Plan of Treatment Upcoming Encounters Date Type Department Care Team (Late st Contact Info) Description 02/01/2025 3:00 PM EDT Office Visit [facility] ADULT DENTAL [address] [place] [address] Yaritza Haines [address] [place] [address] 02/15/2025 1:45 PM EDT Office Visit [facility] MEDICINE [address] [place] [address] Alexandra Woods ANP [address] [place] [address] documented as of this encounter Goals Goal Patient Goal Type Associated Problems Recent Progress Patient-Stated? Author Take your medication every day Lifestyle No Mamie Jimenez, Baron Hemoglobin A1c < 7 Result Component 6.7( 11:10 AM EST) No Mamie Jimenez PharmD documented as of this encounter Visit Diagnoses Not on filedocumented in this encounter Additional Health Concerns Assessment Noted Time PHQ-9 Depression Total Score: 15 024 10:08 AM EST documented as of this encounter Care Teams Remnants Cutter Relationship Specialty Start Date End Date Alexandra Woods ANP [address] [place] [address] PCP - General Family Medicine 07/29/23 [employer] 11/16/23 Sina Matamoros Curb SupervisorProduct Safety Engineer 11/14/24 documented as of this encounter
--- OUTSIDE RECORDS SUMMARY | 2024-12-11 13:14 | XMS_ITS | Encounter Summary ---
Author Organization [employer] Address [address] [facility] [address] 7t [place] [address] Care Team Providers Care Cooler Tender Name Role Phone Lois Contreras Primary Care Provider [phone] Alexandra Woods Primary Care Provider [phone] Reason for Visit * Reason Onset Date Comments FYi 11/17/2022 Encounter Details Date Type Department Care Team (Late st Contact Info) Description 11/17/2022 Telephone [facility] MEDICINE [address] [place] [address] Lois Contreras FNP [address] [place], [place] [phone] FYi Social History Tobacco Use Types Packs/Day Years Used Date Smoking Tobacco: Never Assessed Sex and Gender Information Value Date Recorded Sex Assigned at Male 08/02/2022 10:39 AM EDT Legal Sex Male 10:39 AM EDT Gender Identity Male 08/02/2022 10:39 AM EDT Sexual Orientation Straight 08/02/2022 10 :39 AM EDT documented as of this encounter Miscellaneous Notes * Telephone Encounter - Araceli Salazar RN - 11/17/2022 1:18 PM EST Noted * Telephone Encounter - Alverto Agrawal - 11/17/2022 1:12 PM EST Tc from [facility] referral coordinator of pt reporting that pt is currently in the ER. If any questions please contact [facility] at [phone] documented in this encounter Plan of Treatment Upcoming Encounters Date Type Department Care Team (Late st Contact Info) Description 02/01/2025 3:00 PM EDT Office Visit [facility] ADULT DENTAL [address] [place] [address] Kike Hainesaris [address] [place] [address] 02/15/2025 1:45 PM EDT Office Visit [facility] MEDICINE [address] [place] [address] Alexandra Woods ANP [address] [place] [address] documented as of this encounter Visit Diagnoses Not on filedocumented in this encounter Care Teams Cooler Tender Relationship Specialty Start Date End Date Lois Contreras FNP [address] [place] [address] PCP - General Family Medicine 05/31/22 07/28/23 Alexandra Woods ANP [address] [place] [address] PCP - General Family Medicine 07/29/23 [employer] 11/16/23 Sina Matamoros Specialty Development ConsultantGeneral Freight Agent 11/14/24 documented as of this encounter
--- OUTSIDE RECORDS SUMMARY | 2024-12-11 13:15 | XMS_ITS | Encounter Summary ---
Author Organization [employer] Address [address] [facility] 7t [place] [address] Care Team Providers Care Press Assistant And Feeder Name Role Phone Alexandra Woods Primary Care Provider [phone] Reason for Visit * Reason Comments Med Refill Encounter Details Date Type Department Care Team ([facility] st Contact Info) Description 11/28/2024 Refill [facility] MEDICINE [address] [place] [address] Alexandra Woods ANP [address] [place] [address] Social History Tobacco Use Types Packs/Day Years [...] Description 02/01/2025 3:00 PM EDT Office Visit [facility] ADULT DENTAL [address] [place] [address] Kike Hainesaris [address] [place] [address] 02/15/2025 1:45 PM EDT Office Visit [facility] MEDICINE [address] [place] [address] Alexandra Woods ANP [address] [place] [address] documented as of this encounter Goals Goal [...] documented as of this encounter Care Teams Press Assistant And Feeder Relationship Specialty Start Date End Date Alexandra Woods ANP [address] [place] [address], [place] [address] PCP - General Family Medicine 07/29/23 [employer] 11/16/23 Sina Matamoros Protector Plate AttacherCustomer Insight Analyst 11/14/24 documented as of this encounter
--- OUTSIDE RECORDS SUMMARY | 2024-12-11 13:15 | XMS_ITS | Encounter Summary ---
Author Organization [employer] Address [address] [facility] 7t [place] [address] Care Team Providers Care Projector Operator Name Role Phone Alexandra Woods Primary Care Provider [phone] Reason for Visit * Reason Comments Med Refill Encounter Details Date Type Department Care Team ([facility] st Contact Info) Description 12/03/2024 Refill [facility] MEDICINE [address] [place] [address] Alexandra Woods ANP [address] [place] [address] Social History Tobacco Use Types Packs/Day Years [...] Description 02/01/2025 3:00 PM EDT Office Visit [facility] ADULT DENTAL [address] [place] [address] Kike Hainesaris [address] [place] [address] 02/15/2025 1:45 PM EDT Office Visit [facility] MEDICINE [address] [place] [address] Alexandra Woods ANP [address] [place] [address] documented as of this encounter Goals Goal [...] documented as of this encounter Care Teams Projector Operator Relationship Specialty Start Date End Date Alexandra Woods ANP [address] [place] [address], [place] [address] PCP - General Family Medicine 07/29/23 [employer] 11/16/23 Sina Matamoros Auto Apprentice MechanicManager Reimbursement 11/14/24 documented as of this encounter
--- OUTSIDE RECORDS SUMMARY | 2024-12-11 13:15 | XMS_ITS | Encounter Summary ---
Author Organization [employer] Address [address] [facility] [address] 7t [place] [address] Care Team Providers Care Certified Flight Instructor Name Role Phone Alexandra Woods Primary Care Provider [phone] Reason for Visit * Reason Comments Care Coordination ICP Care Plan Encounter Details Date Type Department Care Team ([facility] st Contact Info) Description 11/14/[address] [facility] PEDS [address] [place], [place] [phone] Alexandra Woods ANP [address] [place] [address] Care Coordination (ICP Care Plan ) Social History Tobacco Use Types Packs/Day Years [...] the past 12 months, has t he [employer], gas, oil or water company threatened to [...] AM EDT documented as of this encounter Progress Notes * Zoe Vega - 11/14/2024 9:43 AM EST PCP Designee has received and reviewed Care Plan from [facility]: Process Development Chemist: Sina Matamoros Contact Information: Care Plan scanned into patient's EHR and notification sent to PCP. documented in this encounter Plan of Treatment Upcoming Encounters Date Type Department Care Team (Late st Contact Info) Description 02/01/2025 3:00 PM EDT Office Visit [facility] ADULT DENTAL [address] [place] [address] Yaritza Haines [address] [place] [address] 02/15/2025 1:45 PM EDT Office Visit [facility] MEDICINE [address] [place] [address] Alexandra Woods ANP [address] [place] [address] documented as of this encounter Goals Goal [...] documented as of this encounter Care Teams Certified Flight Instructor Relationship Specialty Start Date End Date Alexandra Woods ANP [address] [place] [address] PCP - General Family Medicine 07/29/23 [employer] 11/16/23 Sina Matamoros Owner Professional EngineerCasting Tester 11/14/24 documented as of this encounter
--- OUTSIDE RECORDS SUMMARY | 2024-12-11 13:15 | XMS_ITS | Encounter Summary ---
Author Organization [facility] Address [address] [place] [address] Phone Care Team Providers Care Fire Operations Forester Name Role Phone Lois Contreras Primary Care Provider [phone] Encounter Details Date Type Department Care Team (Late st Contact Info) Description 05/02/2023 Documentation Only [facility], [address] [place] [address] Lois Contreras FNP [address] [place], [place] [phone] Social History Tobacco Use Types Packs/Day Years Used Date Smoking Tobacco: Never Assessed Sex and Gender Information Value Date Recorded Sex Assigned at Not on file Legal Sex Male 12:08 PM EDT Gender Identity Not on file Sexual Orientation Not on file documented as of this encounter Plan of Treatment Not on file documented as of this encounter Visit Diagnoses Not on filedocumented in this encounter Care Teams Fire Operations Forester Relationship Specialty Start Date End Date Lois Contreras FNP [address], [place] [phone] PCP - General 05/02/23 documented as of this encounter
--- OUTSIDE RECORDS SUMMARY | 2024-12-11 13:15 | XMS_ITS | Encounter Summary ---
Author Organization [employer] Address [address] [place] [address] Care Team Providers Care Site Coordinator Name Role Phone Fabrizio Gutierrez Primary Care Provider [phone] Encounter Details Date Type Department Care Team (Late st Contact Info) Description 11/27/2024 Orders Only GENERIC EXTERNAL DATA DEPARTMENT Provider, Generic External Data Social History Tobacco Use Types Packs/Day Years [...] Description 02/01/2025 3:00 PM EDT Office Visit [facility] ADULT DENTAL [address] [place] [address] Yaritza Haines [address] [place] [address] 02/15/2025 1:45 PM EDT Office Visit [facility] MEDICINE [address] [place] [address] Fabrizio Gutierrez, ANP [address] [place] [address] documented as of this encounter Goals Goal Patient Goal Type Associated Problems Recent Progress Patient-Stated? Author Take your medication every day Lifestyle No Mamie Jimenez PharmD Hemoglobin A1c < 7 Result Component 6.7( 11:10 AM EST) No Mamie Jimenez PharmD documented as of this encounter Procedures Procedure Name Priority Date/Time Associated Diagnosis Comments GROSS AND MICROSCOPIC LEVEL 3 Routine 11/27/2024 10:20 AM EST GLUCOSE, WHOLE BLOOD Routine 11/27/2024 9:20 AM EST documented in this encounter Results * Gross and Microscopic Level 3 (11/27/2024 10:20 AM EST) 11/27/2024 10:2 0 AM EST 11/27/2024 11:50 AM EST Narrative [facility] - 11/28/2024 1:02 PM EST ----- ------- Name: Kal Sellers ? Age/Sex: 54/M ? : 1970 Unit#: [id number] ?? Attend Dr: Adilia Johnson MD ?Re11/27/24 ?Status: DEP SDC ? Location: [facility].SS[facility] ?Disch: ? ----- ------- SPEC : [id number] ?RECD: 11/27/24-1149 ? STATUS: ??SOUT ? REQ NUM: [id number] ? DAVION: 11/27/24-0 ? SUBM DR: Adilia Johnson MD ? ENTERED: ??11/27/24-1154 ?SP TYPE: Surgical ? OTHR : FABRIZIO GUTIERREZ NP ? ORDERED: ??Gross Micro L3 ? Diagnosis ?? Foreskin, circumcision: ??Skin with acute and chronic inflammation, focal dermal ?? hyalinization, and epidermal hyperplasia and hyperkeratosis, consistent with phimosis. ?Clinical History Phimosis, recurrent balanitis ?Microscopic Description Microscopic sections reviewed. ? Material Received ?? Foreskin ? Gross Description Received in formalin labeled ?foreskin? is a 5.0 x 2.0-3.5 cm wrinkled, taylor-pink portion of foreskin. ??There are a few focally eroded and granular taylor-pink foci measuring up to 1.2 cm in greatest dimension located 0.4 cm from the nearest margins of resection. ??The margins are inked and the specimen is serially sectioned to reveal taylor-pink fibrous cut surfaces. Divinity Professor sections perpendicular to the nearest margins of resection are submitted in cassettes A1 and A2 to include all of the eroded and erythematous foci. CEDS Copies To: ?? Adilia Johnson MD ?? [facility] ?? [address] [place] [address] [address] ?? [place] [address] ?? [phone] ?? [email or web address] ?? FABRIZIO GUTIERREZ NP ?? [facility] ?? [address] [facility] [address] ?? [place] [address] ?? [phone] ? CONTINUED ON NEXT PAGE ----- ------- Name: Kal Sellers ? Age/Sex: 54/M ? : 1970 Unit#: [id number] ?? Attend Dr: Adilia Johnson MD ?Re11/27/24 ?Status: DEP SDC ? Location: HO.SSS ?Disch: ? ----- ------- SPEC : [id number] ?RECD: 11/27/24-1149 ? STATUS: ??SOUT ? REQ NUM: [id number] ? ADVION: 11/27/24-1020 ? SUBM DR: Adilia Johnson MD ? ENTERED: ??11/27/24-1154 ?SP TYPE: Surgical ? OTHR DR: FABRIZIO GUTIERREZ NP ? ORDERED: ??Gross Micro L3 ? ----- ------- Signed (signature on file) Sharmin Saldana 11/28/242 ? ----- ------- ? END OF REPORT ? us Generic External Data Provider LAB CYTOLOGY JUDITH RED Final Result [facility] [address] [place] [address] [phone] * (ABNORMAL) Glucose, Whole Blood (11/27/2024 9:20 AM EST) Glucose, Whole Blood 180(H) 60 - 115 mg/dL [facility] Comment:METER #: [id number] 11/27/2024 9:20 AM EST 11/27/2024 9:23 AM EST us Generic External Data Provider LAB BLOOD ORDERAB LES Final Result [facility] [address] [place] [address] [phone] documented in this encounter Visit Diagnoses Not on filedocumented in this encounter Additional Health Concerns Assessment Noted Time PHQ-9 Depression Total Score: 8 02/13/20 24 1:53 PM EDT documented as of this encounter Care Teams Site Coordinator Relationship Specialty Start Date End Date Fabrizio Gutierrez ANP [address] [place] [address] PCP - General Family Medicine 07/29/23 Death by Party 11/16/23 Sina Matamoros Denture WaxerSinging Waiter Or Waitress 11/14/24 documented as of this encounter
--- OUTSIDE RECORDS SUMMARY | 2024-12-11 13:15 | XMS_ITS | Encounter Summary ---
Author Organization [employer] Address [address] [place] [address] Care Team Providers Care Plaster Molder Name Role Phone Alexandra Woods Primary Care Provider [phone] Reason for Visit * Reason Onset Date Comments Med Refill 11/16/2024 Encounter Details Date Type Department Care Team (Late st Contact Info) Description 11/16/2024 Refill [facility] MED & PEDS [address] [place], [place] [phone] Alexandra Woods ANP [address] [place] [address] Social History Tobacco Use Types Packs/Day Years [...] the past 12 months, has t he [employer], gas, oil or water company threatened to [...] Description 02/01/2025 3:00 PM EDT Office Visit [facility] ADULT DENTAL [address] [place] [phone] Zaki, Yaritza [address] [place] [address] 02/15/2025 1:45 PM EDT Office Visit [facility] MEDICINE [address] [place] [phone] Alexandra Woods ANP [address] [place] [address] documented as of this encounter Goals Goal [...] documented as of this encounter Care Teams Plaster Molder Relationship Specialty Start Date End Date Alexandra Woods ANP [address] [place] [phone] PCP - General Family Medicine 07/29/23 [employer] 11/16/23 Sina Matamoros Butadiene Converter HelperQuality Analyst 11/14/24 documented as of this encounter
--- OUTSIDE RECORDS SUMMARY | 2024-12-11 13:15 | XMS_ITS | Clinical Summary ---
Author Organization [facility] Address [address] [facility] [address] [place] [address] Phone Care Team Providers Care Internet Sales Representative Name Role Phone AngieLois barron CHACHO Primary Care Provider [phone] Allergies No known active allergies Medications amLODIPine (NORVASC) 5 MG tablet 06/07/2021 Active Aspirin Low Dose 81 MG chewable tablet CHEW 1 TABLET BY MOUTH EVERY DAY 07/09/2021 Active atorvastatin (LIPITOR) 80 MG tablet 06/07/2021 Active isosorbide mononitrate (IMDUR) 60 MG 24 hr tablet Take 60 mg by mouth 1 (one) time each day in the morning 07/09/2021 Active lisinopril 20 MG tablet 05/29/2021 Active metFORMIN (GLUCOPHAGE) 500 MG tablet 05/29/2021 Active Metoprolol Tartrate 75 MG tablet Take 1 tablet by mouth 2 (two) times a day 07/09/2021 Active Brilinta 90 MG tablet TAKE 1 TABLET BY MOUTH TWO TIMES A DAY 07/30/2021 Active D3 Super Strength 50 MCG (1999) capsule Take 1 capsule by mouth 12/12/2021 Active Jardiance 10 MG tablet Take 1 tablet by mouth 09/30/2021 Active hydrOXYzine (ATARAX) 10 MG tablet TAKE 1 TO 2 TABLETS BY MOUTH TWICE DAILY NEEDED FOR ANXIETY 10/20/2021 Active lisinopril 40 MG tablet Take 40 mg by mouth 12/12/2021 Active metFORMIN (GLUCOPHAGE) 1000 MG tablet TAKE 1 TABLET BY MOUTH TWICE DAILY IN THE MORNING AND IN THE EVENING WITH MEALS 12/16/2021 Active Family History Relation Status Comments Father Mother Social History Tobacco Use Types Packs/Day Years Used Date Smoking Tobacco: Former Smokeless Tobacco: Never Alcohol Use Standard Drinks/Week Comments Never 0 (1 standard drink = 0.6 oz pur e alcohol) Sex and Gender Information Value Date Recorded Sex Assigned at Not on file Legal Sex Male 12:08 PM EDT Gender Identity Not on file Sexual Orientation Not on file Plan of Treatment Health Maintenance Due Date Last Done Comments Colorectal Cancer Screening: Annual FOBT 2017 Colorectal Cancer Screening: Colonoscopy 2017 Colorectal Cancer Screening: Sigmoidoscopy 2017 Hepatitis B Vaccine (2 of 3 - 19+ 3-dose series) 12/06/2023 11/08/2023 Diabetes: Ophthalmology Exam 02/01/2024 Diabetes: Pedal Pulse Checked 02/01/2024 Diabetes: Sensory Foot Exam 02/01/2024 Diabetes: Visual Foot Exam 02/01/2024 Diabetes: Hemoglobin A1C 05/03/2024 02/01/2024 Influenza Vaccine (#1) 2024 09/08/2021, 2015 Pneumococcal Vaccine: Pediat rics (0 to 5 Years) and At-Risk Patients (6 to 64 Years) Completed 11/08/2023, 11/27/2021, 05/12/2015 Insurance [place] Care Teams Internet Sales Representative Relationship Specialty Start Date End Date Lois Contreras FNP [address] [place] [phone] PCP - General 05/02/23
--- OUTSIDE RECORDS SUMMARY | 2024-12-11 13:15 | XMS_ITS | Encounter Summary ---
Author Organization [employer] Address [address] [facility] 7t [place] [address] Care Team Providers Care Modular Home Crew Member Name Role Phone Lois Contreras CHACHO Primary Care Provider [phone] Alexandra Woods Primary Care Provider [phone] Encounter Details Date Type Department Care Team (Late st Contact Info) Description 06/23/2023 Orders Only [facility] MEDICINE [address] [place], [place] [phone] Ling Us MD [address] [place], [place] [phone] Social History Tobacco Use Types Packs/Day Years Used Date Smoking Tobacco: Former Cigarettes Passive Smoke Exposure: Never Smokeless Tobacco: Never Alcohol Use Standard Drinks/Week Comments Never 0 (1 standard drink = 0.6 oz pur e alcohol) Depression Answer Date Recorded Patient Health Questionnaire-9 Score 14 04/15/2023 Depression Answer Date Recorded Patient Health Questionnaire-2 Score 4 04/15/2023 Sex and Gender Information Value Date Recorded Sex Assigned at Male 08/02/2022 10:39 AM EDT Legal Sex Male 10:39 AM EDT Gender Identity Male 08/02/2022 10:39 AM EDT Sexual Orientation Straight 08/02/2022 10 :39 AM EDT documented as of this encounter Plan of Treatment Upcoming Encounters Date Type Department Care Team (Late st Contact Info) Description 02/01/2025 3:00 PM EDT Office Visit [facility] ADULT DENTAL [address] [place], [place] [phone] Yaritza Haines [address] [place] [address] 02/15/2025 1:45 PM EDT Office Visit [facility] MEDICINE [address] [place] [address] Alexandra Woods ANP [address] [place] [address] documented as of this encounter Visit Diagnoses Not on filedocumented in this encounter Additional Health Concerns Assessment Noted Time PHQ-9 Depression Total Score: 14 023 11:16 AM EDT documented as of this encounter Care Teams Modular Home Crew Member Relationship Specialty Start Date End Date Lois Contreras FNP [address] [place] [phone] PCP - General Family Medicine 05/31/22 07/28/23 Alexandra Woods ANP [address] [place] [address] PCP - General Family Medicine 07/29/23 [employer] 11/16/23 Sina Matamoros Global Compensation DirectorGrocery Checker 11/14/24 documented as of this encounter
--- OUTSIDE RECORDS SUMMARY | 2024-12-11 13:15 | XMS_ITS | Encounter Summary ---
Author Organization [employer] Address [address] [facility] 7t [place] [address] Care Team Providers Care Legal Support Specialist Name Role Phone Alexandra Woods Primary Care Provider [phone] Reason for Visit * Reason Comments Med Refill Encounter Details Date Type Department Care Team ([facility] st Contact Info) Description 06/14/[address] [facility] MEDICINE [address] [place] [address] Alexandra Woods ANP [address] [place] [address] Social History Tobacco Use Types Packs/Day Years [...] Description 02/01/2025 3:00 PM EDT Office Visit [facility] ADULT DENTAL [address] [place] [phone] Kike Hainesaris [address] [place] [address] 02/15/2025 1:45 PM EDT Office Visit [facility] MEDICINE [address] [place] [address] Alexandra Woods ANP [address] [place] [address] documented as of this encounter Goals Goal [...] documented as of this encounter Care Teams Legal Support Specialist Relationship Specialty Start Date End Date Alexandra Woods ANP [address] [place] [address], [place] [address] PCP - General Family Medicine 07/29/23 [employer] 11/16/23 Sina Matamoros Senior Technical Project ManagerDirector Surface Transportation 11/14/24 documented as of this encounter
--- OUTSIDE RECORDS SUMMARY | 2024-12-11 13:15 | XMS_ITS | Clinical Summary ---
Author Organization [facility] Address [address] [place] [address] Care Team Providers Care Box Printing Machine Operator Name Role Phone Fabrizio Gutierrez Primary Care Provider [phone] Allergies No known active allergies Medications * This document contains information received from the source organization and may not represent a complete record from that organization. Blood Pressure Monitor kit Check Blood Pressure daily and when symptomatic 1 kit 023 Active FREESTYLE LITE test strip TEST BLOOD SUGAR THREE TIMES DAILY 100 strip 1 023 Active Blood Glucose Monitoring Suppl (FreeStyle Lite) w/Device kit 1 each 3 times daily. 1 kit 024 Active Continuous Blood Gluc Belt Sander (FreeStyle Ronen 2 [place]) deviceIndications: Type 2 diabetes mellitus with hyperlipidemia (CMS/HCC) (CMS/HCC) Scan sensor frequently throughout day 1 each 024 Active tamsulosin (Flomax) 0.4 MG 24 hr capsule TAKE 1 CAPSULE BY MOUTH AT BEDTIME 90 capsule 1 024 Active lidocaine (Lidoderm) 5 % patchIndications:L ow back pain at multiple sites APPLY 1 PATCH TOPICALLY TO SKIN IN THE MORNING. LEAVE ON FOR 12 HOURS AND OFF FOR 12 HOURS DIRECTED 30 patch 3 024 Active isosorbide mononitrate ER (Imdur) 30 MG 24 hr tablet TAKE 1 TABLET BY MOUTH EVERY MORNING DO NOT BREAK, CRUSH, DISSOLVE OR CHEW 90 tablet 3 024 Active spironolactone (Aldactone) 25 MG tablet TAKE 1 TABLET BY MOUTH EVERY MORNING 90 tablet 3 024 Active Eliquis 5 MG tablet TAKE 1 TABLET BY MOUTH TWICE DAILY IN THE MORNING AND IN THE EVENING 10/09/2 024 Active insulin pen needle (Easy Touch Pen [place]) 31G X 8 mm miscIndications:Ty pe 2 diabetes mellitus without complications ([facility]/HCC) USE DIRECTED 100 each 3 Active amLODIPine (Norvasc) 5 MG tablet Take 5 mg by mouth in the morning. Active atropine 1 % ophthalmic solution PLACE 1 DROP IN THE LEFT EYE TWICE DAILY DIRECTED STARTING THE DAY AFTER SURGERY AND continuing THEREAFTER Active ofloxacin (Ocuflox) 0.3 % ophthalmic solution PLACE 1 DROP IN THE LEFT EYE FOUR TIMES DAILY STARTING THE DAY AFTER YOUR SURGERY AND continuing THEREAFTER Active Pred Forte 1 % ophthalmic suspension PLACE 1 DROP IN THE LEFT EYE FOUR TIMES DAILY STARTING THE DAY AFTER SURGERY AND continuing THEREAFTER Active insulin glargine (Lantus SoloStar) 100 UNIT/ML penIndications:Typ e 2 diabetes mellitus with hyperlipidemia (CMS/HCC) ([facility]) Inject 14 Units under the skin Once daily. 5 mL 024 2024 Active lisinopril 20 MG tabletIndications: Hypertension associated with diabetes (CMS/HCC) ([facility]) TAKE 1 TABLET BY MOUTH EVERY MORNING 90 tablet 1 024 Active Alcohol Swabs (Alcohol Prep) 70 % pads USE DIRECTED THREE TIMES DAILY 100 each 11 024 Active atorvastatin (Lipitor) 80 MG tablet TAKE 1 TABLET BY MOUTH AT BEDTIME 90 tablet 3 024 Active clotrimazole (Lotrimin) 1 % creamIndications:C andidal balanoposthitis APPLY TOPICALLY TWICE DAILY FOR FOURTEEN DAYS 30 g 1 Active D3 Super Strength 50 MCG (1999 [place]) capsuleIndications :Vitamin D deficiency TAKE 1 CAPSULE BY MOUTH EVERY MORNING 90 capsule 1 025 Active Continuous Glucose Sensor (FreeStyle Ronen 2 Sensor) miscIndications:Ty pe 2 diabetes mellitus with hyperlipidemia (CMS/HCC) ([facility]) USE DIRECTED EVERY 14 DAYS 2 each 3 Active TRUEplus Lancets 33G misc USE DIRECTED THREE TIMES DAILY 100 each 11 025 Active metoprolol tartrate (Lopressor) 75 MG tablet TAKE 1 TABLET BY MOUTH TWICE DAILY IN THE MORNING AND IN THE EVENING 180 tablet 1 025 Active Aspirin Low Dose 81 MG chewable tablet TAKE 1 TABLET BY MOUTH EVERY MORNING (CHEW) 90 tablet 1 025 Active TRUEplus Lancets 33G misc USE DIRECTED THREE TIMES DAILY 100 each 11 023 2024 Discontinued(R eorder (will not trigger notification to Pharmacy)) metoprolol tartrate (Lopressor) 75 MG tablet TAKE 1 TABLET BY MOUTH TWICE DAILY IN THE MORNING AND IN THE EVENING 180 tablet 1 024 2024 Discontinued aspirin (Aspirin Low Dose) 81 MG chewable tablet Chew 1 tablet (81 mg) Once per day. 90 tablet 1 024 2024 Discontinued Active Problems Problem Noted Date Diagnosed Date Missing teeth, acquired 05/25/2024 Periodontal disease 02/22/2024 Dental calculus 02/22/2024 Hemiplegia and hemiparesis f ollowing cerebral infarction affecting left non-dominant side 02/13/2024 Overweight (BMI 25.0-29.9) 02/13/2024 Assessment & Plan (02/13/2024 6:49 PM EDT): Overweight Advised pt to improve diet and exercise,discussed healthy life style -discussed order manager referral --referred to order manager today as well for DM Health care maintenance 02/13/2024 Assessment & Plan (02/13/2024 6:49 PM EDT): -colonoscopy: never per pt -referred today -Vaccines s/p hep B x1, COVID x3, -today last booster , P20 11/2023 ,Tdap 03/2021 ,Shingrix x2 -labs x annual exam --will RTC in fasting -pt agreed to have STI testing including HIV to have for baseline Anxiety about health 02/09/2024 Assessment & Plan (02/09/2024 3:19 PM EDT): -patient assured he is still has assigned to designate provider to ensure his health needs are being met. Explained that all providers he may encounter here directly communicate with his PCP - clinician in to speak with patient regarding his subtle SI comment Severe anxiety 11/10/2023 Hyperkalemia 11/09/2023 Assessment & Plan (02/09/2024 3:29 PM EDT): -patient advised to discontinue use of spironolactone as this medication is likely adding to his elevated potassium levels -repeat BMP ordered today -follow-up with PCP in 3 weeks as scheduled Acute kidney injury superimposed on CKD ([facility]/HCC ) 11/02/2023 Assessment & Plan (02/09/2024 3:11 PM EDT): -patient is followed by Nephrology at [facility]. States he has an appointment in 2 weeks -persistently decreased GFR and elevated Cr on lab trends over the past few months -advised that his medication regimen would need to be re-evaluated and dosing changed based on renal function -BMP ordered today Hyperglycemia 11/02/2023 Assessment & Plan (11/02/2023 8:47 PM EST): I explained pt that will not be able to clear for surgery at this time with acute concerning abnormalities w uncontrol DM and ANA on CKD. Also called today his zigzag appliquer [phone] and informed will not be able to clear pt for now until pt is stable and DM better controlled. hb1AC capilally 9.8 CBG 287, Urine dipstick ketones neg ,glucose + >1000 chem: Cr 2.85 <---1.83 ( baseline 1.6 to 2), K was 5.1 -Discussed w pt in length the importance of compliance w medications including his insulin. Pt agreed today to start insulin lantus 10 u HS -gave today in office lispro 5 units -repeat chem today ---if worsening Cr or K+ will call pt go to ED -will hold on med changes for now until have chem result but if ongoing abnormal renal function will need to discontinue metformin and eval rest of meds if need dose adjustment -has apt w airflight attendants supervisor 02/06/2024 -pt will come for apt w nurse staff next week scheduled today for check on CBGS -pd to get continuous blood glucose monitoring ordered recently -f w PCP in 3-4 weeks to monitor meds adjustment and DM f up -Request today to nurse staff to start VNA services to help w VS and DM2 monitoring and med administration if needed -referred for renal US ---explained to pt that if needs to go to ED and has image done there will not need further imaging referred today -alarm signs and symptoms discussed w pt 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 On Nitrates not a candidate for usual meds Referral to Urology placed today Low back pain at multiple sites 06/17/2023 Assessment & Plan (06/17/2023 12:17 PM EDT): No red flags on history or exam PT referral Trial lidocaine patches and muscle rub, light stretching CVA (cerebral vascular accident) 04/17/2023 Assessment & Plan (06/17/2023 12:16 PM EDT): With residual deficits Re-refer to PT Assessment & Plan (04/17/2023 1:14 PM EDT): ?? Reported history of CVA approx 2019 ?? Reports completed course of PT, but continues with intermittent weakness of left side of body ?? Unclear if hemorrhagic vs ischemic Moderate episode of recurrent major depressive d isorder 04/15/2023 Assessment & Plan (02/13/2024 6:49 PM EDT): PHQ9 8 no SI -states used to f w thrapist but lost care -BH evaluated today pt in office--by Opal Hernández -referred to outpt tx and psychiatrist today if needed Assessment & Plan (12/07/2023 8:31 AM EST): PLAN: (check all that apply) Behavioral Health Integration Plan Patient Self Plan Patient to reach out to [facility] team as needed, Comply with medication , Patient to engage in OP therapy , Patient to reach out to [facility] as needed, and Patient to follow-up with external team Assessment & Plan (11/10/2023 10:22 AM EST): PROGRESS NOTE: ID: Kal is a 53 y.o. [place] straight-identified cis-male (pronouns he/him/his) with previous documented hx of Depression services including OP Psychotherapy and psychopharmacology who presents for Anxiety and Depression. Hx of trauma in childhood, Hx of MH services. Current court case. During IBH Consult Kal presenting with depressed mood, loss of interests/pleasure , changes in sleep difficulty falling asleep and difficulty staying asleep , change in appetite or weight reduce appetite, inappropriate guilt , hopelessness, worthlessness , thoughts of and excessive worry/anxiety, difficulty controlling worry, restless/keyed up/On edge, irritability, muscle tension, and sleep disturbance difficulty falling asleep and difficulty staying asleep ; for a period of 6-12 mo, for all symptoms in the context of recent brake up, court case regarding ex- partner, concern about ex-partner health, concern about his health. PLAN: New/Additional Services needed Off-site services for Behavioral Health Integration Plan External OP therapy referral and OP psychiatry Referral Patient Self Plan Patient to utilize skills provided in intervention , Patient to reach out to [facility] team as needed, and Patient to reach out to [facility] as needed Assessment & Plan (04/21/2023 9:50 AM EDT): Assessment: Patient with a history of depression with increased symptoms over the past 4 months (depressed mood, hopelessness, decreased interest in engaing in activities he used to enjoy, difficulty sleeping, change in appetite, difficulty concentrating, and increased fidgiting). Symptoms are in the context of biopsychosocial stressors of diabetes, and financial stress. Patient will benefit from exploring coping mechanisms and OP therapy. At this time Kal Sellers meets criteria for Visit Diagnoses: Problem List Items Addressed This Visit Other Moderate episode of recurrent major depressive disorder (CMS/HCC) Patient ready to address current needs Yes Strengths- Kal is open, engaged and in the preparation stage of change. PLAN: 1. Follow up with [facility]: Not recommended for follow-up 2. Patient goal is is to engage in OP therapy and explore coping mechanisms 3. Behavioral Recommendations a. PTSD nancy-deep breathing, meditation b. Follow up with PCP regarding medication management c. OP therapy referral Assessment & Plan (04/17/2023 1:23 PM EDT): ?? Denies SI/HI/thoughts of self harm ?? BE completed following visit, pt interested in initiation of pharmacotherapy ?? Start fluoxetine 10mg daily, reviewed med safety and SE Chronic combined systolic and diastolic heart fa ilure 12/28/2022 Assessment & Plan (02/13/2024 6:46 PM EDT): Reports following w trainer Denies CP nor respiratory symptoms -advised pt to f up w his cards's office to check when has upcoming apt Coronary atherosclerosis 12/28/2022 Hypertension associated with diabetes ([facility]) 12/28/2022 Assessment & Plan (06/17/2023 12:16 PM EDT): Not at goal here in the office May titrate meds based on CMP results Ischemic myocardial dysfunction 12/28/2022 Assessment & Plan (04/17/2023 1:13 PM EDT): -History of cardiomyopathy, CAD with VIRAL placed LAD 2020, nonsustained VT s/p implantable loop recorder -Referral to re-establish with [facility] Cards - Dr. Shetty - placed on 03/31/23 -ED precautions reviewed Continues with the following medication regimen: ?? Aspirin 81mg daily ?? Metoprolol 75mg BID ?? Lisinopril 40mg daily (currently holding due to ANA) ?? Isosorbide mononitrate 60mg daily ?? Atorvastatin 80mg nightly ?? Amlodipine 10mg daily Assessment & Plan (03/31/2023 3:50 PM EDT): -History of cardiomyopathy, CAD with VIRAL placed LAD 2020, nonsustained VT s/p implantable loop recorder -Referral to re-establish with [facility] Cards - Dr. Shetty - placed on 03/31/23 -ED precautions reviewed Stage 3a chronic kidney disease 12/28/2022 Overview (03/31/2023): 03/31/23: referral placed to establish with Nephrology Assessment & Plan (02/13/2024 6:52 PM EDT): Repeat renal function -if GFR < 30 to refer to airflight attendants supervisor -pt had referred renal US -not done yet -request ERICH today to help pt w info for pt to call for apt -call pt w results and f w PCP in next 6 to 8 weeks for DM f up Assessment & Plan (09/27/2023 11:54 AM EST): Patient with a diagnosis of CKD stage 3. Seen in the ER treated for Covid. Pt concerns about kidney function would like to have repeat lab check Will order a BMP today It appears that patient was referred to Nephrology back in March but he was never seen. Today will refer again to [facility] Avoid Nephrotoxin Assessment & Plan (06/17/2023 12:16 PM EDT): Recheck today Assessment & Plan (04/17/2023 1:11 PM EDT): Baseline Cr yet to be determined given lack of sufficient data points / readings Assessment & Plan (03/31/2023 3:49 PM EDT): Baseline Cr yet to be determined given lack of sufficient data points / readings Type 2 diabetes mellitus with hyperlipidemia ([facility]/HCC) 12/28/2022 Assessment & Plan (02/13/2024 6:48 PM EDT): -today CBG 136, hb1AC 7.4<----9.8 ( 10/2023) -fasting CBGs per pt bw 124 to 150s , no hypoglycemia events -zigzag appliquer -states has f up apt tomorrow -not om metformin for renal function -Continue jardiance 25 mg daily -increase lantus to 14 u <---10 u HS -advised to monitor CBGs in fasting and 2 h after biggest meal --bring reading to PCP at next apt ,also to call here If noticing CBGs < 80s to adjust insulin dose -referred today to steward/[employer] dining car Assessment & Plan (02/09/2024 3:26 PM EDT): -patient advised to increase nightly lantus dose to 20 U -follow-up in 1 week with nurses for glucose check Assessment & Plan (09/27/2023 4:35 PM EST): Lab Results Component Value Date HGBA1C 9.0 (A) 09/27/2023 Uncontrolled Given his CKD I discontinued his Metformin (Called pharmacy [facility]) Patient was started on Jardiance 10 mg daily by Lois Varela back in 06/2023 Today will increase to 25 mg po daily today He did not bring his glucometer. BG today 364 Given his degree of hyperglycemia and elevated Hgb A1c Will start on Lantus 10 units subcutaneous at bedtime Plan: Increase Jardiance to 25 , pt did not bring glucometer. I asked Pharmacy to refer to [facility] Start Lantus 10 units at bedtime, schedule appointment with nurses to teach him how to inject Follow up with PCP in 1 week to address DM Assessment & Plan (04/17/2023 1:15 PM EDT): Lab Results Component Value Date HGBA1C 5.9 04/15/2023 Well controlled Continues with metformin 1000mg BID History of placement of sten t in anterior descending branch of left coronary artery 01/05/2022 Vitamin D deficiency 09/21/2021 Encounters Date Type Department Care Team Description 12/03/2024 Refill [facility] [address] [place] [address] Fabrizio Gutierrez ANP 11/28/2024 Refill [facility] [address] [place] [address] Fabrizio Gutierrez ANP 11/27/2024 Orders Only GENERIC EXTERNAL DATA DEPARTMENT Provider, Generic External Data 11/16/2024 Refill [facility] [address] [place] [address] Fabrizio Gutierrez ANP 11/14/2024 Telephone [facility] [address] [place] [address] Fabrizio Gutierrez ANP Care Coordination (ICP Care Plan ) 11/09/2024 Telephone [facility] [address] [place] [address] Fabrizio Gutierrez ANP Durable Medical Equipment 11/01/2024 Refill [facility] [address] [place] [address] Fabrizio Gutierrez ANP Type 2 diabetes mellitus with hyperlipidemia ([facility]/HCC) ([facility]) 10/29/2024 Refill [facility] [address] [place] [address] Fabrizio Guiterrez ANP Vitamin D deficiency 10/18/2024 Refill [facility] [address] [place] [address] Fabrizio Gutierrez ANP Candidal balanoposthitis 10/02/2024 Refill [facility] [address] [place] [address] Fabrizio Gutierrez ANP 09/30/2024 Refill [facility] [address] [place] [address] Fabrizio Gutierrez ANP 09/27/2024 Telephone [facility] [address] [place] [address] Fabrizio Gutierrez ANP No Show 09/19/2024 Telephone [facility] [address] [place] [address] Camila Hines, community arts worker Question from Last 3 Months Immunizations Name Administration Dates Next Due HepB-CpG 11/08/2023 Influenza injectable quadrivalent preservative f ree 09/08/2021 Influenza, IIV3, injectable 06/15/2017 Influenza, seasonal, injectable, preservative fr ee 07/23/2024,06/04/2016 Pfizer Covid-19 Vaccine 12+ 09/04/2024, Pneumococcal Conjugate PCV 20 11/08/2023 Pneumococcal Polysaccharide PPSV23 11/27/2021, Tdap 03/30/2021 Zoster, Recombinant 01/29/2022,11/27/2021 Family History Medical History Relation Name Comments respiratory condition Father Diabetes Mother Heart disease Mother Diabetes Sister HTN Sister breast ca -40 y Sister Relation Name Status Comments Father Mother Sister Social History Tobacco Use Types Packs/Day Years Used Date Smoking Tobacco: Former Cigarettes Passive Smoke Exposure: Past Smokeless Tobacco: Never Tobacco Cessation:Counseling Given: Not Answered Comments:Started tobacco smoking at 14 y of age until 15 [...] Orientation Straight 08/02/2022 10 :39 AM EDT Last Filed Vital Signs Vital Sign Reading Time Taken Comments Blood Pressure 112/65 09/04/2024 11:41 AM EST Pulse 77 09/04/2024 11:41 AM EST Temperature 36.4 ??C (97.5 ??F) 09/04/2024 11:[address] Respiratory Rate 14 09/04/2024 11:41 AM EST Oxygen Saturation 98% 09/04/2024 11:41 AM EST Inhaled Oxygen Concentration - - Weight 88.9 kg (196 lb) 09/04/2024 11:41 AM EST Height 172.7 cm (5' 8 ) 07/23/2024 2:02 PM EDT Body Mass Index 29.8 07/23/2024 2:02 PM EDT Plan of Treatment Upcoming Encounters Date Type Department Care Team (Late st Contact Info) Description 02/01/2025 3:00 PM EDT Office Visit [facility] [address] [place] [address] Kike Hainesaris [address] [place] [address] 02/15/2025 1:45 PM EDT Office Visit [facility] [address] [place] [address] Fabrizio Gutierrez, ANP [address] [place] [address] Health Maintenance Due Date Last Done Comments CT Colonography 1970 Colonoscopy 1968 Colorectal Cancer Screening 1970 FIT DNA/Cologuard 1970 FIT 1970 FOBT 1970 Sigmoidoscopy 1968 Diabetes: Foot Exam 1978 Alcohol/Substance Use Screening 1980 Diabetes: Urine Protein Screening 09/17/2022 09/17/2021 Hepatitis B Vaccines (2 of 2 - CpG 2-dose series) 12/06/2023 11/08/2023 Dental Oral Exam 04/27/2024 10/27/2023, 10/27/2021 Dental Prophylaxis 06/04/2024 12/02/2023, 02/22/2022 Eye Exam 10/27/2024 10/27/2023, 10/04, 10/27/2023, Additional history exists Dental X-Ray: Bitewings 10/28/2024 10/27/2023, 10/27 SDOH Screening 02/01/2025 02/02/2024 Diabetes: Hemoglobin A1C 02/03/2025 024, 05/29/2024, 02/13/2024, Additional history exists Depression Screening 02/12/2025 02/13/2024, 02/13/20 24 Lipid Panel 08/06/2025 08/06/2024, 06/03, 09/17/2021 Tobacco Screening 09/04/2025 09/04/2024 Dental X-Ray: Full Mouth 10/28/2026 10/27/2023, 10/04 DTaP/Tdap/Td Vaccines (2 - Td or Tdap) 03/30/2031 03/30/2021 RSV Patients and Patients Aged 60 years or older (1 - 1-dose 75+ series) 2043 Zoster Vaccines Completed 01/29/2022, 11/27/2021 Pneumococcal Vaccine: 50+ Years Completed 11/08/2023, 11/27/2021, 05/12/2015 Influenza Vaccine Completed 07/23/2024, , 06/15/2017, Additional history exists HIV Screening Completed 08/06/2024, 09/17/2021 Hepatitis C Screening Completed 08/06/2024, 021 COVID-19 Vaccine Completed 09/04/2024, 02/13/2024 HIB Vaccines Aged Out No longer eligi [...] patient's age to complete this topic Meningococcal Vaccine Aged Out No catherine christelle eligible based on patient's age to complete this topic RSV under 20 months Aged Out No longe r eligible based on patient's age to complete this topic Rotavirus Vaccines Aged Out No longer eligible based on patient's age to complete this topic Goals Goal Patient Goal Type Associated Problems Recent Progress Patient-Stated? Author Take your medication every day Lifestyle No Mamie Jimenez, Baron Hemoglobin A1c < 7 Result Component 6.7( 11:10 AM EST) No Mamie Jimenez PharmD Procedures Procedure Name Priority Date/Time Associated Diagnosis Comments GROSS AND MICROSCOPIC LEVEL 3 Routine 11/27/2024 10:20 AM EST GLUCOSE, WHOLE BLOOD Routine 11/27/2024 9:20 AM EST HEPATITIS C AB W/REFL TO HCV RNA, QN, PCR Routine 08/06/2024 11:10 AM EST Annual physical exam HIV 1/2 ANTIGEN/ANTIBODY, FOURTH GENERATION W/RFL Routine 08/06/2024 11:10 AM EST Annual physical exam HEMOGLOBIN A1C Routine 08/06/2024 11:10 AM EST Annual physical exam LIPID PANEL, STANDARD Routine 08/06/2024 11:10 AM EST Annual physical exam PROPHYLAXIS - ADULT Routine 12/02/2023 2 :00 PM EST Periodontal disease Dental calculus INTRAORAL - COMPLETE SERIES OF RADIOGRAPHIC IMAGES Routine 10/27/2023 11:00 AM EST PERIODIC ORAL EVALUATION - ESTABLISHED PATIENT Routine 10/27/2023 11:00 AM EST ALBUMIN, RANDOM URINE W/CREATININE Routine 09/17/2021 8:59 AM EST from Last 3 Months or Most Recently Relevant to Health Maintenance Results * Gross and Microscopic Level 3 (11/27/2024 10:20 AM EST) 11/27/2024 10:2 0 AM EST 11/27/2024 11:50 AM EST [facility] - 11/28/2024 1:02 PM EST ----- ------- Name: Kal Sellers ? Age/Sex: 54/M ? : 1970 Unit#: [id number] ?? Attend Dr: Adilia Johnson MD ?Re11/27/24 ?Status: DEP SDC ? Location: HO.SSS ?Disch: ? ----- ------- SPEC : [id number] ?RECD: 11/27/24 ? STATUS: ??SOUT ? REQ NUM: [id number] ? DAVION: 11/27/24-0 ? SUBM DR: Adilia [...] sectioned to reveal taylor-pink fibrous cut surfaces. Ladderman sections perpendicular to the nearest margins of resection are submitted in cassettes A1 and A2 to include all of the eroded and erythematous foci. CEDS Copies To: ?? Adilia Johnson MD ?? [facility] ?? [address] [place] [address] [address] ?? [place] [address] ?? [phone] ?? [email or web address] ?? FABRIZIO GUTIERREZ NP ?? [facility] ?? [address] ?? [place] [address] ?? [phone] ? CONTINUED ON NEXT PAGE ----- ------- Name: Kal Sellers ? Age/Sex: 54/M ? : 1970 Unit#: [id number] ?? Attend Dr: Adilia Johnson MD ?Re11/27/24 ?Status: DEP SDC ? Location: HO.SSS ?Disch: ? ----- ------- SPEC : [id number] ?RECD: 11/27/24-1149 ? STATUS: ??SOUT ? REQ NUM: [id number] ? DAVION: 11/27/24-0 ? SUBM DR: Adilia Johnson MD ? ENTERED: ??11/27/24-1154 ?SP TYPE: Surgical ? OTHR DR: FABRIZIO GUTIERREZ NP ? ORDERED: ??Gross Micro L3 ? ----- ------- Signed (signature on file) Sharmin Les 11/28/24 1302 ? ----- ------- ? END OF REPORT ? us Generic External Data Provider LAB CYTOLOGY ORDE RABLES Final Result Performing Organization Address [facility] Co de Phone Number [facility] [address], [place] [phone] * (ABNORMAL) Glucose, Whole Blood (11/27/2024 9:20 AM EST) [facility] Glucose, Whole Blood 180(H) 60 - 115 mg/dL [facility] Comment:METER #: [id number] 11/27/2024 9:20 AM EST 11/27/2024 9:23 AM EST Generic External Data Provider LAB BLOOD ORDERAB LES Final Result Performing Organization Address [facility] de Phone Number [facility] [address], [place] [phone] * Hepatitis C Antibody with Reflex to HCV, RNA, Quantitative, Real-Time PCR (08/06/2024 11:10 AM EST) [facility] Hepatitis C Antibody Nonreactive Nonreactive [facility] Comment:Antibodies to HCV no t detected; does not exclude early acuteHCV infection. Blood Venous blood specimen / Unknown 08/06/2024 11:10 AM EST 08/06/2024 1:31 PM EST us Dai Engle MD LAB BLOOD ORDERAB LES Final Result Performing Organization Address [facility]/ZIP Co de Phone Number [facility] [address] [place] [phone] * HIV-1/2 Antigen and Antibodies, Fourth Generation, with Reflexes (08/06/2024 11:10 AM EST) HIV AB/AG Nonreactive Nonreactive [facility] Comment:HIV-1 p24 Ag and/or HIV-1/HIV-2 Ab not detected.A test result that is nonreactive does not exclude thepossibility of exposure to or infection with HIV-1 and/orHIV-2. Nonreactive results in this assay for individualswith prior exposure to HIV-1 and/or HIV-2 may be due toantigen and antibody levels that are below the limit ofdetection of this assay.The [employer] HIV Ag/Ab Combo assay result andsupplemental assay results should be interpreted inconjunction with the patient's clinical presentation,history and other laboratory results. If the results areinconsistent with clinical evidence, additional testing issuggested to confirm the result. Blood Venous blood specimen / Unknown 08/06/2024 11:10 AM EST 08/06/2024 1:31 PM EST us Dai Engle MD LAB BLOOD ORDERAB LES Final Result Performing Organization Address [facility]/ZIP Co de Phone Number [facility] [address] [place] [phone] * (ABNORMAL) Hemoglobin A1c (08/06/2024 11:10 AM EST) Hemoglobin A1c 6.7(H) <6.0 % [facility] Comment:Hemoglobin A1C Refer ence Range Adults: 4.8 - 6.0 % Non diabetic: < 6.0 % Goal: < 7.0 %Additional Action Suggested: > 8.0 %Note: Hemoglobin A1c results are invalid for patients with abnormal amounts of HbF. Blood transfusions may impact the HbA1c concentration in the patient sample. Estimated Average Glucose 146 mg/dL [facility] Comment:eAG = Estimated ave rage glucose which is %A1C expressed asaverage glucose, using the formula of the D3I-AthxdviNexlwtv Glucose study (ADAG), Diabetes Care, Vol.31,#8,Aug. 2007 Blood Venous blood specimen / Unknown 08/06/2024 11:10 AM EST 08/06/2024 1:31 PM EST us Dai Engle MD LAB BLOOD ORDERAB LES Final Result [facility] [address] [place] [phone] * (ABNORMAL) Lipid Panel, Standard (08/06/2024 11:10 AM EST) Triglycerides 114 <150 mg/dL [facility] Comment:Desirable Triglyceri de: less than 150 mg/dLBorderline High Triglyceride 150-199 mg/dLHigh Triglyceride: 200-499 mg/dLVery High Triglyceride: greater than or equal to 5OO mg/dL Cholesterol 151 <200 mg/dL [facility] Comment:Desirable Cholestero l: less than 200 mg/dLBorderline High Cholesterol: 200-239 mg/dLHigh Cholesterol: greater than 239 mg/dL LDL Cholesterol Calculated 91 <100 mg/dL [facility] Comment:Desirable LDL: less than 100 mg/dLNear Optimal/Above Optimal LDL: 110- 129 mg/dLBorderline High LDL: 130-159 mg/dLHigh LDL: 160-189 mg/dLVery High LDL: greater than or equal to 190 mg/dL HDL Cholesterol 38(L) >40 mg/dL [facility] Comment:Desirable HDL: great er than 40 mg/dL Note: This HDL assay may give artificially low results in patients with liver disease. Blood Venous blood specimen / Unknown 08/06/2024 11:10 AM EST 08/06/2024 1:31 PM EST us Dai Engle MD LAB BLOOD ORDERAB LES Final Result Performing Organization Address [facility] Co de Phone Number [facility] [address] [place] [phone] * (ABNORMAL) ALBUMIN, RANDOM URINE W/CREATININE (09/17/2021 8:59 AM EST) Microalbumin Urine 4.2 See Note: mg/dL [facility] Comment: Reference Range: ?? Reference Range Not established Microalb/Creat Ratio 37(H) <30 mcg/mg creat [facility] Comment: ?? The ADA defines abnormalities in albumin excretion as follows: ?? Albuminuria Category ?Result (mcg/mg creatinine) ?? Normal to Mildly increased ?? <30 Moderately increased ? 30-299 ?? Severely increased ? > OR = 300 ?? The ADA recommends that at least two of three specimens collected within a 3-6 month period be abnormal before considering a patient to be within a diagnostic category. Creatinine, Urine 115 20 - 320 mg/dL [facility] 09/17/2021 8:59 AM EST us Huyen Buenrostro ENERGY CONSULTANT LAB URINE ORDERABLES Final Res ult Performing Organization Address [facility] Co de Phone Number [facility] [address] from Last 3 Months or Most Recently Relevant to Health Maintenance Insurance [address] [place] [address] [facility] AD[place] Care Teams Box Printing Machine Operator Relationship Specialty Start Date End Date Fabrizio Gutierrez ANP [address] [place] [address] PCP - General Family Medicine 07/29/23 [employer] (Work) 11/16/23 Sina Matamoros GreeterSupervisor Typesetting 11/14/24
--- OUTSIDE RECORDS SUMMARY | 2024-12-11 13:15 | XMS_ITS | Encounter Summary ---
Author Organization [employer] Address [address] [facility] [address] [place] [address] Care Team Providers Care Service Operator Name Role Phone Lois Contreras CHACHO Primary Care Provider [phone] Alexandra Woods Primary Care Provider [phone] Encounter Details Date Type Department Care Team (Late st Contact Info) Description 06/23/[address] [facility] [address] [place], [place] [phone] Ling Us MD [address] [place], [place] [phone] Social History Tobacco Use Types Packs/Day Years [...] 02/01/2025 3:00 PM EDT Office Visit [facility] [address] [place], [place] [phone] Yaritza Haines [address] [place] [phone] 02/15/2025 1:45 PM EDT Office Visit [facility] [address] [place] [phone] Alexandra Woods ANP [address] [place] [address] documented as of this encounter Visit Diagnoses Not on filedocumented in this encounter Additional Health Concerns Assessment Noted Time PHQ-9 Depression Total Score: 14 023 11:16 AM EDT documented as of this encounter Care Teams Service Operator Relationship Specialty Start Date End Date Lois Contreras FNP [address] [place] [phone] PCP - General Family Medicine 05/31/22 07/28/23 Alexandra Woods ANP [address] [place] [phone] PCP - General Family Medicine 07/29/23 [employer] 11/16/23 Sina Matamoros [employer] Vp Creative + Content MarketingSecurity Police 11/14/24 documented as of this encounter
== END 2024-12-11 11:33 | disposition home or self-care (01) ==
LOC: HO.HCS 10:51
PROVIDERS: PCP Nurse Practitioner Primary Care; Visit Provider Nurse Practitioner Family
DX: I25.10 Atherosclerotic heart disease of native coronary artery without angina pectoris (principal); R07.9 Chest pain, unspecified; I48.0 Paroxysmal atrial fibrillation; I10 Essential (primary) hypertension; E78.5 Hyperlipidemia, unspecified; Z95.818 Presence of other cardiac implants and grafts
CPT/HCPCS: 93010; 99214

== ENCOUNTER → 2024-12-11 10:51 | Outpatient (BNVA) | payer MEDICAID, SELFPAY | PROVIDERS: PCP Nurse Practitioner Primary Care; Visit Provider Nurse Practitioner Family | DX: R07.9 Chest pain, unspecified (principal); I45.2 Bifascicular block; I25.10 Atherosclerotic heart disease of native coronary artery without angina pectoris; I10 Essential (primary) hypertension; I48.0 Paroxysmal atrial fibrillation; E78.5 Hyperlipidemia, unspecified; Z95.1 Presence of aortocoronary bypass graft; Z95.818 Presence of other cardiac implants and grafts | CPT/HCPCS: 93005; 99212 ==

== ENCOUNTER 2024-12-17 10:44 | Outpatient (AMB) | payer MEDICAID, SELFPAY ==
--- NOTE | 2024-12-17 10:48 | A.OFFVIS_ITS ---
Vital Signs 12/17/24 10:59 Height 5 ft 8 in Weight 197 lb 15.602 oz BMI 30.1 BP 90/56 L Blood Pressure Location Rt brachial Position Sitting Pulse 60 Pulse Source Pulse Oximeter Pulse Oximetry (%) 99 Oxygen Delivery Method Room Air Intake Visit Reasons: Colonoscopy Screening Intake Note: NEW PATIENT for initial colo screening. Chief Complaint; C/O chronic constipation w/ evacuation difficulty. Pt also reports a hx of hemorrhoids but believed to be inactive at this time per pt. No additional concerns at this time. Pt reports having recent circumcision procedure. Added to surgical hx. [employer] Hr Developer Required: No Accompanied by: Self / Same As Patient Allergies No Known Allergies Allergy (Verified 12/17/24 10:48) HPI HPI Colonoscopy Screening: Details: 54 year old? male with past medical history of hypertension, hyperlipidemia, diabetes, cardiomyopathy, CAD, history of cardiac catheterization, nonsustained ventricular tachycardia here today for pre colonoscopy screening.? Patient was sent to us by his PCP.? This is his first colonoscopy screening.? Patient denies any gastrointestinal symptoms in the past or at present.? Denies any personal or family history of gastrointestinal disease, colon polyps, or CRC.? Denies history of difficulty with sedation or anesthesia in the past.? Negative for history of sleep apnea.? Denies any history of cardiac, renal, pulmonary, or hepatic disease.?? No history of infectious? diseases like hepatitis A, B, C, HIV or tuberculosis.? Patient is on Eliquis. Patient denies any cardiac or respiratory symptoms, however due to his history we will be sending message to Cardiology for clearance. [facility] Medical History Male circumcision (~2024) Ambulates with cane Hx of degenerative disc disease Back pain Cardiomyopathy Implantable loop recorder present Stable angina NSVT (nonsustained ventricular tachycardia) Unstable angina Carpal tunnel syndrome Nephrolithiasis Phlebitis Arthritis Type 2 diabetes mellitus with unspecified 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 macular edema Essential hypertension Hyperlipidemia LDL goal <70 Anemia HTN (hypertension) Stroke (~2019) Hyperlipemia Diabetes Surgical History Cataract S/P coronary angioplasty H/O cardiac catheterization H/O vitrectomy History of carpal tunnel surgery of right wrist Family History Father Asthma Mother Diabetes mellitus Social History Household Members: None Housing: Apartment Are you a primary laboratory animal care veterinarian to a significant other at home: No Do you presently have visiting nurse or other home services: Yes (daily nurse BP and meds) Alcohol intake: never Comment: S3 Patient Tobacco Use Status: Former Tobacco user Tobacco use type: Cigarette Years Smoked: 6 +/- Advance Directives Date on File: 12/15/22 service: No Assessment & Plan Assessment & Plan (1) Screen for colon cancer: Code(s): Z12.11 - Encounter for screening for malignant neoplasm of colon (2) Constipation: Code(s): K59.00 - Constipation, unspecified Qualifiers: Constipation type: slow transit constipation Qualified Code(s): K59.01 - Slow transit constipation Plan Patient denies any cardiac or respiratory symptoms.? Denies any issues with anesthesia in the past.? Denies any history of sleep apnea.? No history infe ctious diseases in the past or present.? Patient is on Eliquis and aspirin. Message sent to Cardiology for clearance. Next appointment not till June. Patient reports constipation will start him on Dulcolax. Increase fluid intake and activity to promote better bowel motility. Message sent to surgical schedulers to book procedure for patient.? No family or personal history of colon cancer or polyps.? Patient denies melena, hematochezia, unintentional weight loss or ribbon like stools.? Medications: New bisacodyl (Dulcolax (bisacodyl)) 10 mg (2 x 5 mg) PO BEDTIME 60 tabs 4RF Coding Level of Care Code New Pt Level 3 (74346) Diagnoses Screen for colon cancer Z12.11 Slow transit constipation K59.01 Constipation type: slow transit constipation Time Spent (min) 40 Comment 30 minutes spent with patient and additional 10 minutes spent reviewing his records
[2024-12-17 10:59] VITALS: BP 90/56; PULSE 60; O2SAT 99; BMI 30.1
--- OUTSIDE RECORDS SUMMARY | 2024-12-17 12:17 | XMS_ITS | Clinical Summary ---
Author Organization [employer] Address [address] [facility] 7t [place] [address] Care Team Providers Care Residence Counselor Name Role Phone Fabrizio Gutierrez Primary Care Provider [phone] Allergies No known active allergies Medications * [...] 1 kit 024 Active Continuous Blood Gluc Outbound Call Center Representative (FreeStyle Ronen 2 Kennett) deviceIndications: Type 2 diabetes mellitus with hyperlipidemia [...] Active insulin pen needle (Easy Touch Pen Lillie) 31G X 8 mm miscIndications:Ty pe 2 diabetes mellitus without complications ([facility]/HCC) USE DIRECTED 100 each 3 Active [...] e 2 diabetes mellitus with hyperlipidemia (CMS/HCC) ([facility]) Inject 14 Units under the skin Once daily. 5 mL 024 2024 Active lisinopril 20 MG tabletIndications: Hypertension associated with diabetes (CMS/HCC) ([facility]) TAKE 1 TABLET BY MOUTH EVERY MORNING [...] pe 2 diabetes mellitus with hyperlipidemia (CMS/HCC) ([facility]) USE DIRECTED EVERY 14 DAYS 2 each [...] MORNING (CHEW) 90 tablet 1 025 Active metoprolol tartrate (Lopressor) 75 MG [...] diet and exercise,discussed healthy life style -discussed performance improvement specialist referral --referred to performance improvement specialist today as well for DM Health care [...] scheduled Acute kidney injury superimposed on CKD (CMS/HCC ) 11/02/2023 Assessment & Plan (02/09/2024 3:11 PM EDT): -patient is followed by Nephrology at [facility]. States he has an appointment in 2 [...] ANA on CKD. 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 Reported history of CVA approx 2018 ?? Reports completed course of PT, but continues with intermittent weakness of left side of body ?? Unclear if hemorrhagic vs ischemic Moderate episode of recurrent major depressive d isorder 04/15/2023 Assessment & Plan (02/13/2024 6:49 PM EDT): PHQ9 8 no SI -states used to f w thrapist but lost care - evaluated today pt in office--by Opal Hernández -referred to outpt tx and psychiatrist today if needed Assessment & Plan (12/07/2023 8:31 AM EST): PLAN: (check all that apply) Behavioral Health Integration Plan Patient Self Plan Patient to reach out to [facility] team as needed, Comply with medication , Patient to engage in OP therapy , Patient to reach out to [facility] as needed, and Patient to follow-up with external team Assessment & Plan (11/10/2023 10:22 AM EST): PROGRESS NOTE: ID: Kal is a 53 y.o. American straight-identified cis-male (pronouns he/him/his) with previous documented [...] intervention , Patient to reach out to [facility] team as needed, and Patient to reach out to [facility] as needed Assessment & Plan (04/21/2023 9:50 [...] of change. PLAN: 1. Follow up with [facility]: Not recommended for follow-up 2. Patient goal [...] (02/13/2024 6:46 PM EDT): Reports following w emergency technician Denies CP nor respiratory symptoms -advised pt to f up w his cards's office to check when has upcoming apt Coronary atherosclerosis 12/28/2022 Hypertension associated with diabetes (CMS/HCC) 12/28/2022 Assessment & Plan (06/17/2023 12:16 PM EDT): Not at goal here in the office May titrate meds based on CMP results Ischemic myocardial dysfunction 12/28/2022 Assessment & Plan (04/17/2023 1:13 PM EDT): -History of cardiomyopathy, CAD with VIRAL placed LAD 2020, nonsustained VT s/p implantable loop recorder -Referral to re-establish with [employer] - Dr. Shetty - placed on 03/31/23 [...] implantable loop recorder -Referral to re-establish with [employer] - Dr. Shetty - placed on 03/31/23 -ED precautions reviewed Stage 3a chronic kidney disease 12/28/2022 Overview (03/31/2023): 03/31/23: referral placed to establish with Nephrology Assessment & Plan (02/13/2024 6:52 PM EDT): Repeat renal function -if GFR < 30 to refer to sales service manager -pt had referred renal US -not done yet -request MA today to help pt w info for [...] 124 to 150s , no hypoglycemia events -mandarin chinese teacher -states has f up apt tomorrow -not om metformin for renal function -Continue jardiance 25 mg daily -increase lantus to 14 u <---10 u HS -advised to monitor CBGs in fasting and 2 h after biggest meal --bring reading to PCP at next apt ,also to call here If noticing CBGs < 80s to adjust insulin dose -referred today to electronic imager Assessment & Plan (02/09/2024 3:26 PM EDT): -patient advised to increase nightly lantus dose to 20 U -follow-up in 1 week with nurses for glucose check Assessment & Plan (09/27/2023 4:35 PM EST): Lab Results Component Value Date HGBA1C 9.0 (A) 09/27/2023 Uncontrolled Given his CKD I discontinued his Metformin (Called pharmacy [facility]) Patient was started on Jardiance 10 mg daily by Lois moncada in 06/2023 Today will increase to 25 [...] Encounters Date Type Department Care Team Description 12/14/2024 Population Health Risk Score [facility] (C3) Department [address] [phone] Provider, Population Health Generic 12/03/2024 Refill [facility] [address] [place] [address] Fabrizio Gutierrez ANP 11/28/2024 Refill [facility] [address] [place] [address] Fabrizio Gutierrez ANP 11/27/2024 Orders Only GENERIC EXTERNAL DATA DEPARTMENT Provider, Generic External Data 11/16/2024 Refill [facility] [address] [place] [address] Fabrizio Gutierrez ANP 11/14/2024 Telephone [facility] [address] [place] [address] Fabrizio Gutierrez ANP Care Coordination (ICP Care Plan ) 11/09/2024 Telephone [facility] [address] [place] [address] Fabrizio Gutierrez ANP Durable Medical Equipment 11/01/2024 Refill [facility] [address] [place] [address] Fabrizio Gutierrez ANP Type 2 diabetes mellitus with hyperlipidemia ([facility]) ([facility]) 10/29/2024 Refill [facility] [address] [place] [address] Fabrizio Gutierrez ANP Vitamin D deficiency 10/18/2024 Refill [facility] [address] [place] [address] Fabrizio Gutierrez ANP Candidal balanoposthitis 10/02/2024 Refill [facility] [address] [place] [address] Fabrizio Gutierrez ANP 09/30/2024 Refill [facility] [address] [place] [address] Fabrizio Gutierrez ANP 09/27/2024 Telephone [facility] [address] [place] [address] Fabrizio Gutierrez ANP No Show 09/19/2024 Telephone [facility] [address] [place] [address] Camila Hines, early childhood educator aide Question from Last 3 Months Immunizations Name [...] Visit [facility] [address] [place] [address] Kike Hainesaris [address] [place] [address] 02/15/2025 1:45 PM EDT Office Visit [facility] [address] [place] [address] Fabrizio Gutierrez, ANP [address] [place] [address] Health Maintenance Due Date Last Done Comments [...] 7 Result Component 6.7( 11:10 AM EST) Mamie Kramer PharmD Procedures Procedure Name Priority Date/Time Associated [...] 0 AM EST 11/27/2024 11:50 AM EST [facility] LABS - 11/28/2024 1:02 PM EST ----- ------- Name: Kal Sellers ? Age/Sex: 54/M ? : 1970 Unit#: [id number] ?? Attend Dr: Adilia Johnson MD ?Re11/27/24 ?Status: DEP SDC ? Location: HO.SSS ?Disch: ? ----- ------- SPEC : [id number] ?RECD: 11/27/24 ? STATUS: ??SOUT ? REQ NUM: [id number] ? DAVION: 11/27/24-1020 ? SUBM DR: Adilia Johnson MD [...] sectioned to reveal taylor-pink fibrous cut surfaces. Sawmill Equipment Operator sections perpendicular to the nearest margins of resection are submitted in cassettes A1 and A2 to include all of the eroded and erythematous foci. CEDS Copies To: ?? Adilia Johnson MD ?? [facility] ?? [address] [place] [address] [address] ?? [place] [address] ?? [phone] ?? [email or web address] ?? FABRIZIO GUTIERREZ NP ?? [facility] ?? [address] [facility] [address] ?? [place] [address] ?? [phone] ? CONTINUED ON NEXT PAGE ----- ------- Name: Kal Sellers ? Age/Sex: 54/M ? : 1970 Unit#: [id number] ?? Attend Dr: Adilia Johnson MD ?Re11/27/24 ?Status: DEP SDC ? Location: HO.SSS ?Disch: ? ----- ------- SPEC : [id number] ?RECD: 11/27/24-1149 ? STATUS: ??SOUT ? REQ NUM: [id number] ? DAVION: 11/27/24-1020 ? SUBM DR: Adilia Johnson MD ? ENTERED: ??11/27/24-1154 ?SP TYPE: Surgical ? OTHR DR: FABRIZIO GUTIERREZ NP ? ORDERED: ??Gross Micro L3 ? ----- ------- Signed (signature on file) Sharmin Les 11/28/24 1302 ? ----- ------- ? END OF REPORT ? Generic External Data Provider LAB CYTOLOGY ORDE RABLES Final Result Performing Organization Address [facility] Co de Phone Number [facility] [address], [place] [phone] * (ABNORMAL) Glucose, Whole Blood (11/27/2024 9:20 AM EST) [facility] Glucose, Whole Blood 180(H) 60 - 115 mg/dL [facility] Comment:METER #: [id number] 11/27/2024 9:20 AM EST 11/27/2024 9:23 AM EST Generic External Data Provider LAB BLOOD ORDERAB LES Final Result Performing Organization Address [facility] Co de Phone Number [facility] [address] [place], [place] [phone] * Hepatitis C Antibody with Reflex to HCV, RNA, Quantitative, Real-Time PCR (08/06/2024 11:10 AM EST) [facility] Hepatitis C Antibody Nonreactive Nonreactive [facility] Comment:Antibodies to HCV no t detected; does not exclude early acuteHCV infection. Blood Venous blood specimen / Unknown 08/06/2024 11:10 AM EST 08/06/2024 1:31 PM EST us Dai Engle MD LAB BLOOD ORDERAB LES Final Result Performing Organization Address City/[facility]/ZIP Co de Phone Number [facility] [address] [place] [phone] * HIV-1/2 Antigen and Antibodies, Fourth Generation, with Reflexes (08/06/2024 11:10 AM EST) HIV AB/AG Nonreactive Nonreactive [facility] Comment:HIV-1 p24 Ag and/or HIV-1/HIV-2 Ab not detected.A test result that is nonreactive does not exclude thepossibility of exposure to or infection with HIV-1 and/orHIV-2. Nonreactive results in this assay for individualswith prior exposure to HIV-1 and/or HIV-2 may be due toantigen and antibody levels that are below the limit ofdetection of this assay.The Zarpo HIV Ag/Ab Combo assay result andsupplemental assay results should be interpreted inconjunction with the patient's clinical presentation,history and other laboratory results. If the results areinconsistent with clinical evidence, additional testing issuggested to confirm the result. Blood Venous blood specimen / Unknown 08/06/2024 11:10 AM EST 08/06/2024 1:31 PM EST us Dai Engle MD LAB BLOOD ORDERAB LES Final Result Performing Organization Address City/[facility]/ZIP Co de Phone Number [facility] [address] [place] [address] [phone] * (ABNORMAL) Hemoglobin A1c (08/06/2024 11:10 AM EST) Hemoglobin A1c 6.7(H) <6.0 % [facility] Comment:Hemoglobin A1C Refer ence Range Adults: 4.8 - 6.0 % Non diabetic: < 6.0 % Goal: < 7.0 %Additional Action Suggested: > 8.0 %Note: Hemoglobin A1c results are invalid for patients with abnormal amounts of HbF. Blood transfusions may impact the HbA1c concentration in the patient sample. Estimated Average Glucose 146 mg/dL [facility] Comment:eAG = Estimated ave rage glucose which is %A1C expressed asaverage glucose, using the formula of the K2D-NscqkhfEfxdxlz Glucose study (ADAG), Diabetes Care, Vol.31,#8,May. 2007 Blood Venous blood specimen / Unknown 08/06/2024 11:10 AM EST 08/06/2024 1:31 PM EST us Dai Engle MD LAB BLOOD ORDERAB LES Final Result [facility] [address] [place] [address] [phone] * (ABNORMAL) Lipid Panel, Standard (08/06/2024 11:10 AM EST) Triglycerides 114 <150 mg/dL [facility] Comment:Desirable Triglyceri de: less than 150 mg/dLBorderline High Triglyceride 150-199 mg/dLHigh Triglyceride: 200-499 mg/dLVery High Triglyceride: greater than or equal to 5OO mg/dL Cholesterol 151 <200 mg/dL [facility] Comment:Desirable Cholestero l: less than 200 mg/dLBorderline High Cholesterol: 200-239 mg/dLHigh Cholesterol: greater than 239 mg/dL LDL Cholesterol Calculated 91 <100 mg/dL [facility] Comment:Desirable LDL: less than 100 mg/dLNear Optimal/Above Optimal LDL: 110- 129 mg/dLBorderline High LDL: 130-159 mg/dLHigh LDL: 160-189 mg/dLVery High LDL: greater than or equal to 190 mg/dL HDL Cholesterol 38(L) >40 mg/dL [facility] Comment:Desirable HDL: great er than 40 mg/dL Note: This HDL assay may give artificially low results in patients with liver disease. Blood Venous blood specimen / Unknown 08/06/2024 11:10 AM EST 08/06/2024 1:31 PM EST us Dai Engle MD LAB BLOOD ORDERAB LES Final Result Performing Organization Address [facility] Co de Phone Number [facility] [address] [place] [address] [phone] * (ABNORMAL) ALBUMIN, RANDOM URINE W/CREATININE [...] 09/17/2021 8:59 AM EST us Huyen Buenrostro APARTMENT MAINTENANCE TECHNICIAN LAB URINE ORDERABLES Final Res ult Performing Organization Address City/[facility] Co de Phone Number [facility] [address] from Last 3 Months or Most Recently Relevant to Health Maintenance [facility] AD[place] Care Teams Residence Counselor Relationship Specialty Start Date End Date Fabrizio Gutierrez ANP [address] [place] [address] PCP - General Family Medicine 07/29/23 [employer] 11/16/23 Sina Matamoros President Commercial BankRefund Clerk 11/14/24
--- OUTSIDE RECORDS SUMMARY | 2024-12-17 12:17 | XMS_ITS | Encounter Summary ---
Author Organization [employer] Address [address] [facility] 7t [place] [address] Care Team Providers Care Prescriptionist Name Role Phone Lois Contreras CHACHO Primary Care Provider [phone] Alexandra Woods Primary Care Provider [phone] Encounter Details Date Type Department Care Team (Late st Contact Info) Description 06/23/2023 Orders Only [facility] MEDICINE [address] [place], [place] [phone] Ling Us MD [address] [place], [place] [phone] Social History Tobacco Use Types Packs/Day Years [...] Description 02/01/2025 3:00 PM EDT Office Visit [facility] ADULT DENTAL [address] [place], [place] [phone] Yaritza Haines [address] [place] [address] 02/15/2025 1:45 PM EDT Office Visit [facility] MEDICINE [address] [place] [address] Alexandra Woods ANP [address] [place] [address] documented as of this encounter Visit Diagnoses Not on filedocumented in this encounter Additional Health Concerns Assessment Noted Time PHQ-9 Depression Total Score: 14 023 11:16 AM EDT documented as of this encounter Care Teams Prescriptionist Relationship Specialty Start Date End Date Lois Contreras FNP [address] [place] [address] PCP - General Family Medicine 05/31/22 07/28/23 Alexandra Woods ANP [address] [place] [address] PCP - General Family Medicine 07/29/23 [employer] 11/16/23 Sina Matamoros Certified Personal Finance CounselorChemical Checker 11/14/24 documented as of this encounter
--- OUTSIDE RECORDS SUMMARY | 2024-12-17 12:17 | XMS_ITS | Encounter Summary ---
Author Organization [employer] Address [address] [facility] 7t [place] [address] Care Team Providers Care Fiber Machine Tender Name Role Phone Alexandra Woods Primary Care Provider [phone] Reason for Visit * Reason Comments Med Refill Encounter Details Date Type Department Care Team ([facility] st Contact Info) Description 06/14/2024 Refill [facility] [address] [place] [address] Alexandra Woods ANP [address] [place] [address] Social History Tobacco Use Types Packs/Day Years [...] 02/01/2025 3:00 PM EDT Office Visit [facility] ADULT DENTAL [address] [place] [address] Kike Hainesaris [address] [place] [address] 02/15/2025 1:45 PM EDT Office Visit [facility] MEDICINE [address] [place] [address] Alexandra Woods ANP [address] [place] [address] documented as of this encounter Goals Goal [...] documented as of this encounter Care Teams Fiber Machine Tender Relationship Specialty Start Date End Date Alexandra Woods ANP [address] [place] [address], [place] [address] PCP - General Family Medicine 07/29/23 [employer] 11/16/23 Sina Matamoros Ranch HelperGlass Scullion 11/14/24 documented as of this encounter
--- OUTSIDE RECORDS SUMMARY | 2024-12-17 12:17 | XMS_ITS | Encounter Summary ---
Author Organization [employer] Address [address] [facility] [address] 7t [place] [address] Care Team Providers Care Special Delivery Mail Carrier Name Role Phone Lois Contreras Primary Care Provider [phone] Alexandra Woods Primary Care Provider [phone] Reason for Visit * Reason Onset Date Comments FYi 11/17/2022 Encounter Details Date Type Department Care Team ([facility] st Contact Info) Description 11/17/2022 Telephone [facility] MEDICINE [address] [place] [address] Lois Contreras FNP [address] [place], [place] [phone] FYi Social History Tobacco Use Types Packs/Day [...] - 11/17/2022 1:12 PM EST Tc from [facility] administrative support coordinator of pt reporting that pt is currently in the ER. If any questions please contact [facility] at [phone] documented in this encounter Plan of Treatment Upcoming Encounters Date Type Department Care Team (Late st Contact Info) Description 02/01/2025 3:00 PM EDT Office Visit [facility] ADULT DENTAL [address] [place] [address] Kike Hainesaris [address] [place] [address] 02/15/2025 1:45 PM EDT Office Visit [facility] MEDICINE [address] [place] [address] Alexandra Woods ANP [address] [place] [address] documented as of this encounter Visit Diagnoses Not on filedocumented in this encounter Care Teams Special Delivery Mail Carrier Relationship Specialty Start Date End Date Lois Contreras FNP [address] [place] [address] PCP - General Family Medicine 05/31/22 07/28/23 Alexandra Woods ANP [address] [place] [address] PCP - General Family Medicine 07/29/23 [employer] 11/16/23 Sina Matamoros Automatic Casting Machine OperatorLetter Of Credit Clerk 11/14/24 documented as of this encounter
--- OUTSIDE RECORDS SUMMARY | 2024-12-17 12:17 | XMS_ITS | Encounter Summary ---
Author Organization [facility] Address [address] [place] [address] Phone Care Team Providers Care Wire Winding Machine Operator Name Role Phone Lois Contreras Primary Care Provider [phone] Encounter Details Date Type Department Care Team (Late st Contact Info) Description 05/02/2023 Documentation Only [facility], [address] [place] [address] Lois Contreras FNP [address] [place], [place] [phone] Social History Tobacco Use Types Packs/Day Years [...] on filedocumented in this encounter Care Teams Wire Winding Machine Operator Relationship Specialty Start Date End Date Lois Contreras FNP [address] [place], [place] [phone] PCP - General 05/02/23 documented as of this encounter
--- OUTSIDE RECORDS SUMMARY | 2024-12-17 12:17 | XMS_ITS | Clinical Summary ---
Author Organization [facility] Address [address] [facility] [address] [place] [address] Phone Care Team Providers Care Color Finisher Name Role Phone AngieLois barron CHACHO Primary Care Provider [phone] Allergies No known active allergies Medications amLODIPine [...] Insurance [place]ID [place] Care Teams Color Finisher Relationship Specialty Start Date End Date Lois Contreras FNP [address] [place] [address] PCP - General 05/02/23
--- OUTSIDE RECORDS SUMMARY | 2024-12-17 12:17 | XMS_ITS | Encounter Summary ---
Author Organization [employer] Address 75 [facility] 7t [place] [address] Care Team Providers Care Gi Physician Name Role Phone Alexandra Woods Primary Care Provider [phone] Reason for Visit * Reason Comments Med Refill Encounter Details Date Type Department Care Team ([facility] st Contact Info) Description 11/28/2024 Refill [facility] MEDICINE [address] [place] [address] Alexandra Woods ANP [address] [place] [address] Social History Tobacco Use Types Packs/Day Years [...] Description 02/01/2025 3:00 PM EDT Office Visit [facility] ADULT DENTAL [address] [place] [address] Kike Hainesaris [address] [place] [address] 02/15/2025 1:45 PM EDT Office Visit [facility] MEDICINE [address] [place] [address] Alexandra Woods ANP [address] [place] [address] documented as of this encounter Goals Goal [...] documented as of this encounter Care Teams Gi Physician Relationship Specialty Start Date End Date Alexandra Woods ANP [address] [place] [address], [place] [address] PCP - General Family Medicine 07/29/23 [employer] 11/16/23 Sina Matamoros Tool Grinder Operator ExternalBiomedical Electronics Technician 11/14/24 documented as of this encounter
--- OUTSIDE RECORDS SUMMARY | 2024-12-17 12:17 | XMS_ITS | Encounter Summary ---
Author Organization [employer] [facility] Address [address] [facility] 7t [place] [address] Care Team Providers Care Guest Associate Name Role Phone Lois Contreras Primary Care Provider [phone] Alexandra Woods Primary Care Provider [phone] Encounter Details Date Type Department Care Team (Latest Contact Info) Description 02/22/2022 Abstract [facility] CONVERSIONS Dental, Provider, DDS Social History [...] Description 02/01/2025 3:00 PM EDT Office Visit [facility] ADULT DENTAL [address] [place] [address] Yaritza Haines [address] [place] [address] 02/15/2025 1:45 PM EDT Office Visit [facility] MEDICINE [address] [place] [address] Alexandra Woods ANP [address] [place] [address] documented as of this encounter Visit Diagnoses Not on filedocumented in this encounter Care Teams Guest Associate Relationship Specialty Start Date End Date Lois Contreras FNP [address] [place] [address] PCP - General Family Medicine 05/31/22 07/28/23 Alexandra Woods ANP [address] [place] [address] [place] [address] PCP - General Family Medicine 07/29/23 [employer] 11/16/23 Sina Matamoros Svp MonetizationConflict Resolution Professional 11/14/24 documented as of this encounter
--- OUTSIDE RECORDS SUMMARY | 2024-12-17 12:17 | XMS_ITS | Encounter Summary ---
Author Organization [employer] Address [address] [facility] 7t [place] [address] Care Team Providers Care Floor Refinisher Name Role Phone Alexandra Woods Primary Care Provider [phone] Encounter Details Date Type Department Care Team ([facility] st Contact Info) Description 12/14/2024 Population Health Risk Score [facility] (C3) Department 75 [facility] 7 [place] [id number] Provider, Population Health Generic Social History Tobacco Use Types Packs/Day Years [...] Description 02/01/2025 3:00 PM EDT Office Visit [facility] ADULT DENTAL [address] [place] [phone] Yaritza Haines [address] [place] [address] 02/15/2025 1:45 PM EDT Office Visit [facility] MEDICINE [address] [place] [phone] Alexandra Woods ANP [address] [place] [address] documented as of this encounter Goals Goal [...] documented as of this encounter Care Teams Floor Refinisher Relationship Specialty Start Date End Date Alexandra Woods ANP [address] [place] [address] PCP - General Family Medicine 07/29/23 [employer] 11/16/23 Sina Matamoros Operations Intelligence SuperintendentExecutive Pilot 11/14/24 documented as of this encounter
--- OUTSIDE RECORDS SUMMARY | 2024-12-17 12:17 | XMS_ITS | Encounter Summary ---
Author Organization [employer] Address [address] [facility] [address] 7t [place] [address] Care Team Providers Care Child Therapist Name Role Phone Fabrizio Gutierrez Primary Care Provider Encounter Details Date Type [...] Description 02/01/2025 3:00 PM EDT Office Visit [facility] ADULT DENTAL [address] [place] [address] Yaritza Haines [address] [place] [address] 02/15/2025 1:45 PM EDT Office Visit [facility] MEDICINE [address] [place] [address] Fabrizio Gutierrez, ANP [address] [place] [address] documented as of this encounter Goals Goal [...] AM EST 11/27/2024 11:50 AM EST Narrative [facility] - 11/28/2024 1:02 PM EST ----- ------- Name: Kal Sellers ? Age/Sex: 54/M ? : 1970 Unit#: [id number] ?? Attend Dr: Adilia Johnson MD ?Re11/27/24 ?Status: DEP SDC ? Location: HO.SSS ?Disch: ? ----- ------- SPEC : [id number] ?RECD: 11/27/24-1149 ? STATUS: ??SOUT ? REQ NUM: [id number] ? DAVION: 11/27/24-0 ? SUBM DR: Adilia [...] sectioned to reveal taylor-pink fibrous cut surfaces. Computer Designer sections perpendicular to the nearest margins of resection are submitted in cassettes A1 and A2 to include all of the eroded and erythematous foci. CEDS Copies To: ?? Adilia Johnson MD ?? [facility] ?? [address] [place] [address] [address] ?? [place] [address] ?? [phone] ?? [email or web address] ?? FABRIZIO GUTIERREZ NP ?? [facility] ?? [address] ?? [place] [address] ?? [phone] ? CONTINUED ON NEXT PAGE ----- ------- Name: Kal Sellers ? Age/Sex: 54/M ? : 1970 Unit#: [id number] ?? Attend Dr: Adilia Johnson MD ?Re11/27/24 ?Status: DEP SDC ? Location: HO.SSS ?Disch: ? ----- ------- SPEC : [id number] ?RECD: 11/27/24-1149 ? STATUS: ??SOUT ? REQ NUM: [id number] ? DAVION: 11/27/24-1020 ? SUBM DR: Adilia Johnson MD ? ENTERED: ??11/27/24-1154 ?SP TYPE: Surgical ? OTHR DR: FABRIZIO GUTIERREZ NP ? ORDERED: ??Gross Micro L3 ? ----- ------- Signed (signature on file) Sharmin Saldana 11/28/242 ? ----- ------- ? END OF REPORT ? us Generic External Data Provider LAB CYTOLOGY JUDITH RED Final Result [facility] [address] [place] [address] [phone] * (ABNORMAL) Glucose, Whole Blood (11/27/2024 9:20 AM EST) Glucose, Whole Blood 180(H) 60 - 115 mg/dL [facility] Comment:METER #: [id number] 11/27/2024 9:20 AM EST 11/27/2024 9:23 AM EST us Generic External Data Provider LAB BLOOD ORDERAB LES Final Result [facility] [address] [place] [address] [phone] documented in this encounter Visit Diagnoses Not on filedocumented in this encounter Additional Health Concerns Assessment Noted Time PHQ-9 Depression Total Score: 8 02/13/20 24 1:53 PM EDT documented as of this encounter Care Teams Child Therapist Relationship Specialty Start Date End Date Fabrizio Gutierrez ANP [address] [place] [address] PCP - General Family Medicine 07/29/23 [employer] 11/16/23 Sina Matamoros Watch Case PolisherYoga Teacher 11/14/24 documented as of this encounter
--- OUTSIDE RECORDS SUMMARY | 2024-12-17 12:17 | XMS_ITS | Encounter Summary ---
Author Organization [employer] Address [address] [facility] [address] 7[address] [place] [address] Care Team Providers Care Regulatory Affairs Manager Name Role Phone Alexandra Woods Primary Care Provider [phone] Encounter Details Date Type Department Care Team (Late st Contact Info) Description 11/10/2023 Abstract [facility] ADULT DENTAL [address] [place] [address] Yaritza Haines [address] [place] [address] Social History Tobacco Use Types Packs/Day Years [...] Description 02/01/2025 3:00 PM EDT Office Visit [facility] ADULT DENTAL [address] [place], [place] [phone] Kike Hainesaris [address] [place] [address] 02/15/2025 1:45 PM EDT Office Visit [facility] MEDICINE [address] [place] [address] Alexandra Woods ANP [address] [place] [address] documented as of this encounter Goals Goal [...] documented as of this encounter Care Teams Regulatory Affairs Manager Relationship Specialty Start Date End Date Alexandra Woods ANP [address] [place] [address] PCP - General Family Medicine 07/29/23 [employer] 11/16/23 Sina Matamoros Care Center ManagerInternational Specialist 11/14/24 documented as of this encounter
--- OUTSIDE RECORDS SUMMARY | 2024-12-17 12:17 | XMS_ITS | Clinical Summary ---
Author Organization [facility] Address [address] [place] [address] Care Team Providers Care Intermission Coordinator Name Role Phone Allison Santacruz MD Primary Care Provider [phone] Social History Tobacco Use Types Packs/Day Years [...] age to complete this topic Care Teams Intermission Coordinator Relationship Specialty Start Date End Date Allison Santacruz MD [address] [place] [address] , [address] [facility] [place] Shields PCP - General Internal Medicine 09/01/18
--- OUTSIDE RECORDS SUMMARY | 2024-12-17 12:17 | XMS_ITS | Encounter Summary ---
Author Organization [employer] Address 75 [facility] 7t [place] [address] Care Team Providers Care Station Engineer Name Role Phone Alexandra Woods Primary Care Provider [phone] Reason for Visit * Reason Comments Med Refill Encounter Details Date Type Department Care Team ([facility] st Contact Info) Description 12/03/2024 Refill [facility] [address] [place] [address] Alexandra Woods ANP [address] [place] [address] Social History Tobacco Use Types Packs/Day Years [...] Description 02/01/2025 3:00 PM EDT Office Visit [facility] ADULT DENTAL [address] [place] [address] Kike Hainesaris [address] [place] [address] 02/15/2025 1:45 PM EDT Office Visit [facility] [address] [place] [address] Alexandra Woods ANP [address] [place] [address] documented as of this encounter Goals Goal [...] documented as of this encounter Care Teams Station Engineer Relationship Specialty Start Date End Date Alexandra Woods ANP [address] [place] [address], [place] [address] PCP - General Family Medicine 07/29/23 [employer] 11/16/23 Sina Matamoros White SourerExcavator Backhoe Operator 11/14/24 documented as of this encounter
--- OUTSIDE RECORDS SUMMARY | 2024-12-17 12:17 | XMS_ITS | Encounter Summary ---
Author Organization [employer] Address 75 [facility] 7t [place] [address] Care Team Providers Care Antitank Assault Gunner Name Role Phone Lois Contreras CHACHO Primary Care Provider [phone] Alexandra Woods Primary Care Provider [phone] Encounter Details Date Type Department Care Team (Late st Contact Info) Description 06/23/2023 Orders Only [facility] MEDICINE [address] [place], [place] [phone] Ling Us MD [address] [place], [place] [phone] Social History Tobacco Use Types Packs/Day Years [...] Visit [facility] ADULT DENTAL [address] [place], [place] [phone] Yaritza Haines [address] [place] [address] 02/15/2025 1:45 PM EDT Office Visit [facility] MEDICINE [address] [place] [address] Alexandra Woods ANP [address] [place] [address] documented as of this encounter Visit Diagnoses Not on filedocumented in this encounter Additional Health Concerns Assessment Noted Time PHQ-9 Depression Total Score: 14 023 11:16 AM EDT documented as of this encounter Care Teams [employer]ank Assault Gunner Relationship Specialty Start Date End Date Lois Contreras FNP [address] [place] [address] PCP - General Family Medicine 05/31/22 07/28/23 Alexandra Woods ANP [address] [place] [address] PCP - General Family Medicine 07/29/23 [employer] 11/16/23 Snia Matamoros Infrastructure Solutions ArchitectSystems Checkout Mechanic 11/14/24 documented as of this encounter
--- OUTSIDE RECORDS SUMMARY | 2024-12-17 12:17 | XMS_ITS | Encounter Summary ---
Author Organization [employer] Address [address] [facility] 7[address] [place] [address] Care Team Providers Care Plain Goods Hemmer Name Role Phone Lois Contreras CHACHO Primary Care Provider [phone] Alexandra Woods Primary Care Provider [phone] Encounter Details Date Type Department Care Team (Late st Contact Info) Description 12/07/2022 Orders Only [facility] PEDS [address] [place], [place] [phone] Ursula Martell LPN Social History Tobacco Use [...] Description 02/01/2025 3:00 PM EDT Office Visit [facility] ADULT DENTAL [address] [place] [address] Zaki, Yaritza [address] [place] [address] 02/15/2025 1:45 PM EDT Office Visit [facility] MEDICINE [address] [place], [place] [phone] Alexandra Woods ANP [address] [place] [address] documented as of this encounter Procedures Procedure [...] procedure / Unknown 05/20/2023 05/20/2023 Comment:UACC Narrative [facility] - 05/21/2023 1:40 PM EDT Urine Culture No growth. Specimen Source: Urine clean catch Mehul Mack MD LAB MICROBIOLOGY - GENERAL ORDER [place] Final Result Performing Organization Address City/[facility]/ZIP Co de Phone Number [facility] [address] [place] [address] [phone] * Hemoglobin A1c (04/15/2023 1:08 PM EDT) Hemoglobin A1c 5.9 % [facility] Comment:Hemoglobin A1C Refer ence Range Adults: 4.8 - 6.0 % Non diabetic: < 6.0 % Goal: < 7.0 %Additional Action Suggested: > 8.0 %Note: Hemoglobin A1c results are invalid for patients with abnormal amounts of HbF. Blood transfusions may impact the HbA1c concentration in the patient sample. Estimated Average Glucose 123 mg/dL [facility] Comment:eAG = Estimated ave rage glucose which is %A1C expressed asaverage glucose, using the formula of the L8D-RbqbhbiUsqyqzf Glucose study (ADAG), Diabetes Care, Vol.31,#8,May. 2007 04/15/2023 1:08 PM EDT 04/15/2023 4:01 PM EDT [facility] External Provider LAB BLO OD ORDERABLES Final Result Performing Organization Address [facility]/ZIP Co de Phone Number [facility] [address] [place] [address] [phone] * (ABNORMAL) Basic Metabolic Panel (03/30/2023 10:14 PM EDT) Sodium 139 135 - 145 mmol/L [facility] Potassium 4.0 3.3 - 5.1 mmol/L [facility] Chloride 110(H) 96 - 108 mmol/L [facility] Carbon Dioxide 23 22 - 29 mmol/L [facility] Anion Gap 10(L) 12 - 20 [facility] Urea Nitrogen (BUN) 28(H) 9 - 16 mg/dL [facility] Creatinine, Serum 1.72(H) 0.5 - 1.4 mg/dL [facility] Creatinine Clr Calc Pharmacy 47.5 [facility] Comment:eGFR (calculated fro m the MDRD study equation) and eCrCl(calculated from the Cockcroft-Gault equation) are based ondifferent parameters and may not yield comparable results.If eCrCl result is absurd, please check patient'sheight/weight. Estimated Glomerular Filt Rate 42 [facility] Comment:NOTE: For -Am erican individuals, multiply the result by 1.210.Chronic Kidney Disease: Estimated GFR < 60 mL/min/1.76s2Dtcvvy Kidney Disease: Estimated GFR < 15 mL/min/1.73m2 Glucose 92 60 - 115 mg/dL [facility] Calcium 8.8 8.4 - 10.2 mg/dL [facility] 03/30/2023 10:1 4 PM EDT 03/30/2023 10:17 PM EDT [facility] External Provider LAB BLO OD ORDERABLES Final Result Performing Organization Address City/[facility]/ZIP Co de Phone Number [facility] [address] [place] [phone] * Creatine Kinase, Total (03/30/2023 6:15 PM EDT) Creatine Kinase Total 141 38 - 174 U/L [facility] 03/30/2023 6:15 PM EDT 03/30/2023 6:28 PM EDT [facility] External Provider LAB BLO OD ORDERABLES Final Result [facility] [address] [place] [address] [phone] * High Sensitivity Troponin I (03/30/2023 6:15 PM EDT) TROPONIN I HIGH SENSITIVITY 6.7 <3.5 - 35.0 ng/L [facility] Comment:The Cesar high sens itivity Troponin-I results should beused in conjunction with other diagnostic information suchas ECG, clinical observations and information, and patientsymptoms to aid in the diagnosis of IL. 03/30/2023 6:15 PM EDT 03/30/2023 6:28 PM EDT [facility] External Provider LAB BLO OD ORDERABLES Final Result Performing Organization Address [facility] Co [facility] Number [facility] [address] [place] [address] [phone] * B Type Natriuretic Peptide (BNP) (03/30/2023 6:15 PM EDT) [facility] B Type Natriuretic Peptide 43 <100 pg/mL [facility] Comment:For those patients w ho are being treated with Natrecor(nesiritide, recombinant BNP), BNP testing should beperformed at least two hours post treatment in order toensure that only endogenous levels of BNP are detected. 03/30/2023 6:15 PM EDT 03/30/2023 6:28 PM EDT [facility] External Provider LAB BLO OD ORDERABLES Final Result Performing Organization Address [facility] Co de Phone Number [facility] [address] [place] [address] [phone] * Magnesium (03/30/2023 6:15 PM EDT) [facility] Magnesium 1.8 1.6 - 2.6 mg/dL [facility] 03/30/2023 6:15 PM EDT 03/30/2023 6:28 PM EDT [facility] External Provider LAB BLO OD ORDERABLES Final Result Performing Organization Address City/[facility]/ZIP Co de Phone Number [facility] [address] [place] [address] [phone] * (ABNORMAL) Basic Metabolic Panel (03/30/2023 6:15 PM EDT) Sodium 139 135 - 145 mmol/L [facility] Potassium 4.5 3.3 - 5.1 mmol/L [facility] Chloride 108 96 - 108 mmol/L [facility] Carbon Dioxide 24 22 - 29 mmol/L [facility] Anion Gap 12 12 - 20 [facility] Urea Nitrogen (BUN) 31(H) 9 - 16 mg/dL [facility] Creatinine, Serum 2.04(H) 0.5 - 1.4 mg/dL [facility] Creatinine Clr Calc Pharmacy 40.0 [facility] Comment:eGFR (calculated fro m the MDRD study equation) and eCrCl(calculated from the Cockcroft-Gault equation) are based ondifferent parameters and may not yield comparable results.If eCrCl result is absurd, please check patient'sheight/weight. Estimated Glomerular Filt Rate 34 [facility] Comment:NOTE: For -Am erican individuals, multiply the result by 1.210.Chronic Kidney Disease: Estimated GFR < 60 mL/min/1.65n3Jnibfc Kidney Disease: Estimated GFR < 15 mL/min/1.73m2 Glucose 97 60 - 115 mg/dL [facility] Calcium 9.6 8.4 - 10.2 mg/dL [facility] 03/30/2023 6:15 PM EDT 03/30/2023 6:28 PM EDT [facility] External Provider LAB BLO OD ORDERABLES Final Result Performing Organization Address City/[facility]/ZIP Co de Phone Number [facility] [address] [place] [address] [phone] * Hepatic Function Panel (03/30/2023 6:15 PM EDT) Bilirubin, Total 0.9 0.0 - 1.0 mg/dL [facility] Bilirubin, Direct 0.3 0.0 - 0.5 mg/dL [facility] Aspartate Amino Transferase 18 5 - 37 U/L [facility] Alanine Aminotransferase 19 0 - 40 U/L [facility] Total Protein 7.1 6.5 - 8.0 g/dL [facility] Albumin Level 4.3 3.5 - 5.0 g/dL [facility] Alkaline Phosphatase 59 39 - 117 U/L [facility] 03/30/2023 6:15 PM EDT 03/30/2023 6:28 PM EDT [facility] External Provider LAB BLO OD ORDERABLES Final Result Performing Organization Address City/State/[facility] Co de Phone Number [facility] [address] [place] [address] [phone] * Prothrombin Time-INR (03/30/2023 6:15 PM EDT) Prothrombin Time 11.8 10.0 - 13.1 SEC [facility] INTERNATIONAL NORM RATIO 1.0 0.9 - 1.1 [facility] Comment:INTERNATIONAL NORMAL IZED RATIO (INR) [...] 6:15 PM EDT 03/30/2023 6:28 PM EDT [facility] External Provider LAB BLO OD ORDERABLES Final Result [facility] [address], [place] [phone] * (ABNORMAL) CBC auto differential (03/30/2023 6:15 PM EDT) White Blood Count 7.4 4.8 - 10.8 X10*3/uL [facility] Red Blood Count 3.95(L) 4.60 - 5.80 X10*6/uL [facility] Hemoglobin 11.9(L) 14.0 - 18.0 g/dl [facility] Hematocrit 34.8(L) 42.0 - 52.0 % [facility] Mean Corpuscular Volume 88.1 80.0 - 98.0 fL [facility] Mean Corpuscular Hemoglobin 30.1 27.0 - 33.0 pg [facility] Mean Corpuscular HGB Conc 34.2 31.0 - 36.0 g/dl [facility] Red Cell Distribution Width 12.4 11.0 - 16.0 % [facility] Platelet Count 214 160 - 400 X10*3/uL [facility] Mean Platelet Volume 9.5 9.4 - 12.4 fL [facility] Neutrophils Percent Auto 75.3(H) 45 - 73 % [facility] Imm Gran Pct Auto 0.1 0.0 - 0.4 % [facility] Lymphocytes Percent Auto 18.5(L) 20 - 40 % [facility] Monocytes Percent Auto 5.1 2 - 11 % [facility] Eosinophils Percent Auto 0.9 0 - 4 % [facility] Basophils Percent Auto 0.1 0 - 2 % [facility] NRBC Pct Auto 0.0 0.0 - 0.2 /100WBC [facility] Neutrophils Absolute Auto 5.6 2.0 - 8.3 x10*3/uL [facility] Imm Gran Abs Auto 0.01 0.00 - 0.03 X10*3/uL [facility] Lymphocytes Absolute Auto 1.4 1.2 - 4.9 X10*3/uL [facility] Monocytes Absolute Auto 0.4 0.1 - 1.2 X10*3/uL [facility] Eosinophils Absolute Auto 0.1 0.0 - 0.4 X10*3/uL [facility] Basophils Absolute Auto 0.0 0.0 - 0.2 X10*3/uL [facility] NRBC Abs Auto 0.000 0.0 - 0.012 X10*3/uL [facility] 03/30/2023 6:15 PM EDT 03/30/2023 6:28 PM EDT us [facility] External Provider LAB BLO OD ORDERABLES Final Result [facility] [address] [place] [address] [phone] * COVID-19 ID NOW (CESAR) (12/12/2022 5:16 PM EDT) IDNOW SERIAL# [id number] [facility] COVID-19 TEST Negative Negative [facility] COVID-19 NOTE See Note [facility] Comment: Results are for the identification of SARS-CoV2 RNA. TheSARS-CoV2 RNA is generally detectable in respiratory samplesduring the acute phase of infection. Positive results areindicative of the presence of SARS-CoV-2 RNA; clinicalcorrelation with patient history and other diagnosticinformation is necessary to determine patient infectionstatus. Positive results do not rule out bacterial infectionor co- infection with other viruses.Testing facilities within the [facility] and itsterritories are required to report all [...] use by authorized laboratories.Testing performed on the [employer] ID NOW utilizing NA[employer]. 12/12/2022 5:16 PM EDT 12/12/2022 5:22 PM EDT [facility] Exter nal Provider LAB MOLECULAR DIAGNOSTICS ORDERABLES Final Result Performing Organization Address City/[facility]/ZIP Co de Phone Number [facility] [address] [place] [phone] * (ABNORMAL) GLUCOSE, WHOLE BLOOD (12/12/2022 2:02 PM EDT) Glucose, Whole Blood 155(H) 60 - 115 mg/dL [facility] Comment:METER #: [id number] 1 12/12/2022 2:02 PM EDT 12/12/2022 2:05 PM EDT Result [facility] External Provider LAB BLO OD ORDERABLES Final Result Performing Organization Address [facility] Co de Phone Number [facility] [address] [place] [phone] * (ABNORMAL) GLUCOSE, WHOLE BLOOD (12/12/2022 2:00 PM EDT) Glucose, Whole Blood 54(LL) 60 - 115 mg/dL [facility] Comment:METER #: [id number] 1 12/12/2022 2:00 PM EDT 12/12/2022 2:05 PM EDT [facility] External Provider LAB BLO OD ORDERABLES Final Result Performing Organization Address [facility] Co de Phone Number [facility] [address] [place] [phone] * Magnesium (12/12/2022 1:56 PM EDT) Magnesium 1.8 1.6 - 2.6 mg/dL [facility] 12/12/2022 1:56 PM EDT 12/12/2022 2:02 PM EDT [facility] External Provider LAB BLO OD ORDERABLES Final Result [facility] [address] [place] [address] [phone] * (ABNORMAL) Comprehensive Metabolic Panel (12/12/2022 1:56 PM EDT) Sodium 143 135 - 145 mmol/L [facility] Potassium 4.0 3.3 - 5.1 mmol/L [facility] Chloride 109(H) 96 - 108 mmol/L [facility] Carbon Dioxide 21(L) 22 - 29 mmol/L [facility] Anion Gap 17 12 - 20 [facility] Urea Nitrogen (BUN) 19(H) 9 - 16 mg/dL [facility] Creatinine, Serum 1.65(H) 0.5 - 1.4 mg/dL [facility] Creatinine Clr Calc Pharmacy 54.0 [facility] Comment:eGFR (calculated fro m the MDRD study equation) and eCrCl(calculated from the Cockcroft-Gault equation) are based ondifferent parameters and may not yield comparable results.If eCrCl result is absurd, please check patient'sheight/weight. Estimated Glomerular Filt Rate 44 [facility] Comment:NOTE: For -Am erican individuals, multiply the result by 1.210.Chronic Kidney Disease: Estimated GFR < 60 mL/min/1.49c5Oezmno Kidney Disease: Estimated GFR < 15 mL/min/1.73m2 Glucose 154(H) 60 - 115 mg/dL [facility] Calcium 9.2 8.4 - 10.2 mg/dL [facility] Bilirubin, Total 0.9 0.0 - 1.0 mg/dL [facility] Aspartate Amino Transferase 22 5 - 37 U/L [facility] Alanine Aminotransferase 29 0 - 40 U/L [facility] Total Protein 6.4(L) 6.5 - 8.0 g/dL [facility] Albumin Level 4.3 3.5 - 5.0 g/dL [facility] Alkaline Phosphatase 60 39 - 117 U/L [facility] 12/12/2022 1:56 PM EDT 12/12/2022 2:02 PM EDT us [facility] External Provider LAB BLO OD ORDERABLES Final Result [facility] [address] [place] [phone] * (ABNORMAL) Urinalysis, Complete, with Reflex to Culture (12/12/2022 1:56 PM EDT) Color Urine Yellow [facility] Appearance Urine Clear [facility] PH 5.0 5.0 - 9.0 [facility] Glucose Urine UA >=1000(A) Negative mg/dL [facility] Urine Blood Negative Negative [facility] Specific Ambia - Urine >=1.030(H) 1.005 - 1.025 [facility] Urine Protein Negative Neg-Trace mg/dL [facility] Urine Ketones Negative Negative mg/dL [facility] Nitrite Urine Negative Negative [facility] Leukocyte Esterase Urine Small (1+)(A) Negative [facility] RBC Urine 0-2 0 - 2 /HPF [facility] Urine WBC 21-50(A) 0 - 5 /HPF [facility] Urine Squamous Epithelial Cell 3-5 0 - 2 /HPF [facility] Urine Bacteria 1+ None Seen [facility] Hyaline Casts, Urine 3-5 0 - 2 /LPF [facility] Urine Yeast Present [facility] 12/12/2022 1:56 PM EDT 12/12/2022 2:02 PM EDT Narrative [facility] - 12/12/2022 2:44 PM EDT Urine, Clean Catch us [facility] External Provider LAB URI NE ORDERABLES Final Result [facility] [address] [place] [address] [phone] * (ABNORMAL) CBC auto differential (12/12/2022 1:56 PM EDT) White Blood Count 9.6 4.8 - 10.8 X10*3/uL [facility] Red Blood Count 4.22(L) 4.60 - 5.80 X10*6/uL [facility] Hemoglobin 12.6(L) 14.0 - 18.0 g/dl [facility] Hematocrit 36.0(L) 42.0 - 52.0 % [facility] Mean Corpuscular Volume 85.3 80.0 - 98.0 fL [facility] Mean Corpuscular Hemoglobin 29.9 27.0 - 33.0 pg [facility] Mean Corpuscular HGB Conc 35.0 31.0 - 36.0 g/dl [facility] Red Cell Distribution Width 12.8 11.0 - 16.0 % [facility] Platelet Count 257 160 - 400 X10*3/uL [facility] Mean Platelet Volume 9.1(L) 9.4 - 12.4 fL [facility] Neutrophils Percent Auto 85.7(H) 45 - 73 % [facility] Imm Gran Pct Auto 0.3 0.0 - 0.4 % [facility] Lymphocytes Percent Auto 8.9(L) 20 - 40 % [facility] Monocytes Percent Auto 4.2 2 - 11 % [facility] Eosinophils Percent Auto 0.8 0 - 4 % [facility] Basophils Percent Auto 0.1 0 - 2 % [facility] NRBC Pct Auto 0.0 0.0 - 0.2 /100WBC [facility] Neutrophils Absolute Auto 8.2 2.0 - 8.3 x10*3/uL [facility] Imm Gran Abs Auto 0.03 0.00 - 0.03 X10*3/uL [facility] Lymphocytes Absolute Auto 0.9(L) 1.2 - 4.9 X10*3/uL [facility] Monocytes Absolute Auto 0.4 0.1 - 1.2 X10*3/uL [facility] Eosinophils Absolute Auto 0.1 0.0 - 0.4 X10*3/uL [facility] Basophils Absolute Auto 0.0 0.0 - 0.2 X10*3/uL [facility] NRBC Abs Auto 0.000 0.0 - 0.012 X10*3/uL [facility] 12/12/2022 1:56 PM EDT 12/12/2022 2:02 PM EDT us [facility] External Provider LAB BLO OD ORDERABLES Final Result Performing Organization Address City/State/[facility] Co de Phone Number [facility] [address] [place] [address] [phone] documented in this encounter Visit Diagnoses Not on filedocumented in this encounter Care Teams Plain Goods Hemmer Relationship Specialty Start Date End Date Lois Contreras FNP [address] [place] [address] PCP - General Family Medicine 05/31/22 07/28/23 Alexandra Woods ANP [address] [place] [address] PCP - General Family Medicine 07/29/23 [employer] 11/16/23 Sina Matamoros Independent ProducerPlant Maintenance Worker 11/14/24 documented as of this encounter
--- OUTSIDE RECORDS SUMMARY | 2024-12-17 12:17 | XMS_ITS | Encounter Summary ---
Author Organization [employer] Address [address] [facility] [address] [place] [address] Care Team Providers Care Labor Standards Director Name Role Phone Lois Contreras Primary Care Provider [phone] Alexandra Woods Primary Care Provider [phone] Reason for Visit * Reason Comments Med Refill Encounter Details Date Type Department Care Team (Late st Contact Info) Description 01/05/2023 Refill [facility] [address] [place] [address] Lois Contreras FNP [address] [place] [address] Social History Tobacco Use Types Packs/Day Years [...] 02/01/2025 3:00 PM EDT Office Visit [facility] [address] [place] [address] Yaritza Haines [address] [place] [address] 02/15/2025 1:45 PM EDT Office Visit [facility] [address] [place] [address] Alexandra Woods ANP [address] [place] [address] documented as of this encounter Visit Diagnoses Not on filedocumented in this encounter Care Teams Labor Standards Director Relationship Specialty Start Date End Date Lois Contreras FNP [address] [place] [address] PCP - General Family Medicine 05/31/22 07/28/23 Alexandra Woods ANP [address] [place] [address] PCP - General Family Medicine 07/29/23 [employer] 11/16/23 Sina Matamoros Supervisor Boiler RepairAgricultural Economics Professor 11/14/24 documented as of this encounter
--- OUTSIDE RECORDS SUMMARY | 2024-12-17 12:17 | XMS_ITS | Encounter Summary ---
Author Organization [employer] Address [address] [place] [address] Care Team Providers Care Talent Associate Name Role Phone Alexandra Woods Primary Care Provider [phone] Reason for Visit * Reason Onset Date Comments Call Back Request 12/15/2023 Encounter Details Date Type Department Care Team ([facility] st Contact Info) Description 12/15/2023 Telephone [facility] [address] [place] [address] Alexandra Woods ANP [address] [place] [address] Call Back Request Social History Tobacco Use [...] Description 02/01/2025 3:00 PM EDT Office Visit [facility] [address] [place] [address] Yaritza Haines [address] [place] [address] 02/15/2025 1:45 PM EDT Office Visit [facility] [address] [place] [address] Alexandra Woods ANP [address] [place] [address] documented as of this encounter Goals Goal [...] documented as of this encounter Care Teams Talent Associate Relationship Specialty Start Date End Date Alexandra Woods ANP [address] [place] [address] PCP - General Family Medicine 07/29/23 [email or web address] 11/16/23 Sina Matamoros Web Marketing InternDirector Instrumentation 11/14/24 documented as of this encounter
--- OUTSIDE RECORDS SUMMARY | 2024-12-17 12:17 | XMS_ITS | Encounter Summary ---
Author Organization [employer] Address [address] [facility] [address] [place] [address] Care Team Providers Care Flight Crew Time Clerk Name Role Phone Lois Contreras Primary Care Provider [phone] Alexandra Woods Primary Care Provider [phone] Reason for Visit * Reason Onset Date Comments Appointment Request 12/16/2022 Encounter Details Date Type Department Care Team (Late Contact Info) Description 12/16/2022 Telephone [facility] [address] [place] [address] Lois Contreras FNP [address] [place], [place] [phone] Appointment Request Social History Tobacco Use Types [...] - 12/16/2022 12:46 PM EDT Tc from [facility] requesting for to have a physical appt. Please contact pt to schedule at [phone] documented in this encounter Plan of Treatment Upcoming Encounters Date Type Department Care Team (Late Contact Info) Description 02/01/2025 3:00 PM EDT Office Visit [facility] [address] [place], [place] [phone] Yaritza Haines [address] [place], [place] [phone] 02/15/2025 1:45 PM EDT Office Visit [facility] [address] [place], [place] [phone] Alexandra Woods ANP [address] [place], [place] [phone] documented as of this encounter Visit Diagnoses Not on filedocumented in this encounter Care Teams Flight Crew Time Clerk Relationship Specialty Start Date End Date Lois Contreras FNP [address] [place], [place] [phone] PCP - General Family Medicine 05/31/22 07/28/23 Alexandra Woods ANP [address] [place] [phone] PCP - General Family Medicine 07/29/23 [employer] 11/16/23 Sina Matamoros Commercial Relief DriverCorn Husk Baler 11/14/24 documented as of this encounter
== END 2024-12-17 11:13 | disposition home or self-care (01) ==
LOC: HO.HGI 10:45
PROVIDERS: PCP Nurse Practitioner Primary Care; Visit Provider Nurse Practitioner Family
DX: Z01.818 Encounter for other preprocedural examination (principal); Z12.11 Encounter for screening for malignant neoplasm of colon; K59.01 Slow transit constipation
CPT/HCPCS: 99202

== ENCOUNTER → 2024-12-17 10:44 | Outpatient (BNVA) | payer MEDICAID, SELFPAY | PROVIDERS: PCP Nurse Practitioner Primary Care; Visit Provider Nurse Practitioner Family | DX: Z12.11 Encounter for screening for malignant neoplasm of colon (principal); K59.01 Slow transit constipation | CPT/HCPCS: 99212 ==

== ENCOUNTER 2024-12-24 13:23 | Outpatient (AMB) | payer MEDICAID, SELFPAY ==
--- NOTE | 2024-12-24 13:35 | A.OFFVIS_ITS ---
Intake Visit Reasons: Circumcision- follow up Intake Note: Patient is present for circumcision follow up Urology Medication:Tamsulosin Antibiotic Allergy:NONE Blood Thinner:Aspirin, Apixaban Adoption Specialist Required: No Allergies No Known Allergies Allergy (Verified 12/24/24 13:44) Medication List - Last Reconciled 12/24/24 by Adilia Johnson MD alcohol swabs (Alcohol Prep Pads) pad topical TID amlodipine 5 mg PO DAILY apixaban (Eliquis) 5 mg PO BID aspirin 1 tab PO QAM atorvastatin 80 mg PO BEDTIME bisacodyl (Dulcolax (bisacodyl)) 10 mg (2 x 5 mg) PO BEDTIME blood sugar diagnostic (FreeStyle Test strips) Use 1 test strip twice a day blood-glucose meter (FreeStyle Kingston Lite kit) As directed empagliflozin (Jardiance) 10 mg PO DAILY ezetimibe (Zetia) 10 mg PO DAILY hydroxyzine HCl 10 - 20 mg PO BID PRN insulin glargine (Lantus Solostar U-100 Insulin) 14 units subcut QAM isosorbide mononitrate ER 30 mg PO DAILY lancets (FreeStyle Lancets) Use 1 lancet twice a day lisinopril 10 mg PO DAILY tamsulosin (Flomax) 0.4 mg PO BEDTIME HPI Comments Details: 12/24/24-- H/ History of Present Illness The patient is a 54-year-old male presenting with a follow-up for benign prostatic hyperplasia (BPH) and exploring options for erectile dysfunction (ED). The patient underwent circumcision on November 27, 2024, to address BPH-related symptoms. Historically, the patient was prescribed Tamsulosin for urinary flow management but has discontinued its use. A PSA test conducted on August 06, 2024, indicated normal levels. In regard to ED, the patient has not used a vacuum pump but is interested in natural remedies given past heart health concerns, rendering typical ED medications inappropriate. The patient?s management strategy for ED is focused on non-pharmacological approaches at this stage. Urinary Symptoms Review - Discontinued use of Tamsulosin (Flomax) for urinary flow - Reported adequate urinary flow post-circumcision - Only mild residual issues noted with healed circumcision site - Presence of two small sutures post-op noted by the patient Results - Labs: - PSA test on 08/06/2024:0.79 ng/mL (Normal) Discussion Notes I engaged in a detailed discussion concerning the alternatives for managing erectile dysfunction, considering the patient's medical history, including a minor heart attack. We reviewed potential natural remedies and non-pharmacologic interventions, such as dietary modifications and physical treatments like vacuum pumps. I clarified the risks and benefits associated with various options in relation to his specific health status and medications that could be contraindicated due to existing conditions. The patient was advised about potential follow-ups, and the relationship between diabetes and erectile dysfunction was outlined. I confirmed the normalcy of his PSA results, which justifies extending the follow-up interval. Plan For BPH management, adherence to medication and potential reinstatement of Tamsulosin will be considered if symptoms recur. Regarding erectile dysfunction, the focus will be on exploring natural remedies given contraindications for typical ED treatments, including dietary approaches. Non-pharmacological options, like the vacuum pump technique, were discussed. The patient will be monitored for any impact of diabetes on erectile health. Continued healing of circumcision is ongoing with site care advice. Patient Instructions - Monitor urinary symptoms and report any changes or worsening - Discuss potential restart of Tamsulosin with me if needed - Explore natural remedies for ED; focus on dietary adjustments - Follow post-op care instructions for circumcision; keep the area clean and dry - Schedule follow-up in a year or sooner if new symptoms arise - Consider further discussions around ED management options if current remedies are ineffective Patient was informed and verbally consented to the use of an ambient scribe for clinic note documentation during this visit. 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 AUA symptom score-29. He also complains of recurrent balanitis. Comorbidity-Diabetes. Discussed avoid dietary bladder irritants, will trial flomax. Discussed Circumcision. [facility] Medical History Male circumcision (~2024) Ambulates with cane Hx of degenerative disc disease Back pain Cardiomyopathy Implantable loop recorder present Stable angina NSVT (nonsustained ventricular tachycardia) Unstable angina Carpal tunnel syndrome Nephrolithiasis Phlebitis Arthritis Type 2 diabetes mellitus with unspecified 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 macular edema Essential hypertension Hyperlipidemia LDL goal <70 Anemia HTN (hypertension) Stroke (~2019) Hyperlipemia Diabetes Surgical History Cataract S/P coronary angioplasty H/O cardiac catheterization H/O vitrectomy History of carpal tunnel surgery of right wrist Family History Father Asthma Mother Diabetes mellitus Social History Household Members: None Housing: Apartment Are you a primary managed care director to a significant other at home: No Do you presently have visiting nurse or other home services: Yes (daily nurse BP and meds) Alcohol intake: never Comment: S3 Patient Tobacco Use Status: Former Tobacco user Tobacco use type: Cigarette Years Smoked: 6 +/- Advance Directives Date on File: 12/15/22 service: No Review of Systems Const All systems reviewed & are unremarkable except as noted in HPI and below Reports no additional complaints Eyes Reports no additional complaints ENT Reports no additional complaints Card Reports no additional complaints Resp Reports no additional complaints GI Reports no additional complaints Reports as per HPI Musc Reports no additional complaints Skin/Breast Reports system reviewed and no additional complaints, except as documented Neuro Reports no additional complaints Psych Reports no additional complaints Endo Reports no additional complaints Arya/Lymph Reports no additional complaints Aller/Immun Reports no additional complaints Results AMB Urinalysis, Automated UA Leukoctes 0 Juliano/uL Last Edit by Elizabeth Maza on 12/24/24 15:51 UA Nitrite Negative Last Edit by Elizabeth Maza on 12/24/24 15:51 UA Urobilinogen 3.5 mg/dL Last Edit by Elizabeth Maza on 12/24/24 15:51 UA Protein 1 mg/dL Last Edit by Elizabeth Maza on 12/24/24 15:51 UA pH 5.5 Last Edit by Elizabeth Maza on 12/24/24 15:51 UA Blood 0 Gerardo/uL Last Edit by Elizabeth Maza on 12/24/24 15:51 UA Specific Balko 1.015 Last Edit by Elizabeth Maza on 12/24/24 15:51 UA Ketone Negative Last Edit by Elizabeth Maza on 12/24/24 15:51 UA Bilirubin 0 mg/dL Last Edit by Elizabeth Maza on 12/24/24 15:51 UA Glucose 60 mg/dL Last Edit by Elizabeth Maza on 12/24/24 15:51 Assessment & Plan Assessment & Plan Orders: Orders AMB Urinalysis Automated Today Z13.9 - Encounter for screening, unspecified Coding
== END 2024-12-24 14:33 | disposition home or self-care (01) ==
LOC: HO.HUSH 13:23
PROVIDERS: PCP Nurse Practitioner Primary Care; Visit Provider Urology
DX: Z13.9 Encounter for screening, unspecified (principal)

== ENCOUNTER → 2024-12-24 13:23 | Outpatient (BNVA) | payer MEDICAID, SELFPAY | PROVIDERS: PCP Nurse Practitioner Primary Care; Visit Provider Urology | DX: N40.0 Benign prostatic hyperplasia without lower urinary tract symptoms (principal); E11.65 Type 2 diabetes mellitus with hyperglycemia; N48.1 Balanitis; N52.9 Male erectile dysfunction, unspecified; N47.1 Phimosis; Z98.890 Other specified postprocedural states; Z79.899 Other long term (current) drug therapy | CPT/HCPCS: 81003; 99212 ==

== ENCOUNTER → 2024-12-26 23:59 | Outpatient (BNV) | payer MEDICAID, SELFPAY ==
--- NOTE | 2025-01-08 12:38 | MHC.OFFVIS ---
Intake Visit Reasons: Remote ILR check- [employer] Allergies No Known Allergies Allergy (Verified 12/24/24 13:44) [facility] Medical History Male circumcision (~2024) Ambulates with cane Hx of degenerative disc disease Back pain Cardiomyopathy Implantable loop recorder present Stable angina NSVT (nonsustained ventricular tachycardia) Unstable angina Carpal tunnel syndrome Nephrolithiasis Phlebitis Arthritis Type 2 diabetes mellitus with unspecified 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 macular edema Essential hypertension Hyperlipidemia LDL goal <70 Anemia HTN (hypertension) Stroke (~2019) Hyperlipemia Diabetes Surgical History Cataract S/P coronary angioplasty H/O cardiac catheterization H/O vitrectomy History of carpal tunnel surgery of right wrist Family History Father Asthma Mother Diabetes mellitus Social History Household Members: None Housing: Apartment Are you a primary urgent care physician assistant to a significant other at home: No Do you presently have visiting nurse or other home services: Yes (daily nurse BP and meds) Alcohol intake: never Comment: S3 Patient Tobacco Use Status: Former Tobacco user Tobacco use type: Cigarette Years Smoked: 6 +/- Advance Directives Date on File: 12/15/22 service: No Office Procedures Cardiac Device Check Cardiac Device Check Details: Medtronic implantable loop recorder. No new alerts. Good battery life. [id number] Cardiac Interrogation, subcut cardiac rhythm monitor Procedure code (CPT) selection complete Assessment & Plan Assessment & Plan (1) NSVT (nonsustained ventricular tachycardia): Code(s): I47.2 - Ventricular tachycardia Category: Medical Plan Coding Level of Care Code Procedure Only Diagnoses NSVT (nonsustained ventricular tachycardia) I47.2 CPT Codes Cardiac Device Check - Cardiac Device 16: [id number] Cardiac Interrogation, subcut cardiac rhythm monitor ([id number])
== END ==
PROVIDERS: PCP Nurse Practitioner Primary Care; Visit Provider Internal Medicine Cardiovascular Disease
DX: I47.20 Ventricular tachycardia, unspecified (principal); Z95.818 Presence of other cardiac implants and grafts
CPT/HCPCS: 93298

== ENCOUNTER 2025-01-02 12:23 | Outpatient (RCR) | payer MEDICAID, SELFPAY | END 2025-01-18 10:50 | disposition home or self-care (01) | LOC: HO.PT 12:23 | PROVIDERS: PCP Nurse Practitioner Primary Care; Visit Provider Nurse Practitioner Primary Care | DX: I69.354 Hemiplegia and hemiparesis following cerebral infarction affecting left non-dominant side (principal) | CPT/HCPCS: 97110; 97162; 97530 ==

== ENCOUNTER → 2025-01-26 23:59 | Outpatient (BNV) | payer MEDICAID, SELFPAY ==
--- NOTE | 2025-02-17 21:31 | MHC.OFFVIS ---
Intake Visit Reasons: Remote ILR- [employer] Allergies No Known Allergies Allergy (Verified 02/15/25 13:26) [facility] Medical History Male circumcision (~2024) Ambulates with cane Hx of degenerative disc disease Back pain Cardiomyopathy Implantable loop recorder present Stable angina NSVT (nonsustained ventricular tachycardia) Unstable angina Carpal tunnel syndrome Nephrolithiasis Phlebitis Arthritis Type 2 diabetes mellitus with unspecified 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 macular edema Essential hypertension Hyperlipidemia LDL goal <70 Anemia HTN (hypertension) Stroke (~2019) Hyperlipemia Diabetes Surgical History Cataract S/P coronary angioplasty H/O cardiac catheterization H/O vitrectomy History of carpal tunnel surgery of right wrist Family History Father Asthma Mother Diabetes mellitus Social History Household Members: None Housing: Apartment Are you a primary student career development specialist to a significant other at home: No Do you presently have visiting nurse or other home services: Yes (daily nurse BP and meds) Alcohol intake: never Comment: S3 Patient Tobacco Use Status: Former Tobacco user Tobacco use type: Cigarette Years Smoked: 6 +/- Advance Directives: Yes Advance Directives on File: Yes Advance Directives Date on File: 12/15/22 Do you have a plan to hurt others: No Plan service: No Office Procedures Cardiac Device Check Cardiac Device Check Details: ILR No new alerts. [id number] Cardiac Interrogation, subcut cardiac rhythm monitor Procedure code (CPT) selection complete Assessment & Plan Assessment & Plan (1) NSVT (nonsustained ventricular tachycardia): Code(s): I47.2 - Ventricular tachycardia Category: Medical Plan Coding Level of Care Code Procedure Only Diagnoses NSVT (nonsustained ventricular tachycardia) I47.2 CPT Codes Cardiac Device Check - Cardiac Device 16: [id number] Cardiac Interrogation, subcut cardiac rhythm monitor ([id number])
== END ==
PROVIDERS: PCP Nurse Practitioner Primary Care; Visit Provider Internal Medicine Cardiovascular Disease
DX: I47.20 Ventricular tachycardia, unspecified (principal); Z95.818 Presence of other cardiac implants and grafts
CPT/HCPCS: 93298

== ENCOUNTER 2025-02-12 13:28 | Outpatient (AMB) | payer MEDICAID, SELFPAY ==
[2025-02-12 13:35] VITALS: BP 90/58; PULSE 64; O2SAT 98
--- NOTE | 2025-02-12 13:35 | A.OFFVIS_ITS ---
Vital Signs 02/12/25 13:35 Height 5 ft 8 in Weight 197 lb BMI 30.0 BP 90/58 L Blood Pressure Location Rt brachial Position Sitting Pulse 64 Pulse Source Pulse Oximeter Pulse Oximetry (%) 98 Oxygen Delivery Method Room Air Intake Visit Reasons: discuss colo Intake Note: ESTABLISHED PATIENT for mgmt of CIC. Discuss colo CC;C.O. persistence with CIC despite taking dulcolax. Pt comments that the dulcolax has definitely provided some improvement / relief, however; it has not resolved his issues entirely. Pt denies any additional sx or concerns at this time. Job Coach/Job Developer Required: No Accompanied by: Self / Same As Patient Allergies No Known Allergies Allergy (Verified 02/12/25 13:36) HPI HPI discuss colo: Details: LAST VISIT: Screen for colon cancer Constipation Plan Patient denies any cardiac or respiratory symptoms.? Denies any issues with anesthesia in the past.? Denies any history of sleep apnea.? No history infectious diseases in the past or present.? Patient is on Eliquis and aspirin. Message sent to Cardiology for clearance. Next appointment not till June. Patient reports constipation will start him on Dulcolax. Increase fluid intake and activity to promote better bowel motility. Message sent to surgical schedulers to book procedure for patient.? No family or personal history of colon cancer or polyps.? Patient denies melena, hematochezia, unintentional weight loss or ribbon like stools.? Medications New bisacodyl (Dulcolax (bisacodyl)) 10 mg (2 x 5 mg) PO BEDTIME 60 tabs 4RF TODAY'S VISIT Patient is here today for follow-up and to discuss going for colonoscopy. Patient has been cleared by Cardiology for the procedure. He currently is taking Dulcolax daily and he continues to be constipated sometimes no BM for 1-2 days. Patient reports that he is not drinking enough fluids. Denies any abdominal pain or discomfort. Denies any issues with anesthesia in the past. No history of sleep apnea. Patient is on Eliquis. Will need to stop 48 hours before procedure. Patient denies any dyspepsia, dysphagia or odynophagia. Denies any melena, hematochezia. [facility] Medical History Male circumcision (~2024) Ambulates with cane Hx of degenerative disc disease Back pain Cardiomyopathy Implantable loop recorder present Stable angina NSVT (nonsustained ventricular tachycardia) Unstable angina Carpal tunnel syndrome Nephrolithiasis Phlebitis Arthritis Type 2 diabetes mellitus with unspecified 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 macular edema Essential hypertension Hyperlipidemia LDL goal <70 Anemia HTN (hypertension) Stroke (~2019) Hyperlipemia Diabetes Surgical History Cataract S/P coronary angioplasty H/O cardiac catheterization H/O vitrectomy History of carpal tunnel surgery of right wrist Family History Father Asthma Mother Diabetes mellitus Social History Household Members: None Housing: Apartment Are you a primary behavioral health care manager to a significant other at home: No Do you presently have visiting nurse or other home services: Yes (daily nurse BP and meds) Alcohol intake: never Comment: S3 Patient Tobacco Use Status: Former Tobacco user Tobacco use type: Cigarette Years Smoked: 6 +/- Advance Directives Date on File: 12/15/22 service: No Review of Systems Const Denies weight gain and Denies weight loss ENT Reports no additional complaints, Denies dysphagia and Denies odynophagia Card Reports no additional complaints Resp Reports no additional complaints GI Denies abdominal pain, Denies belching, Denies melena, Denies bloating, Denies change in bowel habits, Reports constipation, Denies dysphagia, Denies excessive flatus, Denies dyspepsia, Denies heartburn, Denies diarrhea, Denies loose stools, Denies nausea, Denies odynophagia and Denies vomiting Reports no additional complaints Musc Reports no additional complaints Neuro Reports no additional complaints Psych Reports no additional complaints Endo Reports no additional complaints Physical Exam Vital Signs: Last Vital Signs Pulse 64 02/12/25 13:35 BP 90/58 L 02/12/25 13:35 Pulse Ox 98 02/12/25 13:35 Oxygen Delivery Method Room Air 02/12/25 13:35 BMI result Body Mass Index 30.0 Const General: healthy appearing, no acute distress and well developed Nutritional Appearance: well nourished Orientation/consciousness: patient oriented x3 Resp Effort & Inspection: normal respiratory effort, able to speak in complete s entences, no tracheal deviation and symmetric chest movement Auscultation: clear to auscultation bilaterally Cardio Rate: regular rate GI Inspection: Yes normal to inspection and No distended Palpation (GI): Soft to palpation, not firm, nontender and No hepatosplenomegaly present Auscultation: normal bowel sounds General: Yes no CVA tenderness Back/Spine/Pelvis Back: no CVA tenderness Skin General skin exam: elasticity normal, turgor normal and dry skin Neuro General: patient oriented x3 Psych Appearance: grossly normal Mental Status: mental status grossly normal Assessment & Plan Assessment & Plan (1) Screen for colon cancer: Code(s): Z12.11 - Encounter for screening for malignant neoplasm of colon (2) Constipation: Code(s): K59.00 - Constipation, unspecified Qualifiers: Constipation type: slow transit constipation Qualified Code(s): K59.01 - Slow transit constipation Plan Patient was cleared by Cardiology to go for procedure. Stop Eliquis 48 hours before procedure. What to expect before during and after procedure discussed with patient. Stressed the importance of good bowel prep and clear liquid diet day before procedure. Patient continues to have constipation. He can take Colace in addition to taking Dulcolax. I will see patient after the procedure, sooner on as needed basis. He is agreeable to this plan and verbalizes understanding of instructions. He was given the opportunity to ask questions and all questions answered. Thank you for allowing me to participate in his care Medications: New polyethylene glycol 3350 (Miralax) As directed by gastroenterology department at [facility] 238 grams PO ONCE 238 grams 0RF Z12.11 - Encounter for screening for malignant neoplasm of colon docusate sodium 100 mg PO BEDTIME 90 caps 3RF K59.00 - Constipation, unspecified Coding Level of Care Code Est Pt Level 3 (92458) Diagnoses Screen for colon cancer Z. Slow transit constipation K59.01 Constipation type: slow transit constipation Time Spent (min) 30 Comment 20 minutes spent with patient and additional 10 minutes spent reviewing his records
--- OUTSIDE RECORDS SUMMARY | 2025-02-12 14:33 | XMS_ITS | Encounter Summary ---
Author Organization [employer] [facility] Address [address] [place] [address] Care Team Providers Care Cable Tower Operator Name Role Phone Angiebeatrice Lois FLOR Primary Care Provider [phone] Alexandra Woods Primary Care Provider [phone] Camila Hines RN Unavailable [phone] Encounter Details Date Type Department Care Team (Late st Contact Info) Description 06/23/2023 Orders Only [facility] [address] [place] [address] [phone] Ling Us MD [address] [place] [address] [phone] Social History Tobacco Use Types Packs/Day Years [...] Care Team (Late st Contact Info) Description 02/15/2025 1:45 PM EDT Office Visit [facility] [address] [place] [address] [phone] Alexandra Woods ANP [address] [place], [place] [phone] documented as of this encounter Visit Diagnoses Not on filedocumented in this encounter Additional Health Concerns Assessment Noted Time PHQ-9 Depression Total Score: 14 023 11:16 AM EDT documented as of this encounter Care Teams Cable Tower Operator Relationship Specialty Start Date End Date Lois Contreras FNP [address] [place] [address] PCP - General Family Medicine 05/31/22 07/28/23 Alexandra Woods ANP [address] [place], [place] [phone] PCP - General Family Medicine 07/29/23 Camila Hines, MENDEL [address] [place] [phone] Seasonal Customer Service Associate Family Medicine 01/22/25 [employer] 11/16/23 Sina Matamoros Advanced Practice Nurse PsychotherapistManager Of Manufacturing 11/14/24 documented as of this encounter
--- OUTSIDE RECORDS SUMMARY | 2025-02-12 14:33 | XMS_ITS | Encounter Summary ---
Author Organization [employer] Address [address] [facility] [address] [place] [address] Care Team Providers Care Key Filer Name Role Phone Lois Contreras Primary Care Provider [phone] Alexandra Woods Primary Care Provider [phone] Camila Hines RN Unavailable [phone] Reason for Visit * Reason Onset Date Comments Appointment Request 12/16/2022 Encounter Details Date Type Department Care Team (Late st Contact Info) Description 12/16/2022 Telephone [facility] [address] [place] [address] Lois Contreras FNP [address] [place] [address] Appointment Request Social History Tobacco Use Types [...] - 12/16/2022 12:46 PM EDT Tc from [facility] requesting for to have a physical appt. Please contact pt to schedule at [phone] documented in this encounter Plan of Treatment Upcoming Encounters Date Type Department Care Team (Late st Contact Info) Description 02/15/2025 1:45 PM EDT Office Visit [facility] [address] [place] [address] Alexandra Woods ANP [address] [place] [address] documented as of this encounter Visit Diagnoses Not on filedocumented in this encounter Care Teams Key Filer Relationship Specialty Start Date End Date Lois Contreras FNP [address] [place] [phone] PCP - General Family Medicine 05/31/22 07/28/23 Alexandra Woods ANP [address] [place] [address] [phone] PCP - General Family Medicine 07/29/23 Camila Hines RN [address] [place] [address] [phone] Studio Technician Video Operator Family Medicine 01/22/25 [employer] 11/16/23 Sina Matamoros Investment OfficerAircraft Motor Mechanic 11/14/24 documented as of this encounter
--- OUTSIDE RECORDS SUMMARY | 2025-02-12 14:33 | XMS_ITS | Clinical Summary ---
Author Organization [facility] Address [address] [facility] [facility] [address] [place] [address] Phone Care Team Providers Care Men'S Designer Name Role Phone AngieLois barron CHACHO Primary Care Provider [phone] Allergies No known active allergies Medications amLODIPine [...] Diabetes: Hemoglobin A1C 05/03/2024 02/01/2024 Influenza Vaccine (Season Ended) 2025 09/08/20, 06/04/2016 Pneumococcal Vaccine: 50+ Years Completed 11/08/2023, 11/27/2021, 05/12/2015 Pneumococcal Vaccine: Peds ( 0 to 5 Years) and At-Risk Patients (6 to 49 Years) Discontinued 11/08/2023, 11/27/2021, 05/12/2015 Insurance Medicaid [place] Care Teams Men'S Designer Relationship Specialty Start Date End Date Lois Contreras FNP [address] [place] [id number] PCP - General 05/02/23
--- OUTSIDE RECORDS SUMMARY | 2025-02-12 14:33 | XMS_ITS | Clinical Summary ---
Author Organization [facility] Address [address] [place] [address] Care Team Providers Care Assistant Toddler Teacher Name Role Phone Allison Santacruz MD Primary Care Provider [phone] Social History Tobacco Use Types Packs/Day Years [...] - 2023-2 5 season) 2024 Influenza Vaccine (Season Ended) 2025 HIB Vaccines Aged Out No longer eligi [...] age to complete this topic Meningococcal B Vaccine Aged Out No l onger eligible based on patient's age to complete [...] age to complete this topic Care Teams Assistant Toddler Teacher Relationship Specialty Start Date End Date Allison Santacruz MD [address] [place] [address] , [address] [facility] ERICH Shields PCP - General Internal Medicine 09/01/18
--- OUTSIDE RECORDS SUMMARY | 2025-02-12 14:33 | XMS_ITS | Encounter Summary ---
Author Organization [employer] Address [address] [facility] 7t [place] [address] Care Team Providers Care Massotherapist Name Role Phone Alexandra Woods Primary Care Provider [phone] Camila Hines RN Unavailable [phone] Reason for Visit * Reason Onset Date Comments Call Back Request 12/15/2023 Encounter Details Date Type Department Care Team ([facility] st Contact Info) Description 12/15/[address] [facility] [address] [place], [place] [phone] Alexandra Woods ANP [address] [place] [address] Call Back Request Social History Tobacco Use [...] the past 12 months, has t he [employer] gas, oil or water company threatened to [...] Description 02/15/2025 1:45 PM EDT Office Visit [facility] [address] [place] [address] Alexandra Woods ANP [address] [place] [address] documented as of this encounter Goals Goal [...] documented as of this encounter Care Teams Massotherapist Relationship Specialty Start Date End Date Alexandra Woods ANP [address] [place] [address] PCP - General Family Medicine 07/29/23 Camila Hines RN [address] [place] [address] Deflector Operator Family Medicine 01/22/25 [employer] 11/16/23 Sina Matamoros Retail Visual MerchandiserSoftware Engineer 11/14/24 documented as of this encounter
--- OUTSIDE RECORDS SUMMARY | 2025-02-12 14:33 | XMS_ITS | Encounter Summary ---
Author Organization [employer] Address [address] [facility] 7[address] [place] [address] Care Team Providers Care Pipe Crew Foreman Name Role Phone Lois Contreras Primary Care Provider [phone] Alexandra Woods Primary Care Provider Camila Hines RN Unavailable [phone] Reason for Visit * Reason Onset Date Comments FYi 11/17/2022 Encounter Details Date Type Department Care Team (Late st Contact Info) Description 11/17/2022 Telephone [facility] MEDICINE [address] [place] [address] Lois Contreras FNP [address] [place], [place] [phone] FYi Social History Tobacco Use Types Packs/Day [...] PM EST Noted * Telephone Encounter - Staceyhuntermellisa ZhouTerrelljann Agrawal - 11/17/2022 1:12 PM EST Tc from [facility] coordinator skill training program of pt reporting that pt is currently in the ER. If any questions please contact [facility] at [phone] documented in this encounter Plan of Treatment Upcoming Encounters Date Type Department Care Team (Late st Contact Info) Description 02/15/2025 1:45 PM EDT Office Visit [facility] MEDICINE [address] [place], [place] [phone] Alexandra Woods ANP [address] [place] [address] documented as of this encounter Visit Diagnoses Not on filedocumented in this encounter Care Teams Pipe Crew Foreman Relationship Specialty Start Date End Date Lois Contreras FNP [address] [place] [address] [phone] PCP - General Family Medicine 05/31/22 07/28/23 Alexandra Woods ANP [address] [place] [address] [phone] PCP - General Family Medicine 07/29/23 Camila Hines, MENDEL [address] [place] [address] [phone] Outdoor Emergency Care Technician Family Medicine 01/22/25 [employer] 11/16/23 Sina Matamoros Locomotive Mechanic ApprenticeGreige Goods Examiner 11/14/24 documented as of this encounter
--- OUTSIDE RECORDS SUMMARY | 2025-02-12 14:33 | XMS_ITS | Encounter Summary ---
Author Organization [facility] Address [address] [place] [address] Phone Care Team Providers Care Java Scala Developer Name Role Phone Lois Contreras Primary Care Provider [phone] Encounter Details Date Type Department Care Team (Late st Contact Info) Description 05/02/2023 Documentation Only [facility], [address] [place] [address] Lois Contreras FNP [address] [place] [address] Social History Tobacco Use Types Packs/Day Years [...] on filedocumented in this encounter Care Teams Java Scala Developer Relationship Specialty Start Date End Date Lois Contreras FNP [address] [place] [address] PCP - General 05/02/23 documented as of this encounter
--- OUTSIDE RECORDS SUMMARY | 2025-02-12 14:33 | XMS_ITS | Encounter Summary ---
Author Organization [employer] Address [address] [facility] 7t [place] [address] Care Team Providers Care Main Line Assembler Name Role Phone Lois Contreras Primary Care Provider Alexandra Woods Primary Care Provider [phone] Camila Hines RN Unavailable [phone] Reason for Visit * Reason Comments Med Refill Encounter Details Date Type Department Care Team (Late st Contact Info) Description 01/05/2023 Refill [facility] MEDICINE [address] [place] [address] Lois Contreras FNP [address] [place], [place] [phone] Social History Tobacco Use Types Packs/Day Years [...] Description 02/15/2025 1:45 PM EDT Office Visit [facility] MEDICINE [address] [place] [address] Alexandra Woods ANP [address] [place] [address] documented as of this encounter Visit Diagnoses Not on filedocumented in this encounter Care Teams Main Line Assembler Relationship Specialty Start Date End Date Lois Contreras FNP [address] [place] [phone] PCP - General Family Medicine 05/31/22 07/28/23 Alexandra Woods ANP [address] [place] [phone] PCP - General Family Medicine 07/29/23 Camila Hines RN [address] [place] [phone] Laundry Presser Family Medicine 01/22/25 [employer] 11/16/23 Sina Matamoros Entertainment ReporterClubhouse Manager 11/14/24 documented as of this encounter
--- OUTSIDE RECORDS SUMMARY | 2025-02-12 14:33 | XMS_ITS | Encounter Summary ---
Author Organization [employer] [facility] Address [address] [facility] 7t [place] [address] Care Team Providers Care Ignition Specialist Name Role Phone Angiebeatrice Lois FLOR Primary Care Provider [phone] Alexandra Woods Primary Care Provider [phone] Camila Hines RN Unavailable [phone] Encounter Details Date Type Department Care Team (Late st Contact Info) Description 06/23/2023 Orders Only [facility] MEDICINE [address] [place] [address] [phone] Ling Us MD [address] [place] [address] [phone] Social History Tobacco Use Types Packs/Day Years [...] Description 02/15/2025 1:45 PM EDT Office Visit [facility] MEDICINE [address] [place] [address] [phone] Alexandra Woods ANP [address] [place], [place] [phone] documented as of this encounter Visit Diagnoses Not on filedocumented in this encounter Additional Health Concerns Assessment Noted Time PHQ-9 Depression Total Score: 14 023 11:16 AM EDT documented as of this encounter Care Teams Ignition Specialist Relationship Specialty Start Date End Date Lois Contreras FNP [address] [place] [address] PCP - General Family Medicine 05/31/22 07/28/23 Alexandra Woods ANP [address] [place], [place] [phone] PCP - General Family Medicine 07/29/23 Camila Hines, MENDEL [address] [place] [phone] Type Cutter Family Medicine 01/22/25 [employer] 11/16/23 Sina Matamroos Director Corporate SecurityPatient Safety Attendant 11/14/24 documented as of this encounter
--- OUTSIDE RECORDS SUMMARY | 2025-02-12 14:33 | XMS_ITS | Encounter Summary ---
Author Organization [employer] [facility] Address [address] [facility] 7t [place] [address] Care Team Providers Care Jewel Staker Name Role Phone Lois Contreras Primary Care Provider [phone] Alexandra Woods Primary Care Provider [phone] Camila Hines RN Unavailable [phone] Encounter Details Date Type Department Care Team (Latest Contact Info) Description 02/22/2022 Abstract [facility] CONVERSIONS Dental, Provider, DDS Social History [...] Care Team ( st Contact Info) Description 02/15/2025 1:45 PM EDT Office Visit [facility] MEDICINE [address] [place] [address] Alexandra Woods ANP [address] [place] [address] documented as of this encounter Visit Diagnoses Not on filedocumented in this encounter Care Teams Jewel Staker Relationship Specialty Start Date End Date Lois Contreras FNP [address] [place] [address] PCP - General Family Medicine 05/31/22 07/28/23 Alexandra Woods ANP [address] [place] [address] PCP - General Family Medicine 07/29/23 Camila Hines, RN [address] [place] [address] Scanner Operator Family Medicine 01/22/25 [employer] 11/16/23 Sina Matamoros End FrazerComposite Laminator 11/14/24 documented as of this encounter
--- OUTSIDE RECORDS SUMMARY | 2025-02-12 14:33 | XMS_ITS | Encounter Summary ---
Author Organization [employer] Address [address] [facility] 7t [place] [address] Care Team Providers Care Bisque Placer Name Role Phone Diane Lois FLOR Primary Care Provider [phone] Alexandra Woods Primary Care Provider [phone] Camila Hines RN Unavailable [phone] Encounter Details Date Type Department Care Team (Late st Contact Info) Description 12/07/2022 Orders Only [facility] CHC MED & PEDS [address] [place], [place] [phone] Ursula Martell LPN Social History Tobacco Use [...] Description 02/15/2025 1:45 PM EDT Office Visit [facility] MEDICINE [address], [place] [phone] Alexandra Woods ANP [address] [place], [place] [phone] documented as of this encounter Procedures Procedure [...] procedure / Unknown 05/20/2023 05/20/2023 Comment:UACC Narrative [facility] - 05/21/2023 1:40 PM EDT Urine Culture No growth. Specimen Source: Urine clean catch Mehul Mack MD LAB MICROBIOLOGY - GENERAL ORDER BECKA Final Result Performing Organization Address [facility] Co de Phone Number [facility] [address] [place] [address] [phone] * Hemoglobin A1c (04/15/2023 1:08 PM EDT) Hemoglobin A1c 5.9 % [facility] Comment:Hemoglobin A1C Refer ence Range Adults: 4.8 - 6.0 % Non diabetic: < 6.0 % Goal: < 7.0 %Additional Action Suggested: > 8.0 %Note: Hemoglobin A1c results are invalid for patients with abnormal amounts of HbF. Blood transfusions may impact the HbA1c concentration in the patient sample. Estimated Average Glucose 123 mg/dL [facility] Comment:eAG = Estimated ave rage glucose which is %A1C expressed asaverage glucose, using the formula of the U7N-DaavtrdTigubvm Glucose study (ADAG), Diabetes Care, Vol.31,#8,May. 2007 04/15/2023 1:08 PM EDT 04/15/2023 4:01 PM EDT [facility] External Provider LAB BLO OD ORDERABLES Final Result Performing Organization Address City/[facility]/ZIP Co de Phone Number [facility] [address] [place] [address] [phone] * (ABNORMAL) Basic Metabolic Panel (03/30/2023 10:14 PM EDT) Sodium 139 135 - 145 mmol/L [facility] Potassium 4.0 3.3 - 5.1 mmol/L [facility] Chloride 110(H) 96 - 108 mmol/L [facility] Carbon Dioxide 23 22 - 29 mmol/L [facility] Anion Gap 10(L) 12 - 20 [facility] Urea Nitrogen (BUN) 28(H) 9 - 16 mg/dL [facility] Creatinine, Serum 1.72(H) 0.5 - 1.4 mg/dL [facility] Creatinine Clr Calc Pharmacy 47.5 [facility] Comment:eGFR (calculated fro m the MDRD study equation) and eCrCl(calculated from the Cockcroft-Gault equation) are based ondifferent parameters and may not yield comparable results.If eCrCl result is absurd, please check patient'sheight/weight. Estimated Glomerular Filt Rate 42 [facility] Comment:NOTE: For -Am erican individuals, multiply the result by 1.210.Chronic Kidney Disease: Estimated GFR < 60 mL/min/1.66g3Iwwkth Kidney Disease: Estimated GFR < 15 mL/min/1.73m2 Glucose 92 60 - 115 mg/dL [facility] Calcium 8.8 8.4 - 10.2 mg/dL [facility] 03/30/2023 10:1 4 PM EDT 03/30/2023 10:17 PM EDT [facility] External Provider LAB BLO OD ORDERABLES Final Result Performing Organization Address City/[facility]/ZIP Co de Phone Number [facility] [address] [place] [address] [phone] * Creatine Kinase, Total (03/30/2023 6:15 PM EDT) Creatine Kinase Total 141 38 - 174 U/L [facility] 03/30/2023 6:15 PM EDT 03/30/2023 6:28 PM EDT [facility] External Provider LAB BLO OD ORDERABLES Final Result Performing Organization Address [facility]/ZIP Co de Phone Number [facility] [address] [place] [address] [phone] * High Sensitivity Troponin I (03/30/2023 6:15 PM EDT) [facility] TROPONIN I HIGH SENSITIVITY 6.7 <3.5 - 35.0 ng/L [facility] Comment:The Cesar high sens itivity Troponin-I results should beused in conjunction with other diagnostic information suchas ECG, clinical observations and information, and patientsymptoms to aid in the diagnosis of MO. 03/30/2023 6:15 PM EDT 03/30/2023 6:28 PM EDT [facility] External Provider LAB BLO OD ORDERABLES Final Result Performing Organization Address [facility] Co de Phone Number [facility] [address] [place] [phone] * B Type Natriuretic Peptide (BNP) (03/30/2023 6:15 PM EDT) [facility] B Type Natriuretic Peptide 43 <100 pg/mL [facility] Comment:For those patients w ho are being treated with Natrecor(nesiritide, recombinant BNP), BNP testing should beperformed at least two hours post treatment in order toensure that only endogenous levels of BNP are detected. 03/30/2023 6:15 PM EDT 03/30/2023 6:28 PM EDT [facility] External Provider LAB BLO OD ORDERABLES Final Result Performing Organization Address [facility] Co de Phone Number [facility] [address] [place] [phone] * Magnesium (03/30/2023 6:15 PM EDT) [facility] Magnesium 1.8 1.6 - 2.6 mg/dL [facility] 03/30/2023 6:15 PM EDT 03/30/2023 6:28 PM EDT [facility] External Provider LAB BLO OD ORDERABLES Final Result Performing Organization Address City/[facility] Co de Phone Number [facility] [address] [place] [address] [phone] * (ABNORMAL) Basic Metabolic Panel (03/30/2023 6:15 PM EDT) Sodium 139 135 - 145 mmol/L [facility] Potassium 4.5 3.3 - 5.1 mmol/L [facility] Chloride 108 96 - 108 mmol/L [facility] Carbon Dioxide 24 22 - 29 mmol/L [facility] Anion Gap 12 12 - 20 [facility] Urea Nitrogen (BUN) 31(H) 9 - 16 mg/dL [facility] Creatinine, Serum 2.04(H) 0.5 - 1.4 mg/dL [facility] Creatinine Clr Calc Pharmacy 40.0 [facility] Comment:eGFR (calculated fro m the MDRD study equation) and eCrCl(calculated from the Cockcroft-Gault equation) are based ondifferent parameters and may not yield comparable results.If eCrCl result is absurd, please check patient'sheight/weight. Estimated Glomerular Filt Rate 34 [facility] Comment:NOTE: For -Am erican individuals, multiply the result by 1.210.Chronic Kidney Disease: Estimated GFR < 60 mL/min/1.25i4Eqdhsq Kidney Disease: Estimated GFR < 15 mL/min/1.73m2 Glucose 97 60 - 115 mg/dL [facility] Calcium 9.6 8.4 - 10.2 mg/dL [facility] 03/30/2023 6:15 PM EDT 03/30/2023 6:28 PM EDT [facility] External Provider LAB BLO OD ORDERABLES Final Result [facility] [address] [place] [address] [phone] * Hepatic Function Panel (03/30/2023 6:15 PM EDT) Bilirubin, Total 0.9 0.0 - 1.0 mg/dL [facility] Bilirubin, Direct 0.3 0.0 - 0.5 mg/dL [facility] Aspartate Amino Transferase 18 5 - 37 U/L [facility] Alanine Aminotransferase 19 0 - 40 U/L [facility] Total Protein 7.1 6.5 - 8.0 g/dL [facility] Albumin Level 4.3 3.5 - 5.0 g/dL [facility] Alkaline Phosphatase 59 39 - 117 U/L [facility] 03/30/2023 6:15 PM EDT 03/30/2023 6:28 PM EDT [facility] External Provider LAB BLO OD ORDERABLES Final Result Performing Organization Address [facility] de Phone Number [facility] [address] [place] [phone] * Prothrombin Time-INR (03/30/2023 6:15 PM EDT) Prothrombin Time 11.8 10.0 - 13.1 SEC [facility] INTERNATIONAL NORM RATIO 1.0 0.9 - 1.1 [facility] Comment:INTERNATIONAL NORMAL IZED RATIO (INR) [...] 6:15 PM EDT 03/30/2023 6:28 PM EDT [facility] External Provider LAB BLO OD ORDERABLES Final Result Performing Organization Address [facility] de Phone Number [facility] [address] [place] [phone] * (ABNORMAL) CBC auto differential (03/30/2023 6:15 PM EDT) White Blood Count 7.4 4.8 - 10.8 X10*3/uL [facility] Red Blood Count 3.95(L) 4.60 - 5.80 X10*6/uL [facility] Hemoglobin 11.9(L) 14.0 - 18.0 g/dl [facility] Hematocrit 34.8(L) 42.0 - 52.0 % [facility] Mean Corpuscular Volume 88.1 80.0 - 98.0 fL [facility] Mean Corpuscular Hemoglobin 30.1 27.0 - 33.0 pg [facility] Mean Corpuscular HGB Conc 34.2 31.0 - 36.0 g/dl [facility] Red Cell Distribution Width 12.4 11.0 - 16.0 % [facility] Platelet Count 214 160 - 400 X10*3/uL [facility] Mean Platelet Volume 9.5 9.4 - 12.4 fL [facility] Neutrophils Percent Auto 75.3(H) 45 - 73 % [facility] Imm Gran Pct Auto 0.1 0.0 - 0.4 % [facility] Lymphocytes Percent Auto 18.5(L) 20 - 40 % [facility] Monocytes Percent Auto 5.1 2 - 11 % [facility] Eosinophils Percent Auto 0.9 0 - 4 % [facility] Basophils Percent Auto 0.1 0 - 2 % [facility] NRBC Pct Auto 0.0 0.0 - 0.2 /100WBC [facility] Neutrophils Absolute Auto 5.6 2.0 - 8.3 x10*3/uL [facility] Imm Gran Abs Auto 0.01 0.00 - 0.03 X10*3/uL [facility] Lymphocytes Absolute Auto 1.4 1.2 - 4.9 X10*3/uL [facility] Monocytes Absolute Auto 0.4 0.1 - 1.2 X10*3/uL [facility] Eosinophils Absolute Auto 0.1 0.0 - 0.4 X10*3/uL [facility] Basophils Absolute Auto 0.0 0.0 - 0.2 X10*3/uL [facility] NRBC Abs Auto 0.000 0.0 - 0.012 X10*3/uL [facility] 03/30/2023 6:15 PM EDT 03/30/2023 6:28 PM EDT [facility] External Provider LAB BLO OD ORDERABLES Final Result [facility] [address] [place] [address] [phone] * COVID-19 ID NOW ([email or web address]) (12/12/2022 5:16 PM EDT) IDNOW SERIAL# [id number] [facility] COVID-19 TEST Negative Negative [facility] COVID-19 NOTE See Note [facility] Comment: Results are for the identification of SARS-CoV2 RNA. TheSARS-CoV2 RNA is generally detectable in respiratory samplesduring the acute phase of infection. Positive results areindicative of the presence of SARS-CoV-2 RNA; clinicalcorrelation with patient history and other diagnosticinformation is necessary to determine patient infectionstatus. Positive results do not rule out bacterial infectionor co- infection with other viruses.Testing facilities within the [facility] and [facility] are required to report all positive results [...] use by authorized laboratories.Testing performed on the [employer] ID NOW utilizing NAAT. 12/12/2022 5:16 PM EDT 12/12/2022 5:22 PM EDT [facility] Exter nal Provider LAB MOLECULAR DIAGNOSTICS ORDERABLES Final Result Performing Organization Address [facility] Co de Phone Number [facility] [address] [place] [phone] * (ABNORMAL) GLUCOSE, WHOLE BLOOD (12/12/2022 2:02 PM EDT) Glucose, Whole Blood 155(H) 60 - 115 mg/dL [facility] Comment:METER #: [id number] 1 12/12/2022 2:02 PM EDT 12/12/2022 2:05 PM EDT Result [facility] External Provider LAB BLO OD ORDERABLES Final Result Performing Organization Address [facility] Co de Phone Number [facility] [address] [place] [phone] * (ABNORMAL) GLUCOSE, WHOLE BLOOD (12/12/2022 2:00 PM EDT) Glucose, Whole Blood 54(LL) 60 - 115 mg/dL [facility] Comment:METER #: [id number] 1 12/12/2022 2:00 PM EDT 12/12/2022 2:05 PM EDT [facility] External Provider LAB BLO OD ORDERABLES Final Result Performing Organization Address [facility] Co de Phone Number [facility] [address] [place] [phone] * Magnesium (12/12/2022 1:56 PM EDT) Magnesium 1.8 1.6 - 2.6 mg/dL [facility] 12/12/2022 1:56 PM EDT 12/12/2022 2:02 PM EDT [facility] External Provider LAB BLO OD ORDERABLES Final Result [facility] [address] [place] [address] [phone] * (ABNORMAL) Comprehensive Metabolic Panel (12/12/2022 1:56 PM EDT) Sodium 143 135 - 145 mmol/L [facility] Potassium 4.0 3.3 - 5.1 mmol/L [facility] Chloride 109(H) 96 - 108 mmol/L [facility] Carbon Dioxide 21(L) 22 - 29 mmol/L [facility] Anion Gap 17 12 - 20 [facility] Urea Nitrogen (BUN) 19(H) 9 - 16 mg/dL [facility] Creatinine, Serum 1.65(H) 0.5 - 1.4 mg/dL [facility] Creatinine Clr Calc Pharmacy 54.0 [facility] Comment:eGFR (calculated fro m the MDRD study equation) and eCrCl(calculated from the Cockcroft-Gault equation) are based ondifferent parameters and may not yield comparable results.If eCrCl result is absurd, please check patient'sheight/weight. Estimated Glomerular Filt Rate 44 [facility] Comment:NOTE: For -Am erican individuals, multiply the result by 1.210.Chronic Kidney Disease: Estimated GFR < 60 mL/min/1.62s3Qtfgxg Kidney Disease: Estimated GFR < 15 mL/min/1.73m2 Glucose 154(H) 60 - 115 mg/dL [facility] Calcium 9.2 8.4 - 10.2 mg/dL [facility] Bilirubin, Total 0.9 0.0 - 1.0 mg/dL [facility] Aspartate Amino Transferase 22 5 - 37 U/L [facility] Alanine Aminotransferase 29 0 - 40 U/L [facility] Total Protein 6.4(L) 6.5 - 8.0 g/dL [facility] Albumin Level 4.3 3.5 - 5.0 g/dL [facility] Alkaline Phosphatase 60 39 - 117 U/L [facility] 12/12/2022 1:56 PM EDT 12/12/2022 2:02 PM EDT [facility] External Provider LAB BLO OD ORDERABLES Final Result Performing Organization Address [facility] Co de Phone Number [facility] [address] [place] [address] [phone] * (ABNORMAL) Urinalysis, Complete, with Reflex to Culture (12/12/2022 1:56 PM EDT) Color Urine Yellow [facility] Appearance Urine Clear [facility] PH 5.0 5.0 - 9.0 [facility] Glucose Urine UA >=1000(A) Negative mg/dL [facility] Urine Blood Negative Negative [facility] Specific Mcdermott - Urine >=1.030(H) 1.005 - 1.025 [facility] Urine Protein Negative Neg-Trace mg/dL [facility] Urine Ketones Negative Negative mg/dL [facility] Nitrite Urine Negative Negative [facility] Leukocyte Esterase Urine Small (1+)(A) Negative [facility] RBC Urine 0-2 0 - 2 /HPF [facility] Urine WBC 21-50(A) 0 - 5 /HPF [facility] Urine Squamous Epithelial Cell 3-5 0 - 2 /HPF [facility] Urine Bacteria 1+ None Seen [facility] Hyaline Casts, Urine 3-5 0 - 2 /LPF [facility] Urine Yeast Present [facility] 12/12/2022 1:56 PM EDT 12/12/2022 2:02 PM EDT Narrative [facility] - 12/12/2022 2:44 PM EDT Urine, Clean Catch [facility] External Provider LAB URI NE ORDERABLES Final Result Performing Organization Address City/[facility]/ZIP Co de Phone Number [facility] [address], [place] [phone] * (ABNORMAL) CBC auto differential (12/12/2022 1:56 PM EDT) White Blood Count 9.6 4.8 - 10.8 X10*3/uL [facility] Red Blood Count 4.22(L) 4.60 - 5.80 X10*6/uL [facility] Hemoglobin 12.6(L) 14.0 - 18.0 g/dl [facility] Hematocrit 36.0(L) 42.0 - 52.0 % [facility] Mean Corpuscular Volume 85.3 80.0 - 98.0 fL [facility] Mean Corpuscular Hemoglobin 29.9 27.0 - 33.0 pg [facility] Mean Corpuscular HGB Conc 35.0 31.0 - 36.0 g/dl [facility] Red Cell Distribution Width 12.8 11.0 - 16.0 % [facility] Platelet Count 257 160 - 400 X10*3/uL [facility] Mean Platelet Volume 9.1(L) 9.4 - 12.4 fL [facility] Neutrophils Percent Auto 85.7(H) 45 - 73 % [facility] Imm Gran Pct Auto 0.3 0.0 - 0.4 % [facility] Lymphocytes Percent Auto 8.9(L) 20 - 40 % [facility] Monocytes Percent Auto 4.2 2 - 11 % [facility] Eosinophils Percent Auto 0.8 0 - 4 % [facility] Basophils Percent Auto 0.1 0 - 2 % [facility] NRBC Pct Auto 0.0 0.0 - 0.2 /100WBC [facility] Neutrophils Absolute Auto 8.2 2.0 - 8.3 x10*3/uL [facility] Imm Gran Abs Auto 0.03 0.00 - 0.03 X10*3/uL [facility] Lymphocytes Absolute Auto 0.9(L) 1.2 - 4.9 X10*3/uL [facility] Monocytes Absolute Auto 0.4 0.1 - 1.2 X10*3/uL [facility] Eosinophils Absolute Auto 0.1 0.0 - 0.4 X10*3/uL [facility] Basophils Absolute Auto 0.0 0.0 - 0.2 X10*3/uL [facility] NRBC Abs Auto 0.000 0.0 - 0.012 X10*3/uL [facility] 12/12/2022 1:56 PM EDT 12/12/2022 2:02 PM EDT [facility] External Provider LAB BLO OD ORDERABLES Final Result [facility] [address] [place] [phone] documented in this encounter Visit Diagnoses Not on filedocumented in this encounter Care Teams Bisque Placer Relationship Specialty Start Date End Date Lois Contreras FNP [address] [place] [phone] PCP - General Family Medicine 05/31/22 07/28/23 Alexandra Woods ANP [address] [place] [address] PCP - General Family Medicine 07/29/23 Camila Hines, MENDEL [address] [place] [phone] Wine Master Family Medicine 01/22/25 [employer] 11/16/23 Sina Matamoros Tetryl Wringer OperatorOrder Make Up Clerk 11/14/24 documented as of this encounter
--- OUTSIDE RECORDS SUMMARY | 2025-02-12 14:33 | XMS_ITS | Encounter Summary ---
Author Organization [employer] Address [address] [facility] [address] [place] [address] Care Team Providers Care Director Surface Transportation Name Role Phone Alexandra Woods ANP Primary Care Provider [phone] Camila Hines RN Unavailable [phone] Reason for Visit * Reason Comments Med Refill Encounter Details Date Type Department Care Team ([facility] st Contact Info) Description 06/14/2024 Refill [facility] [address] [place], [place] [phone] Alexandra Woods ANP [address] [place] [phone] Social History Tobacco Use Types Packs/Day Years [...] the past 12 months, has t he [employer] threatened to shut off services in your [...] Description 02/15/2025 1:45 PM EDT Office Visit [facility] [address] [place] [phone] Alexandra Woods ANP [address] [place] [phone] documented as of this encounter Goals Goal [...] documented as of this encounter Care Teams Director Surface Transportation Relationship Specialty Start Date End Date Alexandra Woods ANP [address] [place] [phone] PCP - General Family Medicine 07/29/23 Camila Hines RN [address] [place] [address] Men'S Garment Fitter Family Medicine 01/22/25 [employer] 11/16/23 Sina Matamoros Embedded Firmware EngineerTrimmer Operator 11/14/24 documented as of this encounter
--- OUTSIDE RECORDS SUMMARY | 2025-02-12 14:33 | XMS_ITS | Clinical Summary ---
Author Organization [employer] Address [address] [facility] [address] [place] [address] Care Team Providers Care Special Education Paraprofessional Name Role Phone Gutierrez Fabrizio CORONADO Primary Care Provider [phone] Camila Hines RN Unavailable [phone] Allergies No known active allergies Medications * This document contains information received from the source organization and may not represent a complete record from that organization. Blood Pressure Monitor kit Check Blood Pressure daily and when symptomatic 1 kit 03/31/20 23 Active FREESTYLE LITE test strip TEST BLOOD SUGAR THREE TIMES DAILY 100 strip 1 09/09/20 23 Active Blood Glucose Monitoring Suppl (FreeStyle Lite) w/Device kit 1 each 3 times daily. 1 kit 10/10/19 24 Active Continuous Blood Gluc Certified Registered Locksmith (FreeStyle Ronen 2 [place]) deviceIndications:T ype 2 diabetes mellitus with hyperlipidemia (CMS/HCC) (CMS/HCC) Scan sensor frequently throughout day 1 each 10/21/19 24 Active tamsulosin (Flomax) 0.4 MG 24 hr capsule TAKE 1 CAPSULE BY MOUTH AT BEDTIME 90 capsule 1 04/09/20 24 Active lidocaine (Lidoderm) 5 % patchIndications:Lo w back pain at multiple sites APPLY 1 PATCH TOPICALLY TO SKIN IN THE MORNING. LEAVE ON FOR 12 HOURS AND OFF FOR 12 HOURS DIRECTED 30 patch 3 05/30/20 24 Active isosorbide mononitrate ER (Imdur) 30 MG 24 hr tablet TAKE 1 TABLET BY MOUTH EVERY MORNING DO NOT BREAK, CRUSH, DISSOLVE OR CHEW 90 tablet 3 07/03/20 24 Active spironolactone (Aldactone) 25 MG tablet TAKE 1 TABLET BY MOUTH EVERY MORNING 90 tablet 3 07/03/20 24 Active Eliquis 5 MG tablet TAKE 1 TABLET BY MOUTH TWICE DAILY IN THE MORNING AND IN THE EVENING 07/11/20 24 Active insulin pen needle (Easy Touch Pen Meigs) 31G X 8 mm miscIndications:Typ e 2 diabetes mellitus without complications ([facility]/HCC) USE DIRECTED 100 each 3 07/30/20 24 Active amLODIPine (Norvasc) 5 MG tablet Take 5 mg by mouth in the morning. 06/14/20 24 Active atropine 1 % ophthalmic solution PLACE 1 DROP IN THE LEFT EYE TWICE DAILY DIRECTED STARTING THE DAY AFTER SURGERY AND continuing THEREAFTER 07/19/20 24 Active ofloxacin (Ocuflox) 0.3 % ophthalmic solution PLACE 1 DROP IN THE LEFT EYE FOUR TIMES DAILY STARTING THE DAY AFTER YOUR SURGERY AND continuing THEREAFTER 07/19/20 24 Active Pred Forte 1 % ophthalmic suspension PLACE 1 DROP IN THE LEFT EYE FOUR TIMES DAILY STARTING THE DAY AFTER SURGERY AND continuing THEREAFTER 07/19/20 24 Active insulin glargine (Lantus SoloStar) 100 UNIT/ML penIndications:Type 2 diabetes mellitus with hyperlipidemia (CMS/HCC) ([facility]) Inject 14 Units under the skin Once daily. 5 mL 08/13/20 24 025 Active lisinopril 20 MG tabletIndications:H ypertension associated with diabetes ([facility]) TAKE 1 TABLET BY MOUTH EVERY MORNING 90 tablet 1 09/06/20 24 Active Additional Information Patient not taking.Reported on 01/24/2025 Alcohol Swabs (Alcohol Prep) 70 % pads USE DIRECTED THREE TIMES DAILY 100 each 11 10/01/20 24 Active atorvastatin (Lipitor) 80 MG tablet TAKE 1 TABLET BY MOUTH AT BEDTIME 90 tablet 3 10/02/20 24 Active clotrimazole (Lotrimin) 1 % creamIndications:Ca ndidal balanoposthitis APPLY TOPICALLY TWICE DAILY FOR FOURTEEN DAYS 30 g 1 10/18/19 25 Active D3 Super Strength 50 MCG (1999 [place]) capsuleIndications: Vitamin D deficiency TAKE 1 CAPSULE BY MOUTH EVERY MORNING 90 capsule 1 10/30/19 25 Active Continuous Glucose Sensor (FreeStyle Ronen 2 Sensor) miscIndications:Typ e 2 diabetes mellitus with hyperlipidemia (CMS/HCC) ([facility]) USE DIRECTED EVERY 14 DAYS 2 each 3 11/01/19 25 Active TRUEplus Lancets 33G misc USE DIRECTED THREE TIMES DAILY 100 each 11 11/16/19 25 Active metoprolol tartrate (Lopressor) 75 MG tablet TAKE 1 TABLET BY MOUTH TWICE DAILY IN THE MORNING AND IN THE EVENING 180 tablet 1 11/28/19 25 Active Aspirin Low Dose 81 MG chewable tablet TAKE 1 TABLET BY MOUTH EVERY MORNING (CHEW) 90 tablet 1 12/05/19 25 Active Active Problems Problem Noted Date Diagnosed Date Missing teeth, acquired 05/25/2024 Periodontal disease 02/22/2024 Dental calculus 02/22/2024 Hemiplegia and hemiparesis f 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 States he has an appointment in 2 [...] ANA on CKD. Also called today his ore smelter [phone] and informed will not be able to [...] if need dose adjustment -has apt w hot roll inspector 02/06/2024 -pt will come for apt w [...] Self Plan [facility], Comply with medication , Patient to engage in OP therapy , Patient to reach out to [facility] as needed, and Patient to follow-up with external team Assessment & Plan (11/10/2023 10:22 AM EST): PROGRESS NOTE: ID: Kal is a 53 y.o. [place] Citizen straight-identified cis-male (pronouns he/him/his) with previous documented [...] intervention , Patient to [facility] as needed, and Patient to reach [...] of change. PLAN: 1. Follow up with [facility]: Not recommended for follow-up 2. Patient goal [...] (02/13/2024 6:46 PM EDT): Reports following w ground systems engineer Denies CP nor respiratory symptoms -advised pt to f up w his cards's office to check when has upcoming apt Coronary atherosclerosis 12/28/2022 Hypertension associated with diabetes ([facility]) 12/28/2022 Assessment & Plan (06/17/2023 12:16 PM EDT): Not at goal here in the office May titrate meds based on CMP results Ischemic myocardial dysfunction 12/28/2022 Assessment & Plan (04/17/2023 1:13 PM EDT): -History of cardiomyopathy, CAD with VIRAL placed LAD 2020, nonsustained VT s/p implantable loop recorder -Referral to re-establish with [facility] - Dr. Shetty - placed on [...] implantable loop recorder -Referral to re-establish with [facility] - Dr. Shetty - placed on 03/31/23 -ED precautions reviewed Stage 3a chronic kidney disease 12/28/2022 Overview (03/31/2023): 03/31/23: referral placed to establish with Nephrology Assessment & Plan (02/13/2024 6:52 PM EDT): Repeat renal function -if GFR < 30 to refer to hot roll inspector -pt had referred renal US -not done [...] 124 to 150s , no hypoglycemia events -ore smelter -states has f up apt tomorrow -not om metformin for renal function -Continue jardiance 25 mg daily -increase lantus to 14 u <---10 u HS -advised to monitor CBGs in fasting and 2 h after biggest meal --bring reading to PCP at next apt ,also to call here If noticing CBGs < 80s to adjust insulin dose -referred today to shingle grader Assessment & Plan (02/09/2024 3:26 PM EDT): [...] artery 01/05/2022 Vitamin D deficiency 09/21/2021 Encounters * This document contains information received from the source organization and may not represent a complete record from that organization. Date Type Department Care Team Description 01/24/2025 Telephone [facility] [place] [address] Fabrizio Gutierrez ANP Pre-op 01/22/2025 11:30 AM EDT Clinical Support [facility] [place] [address] Camila Hines, RN Type 2 diabetes mellitus with hyperlipidemia ([facility]/HCC) 01/22/2025 Travel 01/17/2025 Telephone [facility] [place] [address] Fabrizio Gutierrez ANP Appointment Request 01/15/2025 Orders Only [facility] [place] [address] Fabrizio Gutierrez ANP 01/14/2025 Telephone [facility] [place] [address] Camila Hines, drop board man Question 12/14/2024 Population Health Risk Score [facility] Department [address] [facility] [address] [place] [address] Provider, Population Health Generic 12/03/2024 Refill [facility] [address] [place] [address] Fabrizio Gutierrez ANP 11/28/2024 Refill [facility] [address] [place] [address] Fabrizio Gutierrez ANP 11/27/2024 Orders Only GENERIC EXTERNAL DATA DEPARTMENT Provider, Generic External Data 11/16/2024 Refill [facility] [address] [place] [address] Fabrizio Gutierrez ANP from Last 3 Months Immunizations Name Administration [...] Description 02/15/2025 1:45 PM EDT Office Visit [facility] [address] [place] [address] Fabrizio Gutierrez, IVONNE [address] [place] [address] Health Maintenance Due Date Last Done Comments CT Colonography 1968 Colonoscopy 1968 Colorectal Cancer Screening 1968 FIT DNA/Cologuard 1968 FIT 1968 FOBT 1968 Sigmoidoscopy 1968 Diabetes: Foot Exam 1978 Alcohol/Substance Use Screening 1980 Diabetes: Urine Protein Screening 09/17/2022 09/17/2021 Hepatitis B Vaccines (2 of 2 - CpG 2-dose series) 12/06/2023 11/08/2023 Dental Oral Exam 04/27/2024 10/27/2023, 10/27/2021 Dental Prophylaxis 06/04/2024 12/02/2023, 02/22/2022 Dental X-Ray: Bitewings 10/28/2024 10/27/2023, 10/27 SDOH Screening 02/01/2025 02/02/2024 Diabetes: Hemoglobin A1C 02/03/2025 024, 05/29/2024, 02/13/2024, Additional history exists Depression Screening 02/12/2025 02/13/2024, 02/13/20 24 Lipid Panel 08/06/2025 08/06/2024, 0901/2023, 09/17/2021 Tobacco Screening 09/04/2025 09/04/2024 Eye Exam 11/12/2025 11/12/2024, 10/04, 10/27/2023, Additional history exists Dental X-Ray: Full Mouth 10/28/2026 10/27/2023, 10/04 [...] Completed 08/06/2024, 021 COVID-19 Vaccine Completed 09/04/2024, , 02/02/2022, Additional history exists HIB Vaccines Aged Out No longer eligi [...] 0 AM EST 11/27/2024 11:50 AM EST [facility] - 11/28/2024 1:02 PM EST ----- ------- Name: Kal Sellers ? Age/Sex: 54/M ? : 1970 Unit#: [id number] ?? Attend Dr: Adilia Johnson MD ?Re11/27/24 ?Status: DEP SDC ? Location: HO.SSS ?Disch: ? ----- ------- SPEC : [id number] ?RECD: 11/27/24 ? STATUS: ??SOUT ? REQ NUM: [id number] ? DAVION: 11/27/240 ? SUBM DR: Adilia Johnson MD ? ENTERED: ??11/27/24 ?SP TYPE: Surgical ? OTHR DR: FABRIZIO [...] sectioned to reveal taylor-pink fibrous cut surfaces. Family Specialist sections perpendicular to the nearest margins of resection are submitted in cassettes A1 and A2 to include all of the eroded and erythematous foci. CEDS Copies To: ?? Adilia Johnson MD ?? [facility] ?? [address] ?? [place] [address] ?? [phone] ?? [email or web address] ?? FABRIZIO GUTIERREZ NP ?? [facility] ?? [address] ?? [place] [address] ?? [phone] ? CONTINUED ON NEXT PAGE ----- ------- Name: Kal Sellers ? Age/Sex: 54/M ? : 1970 Unit#: [id number] ?? Attend Dr: Adilia Johnson MD ?Re11/27/24 ?Status: DEP [facility] ? Location: HO.SSS ?Disch: ? ----- ------- SPEC : [id number] ?RECD: 11/27/24-1149 ? STATUS: ??SOUT ? REQ NUM: [id number] ? DAVION: 11/27/24-0 ? SUBM DR: Adilia Johnson MD ? ENTERED: ??11/27/24-1154 ?SP TYPE: Surgical ? OTHR : FABRIZIO GUTIERREZ OIL EXPELLER ? ORDERED: ??Gross Micro L3 ? ----- ------- Signed (signature on file) Sharmin Saldana 11/28/242 ? ----- ------- ? END OF REPORT ? us Generic External Data Provider LAB CYTOLOGY ORDE RABLES Final Result Performing Organization Address [facility] Co de Phone Number [facility] [address] [place] [phone] * (ABNORMAL) Glucose, Whole Blood (11/27/2024 9:20 AM EST) Pathologist [facility] Glucose, Whole Blood 180(H) 60 - 115 mg/dL [facility] Comment:METER #: [id number] 11/27/2024 9:20 AM EST 11/27/2024 9:23 AM EST Generic External Data Provider LAB BLOOD ORDERAB LES Final Result Performing Organization Address [facility] de Phone Number [facility] [address] [place] [phone] * Hepatitis C Antibody with Reflex to HCV, RNA, Quantitative, Real-Time PCR (08/06/2024 11:10 AM EST) [facility] Hepatitis C Antibody Nonreactive Nonreactive [facility] Comment:Antibodies to HCV no t detected; does not exclude early acuteHCV infection. Blood Venous blood specimen / Unknown 08/06/2024 11:10 AM EST 08/06/2024 1:31 PM EST us Dai Engle MD LAB BLOOD ORDERAB LES Final Result Performing Organization Address [facility] Co de Phone Number [facility] [address] [place] [phone] * HIV-1/2 Antigen and Antibodies, Fourth Generation, with Reflexes (08/06/2024 11:10 AM EST) [facility] HIV AB/AG Nonreactive Nonreactive [facility] Comment:HIV-1 p24 Ag and/or HIV-1/HIV-2 Ab not detected.A test result that is nonreactive does not exclude thepossibility of exposure to or infection with HIV-1 and/orHIV-2. Nonreactive results in this assay for individualswith prior exposure to HIV-1 and/or HIV-2 may be due toantigen and antibody levels that are below the limit ofdetection of this assay.[employer] HIV Ag/Ab Combo assay result andsupplemental assay [...] Result Performing Organization Address [facility]/ZIP Co de Phone Number [facility] [address] [place] [phone] * (ABNORMAL) Hemoglobin A1c (08/06/2024 11:10 AM EST) Hemoglobin A1c 6.7(H) <6.0 % [facility] Comment:Hemoglobin A1C Refer ence Range Adults: 4.8 - 6.0 % Non diabetic: < 6.0 % Goal: < 7.0 %Additional Action Suggested: > 8.0 %Note: Hemoglobin A1c results are invalid for patients with abnormal amounts of HbF. Blood transfusions may impact the HbA1c concentration in the patient sample. Estimated Average Glucose 146 mg/dL [facility] Comment:eAG = Estimated ave rage glucose which is %A1C expressed asaverage glucose, using the formula of the [id number] Glucose study (ADAG), Diabetes Care, Vol.31,#8,May. 2007 Blood Venous blood specimen / Unknown 08/06/2024 11:10 AM EST 08/06/2024 1:31 PM EST us Dai Engle MD LAB BLOOD ORDERAB LES Final Result Performing Organization Address City/[facility]/ZIP Co de Phone Number [facility] [address] [place] [phone] * (ABNORMAL) Lipid Panel, Standard (08/06/2024 11:10 AM EST) Triglycerides 114 <150 mg/dL [facility] Comment:Desirable Triglyceri de: less than 150 mg/dLBorderline High Triglyceride 150-199 mg/dLHigh Triglyceride: 200-499 mg/dLVery High Triglyceride: greater than or equal to 5OO mg/dL Cholesterol 151 <200 mg/dL [facility] Comment:Desirable Cholestero l: less than 200 mg/dLBorderline High Cholesterol: 200-239 mg/dLHigh Cholesterol: greater than 239 mg/dL LDL Cholesterol Calculated 91 <100 mg/dL [facility] Comment:Desirable LDL: less than 100 mg/dLNear Optimal/Above Optimal LDL: 110- 129 mg/dLBorderline High LDL: 130-159 mg/dLHigh LDL: 160-189 mg/dLVery High LDL: greater than or equal to 190 mg/dL HDL Cholesterol 38(L) >40 mg/dL [facility] Comment:Desirable HDL: great er than 40 mg/dL Note: This HDL assay may give artificially low results in patients with liver disease. Blood Venous blood specimen / Unknown 08/06/2024 11:10 AM EST 08/06/2024 1:31 PM EST us Dai Engle MD LAB BLOOD ORDERAB LES Final Result [facility] [address] [place] [phone] * (ABNORMAL) ALBUMIN, RANDOM URINE W/CREATININE [...] 09/17/2021 8:59 AM EST us Huyen Buenrostro [employer] ARTILLERY OFFICER LAB URINE ORDERABLES Final Res ult [facility] [address] [place] [address], from Last 3 Months or Most Recently Relevant to Health Maintenance Insurance [facility] C3 DENTAL-[facility] MEDICAID STAND ADULT Care Teams Special Education Paraprofessional Relationship Specialty Start Date End Date Fabrizio Gutierrez ANP [address] [place] [address] PCP - General Family Medicine 07/29/23 Camila Hines RN [address] [place] [address] Manager Pet Family Medicine 01/22/25 [email or web address] 11/16/23 Sina Matamoros It Consulting DirectorCoal Feeder Operator 11/14/24
--- OUTSIDE RECORDS SUMMARY | 2025-02-12 14:33 | XMS_ITS | Encounter Summary ---
Author Organization [employer] Address [address] [facility] [address] [place] [address] Care Team Providers Care Curriculum And Assessment Coordinator Name Role Phone Peggy Alexandra CORONADO Primary Care Provider [phone] Camila Hines RN Unavailable [phone] Encounter Details Date Type Department Care Team (Late st Contact Info) Description 11/10/2023 Abstract [facility] [address] [place] [address] Zaki, Yaritza [address] [place] [address] Social History Tobacco Use Types Packs/Day Years [...] Description 02/15/2025 1:45 PM EDT Office Visit [facility] [address] [place] [address] Alexandra Woods ANP [address] [place] [address] documented as of this encounter Goals Goal [...] documented as of this encounter Care Teams Curriculum And Assessment Coordinator Relationship Specialty Start Date End Date Alexandra Woods ANP [address] [place] [phone] PCP - General Family Medicine 07/29/23 Camila Hines, MENDEL [address] [place] [phone] Intelligence Director Family Medicine 01/22/25 [employer] Formula E 11/16/23 Sina Matamoros Chief Engineer Research[employer] 11/14/24 documented as of this encounter
== END 2025-02-12 14:04 | disposition home or self-care (01) ==
LOC: HO.HGI 13:29
PROVIDERS: PCP Nurse Practitioner Primary Care; Visit Provider Nurse Practitioner Family
DX: Z01.818 Encounter for other preprocedural examination (principal); Z12.11 Encounter for screening for malignant neoplasm of colon; K59.01 Slow transit constipation
CPT/HCPCS: 99212

== ENCOUNTER → 2025-02-12 13:28 | Outpatient (BNVA) | payer MEDICAID, SELFPAY | PROVIDERS: PCP Nurse Practitioner Primary Care; Visit Provider Nurse Practitioner Family | DX: Z12.11 Encounter for screening for malignant neoplasm of colon (principal); K59.01 Slow transit constipation | CPT/HCPCS: 99212 ==

== ENCOUNTER 2025-02-15 13:16 | Emergency (ER) | payer MEDICAID, SELFPAY ==
--- NOTE | ~2025-02-15 | XR_ITS ---
EXAMINATION: XR CHEST 1 VIEW HISTORY: chest pain COMPARISON: Comparison is made with the prior examination dated 07/06/2023. FINDINGS: A single AP portable view of the chest performed at 2:09 PM is submitted. An implantable cardiac monitoring device is again noted in the left anterior chest wall. The lungs are expanded and clear. There is no pleural effusion, pneumothorax, or pulmonary vascular congestion. The heart is normal in size. There is degenerative disc disease and scoliosis of the spine. XR/XR chest 1V IMPRESSION: No acute cardiopulmonary abnormality. Electronically signed by: Sina Sanders MD 02/15/2025 02:18 PM EDT
--- NOTE | 2025-02-15 13:21 | ECG_ITS ---
Test Reason : cp Blood Pressure : */* mmHG Vent. Rate : 59 BPM Atrial Rate : 59 BPM P-R Int : 136 ms QRS Dur : 124 ms QT Int : 440 ms P-R-T Axes : -15 -49 1 degrees QTcB Int : 435 ms Sinus bradycardia Right bundle branch block Left anterior fascicular block Bifascicular block Cannot rule out Inferior infarct (masked by fascicular block?) , age undetermined Abnormal ECG When compared with ECG of 20-Jul-2024 12:02, Left anterior fascicular block is now Present Referred By: Generic ED Physician Electronically Signed By: MARCOS SORIA MD
[2025-02-15 13:26] VITALS: BP 108/72; BP 114/63; PULSE 62; RESP 18; TEMP 36.8; O2SAT 96; O2SAT 98; BMI 33.0
--- NOTE | 2025-02-15 13:36 | ED.CHESTPAIN ---
HPI - Chest Pain General Chief Complaint: Chest Pain Stated Complaint: Chest pain sent from urgent care per ems Time Seen by Provider: 02/15/25 13:22 Source: patient Mode of arrival: ambulatory Limitations: no limitations History of Present Illness HPI narrative: This is a 54-year-old man with a past medical history of hypertension, hyperlipidemia, CAD status post PCI to LAD, history of VT with ILR, CKD stage 3, cry-xskszql-isoptqqfx diabetes mellitus, CVA with residual left-sided weakness who for evaluation of chest pain. He states that he woke up this morning to use the restroom at 4:00 a.m. in started having chest pain in the middle of his chest. He states no radiation of this pain to the left/right, back or abdomen. He states no associated nausea/vomiting or emesis. He states no lightheadedness or syncope. He states no palpitations. He states no syncope. He states no recent fevers, cough, hemoptysis or sputum production. He states no trauma. He states receiving 4 baby aspirin at the urgent care prior to arrival. He states no urinary symptoms or changes in bowel habits. Patient states he lives on the 2nd floor and does not experience chest pain or dyspnea when climbing the stairwell. He states otherwise no exertional chest pain, dyspnea, weakness or lightheadedness. Related Data Home Medications ?Medication ?Instructions ?Recorded ?Confirmed atorvastatin 80 mg tablet 80 mg PO BEDTIME 08/20/21 12/24/24 empagliflozin 10 mg tablet 10 mg PO DAILY 11/19/21 12/24/24 (Jardiance) hydroxyzine HCl 10 mg tablet 10 - 20 mg PO BID PRN anxiety 11/19/21 12/24/24 insulin glargine 100 unit/mL (3 14 unit subcut QA 08/06/24 12/24/24 mL) subcutaneous pen (Lantus Solostar U-100 Insulin) alcohol swabs (Alcohol Prep Pads) pad topical TID 12/17/24 12/24/24 aspirin 81 mg chewable tablet 1 tab PO QAM 12/17/24 12/24/24 flash glucose sensor (FreeStyle #1 ea 02/12/25 Ronen 2 Sensor kit) lancets 33 gauge (TRUEplus Lancets) #100 david 02/12/25 spironolactone 25 mg tablet 25 mg PO QA 02/12/25 Previous Rx's ?Medication ?Instructions ?Recorded blood sugar diagnostic (FreeStyle #50 ea 12/22/20 Test strips) blood-glucose meter (FreeStyle #1 ea 12/22/20 [place] Lite kit) lancets 28 gauge (FreeStyle #100 ea 12/22/20 Lancets) tamsulosin 0.4 mg capsule (Flomax) 0.4 mg PO BEDTIME #90 caps 07/23/24 apixaban 5 mg tablet (Eliquis) 5 mg PO BID atrial fibrillation 09/03/24 #180 tabs amlodipine 5 mg tablet 5 mg PO DAILY #90 tabs 12/11/24 ezetimibe 10 mg tablet (Zetia) 10 mg PO DAILY #90 tabs 12/11/24 lisinopril 10 mg tablet 10 mg PO DAILY #30 tabs 12/11/24 bisacodyl 5 mg tablet,delayed 10 mg (2 x 5 mg) PO BEDTIME #60 12/17/24 release (Dulcolax (bisacodyl)) tabs isosorbide mononitrate 30 mg 30 mg PO DAILY #90 tabs 12/18/24 tablet,extended release 24 hr docusate sodium 100 mg capsule 100 mg PO BEDTIME #90 caps 02/12/25 polyethylene glycol 3350 17 238 g PO ONCE #238 grams 02/12/25 gram/dose oral powder (Miralax) Allergies Allergy/AdvReac Type Severity Reaction Status Date / Time No Known Allergies Allergy Verified 02/15/25 13:26 Review of Systems Review of Systems: ROS as per HPI [facility] Past Medical History Medical History Male circumcision (~2024) Ambulates with cane Hx of degenerative disc disease Back pain Cardiomyopathy Implantable loop recorder present Stable angina NSVT (nonsustained ventricular tachycardia) Unstable angina Carpal tunnel syndrome Nephrolithiasis Phlebitis Arthritis Type 2 diabetes mellitus with unspecified 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 macular edema Essential hypertension Hyperlipidemia LDL goal <70 Anemia HTN (hypertension) Stroke (~2019) Hyperlipemia Diabetes Surgical History Cataract S/P coronary angioplasty H/O cardiac catheterization H/O vitrectomy History of carpal tunnel surgery of right wrist Family History Family History Father Asthma Mother Diabetes mellitus Social History Social History Household Members: None Housing: Apartment Are you a primary healthcare administration internship to a significant other at home: No Do you presently have visiting nurse or other home services: Yes (daily nurse BP and meds) Alcohol intake: never Comment: S3 Patient Tobacco Use Status: Former Tobacco user Tobacco use type: Cigarette Years Smoked: 6 +/- Advance Directives: Yes Advance Directives on File: Yes Advance Directives Date on File: 12/15/22 Do you have a plan to hurt others: No Plan service: No Physical Exam Vital Signs: Vital Signs: Last Vital Signs Temp 97.3 F 02/15/25 16:00 Pulse 52 02/15/25 16:00 Resp 14 02/15/25 16:00 BP 106/62 02/15/25 16:00 Pulse Ox 98 02/15/25 16:00 O2 Del Method Room Air 02/15/25 16:00 BMI result Body Mass Index 33.0 Gen: NAD, AOx3 HEENT: NCAT, EOMI, normal conjunctiva CV: RRR Pulm: CTAB, no increased work of breathing GI: Soft, NTND, no rebound, guarding or rigidity Neuro: Grossly non focal Medical Decision Making Medical Decision Making [facility] Narrative: Differential diagnosis includes, but is not limited to ACS, gastroesophageal reflux, gastritis, you pneumothorax. Patient is afebrile and hemodynamically stable on room air. Exam is benign and reassuring. I reviewed and interpreted the patient's labs, EKG and chest x-ray as below. On re-examination, patient is well-appearing and in no acute distress. ?Patient states symptoms have resolved. ?There is no indication for further emergent evaluation in this otherwise well-appearing patient as above. ?Patient is provided written and verbal instructions, educational materials, recommendations for outpatient follow-up, strict return precautions and teach back is performed. ?Patient states understanding and agreement with plan of care. ?Patient is discharged home in stable and improved condition. Admission/Observation Consideration of admission/observation: Escalation of care including admission/observation considered Lab Data [facility] Lab Attestation statement: I reviewed the patient's lab results. Labs notable for chronic stable anemia with hemoglobin 11.2 (previous 13.0), BMP is unremarkable with no significant electrolyte derangement or acute kidney injury, patient is at baseline renal function creatinine 1.80 (previous 1.93), troponin 9.2 -> 7.4 effectively ruling out ACS 02/15/25 13:41 02/15/25 13:41 Labs: Lab Results 02/15/25 02/15/25 Range/Units 13:41 15:51 WBC 5.9 (4.8-10.8) X10*3/uL RBC 3.73 L (4.60-5.80) X10*6/uL Hgb 11.2 L (14.0-18.0) g/dl Hct 31.3 L (42.0-52.0) % MCV 83.9 (80.0-98.0) fL MCH 30.0 (27.0-33.0) pg MCHC 35.8 (31.0-36.0) g/dl RDW 12.6 (11.0-16.0) % Plt Count 168 (160-400) X10*3/uL MPV 9.3 L (9.4-12.4) fL Immature Gran % (Auto) 0.2 (0.0-0.4) % Neut % (Auto) 76.1 H (45-73) % Lymph % (Auto) 16.9 L (20-40) % Dillon % (Auto) 5.2 (2-11) % Eos % (Auto) 1.4 (0-4) % Baso % (Auto) 0.2 (0-2) % Lymph # (Auto) 1.0 L (1.2-4.9) X10*3/uL Dillon # (Auto) 0.3 (0.1-1.2) X10*3/uL Eos # (Auto) 0.1 (0.0-0.4) X10*3/uL Baso # (Auto) 0.0 (0.0-0.2) X10*3/uL Abs Immat Gran (auto) 0.01 (0.00-0.03) X10*3/uL Absolute Neuts (auto) 4.5 (2.0-8.3) x10*3/uL Absolute Nucleated RBC 0.000 (0.0-0.012) X10*3/uL Nucleated RBC % (auto) 0.0 (0.0-0.2) /100WBC Sodium 144 (135-145) mmol/L Potassium 5.1 (3.3-5.1) mmol/L Chloride 110 H (96-108) mmol/L Carbon Dioxide 26 (22-29) mmol/L Anion Gap 13 (12-20) BUN 18 H (9-16) mg/dL Creatinine 1.80 H (0.5-1.4) mg/dL Estim Creat Clear Calc 52.1 Estimated GFR 39 Random Glucose 239 H (60-115) mg/dL Calcium 9.0 D (8.4-10.2) mg/dL Troponin I High Sens 9.2 7.4 (<3.5-35.0) ng/L Independent Interpretation I performed an independent interpretation of an: EKG and Plain X-Ray Interpretation: EKG shows sinus bradycardia at 59 beats per minute, VT 136, QRS 124, right bundle branch block, QTC 435, no STEMI (compared to previous EKG July 20, 2024 there are no diagnostic ischemic changes). Chest x-ray shows no pleural effusion, pneumothorax or focal consolidation Radiology Impression Discussion of test interpretation with radiology: I have reviewed the radiologist's reading. Radiologist Impression: XR/XR chest 1V IMPRESSION: No acute cardiopulmonary abnormality. Electronically signed by: Sina Sanders MD 02/15/2025 02:18 PM EDT RP Dictated By: Sina Sanders MD Signed By: <Electronically signed by Sina Sanders MD in OV> 02/15/25 1418 Discharge Plan Discharge Clinical Impression: Chest pain Patient Disposition: Home, Self-Care Instructions: Chest Pain (ED) Additional Instructions: You were evaluated in the emergency room. Your evaluation including EKG, chest x-ray and blood work/cardiac enzymes were reassuring with no emergent findings. Please follow up with your primary care doctor in 1 week. Return to the emergency room with any new concerns or symptoms. Prescriptions: No Action (DME) FreeStyle Test Strip See Rx Instructions .ROUTE .MEDSUPPLY Qty: 50 11RF Rx Instructions: Use 1 test strip twice a day (DME) blood-glucose meter [FreeStyle [place] Lite] Kit See Rx Instructions .ROUTE .MEDSUPPLY Qty: 1 0RF Rx Instructions: As directed (DME) lancets [FreeStyle Lancets] 28 gauge misc See Rx Instructions .ROUTE .MEDSUPPLY Qty: 100 11RF Rx Instructions: Use 1 lancet twice a day Eliquis 5 mg tablet 5 mg PO BID Qty: 180 3RF isosorbide mononitrate 30 mg tablet extended release 24 hr 30 mg PO DAILY Qty: 90 1RF Rx Instructions: Continue current dose atorvastatin 80 mg tablet 80 mg PO BEDTIME hydroxyzine HCl 10 mg tablet 10 - 20 mg PO BID PRN (Reason: anxiety) Jardiance 10 mg tablet 10 mg PO DAILY insulin glargine [Lantus Solostar U-100 Insulin] 100 unit/mL (3 mL) insulin pen 14 unit subcut QAM tamsulosin [Flomax] 0.4 mg capsule 0.4 mg PO BEDTIME Qty: 90 1RF alcohol swabs [Alcohol Prep Pads] Pads, Medicated topical TID aspirin 81 mg tablet,chewable 1 tab PO QAM bisacodyl [Dulcolax (bisacodyl)] 5 mg tablet,delayed release (DR/EC) 10 mg PO BEDTIME Qty: 60 4RF ezetimibe [Zetia] 10 mg tablet 10 mg PO DAILY Qty: 90 3RF amlodipine 5 mg tablet 5 mg PO DAILY Qty: 90 1RF Rx Instructions: ( disregard prior order to cx) lisinopril 10 mg tablet 10 mg PO DAILY Qty: 30 5RF Rx Instructions: dose reduced (DME) lancets [TRUEplus Lancets] 33 gauge misc See Rx Instructions .ROUTE TID Qty: 100 Rx Instructions: As directed spironolactone 25 mg tablet 25 mg PO QAM (DME) FreeStyle Ronen 2 Sensor Kit See Rx Instructions .ROUTE Q2W Qty: 1 Rx Instructions: As directed docusate sodium 100 mg capsule 100 mg PO BEDTIME Qty: 90 3RF polyethylene glycol 3350 [Miralax] 17 gram/dose powder 238 g PO ONCE Qty: 238 0RF Rx Instructions: As directed by gastroenterology department at [facility] Print Language: Iraqi
[2025-02-15 13:46] LABS: MANUAL DIFF FLAG NO
[2025-02-15 13:47] LABS: Basophils Percent Auto 0.2 % (0-2); Eosinophils Absolute Auto 0.1 X10*3/uL (0.0-0.4); Eosinophils Percent Auto 1.4 % (0-4); Hematocrit 31.3 % (42.0-52.0); Hemoglobin 11.2 g/dl (14.0-18.0); Imm Gran Abs Auto 0.01 X10*3/uL (0.00-0.03); Imm Gran Pct Auto 0.2 % (0.0-0.4); Lymphocytes Percent Auto 16.9 % (20-40); Mean Corpuscular HGB Conc 35.8 g/dl (31.0-36.0); Mean Corpuscular Volume 83.9 fL (80.0-98.0); Mean Platelet Volume 9.3 fL (9.4-12.4); Monocytes Absolute Auto 0.3 X10*3/uL (0.1-1.2); Monocytes Percent Auto 5.2 % (2-11); Neutrophils Absolute Auto 4.5 x10*3/uL (2.0-8.3); Neutrophils Percent Auto 76.1 % (45-73); Platelet Count 168 X10*3/uL (160-400); Red Blood Count 3.73 X10*6/uL (4.60-5.80); Red Cell Distribution Width 12.6 % (11.0-16.0); White Blood Count 5.9 X10*3/uL (4.8-10.8)
--- OUTSIDE RECORDS SUMMARY | 2025-02-15 13:59 | XMS_ITS | Encounter Summary ---
Author Organization [employer] Address [address] [facility] [address] [place] [address] Care Team Providers Care Customer Field Representative Name Role Phone Alexandra Woods Primary Care Provider [phone] Camila Hines RN Unavailable [phone] Reason for Visit * Reason Onset Date Comments CHART PREP 02/15/2025 Encounter Details Date Type Department Care Team ([facility] st Contact Info) Description 02/15/2025 Telephone [facility] MEDICINE [address] [place], [place] [phone] Alexandra Woods ANP [address] [place] [address] CHART PREP Social History Tobacco Use Types Packs/Day Years [...] Answer Date Recorded Patient Health Questionnaire-9 Score 11 02/13/2025 Patient Health Questionnaire-9 Score 11 02/13/2025 Last PHQ-9: Questionnaire Data Not on file 0 02/13/2025 Housing Stability Answer Date Recorded What is [...] Answer Date Recorded Patient Health Questionnaire-2 Score 2 02/13/2025 Sex and Gender Information Value Date Recorded Sex Assigned at Male 08/02/2022 10:39 AM EDT Legal Sex Male 10:39 AM EDT Gender Identity Male 08/02/2022 10:39 AM EDT Sexual Orientation Straight 08/02/2022 10 :39 AM EDT documented as of this encounter Miscellaneous Notes * Telephone Encounter - Grecia Salazar MA - 02/15/2025 8:35 AM EDT Chart Prep Labs: done 08/06/24 Images: not done 11/02/23 Referrals: not applicable Vaccines due: Hep B Screenings: colonoscopy and foot exam Overdue care gaps: A1c, Glucose, SBIRT, SDOH, Oral health screening, and Disability screen documented in this encounter Plan of Treatment Not on file documented as of this encounter Goals Goal [...] Assessment Noted Time PHQ-9 Depression Total Score: 11 025 9:39 AM EDT documented as of this encounter Care Teams Customer Field Representative Relationship Specialty Start Date End Date Alexandra Woods ANP [address] [place] [address] PCP - General Family Medicine 07/29/23 Camila Hines RN [address] [place] [address] Cfo Family Medicine 01/22/25 [employer] 11/16/23 Sina Matamoros Oil Heater OperatorCraft Center Director 11/14/24 documented as of this encounter
--- OUTSIDE RECORDS SUMMARY | 2025-02-15 13:59 | XMS_ITS | Encounter Summary ---
Author Organization [employer] Address [address] [place] [address] Care Team Providers Care Journeyman Press Operator Name Role Phone Peggy Alexandra CORONADO Primary Care Provider [phone] Camila Hines RN Unavailable [phone] Encounter Details Date Type Department Care Team (Late st Contact Info) Description 02/15/2025 1:00 PM EDT Office Visit [facility] [address] [place] [address] Rose Ferrari MD [address] [place], [place] [phone] Other chest pain (Primary Dx) Social History Tobacco Use Types Packs/Day Years [...] the past 12 months, has t he [employer], gas, oil or water [employer] threatened to shut off services in your [...] Procedure Name Priority Date/Time Associated Diagnosis Comments ECG 12-LEAD Routine 02/15/2025 12:55 PM EDT Other chest pain documented in this encounter Results * ECG 12 lead (02/15/2025 12:55 PM EDT) Narrative Rose Ferrari MD - 02/15/2025 12:55 PM EDT Sinus rhythm at 73 bpm. ??RBBB. ??Possible LAFB. ??No ischemic changes in comparison with 07/20/24 EKG. Rose Ferrari MD ECG ORDERABLES Final Result documented in this encounter Visit Diagnoses Diagnosis Other chest pain- Primary documented in this encounter Administered Medications Inactive Administered Medications - up to 3 most recent administrations Medication Order MAR Action Action Date Dose Rate Site aspirin chewable tablet 324 mg 324 mg, Oral, Once, On Tue02/15/25 at 1300, For 1 doseIndications:Other chest pain Given 02/15/2025 12:55 PM EDT 324 mg documented in this encounter Additional Health Concerns Assessment Noted Time PHQ-9 Depression Total Score: 11 025 9:39 AM EDT documented as of this encounter Care Teams Journeyman Press Operator Relationship Specialty Start Date End Date Alexandra Woods ANP [address] [place], [place] [phone] PCP - General Family Medicine 07/29/23 Camila Hines, RN [address] [place], [place] [phone] Truck Mechanic Apprentice Family Medicine 01/22/25 [employer] 11/16/23 Sina Matamoros Student Affairs DeanFire Range Technician 11/14/24 documented as of this encounter
--- OUTSIDE RECORDS SUMMARY | 2025-02-15 13:59 | XMS_ITS | Encounter Summary ---
Author Organization [employer] Address [address] [place] [address] Care Team Providers Care Manager University Name Role Phone Alexandra Woods Primary Care Provider [phone] Camila Hines RN Unavailable [phone] Reason for Visit * Reason Onset Date Comments Chest Pain 02/15/2025 [facility] triage 02/15/2025 Encounter Details Date Type Department Care Team (Late st Contact Info) Description 02/15/2025 Telephone [facility] [address] [place] [address] Sarah Delgado RN Chest Pain; [facility] triage Social History Tobacco Use Types Packs/Day Years [...] the past 12 months, has t he [employer], gas, oil or water company threatened to [...] AM EDT documented as of this encounter Last Filed Vital Signs Vital Sign Reading Time Taken Comments Blood Pressure 103/68 02/15/2025 12:50 PM EDT Pulse 77 02/15/2025 12:50 PM EDT Temperature 37 ??C (98.6 ??F) 02/15/2025 12:50 PM EDT Respiratory Rate 20 02/15/2025 12:50 PM EDT Oxygen Saturation 98% 02/15/2025 12:50 PM EDT Inhaled Oxygen Concentration - - Weight 88.9 kg (196 lb) 02/15/2025 12:50 PM EDT Height - - Body Mass Index 29.8 07/23/2024 2:02 PM EDT documented in this encounter Miscellaneous Notes * Telephone Encounter - Sarah Delgado RN - 02/15/2025 1:02 PM EDT Pt presents to [facility] at approx. 1210 reporting mid sternal/epigastric pain while walking here from home (about a 10 minute walk). Pt taken immediately for triage in triage room EKG done: P/OH; 106/146 ms QRS: 136 ms QT/Qtc: 412/466 ms P/QRS/T axis 35/-64/18 deg HR: 77 Pt in NAD, walking w/o difficulty, speaking full sentences. He denies dizzyness, diaphoresis, radiating pain, N/V. Pt has a history of PR and CVA. He states he does not have a nit Rx. Onset of pain was 4 AM today,he describes it as unchanged, on/off . VS: Weight: 196 lbs RR 20 non labored R/A sat 98% HR reg 78 BP right arm sitting 103/68 PO temp 98.6 Pain 5-6/10 epigastric/chest. Pt is diabetic has indwelling port left upper arm. AM POC 257. He ate this AM . States he has a 130 OV with PCP for eye surgery clearance today. Today he did not take his eloquis or aspirin per MD pre op direction. Report and EKG given to Dr. Ferrari. 1240: Per MD direction, pt for transport to [facility] ED. EMS called with report, MD to call [facility] ED report. 1245 per MD VO: 4 baby aspirin given to pt 1250 BP right arm, sitting 112/71 HR 80 Resp 20 non labored R/a sat 98% 1255 EMS arrival, report given to EMS with copy of EKG Pt understands transfer to ED Rates midsternal/epigastric pain 5/10 Pt to ED via EMS documented in this encounter Plan of Treatment [...] documented as of this encounter Care Teams Manager University Relationship Specialty Start Date End Date Alexandra Woods ANP [address] [place] [address] PCP - General Family Medicine 07/29/23 Camila Hines, MENDEL [address] [place] [address] In Home Tutor Family Medicine 01/22/25 [employer] 11/16/23 Sina Matamoros Renal TechnicianMason Helper 11/14/24 documented as of this encounter
--- OUTSIDE RECORDS SUMMARY | 2025-02-15 13:59 | XMS_ITS | Encounter Summary ---
Author Organization [employer] Address [address] [facility] [address] [place] [address] Care Team Providers Care Radio Technician Name Role Phone Alexandra Woods Primary Care Provider [phone] Camila Hines RN Unavailable [phone] Reason for Visit * Reason Onset Date Comments Call Back Request 12/15/2023 Encounter Details Date Type Department Care Team ([facility] st Contact Info) Description 12/15/2023 Telephone [facility] MEDICINE [address] [place], [place] [phone] Alexandra Woods ANP [address] [place] [address] Call Back Request Social History Tobacco Use [...] the past 12 months, has t he [employer], gas, oil or water company threatened to [...] medication every day Lifestyle No Mamie Jimenez, PharmD Hemoglobin A1c < 7 Result Component 6.7( 11:10 AM EST) No Mamie Jimenez PharmD documented as of this encounter Visit Diagnoses Not on filedocumented in this encounter Additional Health Concerns Assessment Noted Time PHQ-9 Depression Total Score: 15 024 10:08 AM EST documented as of this encounter Care Teams Radio Technician Relationship Specialty Start Date End Date Alexandra Woods ANP [address] [place] [address] PCP - General Family Medicine 07/29/23 Camila Hines RN [address] [place] [address] Game Farm Supervisor Family Medicine 01/22/25 [employer] 11/16/23 Sina Matamoros Corn CutterManager Language 11/14/24 documented as of this encounter
--- OUTSIDE RECORDS SUMMARY | 2025-02-15 13:59 | XMS_ITS | Encounter Summary ---
Author Organization [employer] [facility] Address [address] [facility] [address]t [place] [address] Care Team Providers Care Electrician Research Name Role Phone Lois Contreras Primary Care Provider [phone] Alexandra Woods Primary Care Provider [phone] Camila Hines RN Unavailable [phone] Encounter Details Date Type Department Care Team (Latest Contact Info) Description 02/22/2022 Abstract [facility] Dental, Provider, DDS Social History Tobacco [...] on filedocumented in this encounter Care Teams Electrician Research Relationship Specialty Start Date End Date Lois Contreras FNP [address] [place] [address] PCP - General Family Medicine 05/31/22 07/28/23 Alexandra Woods ANP [address] [place], [place] [phone] PCP - General Family Medicine 07/29/23 Camila Hines, RN [address] [place], [place] [phone] Automotive Service Porter Family Medicine 01/22/25 [employer] 11/16/23 Sina Matamoros Dementia Program DirectorTransformation Coach 11/14/24 documented as of this encounter
--- OUTSIDE RECORDS SUMMARY | 2025-02-15 13:59 | XMS_ITS | Encounter Summary ---
Author Organization [employer] Address [address] [facility] [address] [place] [address] Care Team Providers Care Gui Developer Name Role Phone Lois Contreras Primary Care Provider [phone] Alexandra Woods Primary Care Provider [phone] Camila Hines RN Unavailable [phone] Reason for Visit * Reason Onset Date Comments FYi 11/17/2022 Encounter Details Date Type Department Care Team (Late st Contact Info) Description 11/17/2022 Telephone [facility] MEDICINE [address] [place] [address] Lois Contreras FNP [address] [place], [place] [phone] FYi Social History Tobacco Use Types Packs/Day [...] Noted * Telephone Encounter - Staceyhuntermellisa ZhouTerrelljann Argawal - 11/17/2022 1:12 PM EST Tc from [facility] city wellness coordinator of pt reporting that pt is currently in the ER. If any questions please contact [facility] at [phone] documented in this encounter Plan of Treatment Not on file documented as of this encounter Visit Diagnoses Not on filedocumented in this encounter Care Teams Gui Developer Relationship Specialty Start Date End Date Lois Contreras FNP [address] [place] [address] PCP - General Family Medicine 05/31/22 07/28/23 Alexandra Woods ANP [address] [place] [address] PCP - General Family Medicine 07/29/23 Camila Hines RN [address] [place] [id number] Charge Machine Operator Family Medicine 01/22/25 [employer] 11/16/23 Sina Matamoros Tank WorkerDry Pan Operator 11/14/24 documented as of this encounter
--- OUTSIDE RECORDS SUMMARY | 2025-02-15 13:59 | XMS_ITS | Clinical Summary ---
Author Organization [facility] ity Address [address] [place] [address] Care Team Providers Care Grip Wrapper Name Role Phone Allison Santacruz MD Primary Care Provider [phone] Social History Tobacco Use Types Packs/Day Years [...] age to complete this topic Care Teams Grip Wrapper Relationship Specialty Start Date End Date Allison Santacruz MD [address] [place] [address] , [address] [facility] D[facility]A: [facility] ERICH Shields PCP - General Internal Medicine 09/01/18
--- OUTSIDE RECORDS SUMMARY | 2025-02-15 13:59 | XMS_ITS | Encounter Summary ---
Author Organization [employer] Address [address] [facility] 7t [place] [address] Care Team Providers Care Security Solutions Architect Name Role Phone Peggy Alexandra CORONADO Primary Care Provider [phone] Camila Hines RN Unavailable [phone] Encounter Details Date Type Department Care Team (Late st Contact Info) Description 11/10/2023 Abstract [facility] [address] [place] [address] Zaki, Yaritza [address] [place] [address] Social History Tobacco Use Types Packs/Day Years [...] AM EDT documented as of this encounter Functional Status * Over the past 2 weeks, how often have you been bothered by any of the following problems? Question Answer Date of Assessment Author Patient Health Questionnaire-2 Score 5 05/2024 10:08 AM Zeinab Childers * If you checked off any problems on this questionnaire so far, Question Answer Date of Assessment Author How difficult have these problems made it for you to do your work, take care of things at home, or get along with other people? Very difficult 11/10/2023 10:08 AM Zeinab Childers * Over the last 2 weeks, how often have you been bothered by any of the following problems? Question Answer Date of Assessment Author Feeling nervous, anxious, or on edge 3 05/2024 10:08 AM Zeinab Childers Not being able to stop or co ntrol worrying 3 11/10/2023 10:08 AM Zeinab Childers Worrying too much about diff erent things 3 11/10/2023 10:08 AM Zeinab Childers Trouble relaxing 0 11/10/2023 10:08 AM Zeinab Childers Being so restless that it is hard to sit still 3 11/10/2023 10:08 AM Zeinab Childers Becoming easily annoyed or irritable 3 05/2024 10:08 AM Zeinab Childers Feeling afraid as if somethi ng awful might happen 1 11/10/2023 10:08 AM Zeinab Childers KENTON-7 Total Score 16 11/10/2023 10:08 AM Zeinab Childers * Over the past 2 weeks, how often have you been bothered by any of the following problems? Question Answer Date of Assessment Author Little interest or pleasure in doing things Nearly every day 11/10/2023 10:08 AM Zeinab Childers Feeling down, depressed, or hopeless More than half the days 11/10/2023 10:08 AM Zeinab Childers Trouble falling or staying asleep, or sleeping too much Nearly every day 11/10/2023 10:08 AM Zeinab Childers Feeling tired or having little energy Not at all 11/10/2023 10:08 AM Zeinab Childers Poor appetite or overeating Nearly every day 11/10/2023 10:08 AM Zeinab Childers Feeling bad about yourself - or that you are a failure or have let yourself or your family down Nearly every day 11/10/2023 10:08 AM Zeinab Childers Trouble concentrating on things, such as reading the newspaper or watching television Not at all 11/10/2023 10:08 AM Zeinab Childers Moving or speaking so slowly that other people could have noticed? Or the opposite - being so fidgety or restless that you have been moving around a lot more than usual. Several days 11/10/2023 10:08 AM Zeinab Childers Thoughts that you would be better off or hurting yourself in some way Not at all 11/10/2023 10:08 AM Zeinab Childers Patient Health Questionnaire-9 Score 15 11/10/2023 10:08 AM Brad Childers documented as of this encounter Plan of [...] documented as of this encounter Care Teams Security Solutions Architect Relationship Specialty Start Date End Date Alexandra Woods ANP [address] [place], [place] [phone] PCP - General Family Medicine 07/29/23 Camila Hines RN [address] [place] [address] Board Finisher Family Medicine 01/22/25 [employer] 11/16/23 Sina Matamoros Web Marketing InternReal Estate Legal Secretary 11/14/24 documented as of this encounter
[2025-02-15 14:00] LABS: Anion Gap 13 (12-20); Blood Urea Nitrogen 18 mg/dL (9-16); Carbon Dioxide 26 mmol/L (22-29); Chloride 110 mmol/L (96-108); Creatinine Clr Calc Pharmacy 52.1; Estimated Glomerular Filt Rate 39; Glucose Random 239 mg/dL (60-115); Potassium 5.1 mmol/L (3.3-5.1); Sodium 144 mmol/L (135-145)
--- OUTSIDE RECORDS SUMMARY | 2025-02-15 14:00 | XMS_ITS | Encounter Summary ---
Author Organization [employer] Address [address] [facility] 7t [place] [address] Care Team Providers Care Compressor Assembler Name Role Phone Lois Contreras Primary Care Provider [phone] Alexandra Woods Primary Care Provider [phone] Camila Hines RN Unavailable [phone] Reason for Visit * Reason Comments Med Refill Encounter Details Date Type Department Care Team ([facility] st Contact Info) Description 01/05/2023 Refill [facility] [address] [place] [address] Lois Contreras FNP [address] [place], [place] [phone] Social History Tobacco Use Types Packs/Day Years [...] on filedocumented in this encounter Care Teams Compressor Assembler Relationship Specialty Start Date End Date Lois Contreras FNP [address] [place], [place] [phone] PCP - General Family Medicine 05/31/22 07/28/23 Alexandra Woods ANP [address] [place], [place] [phone] PCP - General Family Medicine 07/29/23 Camila Hines, MENDEL [address] [place] [address] Sock Drier Family Medicine 01/22/25 [employer] 11/16/23 Sina Matamoros Hand SalterFoundation Assistant 11/14/24 documented as of this encounter
--- OUTSIDE RECORDS SUMMARY | 2025-02-15 14:00 | XMS_ITS | Encounter Summary ---
Author Organization [employer] Address 75 [facility] 7t [place] [address] Care Team Providers Care Reamer Hand Name Role Phone Lois Contreras Primary Care Provider [phone] Alexandra Woods Primary Care Provider [phone] Camila Hines RN Unavailable [phone] Reason for Visit * Reason Onset Date Comments Appointment Request 12/16/2022 Encounter Details Date Type Department Care Team ([facility] st Contact Info) Description 12/16/2022 Telephone [facility] MED[facility] [address] [place] [address] Lois Contreras FNP [address] [place] [address] Appointment Request Social History Tobacco Use Types [...] - 12/16/2022 12:46 PM EDT Tc from [facility] requesting for to have a physical appt. Please contact pt to schedule at [phone] documented in this encounter Plan of Treatment Not on file documented as of this encounter Visit Diagnoses Not on filedocumented in this encounter Care Teams Reamer Hand Relationship Specialty Start Date End Date Lois Contreras FNP [address] [place] [address] PCP - General Family Medicine 05/31/22 07/28/23 Alexandra Woods ANP [address] [place], [place] [phone] PCP - General Family Medicine 07/29/23 Camila Hines, MENDEL [address] [place] [address] Guard Sergeant Family Medicine 01/22/25 [employer] 11/16/23 Sina Matamoros Terrazzo Mechanic HelperChair Lift Operator 11/14/24 documented as of this encounter
--- OUTSIDE RECORDS SUMMARY | 2025-02-15 14:00 | XMS_ITS | Clinical Summary ---
Author Organization [employer] Address [address] [facility] 7t [place] [address] Care Team Providers Care Box Feeder Name Role Phone Gutierrez Fabrizio CORONADO Primary Care Provider [phone] Camila Hines RN Unavailable [phone] Allergies No known active allergies Medications [...] kit 10/10/19 24 Active Continuous Blood Gluc Human Resources File Clerk (FreeStyle [place] 2 [place]) deviceIndications:T ype 2 diabetes mellitus with hyperlipidemia [...] Active insulin pen needle (Easy Touch Pen [place]) 31G X 8 mm miscIndications:Typ e 2 diabetes mellitus without complications ([facility]/HCC) USE DIRECTED 100 each 3 07/30/20 24 [...] penIndications:Type 2 diabetes mellitus with hyperlipidemia (CMS/HCC) ([facility]) Inject 14 Units under the skin Once daily. 5 mL 08/13/20 24 025 Active lisinopril 20 MG tabletIndications:H ypertension associated with diabetes ([facility]) TAKE 1 TABLET BY MOUTH [...] e 2 diabetes mellitus with hyperlipidemia (CMS/HCC) ([facility]) USE DIRECTED EVERY 14 DAYS [...] (CHEW) 90 tablet 1 12/05/19 25 Active Hospital, Clinic, or Other Facility Administered Medication Ordered Dose Route Frequency Start Date End Date Status aspirin chewable tablet 324 mgIndications:Other chest pain 324 mg PO Once 02/15/2025 02/15/2025 Ended Active Problems Problem Noted Date Diagnosed Date Moderate major depression 02/13/2025 Missing teeth, acquired 05/25/2024 Periodontal disease 02/22/2024 Dental calculus 02/22/2024 Hemiplegia and hemiparesis f ollowing cerebral infarction affecting left non-dominant side 02/13/2024 Overweight (BMI 25.0-29.9) 02/13/2024 Assessment & Plan (02/13/2024 6:49 PM EDT): Overweight Advised pt to improve diet and exercise,discussed healthy life style -discussed print controller referral --referred to print controller today as well for DM Health care [...] EDT): -patient is followed by Nephrology at [facility]. States he has an appointment in 2 [...] ANA on CKD. Also called today his sound system installer [phone] and informed will not be able to [...] if need dose adjustment -has apt w binder selector 02/06/2024 -pt will come for apt w [...] Plan [facility], Comply with medication , Patient to engage in OP therapy , Patient to reach out to [facility] as needed, and Patient to follow-up with external team Assessment & Plan (11/10/2023 10:22 AM EST): PROGRESS NOTE: ID: Kal is a 53 y.o. [place] straight-identified cis-male (pronouns he/him/his) with previous documented [...] , Patient to [facility] as needed, and Patient to reach out to [facility] as needed Assessment & Plan (04/21/2023 9:50 [...] change. PLAN: 1. Follow up with [facility]: Not recommended for follow-up 2. Patient goal [...] (02/13/2024 6:46 PM EDT): Reports following w paraprofessional aide teacher Denies CP nor respiratory symptoms -advised pt to f up w his cards's office to check when has upcoming apt Coronary atherosclerosis 12/28/2022 Hypertension associated with diabetes ([facility]/HCC) 12/28/2022 Assessment & Plan (06/17/2023 12:16 PM EDT): Not at goal here in the office May titrate meds based on CMP results Ischemic myocardial dysfunction 12/28/2022 Assessment & Plan (04/17/2023 1:13 PM EDT): -History of cardiomyopathy, CAD with VIRAL placed LAD 2020, nonsustained VT s/p implantable loop recorder -Referral to re-establish with [facility] - Dr. Shetty - placed on [...] implantable loop recorder -Referral to re-establish with [facility] - Dr. Shetty - placed on 03/31/23 -ED precautions reviewed Stage 3a chronic kidney disease 12/28/2022 Overview (03/31/2023): 03/31/23: referral placed to establish with Nephrology Assessment & Plan (02/13/2024 6:52 PM EDT): Repeat renal function -if GFR < 30 to refer to binder selector -pt had referred renal US -not done [...] 124 to 150s , no hypoglycemia events -sound system installer -states has f up apt tomorrow -not om metformin for renal function -Continue jardiance 25 mg daily -increase lantus to 14 u <---10 u HS -advised to monitor CBGs in fasting and 2 h after biggest meal --bring reading to PCP at next apt ,also to call here If noticing CBGs < 80s to adjust insulin dose -referred today to setter juice packaging machines Assessment & Plan (02/09/2024 3:26 PM EDT): [...] organization. Date Type Department Care Team Description 02/15/2025 1:00 PM EDT Office Visit [facility] [address] [place] [address] Rose Ferrari MD Other chest pain (Primary Dx) 02/15/2025 Telephone [facility] [address] [place] [phone] Sarah Delgado RN Chest Pain; WIC triage 02/15/2025 Telephone [facility] [address] [place] [phone] Fabrizio Gutierrez, ANP CHART PREP 01/24/[address] [address] Fabrizio Gutierrez ANP Pre-op 01/22/2025 11:30 AM EDT Clinical Support [facility] [place] [place] [address] Camila Hines, RN Type 2 diabetes mellitus with hyperlipidemia ([facility]) 01/22/2025 Travel 01/17/2025 Telephone [facility] [place] [address] Fabrizio Gutierrez ANP Appointment Request 01/15/2025 Orders Only [facility] [place] [address] Fabrizio Gutierrez ANP 01/14/2025 Telephone [facility] [place] [address] Camila Hines, nuclear chemistry technician Question 12/14/2024 Population Health Risk Score [facility] () Department [address] [place] [phone] Provider, Population Health Generic 12/03/2024 Refill [facility] [place] [address] Fabrizio Gutierrez ANP 11/28/2024 Refill [facility] [place] [address] Fabrizio Gutierrez ANP 11/27/2024 Orders Only GENERIC EXTERNAL DATA DEPARTMENT Provider, Generic External Data from Last 3 Months Immunizations Immunization Administration Dates Next Due HepB-CpG 11/08/2023 Influenza [...] (196 lb) 02/15/2025 12:50 PM EDT Height 172.7 cm (5' 8 ) 07/23/2024 2:02 PM EDT Body Mass Index 29.8 07/23/2024 2:02 PM EDT Plan of Treatment Health Maintenance Due Date [...] 02/03/2025 024, 05/29/2024, 02/13/2024, Additional history exists Lipid Panel 08/06/2025 08/06/2024, 06/03, 09/17/2021 Tobacco Screening 09/04/2025 09/04/2024 Eye Exam 11/12/2025 11/12/2024, 10/04, 10/27/2023, Additional history exists Depression Screening 02/13/2026 02/13/2025, 02/14/20 Dental X-Ray: Full Mouth 10/28/2026 10/27/2023, 10/04 [...] 02/15/2025 12:55 PM EDT Other chest pain GROSS AND MICROSCOPIC LEVEL 3 Routine 11/27/2024 [...] Recently Relevant to Health Maintenance Results * ECG 12 lead (02/15/2025 12:55 PM EDT) Narrative Rose Ferrari MD - 02/15/2025 12:55 PM EDT Sinus rhythm at 73 bpm. ??RBBB. ??Possible LAFB. ??No ischemic changes in comparison with 07/20/24 EKG. us Rose Ferrari MD ECG ORDERABLES Final Result * Gross and Microscopic Level 3 (11/27/2024 10:20 AM EST) 11/27/2024 10:2 0 AM EST 11/27/2024 11:50 AM EST Narrative [facility] - 11/28/2024 1:02 PM EST ----- ------- Name: Kal Sellers ? Age/Sex: 54/M ? : 1970 Unit#: [id number] ?? Attend Dr: Adilia Johnson MD ?Re11/27/24 ?Status: DEP SDC ? Location: HO.SSS ?Disch: ? ----- ------- SPEC : [id number] ?RECD: 11/27/24 ? STATUS: ??SOUT ? REQ NUM: [id number] ? DAVION: 11/27/24-0 ? SUBM DR: Adilia [...] sectioned to reveal taylor-pink fibrous cut surfaces. Manager Laboratory sections perpendicular to the nearest margins of resection are submitted in cassettes A1 and A2 to include all of the eroded and erythematous foci. CEDS Copies To: ?? Adilia Johnson MD ?? [facility] ?? [address] [place] [address] [address] ?? [place] [address] ?? [phone] ?? [email or web address] ?? FABRIZIO GUTIERREZ NP ?? [facility] ?? [address] [facility] [address] ?? [place] [address] ?? [phone] ? CONTINUED ON NEXT PAGE ----- ------- Name: Kal Sellers ? Age/Sex: 54/M ? : 1970 Unit#: [id number] ?? Attend Dr: Adilia Johnson MD ?Re11/27/24 ?Status: DEP SDC ? Location: HO.SSS ?Disch: ? ----- ------- SPEC : [id number] ?RECD: 11/27/24-1149 ? STATUS: ??SOUT ? REQ NUM: [id number] ? DAVION: 11/27/24-1020 ? SUBM DR: Adilia Johnson MD ? ENTERED: ??11/27/24-1154 ?SP TYPE: Surgical ? OTHR DR: FABRIZIO GUTIERREZ NP ? ORDERED: ??Gross Micro L3 ? ----- ------- Signed (signature on file) Sharmin Les 11/28/24 1302 ? ----- ------- ? END OF REPORT ? Generic External Data Provider LAB CYTOLOGY ORDE RABLES Final Result Performing Organization Address [facility] [place]/ZIP Co de Phone Number [facility] [address] [place], [place] [phone] * (ABNORMAL) Glucose, Whole Blood (11/27/2024 9:20 AM EST) [facility] Glucose, Whole Blood 180(H) 60 - 115 mg/dL [facility] Comment:METER #: [id number] 11/27/2024 9:20 AM EST 11/27/2024 9:23 AM EST Generic External Data Provider LAB BLOOD ORDERAB LES Final Result Performing Organization Address [facility] Co de Phone Number [facility] [address] [place], [place] [phone] * Hepatitis C Antibody with Reflex to HCV, RNA, Quantitative, Real-Time PCR (08/06/2024 11:10 AM EST) [facility] Hepatitis C Antibody Nonreactive Nonreactive [facility] Comment:Antibodies to HCV no t detected; does not exclude early acuteHCV infection. Blood Venous blood specimen / Unknown 08/06/2024 11:10 AM EST 08/06/2024 1:31 PM EST Dai Engle MD LAB BLOOD ORDERAB LES Final Result Performing Organization Address [facility] [place]/ZIP Co de Phone Number [facility] [address] [place] [address] [phone] * HIV-1/2 Antigen and Antibodies, Fourth Generation, with Reflexes (08/06/2024 11:10 AM EST) HIV AB/AG Nonreactive Nonreactive [facility] Comment:HIV-1 p24 Ag and/or HIV-1/HIV-2 Ab not detected.A test result that is nonreactive does not exclude thepossibility of exposure to or infection with HIV-1 and/orHIV-2. Nonreactive results in this assay for individualswith prior exposure to HIV-1 and/or HIV-2 may be due toantigen and antibody levels that are below the limit ofdetection of this assay.[employer] HIV Ag/Ab Combo assay result andsupplemental assay results should be interpreted inconjunction with the patient's clinical presentation,history and other laboratory results. If the results areinconsistent with clinical evidence, additional testing issuggested to confirm the result. Blood Venous blood specimen / Unknown 08/06/2024 11:10 AM EST 08/06/2024 1:31 PM EST us Dai Engle MD LAB BLOOD ORDERAB LES Final Result Performing Organization Address [facility] [place]/ZIP Co de Phone Number [facility] [address] [place] [address] [phone] * (ABNORMAL) Hemoglobin A1c (08/06/2024 11:10 AM EST) Hemoglobin A1c 6.7(H) <6.0 % [facility] Comment:Hemoglobin A1C Refer ence Range Adults: 4.8 - 6.0 % Non diabetic: < 6.0 % Goal: < 7.0 %Additional Action Suggested: > 8.0 %Note: Hemoglobin A1c results are invalid for patients with abnormal amounts of HbF. Blood transfusions may impact the HbA1c concentration in the patient sample. Estimated Average Glucose 146 mg/dL [facility] Comment:eAG = Estimated ave rage glucose which is %A1C expressed asaverage glucose, using the formula of the [id number] Glucose study (ADAG), Diabetes Care, Vol.31,#8,May. 2007 Blood Venous blood specimen / Unknown 08/06/2024 11:10 AM EST 08/06/2024 1:31 PM EST Dai Engle MD LAB BLOOD ORDERAB LES Final Result [facility] [address] [place] [phone] * (ABNORMAL) Lipid Panel, Standard (08/06/2024 11:10 AM EST) Triglycerides 114 <150 mg/dL [facility] Comment:Desirable Triglyceri de: less than 150 mg/dLBorderline High Triglyceride 150-199 mg/dLHigh Triglyceride: 200-499 mg/dLVery High Triglyceride: greater than or equal to 5OO mg/dL Cholesterol 151 <200 mg/dL [facility] Comment:Desirable Cholestero l: less than 200 mg/dLBorderline High Cholesterol: 200-239 mg/dLHigh Cholesterol: greater than 239 mg/dL LDL Cholesterol Calculated 91 <100 mg/dL [facility] Comment:Desirable LDL: less than 100 mg/dLNear Optimal/Above Optimal LDL: 110- 129 mg/dLBorderline High LDL: 130-159 mg/dLHigh LDL: 160-189 mg/dLVery High LDL: greater than or equal to 190 mg/dL HDL Cholesterol 38(L) >40 mg/dL [facility] Comment:Desirable HDL: great er than 40 mg/dL Note: This HDL assay may give artificially low results in patients with liver disease. Blood Venous blood specimen / Unknown 08/06/2024 11:10 AM EST 08/06/2024 1:31 PM EST us Dai Engle MD LAB BLOOD ORDERAB LES Final Result Performing Organization Address [facility] [place]/ZIP Co de Phone Number [facility] [address] [place] [address] [phone] * (ABNORMAL) ALBUMIN, RANDOM URINE W/CREATININE (09/17/2021 8:59 AM EST) Microalbumin Urine 4.2 See Note: mg/dL [facility] Comment: Reference Range: ?? Reference [...] Creatinine, Urine 115 20 - 320 mg/dL [facility] 09/17/2021 8:59 AM EST us Huyen Buenrostro MECHANICAL SYSTEMS ENGINEER LAB URINE ORDERABLES Final Res ult Performing Organization Address City/[facility] [place]/[facility] Co de Phone Number [facility] [address] [place] [address], from Last 3 Months or Most Recently Relevant to Health Maintenance Insurance [address] [place] [id number] [facility] AD[place] Care Teams Box Feeder Relationship Specialty Start Date End Date Fabrizio Gutierrez ANP [address] [place], [place] PCP - General Family Medicine 07/29/23 Camila Hines, MENDEL [address] [place], [place] Mold Yard Worker Family Medicine 01/22/25 [employer] 11/16/23 Sina Matamoros Electrical Logging OperatorFlight Deck Officer 11/14/24
--- OUTSIDE RECORDS SUMMARY | 2025-02-15 14:00 | XMS_ITS | Encounter Summary ---
Author Organization [employer] Address [address] [facility] 7t [place] [address] Care Team Providers Care Director Of Strategic Programs Name Role Phone Lois Contreras Primary Care Provider [phone] Alexandra Woods Primary Care Provider [phone] Camila Hines RN Unavailable [phone] Encounter Details Date Type Department Care Team (Late st Contact Info) Description 06/23/2023 Orders Only [facility] [address] [place] [address] Ling Us MD [address] [place], [place] [phone] Social History Tobacco Use Types Packs/Day Years [...] Noted Time PHQ-9 Depression Total Score: 14 04/15/2 023 11:16 AM EDT documented as of this encounter Care Teams Director Of Strategic Programs Relationship Specialty Start Date End Date Lois Contreras FNP [address] [place] [address] PCP - General Family Medicine 05/31/22 07/28/23 Alexandra Woods ANP [address] [place] [address] PCP - General Family Medicine 07/29/23 Camila Hines RN [address] [place] [phone] Wellness Nurse Rn Family Medicine 01/22/25 [employer] 11/16/23 Sina Matamoros Human Anatomy TeacherAmbulance Operations Supervisor 11/14/24 documented as of this encounter
--- OUTSIDE RECORDS SUMMARY | 2025-02-15 14:00 | XMS_ITS | Encounter Summary ---
Author Organization [employer] Address [address] [facility] 7t [place] [address] Care Team Providers Care Executive Relations Specialist Name Role Phone Lois Contreras Primary Care Provider [phone] Alexandra Woods Primary Care Provider [phone] Camila Hines RN Unavailable [phone] Encounter Details Date Type Department Care Team (Late st Contact Info) Description 06/23/2023 Orders Only [facility] MEDICINE [address] [place] [address] Ling Us MD [address] [place], [place] [phone] Social History Tobacco Use Types Packs/Day Years [...] documented as of this encounter Care Teams Executive Relations Specialist Relationship Specialty Start Date End Date Lois Contreras FNP [address] [place] [address] PCP - General Family Medicine 05/31/22 07/28/23 Alexandra Woods ANP [address] [place] [address] PCP - General Family Medicine 07/29/23 Camila Hines RN [address] [place] [phone] Estimating Engineer Family Medicine 01/22/25 [employer] 11/16/23 Sina Matamoros Stock And Station AgentExercise Teacher 11/14/24 documented as of this encounter
--- OUTSIDE RECORDS SUMMARY | 2025-02-15 14:00 | XMS_ITS | Encounter Summary ---
Author Organization [email or web address] Address [address] [facility] 7t [place] [address] Care Team Providers Care Teacher Selection Specialist Name Role Phone Alexandra Woods ANP Primary Care Provider [phone] Camila Hines RN Unavailable [phone] Reason for Visit * Reason Comments Med Refill Encounter Details Date Type Department Care Team ([facility] st Contact Info) Description 06/14/2024 Refill [facility] [address] [place], [place] [phone] Alexandra Woods ANP [address] [place] [address] Social History Tobacco Use Types Packs/Day Years [...] the past 12 months, has t he [employer] gas, oil or water company threatened to [...] documented as of this encounter Care Teams Teacher Selection Specialist Relationship Specialty Start Date End Date Alexandra Woods ANP [address] [place] [address] PCP - General Family Medicine 07/29/23 Camila Hines, MENDEL [address] [place] [address] Fibre Composite Technician Family Medicine 01/22/25 Work For [employer] 11/16/23 Sina Matamoros Chemical Processing SupervisorCooker Sulfate 11/14/24 documented as of this encounter
--- OUTSIDE RECORDS SUMMARY | 2025-02-15 14:00 | XMS_ITS | Encounter Summary ---
Author Organization [employer] Address [address] [facility] 7t [place] [address] Care Team Providers Care Clinical Operations Manager Name Role Phone Lois Contreras CHACHO Primary Care Provider [phone] Alexandra Woods Primary Care Provider [phone] Camila Hines RN Unavailable [phone] Encounter Details Date Type Department Care Team (Late st Contact Info) Description 12/07/2022 Orders Only [facility] [address] [place], [place] [phone] Ursula Martell LPN Social History Tobacco Use [...] on file documented as of this encounter Procedures Procedure [...] clean catch procedure / Unknown 05/20/2023 05/20/2023 Comment:[facility] - 05/21/2023 1:40 PM EDT Urine Culture No growth. Specimen Source: Urine clean catch us Mehul Martina [facility] MICROBIOLOGY - GENERAL ORDER BECKA Final Result Performing Organization Address City/State/[facility] Co de Phone Number [facility] [address] [place] [address] [phone] * Hemoglobin A1c (04/15/2023 1:08 PM EDT) Hemoglobin A1c 5.9 % [facility] Comment:Hemoglobin A1C Refer ence Range Adults: 4.8 - 6.0 % Non diabetic: < 6.0 % Goal: < 7.0 %Additional Action Suggested: > 8.0 %Note: Hemoglobin A1c results are invalid for patients with abnormal amounts of HbF. Blood transfusions may impact the HbA1c concentration in the patient sample. Estimated Average Glucose 123 mg/dL [facility] Comment:eAG = Estimated ave rage glucose which is %A1C expressed asaverage glucose, using the formula of the A1L-SadzwbiCbansjs Glucose study (ADAG), Diabetes Care, Vol.31,#8,May. 2007 04/15/2023 1:08 PM EDT 04/15/2023 4:01 PM EDT [facility] External Provider LAB BLO OD ORDERABLES Final Result Performing Organization Address [facility] de Phone Number [facility] [address] [place] [address] [phone] * (ABNORMAL) Basic Metabolic Panel (03/30/2023 10:14 PM EDT) Sodium 139 135 - 145 mmol/L [facility] Potassium 4.0 3.3 - 5.1 mmol/L [facility] Chloride 110(H) 96 - 108 mmol/L [facility] Carbon Dioxide 23 22 - 29 mmol/L [facility] Anion Gap 10(L) 12 - 20 [facility] Urea Nitrogen (BUN) 28(H) 9 - 16 mg/dL [facility] Creatinine, Serum 1.72(H) 0.5 - 1.4 mg/dL [facility] Creatinine Clr Calc Pharmacy 47.5 [facility] Comment:eGFR (calculated fro m the MDRD study equation) and eCrCl(calculated from the Cockcroft-Gault equation) are based ondifferent parameters and may not yield comparable results.If eCrCl result is absurd, please check patient'sheight/weight. Estimated Glomerular Filt Rate 42 [facility] Comment:NOTE: For -Am erican individuals, multiply the result by 1.210.Chronic Kidney Disease: Estimated GFR < 60 mL/min/1.61u9Swjmsm Kidney Disease: Estimated GFR < 15 mL/min/1.73m2 Glucose 92 60 - 115 mg/dL [facility] Calcium 8.8 8.4 - 10.2 mg/dL [facility] 03/30/2023 10:1 4 PM EDT 03/30/2023 10:17 PM EDT [facility] External Provider LAB BLO OD ORDERABLES Final Result Performing Organization Address [facility]/ZIP Co de Phone Number [facility] [address] [place] [address] [phone] * Creatine Kinase, Total (03/30/2023 6:15 PM EDT) Creatine Kinase Total 141 38 - 174 U/L [facility] 03/30/2023 6:15 PM EDT 03/30/2023 6:28 PM EDT [facility] External Provider LAB BLO OD ORDERABLES Final Result Performing Organization Address City/[facility] Co de Phone Number [facility] [address] [place] [address] [phone] * High Sensitivity Troponin I (03/30/2023 6:15 PM EDT) TROPONIN I HIGH SENSITIVITY 6.7 <3.5 - 35.0 ng/L [facility] Comment:The Cesar high sens itivity Troponin-I results should beused in conjunction with other diagnostic information suchas ECG, clinical observations and information, and patientsymptoms to aid in the diagnosis of MD. 03/30/2023 6:15 PM EDT 03/30/2023 6:28 PM EDT [facility] External Provider LAB BLO OD ORDERABLES Final Result Performing Organization Address [facility] Co de Phone Number [facility] [address] [place] [phone] * B Type Natriuretic Peptide (BNP) (03/30/2023 6:15 PM EDT) Pathologist [facility] B Type Natriuretic Peptide 43 <100 pg/mL [facility] Comment:For those patients w ho are being treated with Natrecor(nesiritide, recombinant BNP), BNP testing should beperformed at least two hours post treatment in order toensure that only endogenous levels of BNP are detected. 03/30/2023 6:15 PM EDT 03/30/2023 6:28 PM EDT [facility] External Provider LAB BLO OD ORDERABLES Final Result Performing Organization Address [facility] Co de Phone Number [facility] [address] [place] [address] [phone] * Magnesium (03/30/2023 6:15 PM EDT) Pathologist [facility] Magnesium 1.8 1.6 - 2.6 mg/dL [facility] 03/30/2023 6:15 PM EDT 03/30/2023 6:28 PM EDT [facility] External Provider LAB BLO OD ORDERABLES Final Result Performing Organization Address [facility] Co de Phone Number [facility] [address] [place] [address] [phone] * (ABNORMAL) Basic Metabolic Panel (03/30/2023 6:15 PM EDT) Pathologist [facility] Sodium 139 135 - 145 mmol/L [facility] Potassium 4.5 3.3 - 5.1 mmol/L [facility] Chloride 108 96 - 108 mmol/L [facility] Carbon Dioxide 24 22 - 29 mmol/L [facility] Anion Gap 12 12 - 20 [facility] Urea Nitrogen (BUN) 31(H) 9 - 16 mg/dL [facility] Creatinine, Serum 2.04(H) 0.5 - 1.4 mg/dL [facility] Creatinine Clr Calc Pharmacy 40.0 [facility] Comment:eGFR (calculated fro m the MDRD study equation) and eCrCl(calculated from the Cockcroft-Gault equation) are based ondifferent parameters and may not yield comparable results.If eCrCl result is absurd, please check patient'sheight/weight. Estimated Glomerular Filt Rate 34 [facility] Comment:NOTE: For -Am erican individuals, multiply the result by 1.210.Chronic Kidney Disease: Estimated GFR < 60 mL/min/[id number] Kidney Disease: Estimated GFR < 15 mL/min/1.73m2 Glucose 97 60 - 115 mg/dL [facility] Calcium 9.6 8.4 - 10.2 mg/dL [facility] 03/30/2023 6:15 PM EDT 03/30/2023 6:28 PM EDT us [facility] External Provider LAB BLO OD ORDERABLES Final Result [facility] [address] [place] [phone] * Hepatic Function Panel (03/30/2023 6:15 PM EDT) Bilirubin, Total 0.9 0.0 - 1.0 mg/dL [facility] Bilirubin, Direct 0.3 0.0 - 0.5 mg/dL [facility] Aspartate Amino Transferase 18 5 - 37 U/L [facility] Alanine Aminotransferase 19 0 - 40 U/L [facility] Total Protein 7.1 6.5 - 8.0 g/dL [facility] Albumin Level 4.3 3.5 - 5.0 g/dL [facility] Alkaline Phosphatase 59 39 - 117 U/L [facility] 03/30/2023 6:15 PM EDT 03/30/2023 6:28 PM EDT [facility] External Provider LAB BLO OD ORDERABLES Final Result Performing Organization Address [facility]/ZIP Co de Phone Number [facility] [address] [place] [address] [phone] * Prothrombin Time-INR (03/30/2023 6:15 PM EDT) Prothrombin Time 11.8 10.0 - 13.1 SEC [facility] INTERNATIONAL NORM RATIO 1.0 0.9 - 1.1 [facility] Comment:INTERNATIONAL NORMAL IZED RATIO (INR) [...] 6:15 PM EDT 03/30/2023 6:28 PM EDT [facility] External Provider LAB BLO OD ORDERABLES Final Result Performing Organization Address City/[facility]/ZIP Co de Phone Number [facility] [address] [place] [address] [phone] * (ABNORMAL) CBC auto differential (03/30/2023 6:15 PM EDT) White Blood Count 7.4 4.8 - 10.8 X10*3/uL [facility] Red Blood Count 3.95(L) 4.60 - 5.80 X10*6/uL [facility] Hemoglobin 11.9(L) 14.0 - 18.0 g/dl [facility] Hematocrit 34.8(L) 42.0 - 52.0 % [facility] Mean Corpuscular Volume 88.1 80.0 - 98.0 fL [facility] Mean Corpuscular Hemoglobin 30.1 27.0 - 33.0 pg [facility] Mean Corpuscular HGB Conc 34.2 31.0 - 36.0 g/dl [facility] Red Cell Distribution Width 12.4 11.0 - 16.0 % [facility] Platelet Count 214 160 - 400 X10*3/uL [facility] Mean Platelet Volume 9.5 9.4 - 12.4 fL [facility] Neutrophils Percent Auto 75.3(H) 45 - 73 % [facility] Imm Gran Pct Auto 0.1 0.0 - 0.4 % [facility] Lymphocytes Percent Auto 18.5(L) 20 - 40 % [facility] Monocytes Percent Auto 5.1 2 - 11 % [facility] Eosinophils Percent Auto 0.9 0 - 4 % [facility] Basophils Percent Auto 0.1 0 - 2 % [facility] NRBC Pct Auto 0.0 0.0 - 0.2 /100WBC [facility] Neutrophils Absolute Auto 5.6 2.0 - 8.3 x10*3/uL [facility] Imm Gran Abs Auto 0.01 0.00 - 0.03 X10*3/uL [facility] Lymphocytes Absolute Auto 1.4 1.2 - 4.9 X10*3/uL [facility] Monocytes Absolute Auto 0.4 0.1 - 1.2 X10*3/uL [facility] Eosinophils Absolute Auto 0.1 0.0 - 0.4 X10*3/uL [facility] Basophils Absolute Auto 0.0 0.0 - 0.2 X10*3/uL [facility] NRBC Abs Auto 0.000 0.0 - 0.012 X10*3/uL [facility] 03/30/2023 6:15 PM EDT 03/30/2023 6:28 PM EDT [facility] External Provider LAB BLO OD ORDERABLES Final Result Performing Organization Address [facility] Co de Phone Number [facility] [address] [place] [phone] * COVID-19 ID NOW (CESAR) (12/12/2022 5:16 PM EDT) IDNOW SERIAL# [id number] [facility] COVID-19 TEST Negative Negative [facility] COVID-19 NOTE See Note [facility] Comment: Results are for the identification of SARS-CoV2 RNA. TheSARS-CoV2 RNA is generally detectable in respiratory samplesduring the acute phase of infection. Positive results areindicative of the presence of SARS-CoV-2 RNA; clinicalcorrelation with patient history and other diagnosticinformation is necessary to determine patient infectionstatus. Positive results do not rule out bacterial infectionor co- infection with other viruses.Testing facilities within the [facility] and [facility] are required to report all positive [...] use by authorized laboratories.Testing performed on the Cesar ID NOW utilizing NAAT. 12/12/2022 5:16 PM EDT 12/12/2022 5:22 PM EDT [facility] Exter nal Provider LAB MOLECULAR DIAGNOSTICS ORDERABLES Final Result Performing Organization Address City/[facility]/ZIP Co de Phone Number [facility] [address] [place] [phone] * (ABNORMAL) GLUCOSE, WHOLE BLOOD (12/12/2022 2:02 PM EDT) Glucose, Whole Blood 155(H) 60 - 115 mg/dL [facility] Comment:METER #: [id number] 1 12/12/2022 2:02 PM EDT 12/12/2022 2:05 PM EDT [facility] External Provider LAB BLO OD ORDERABLES Final Result Performing Organization Address [facility]/ZIP Co de Phone Number [facility] [address] [place] [phone] * (ABNORMAL) GLUCOSE, WHOLE BLOOD (12/12/2022 2:00 PM EDT) Glucose, Whole Blood 54(LL) 60 - 115 mg/dL [facility] Comment:METER #: [id number] 1 12/12/2022 2:00 PM EDT 12/12/2022 2:05 PM EDT Result [facility] External Provider LAB BLO OD ORDERABLES Final Result Performing Organization Address [facility]/ZIP Co de Phone Number [facility] [address] [place] [phone] * Magnesium (12/12/2022 1:56 PM EDT) Magnesium 1.8 1.6 - 2.6 mg/dL [facility] 12/12/2022 1:56 PM EDT 12/12/2022 2:02 PM EDT [facility] External Provider LAB BLO OD ORDERABLES Final Result Performing Organization Address [facility]/ZIP Co de Phone Number [facility] [address] [place] [phone] * (ABNORMAL) Comprehensive Metabolic Panel (12/12/2022 1:56 PM EDT) Sodium 143 135 - 145 mmol/L [facility] Potassium 4.0 3.3 - 5.1 mmol/L [facility] Chloride 109(H) 96 - 108 mmol/L [facility] Carbon Dioxide 21(L) 22 - 29 mmol/L [facility] Anion Gap 17 12 - 20 [facility] Urea Nitrogen (BUN) 19(H) 9 - 16 mg/dL [facility] Creatinine, Serum 1.65(H) 0.5 - 1.4 mg/dL [facility] Creatinine Clr Calc Pharmacy 54.0 [facility] Comment:eGFR (calculated fro m the MDRD study equation) and eCrCl(calculated from the Cockcroft-Gault equation) are based ondifferent parameters and may not yield comparable results.If eCrCl result is absurd, please check patient'sheight/weight. Estimated Glomerular Filt Rate 44 [facility] Comment:NOTE: For -Am erican individuals, multiply the result by 1.210.Chronic Kidney Disease: Estimated GFR < 60 mL/min/1.20p1Jptlke Kidney Disease: Estimated GFR < 15 mL/min/1.73m2 Glucose 154(H) 60 - 115 mg/dL [facility] Calcium 9.2 8.4 - 10.2 mg/dL [facility] Bilirubin, Total 0.9 0.0 - 1.0 mg/dL [facility] Aspartate Amino Transferase 22 5 - 37 U/L [facility] Alanine Aminotransferase 29 0 - 40 U/L [facility] Total Protein 6.4(L) 6.5 - 8.0 g/dL [facility] Albumin Level 4.3 3.5 - 5.0 g/dL [facility] Alkaline Phosphatase 60 39 - 117 U/L [facility] 12/12/2022 1:56 PM EDT 12/12/2022 2:02 PM EDT us [facility] External Provider LAB BLO OD ORDERABLES Final Result Performing Organization Address City/[facility]/ZIP Co de Phone Number [facility] [address] [place], [place] [phone] * (ABNORMAL) Urinalysis, Complete, with Reflex to Culture (12/12/2022 1:56 PM EDT) Color Urine Yellow [facility] Appearance Urine Clear [facility] PH 5.0 5.0 - 9.0 [facility] Glucose Urine UA >=1000(A) Negative mg/dL [facility] Urine Blood Negative Negative [facility] Specific Phillips - Urine >=1.030(H) 1.005 - 1.025 [facility] Urine Protein Negative Neg-Trace mg/dL [facility] Urine Ketones Negative Negative mg/dL [facility] Nitrite Urine Negative Negative [facility] Leukocyte Esterase Urine Small (1+)(A) Negative [facility] RBC Urine 0-2 0 - 2 /HPF [facility] Urine WBC 21-50(A) 0 - 5 /HPF [facility] Urine Squamous Epithelial Cell 3-5 0 - 2 /HPF [facility] Urine Bacteria 1+ None Seen [facility] Hyaline Casts, Urine 3-5 0 - 2 /LPF [facility] Urine Yeast Present [facility] 12/12/2022 1:56 PM EDT 12/12/2022 2:02 PM EDT Narrative [facility] - 12/12/2022 2:44 PM EDT Urine, Clean Catch [facility] External Provider LAB URI NE ORDERABLES Final Result Performing Organization Address [facility]/ZIP Co de Phone Number [facility] [address] [place], [place] [phone] * (ABNORMAL) CBC auto differential (12/12/2022 1:56 PM EDT) White Blood Count 9.6 4.8 - 10.8 X10*3/uL [facility] Red Blood Count 4.22(L) 4.60 - 5.80 X10*6/uL [facility] Hemoglobin 12.6(L) 14.0 - 18.0 g/dl [facility] Hematocrit 36.0(L) 42.0 - 52.0 % [facility] Mean Corpuscular Volume 85.3 80.0 - 98.0 fL [facility] Mean Corpuscular Hemoglobin 29.9 27.0 - 33.0 pg [facility] Mean Corpuscular HGB Conc 35.0 31.0 - 36.0 g/dl [facility] Red Cell Distribution Width 12.8 11.0 - 16.0 % [facility] Platelet Count 257 160 - 400 X10*3/uL [facility] Mean Platelet Volume 9.1(L) 9.4 - 12.4 fL [facility] Neutrophils Percent Auto 85.7(H) 45 - 73 % [facility] Imm Gran Pct Auto 0.3 0.0 - 0.4 % [facility] Lymphocytes Percent Auto 8.9(L) 20 - 40 % [facility] Monocytes Percent Auto 4.2 2 - 11 % [facility] Eosinophils Percent Auto 0.8 0 - 4 % [facility] Basophils Percent Auto 0.1 0 - 2 % [facility] NRBC Pct Auto 0.0 0.0 - 0.2 /100WBC [facility] Neutrophils Absolute Auto 8.2 2.0 - 8.3 x10*3/uL [facility] Imm Gran Abs Auto 0.03 0.00 - 0.03 X10*3/uL [facility] Lymphocytes Absolute Auto 0.9(L) 1.2 - 4.9 X10*3/uL [facility] Monocytes Absolute Auto 0.4 0.1 - 1.2 X10*3/uL [facility] Eosinophils Absolute Auto 0.1 0.0 - 0.4 X10*3/uL [facility] Basophils Absolute Auto 0.0 0.0 - 0.2 X10*3/uL [facility] NRBC Abs Auto 0.000 0.0 - 0.012 X10*3/uL [facility] 12/12/2022 1:56 PM EDT 12/12/2022 2:02 PM EDT [facility] External Provider LAB BLO OD ORDERABLES Final Result [facility] [address] [place] [phone] documented in this encounter Visit Diagnoses Not on filedocumented in this encounter Care Teams Clinical Operations Manager Relationship Specialty Start Date End Date Lois Contreras FNP [address] [place] [address] PCP - General Family Medicine 05/31/22 07/28/23 Alexandra Woods ANP [address] [place] [address] PCP - General Family Medicine 07/29/23 Camila Hines, MENDEL [address] [place] [phone] Hat Former Family Medicine 01/22/25 [facility] 11/16/23 Sina Matamoros Event Services ManagerEmail Administrator 11/14/24 documented as of this encounter
--- OUTSIDE RECORDS SUMMARY | 2025-02-15 14:00 | XMS_ITS | Clinical Summary ---
Author Organization [facility] Address [address] [facility] [address] [place] [address] Phone Care Team Providers Care Window Trimmer Apprentice Name Role Phone AngieLois barron CHACHO Primary Care Provider [phone] Allergies No known active allergies Medications amLODIPine [...] Insurance Medicaid [place] Medicaid [place] Care Teams Window Trimmer Apprentice Relationship Specialty Start Date End Date Lois Contreras FNP [address] [place] [phone] PCP - General 05/02/23
--- OUTSIDE RECORDS SUMMARY | 2025-02-15 14:00 | XMS_ITS | Encounter Summary ---
Author Organization [facility] Address [address] [place] [address] Phone Care Team Providers Care Wirer Passenger Car Name Role Phone Lois Contreras Primary Care Provider [phone] Encounter Details Date Type Department Care Team (Late st Contact Info) Description 05/02/2023 Documentation Only [facility] [place], [address] [place] [address] Lois Contreras FNP [address] [place] [address] Social History Tobacco Use Types Packs/Day Years [...] on filedocumented in this encounter Care Teams Wirer Passenger Car Relationship Specialty Start Date End Date Lois Contreras FNP [address] [place] [address] PCP - General 05/02/23 documented as of this encounter
[2025-02-15 14:09] LABS: Troponin-I High Sensitivity 9.2 ng/L (<3.5-35.0)
[2025-02-15 14:13] VITALS: BP 121/77; PULSE 54; RESP 12; TEMP 36.9; O2SAT 96
[2025-02-15 16:00] VITALS: BP 106/62; PULSE 52; RESP 14; TEMP 36.3; O2SAT 98
[2025-02-15 16:16] LABS: Troponin-I High Sensitivity 7.4 ng/L (<3.5-35.0)
[2025-02-15 16:41] VITALS: BP 106/62; PULSE 52; RESP 14; TEMP 36.3; O2SAT 98
== END 2025-02-15 16:42 | disposition home or self-care (01) ==
PROVIDERS: Emergency Provider Emergency Medicine; PCP Nurse Practitioner Primary Care
DX: R07.89 Other chest pain (principal); I25.10 Atherosclerotic heart disease of native coronary artery without angina pectoris; R00.1 Bradycardia, unspecified; I12.9 Hypertensive chronic kidney disease with stage 1 through stage 4 chronic kidney disease, or unspecified chronic kidney disease; E11.22 Type 2 diabetes mellitus with diabetic chronic kidney disease; N18.30 Chronic kidney disease, stage 3 unspecified; Z79.899 Other long term (current) drug therapy
CPT/HCPCS: 36415; 71045; 80048; 84484; 85025; 93005; 99283; 99284

== ENCOUNTER → 2025-02-15 13:21 | Outpatient (BNV) | payer MEDICAID, SELFPAY | PROVIDERS: Emergency Provider Emergency Medicine; PCP Nurse Practitioner Primary Care; Visit Provider Internal Medicine Cardiovascular Disease | DX: I45.2 Bifascicular block (principal); R00.1 Bradycardia, unspecified | CPT/HCPCS: 93010 ==

== ENCOUNTER → 2025-02-15 13:35 | Outpatient (BNV) | payer MEDICAID, SELFPAY | PROVIDERS: Emergency Provider Emergency Medicine; PCP Nurse Practitioner Primary Care; Visit Provider Radiology Diagnostic Radiology | DX: R07.9 Chest pain, unspecified (principal) | CPT/HCPCS: 71045 ==

== ENCOUNTER → 2025-02-28 23:59 | Outpatient (BNV) | payer MEDICAID, SELFPAY ==
--- NOTE | 2025-03-15 09:49 | A.OFFVIS_ITS ---
Intake Visit Reasons: Remote ILR check- [employer] Allergies No Known Allergies Allergy (Verified 02/15/25 13:26) [facility] Medical History Male circumcision (~2024) Ambulates with cane Hx of degenerative disc disease Back pain Cardiomyopathy Implantable loop recorder present Stable angina NSVT (nonsustained ventricular tachycardia) Unstable angina Carpal tunnel syndrome Nephrolithiasis Phlebitis Arthritis Type 2 diabetes mellitus with unspecified 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 macular edema Essential hypertension Hyperlipidemia LDL goal <70 Anemia HTN (hypertension) Stroke (~2019) Hyperlipemia Diabetes Surgical History Cataract S/P coronary angioplasty H/O cardiac catheterization H/O vitrectomy History of carpal tunnel surgery of right wrist Family History Father Asthma Mother Diabetes mellitus Social History Household Members: None Housing: Apartment Are you a primary vocational childcare teacher to a significant other at home: No Do you presently have visiting nurse or other home services: Yes (daily nurse BP and meds) Alcohol intake: never Comment: S3 Patient Tobacco Use Status: Former Tobacco user Tobacco use type: Cigarette Years Smoked: 6 +/- Advance Directives: Yes Advance Directives on File: Yes Advance Directives Date on File: 12/15/22 Do you have a plan to hurt others: No Plan service: No Office Procedures Cardiac Device Check Cardiac Device Check Details: ILR No new alerts. [id number] Cardiac Interrogation, subcut cardiac rhythm monitor Procedure code (CPT) selection complete Assessment & Plan Assessment & Plan (1) Implantable loop recorder present: Code(s): Z95.818 - Presence of other cardiac implants and grafts Category: Medical Plan Coding Level of Care Code Procedure Only Diagnoses Implantable loop recorder present Z95.818 CPT Codes Cardiac Device Check - Cardiac Device 16: 17471-Fixobz Cardiac Interrogation, subcut cardiac rhythm monitor ([id number])
== END ==
PROVIDERS: PCP Nurse Practitioner Primary Care; Visit Provider Internal Medicine Cardiovascular Disease
DX: Z45.09 Encounter for adjustment and management of other cardiac device (principal)
CPT/HCPCS: 93298

== ENCOUNTER 2025-03-19 15:27 | Outpatient (REF) | payer MEDICAID, SELFPAY ==
[2025-03-19 16:29] LABS: INTERNATIONAL NORM RATIO 1.1 (0.9-1.1)
[2025-03-19 17:14] LABS: Anion Gap 13 (12-20); Blood Urea Nitrogen 25 mg/dL (9-16); Calcium 9.1 mg/dL (8.4-10.2); Carbon Dioxide 25 mmol/L (22-29); Chloride 110 mmol/L (96-108); Estimated Glomerular Filt Rate 34; Glucose Random 218 mg/dL (60-115); Potassium 4.8 mmol/L (3.3-5.1); Sodium 143 mmol/L (135-145)
--- OUTSIDE RECORDS SUMMARY | 2025-03-19 17:59 | XMS_ITS | Encounter Summary ---
Author Organization [employer] Address [address] [place] [address] Care Team Providers Care Paint Striping Machine Operator Name Role Phone Peggy Alexandra CORONADO Primary Care Provider [phone] Camila Hines RN Unavailable [phone] Encounter Details Date Type Department Care Team (Late st Contact Info) Description 11/10/2023 Abstract [facility] [address] [place] [address] Zaki, Yaritza [address] [place] [address] Social History Tobacco Use Types Packs/Day Years [...] your housing situation today? I have tim oorzco 07/29/[address] you li [...] much Nearly every day 11/10/2023 10:08 AM Zeianb Childers Feeling tired or having little energy [...] Care Team (Late st Contact Info) Description 04/02/2025 11:30 AM EDT Clinical Support [facility] [address] [place] [id number] 05/28/2025 2:15 PM EDT Office Visit [facility] [address] [place] [id number] Alexandra Woods, ANP [address] [place] [address] documented as of this encounter Goals Goal Patient Goal Type Associated Problems Recent Progress Patient-Stated? Author Take your medication every day Lifestyle No Mamie Jimenez PharmD Hemoglobin A1c < 7 Result Component 8.4( 5 10:08 AM EDT) No Mamie Jimenez PharmD documented as of this encounter Visit Diagnoses Not on filedocumented in this encounter Additional Health Concerns Assessment Noted Time PHQ-9 Depression Total Score: 15 024 10:08 AM EST documented as of this encounter Care Teams Paint Striping Machine Operator Relationship Specialty Start Date End Date Alexandra Woods ANP [address] [place], [place] [id number] PCP - General Family Medicine 07/29/23 Camila Hines, MENDEL [address] [place] [address] [facility] 01/22/25 [employer] 11/16/23 Sina Matamoros Business Technology AnalystTearoom Hostess 11/14/24 documented as of this encounter
== END 2025-03-19 15:28 | disposition home or self-care (01) ==
LOC: HO.HHCL 15:27
PROVIDERS: PCP Nurse Practitioner Primary Care; Visit Provider Nurse Practitioner
DX: Z01.818 Encounter for other preprocedural examination (principal)
CPT/HCPCS: 36415; 80048; 85610

== ENCOUNTER → 2025-03-29 23:59 | Outpatient (BNV) | payer MEDICAID, SELFPAY ==
--- NOTE | 2025-04-30 16:49 | MHC.OFFVIS ---
Intake Visit Reasons: Remote ILR check- [employer] Allergies No Known Allergies Allergy (Verified 02/15/25 13:26) [facility] Medical History Male circumcision (~2024) Ambulates with cane Hx of degenerative disc disease Back pain Cardiomyopathy Implantable loop recorder present Stable angina NSVT (nonsustained ventricular tachycardia) Unstable angina Carpal tunnel syndrome Nephrolithiasis Phlebitis Arthritis Type 2 diabetes mellitus with unspecified 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 macular edema Essential hypertension Hyperlipidemia LDL goal <70 Anemia HTN (hypertension) Stroke (~2019) Hyperlipemia Diabetes Surgical History Cataract S/P coronary angioplasty H/O cardiac catheterization H/O vitrectomy History of carpal tunnel surgery of right wrist Family History Father Asthma Mother Diabetes mellitus Social History Household Members: None Housing: Apartment Are you a primary home care and home health aides teacher to a significant other at home: No Do you presently have visiting nurse or other home services: Yes (daily nurse BP and meds) Alcohol intake: never Comment: S3 Patient Tobacco Use Status: Former Tobacco user Tobacco use type: Cigarette Years Smoked: 6 +/- Advance Directives Date on File: 12/15/22 service: No Office Procedures Cardiac Device Check Cardiac Device Check Details: ILR No new alerts. [id number] Cardiac Interrogation, subcut cardiac rhythm monitor Procedure code (CPT) selection complete Assessment & Plan Assessment & Plan (1) NSVT (nonsustained ventricular tachycardia): Code(s): I47.2 - Ventricular tachycardia Category: Medical Plan Coding Level of Care Code Procedure Only Diagnoses NSVT (nonsustained ventricular tachycardia) I47.2 CPT Codes Cardiac Device Check - Cardiac Device 16: 53091-Uzwhfn Cardiac Interrogation, subcut cardiac rhythm monitor ([id number])
== END ==
PROVIDERS: PCP Nurse Practitioner Primary Care; Visit Provider Internal Medicine Cardiovascular Disease
DX: I47.20 Ventricular tachycardia, unspecified (principal); Z95.818 Presence of other cardiac implants and grafts
CPT/HCPCS: 93298

== ENCOUNTER → 2025-04-29 23:59 | Outpatient (BNV) | payer MEDICAID, SELFPAY ==
--- NOTE | 2025-05-19 20:43 | MHC.OFFVIS ---
Intake Visit Reasons: Remote ILR check- [employer] Allergies No Known Allergies Allergy (Verified 02/15/25 13:26) [facility] Medical History Male circumcision (~2024) Ambulates with cane Hx of degenerative disc disease Back pain Cardiomyopathy Implantable loop recorder present Stable angina NSVT (nonsustained ventricular tachycardia) Unstable angina Carpal tunnel syndrome Nephrolithiasis Phlebitis Arthritis Type 2 diabetes mellitus with unspecified 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 macular edema Essential hypertension Hyperlipidemia LDL goal <70 Anemia HTN (hypertension) Stroke (~2019) Hyperlipemia Diabetes Surgical History Cataract S/P coronary angioplasty H/O cardiac catheterization H/O vitrectomy History of carpal tunnel surgery of right wrist Family History Father Asthma Mother Diabetes mellitus Social History Household Members: None Housing: Apartment Are you a primary gericare aide teacher to a significant other at home: No Do you presently have visiting nurse or other home services: Yes (daily nurse BP and meds) Alcohol intake: never Comment: S3 Patient Tobacco Use Status: Former Tobacco user Tobacco use type: Cigarette Years Smoked: 6 +/- Advance Directives Date on File: 12/15/22 service: No Office Procedures Cardiac Device Check Cardiac Device Check Details: ILR No new alerts. [id number]-Gvegbi Cardiac Interrogation, subcut cardiac rhythm monitor Procedure code (CPT) selection complete Assessment & Plan Assessment & Plan (1) NSVT (nonsustained ventricular tachycardia): Code(s): I47.2 - Ventricular tachycardia Category: Medical Plan Coding Level of Care Code Procedure Only Diagnoses NSVT (nonsustained ventricular tachycardia) I47.2 CPT Codes Cardiac Device Check - Cardiac Device 16: 52238-Sswcbz Cardiac Interrogation, subcut cardiac rhythm monitor ([id number])
== END ==
PROVIDERS: PCP Nurse Practitioner Primary Care; Visit Provider Internal Medicine Cardiovascular Disease
DX: I47.20 Ventricular tachycardia, unspecified (principal); Z95.818 Presence of other cardiac implants and grafts
CPT/HCPCS: 93298

== ENCOUNTER → 2025-05-30 23:59 | Outpatient (BNV) | payer MEDICAID, SELFPAY ==
--- NOTE | 2025-07-13 12:20 | A.OFFVIS_ITS ---
Intake Visit Reasons: Remote ILR check- [employer] Allergies No Known Allergies Allergy (Verified 02/15/25 13:26) [facility] Medical History Male circumcision (~2024) Ambulates with cane Hx of degenerative disc disease Back pain Cardiomyopathy Implantable loop recorder present Stable angina NSVT (nonsustained ventricular tachycardia) Unstable angina Carpal tunnel syndrome Nephrolithiasis Phlebitis Arthritis Type 2 diabetes mellitus with unspecified 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 macular edema Essential hypertension Hyperlipidemia LDL goal <70 Anemia HTN (hypertension) Stroke (~2019) Hyperlipemia Diabetes Surgical History Cataract S/P coronary angioplasty H/O cardiac catheterization H/O vitrectomy History of carpal tunnel surgery of right wrist Family History Father Asthma Mother Diabetes mellitus Social History Household Members: None Housing: Apartment Are you a primary child care sitter to a significant other at home: No Do you presently have visiting nurse or other home services: Yes (daily nurse BP and meds) Alcohol intake: never Comment: S3 Patient Tobacco Use Status: Former Tobacco user Tobacco use type: Cigarette Years Smoked: 6 +/- Advance Directives Date on File: 12/15/22 service: No Office Procedures Cardiac Device Check Cardiac Device Check Details: ILR Good battery life. No new alerts. 93189-Ozjgcy Cardiac Interrogation, subcut cardiac rhythm monitor Procedure code (CPT) selection complete Assessment & Plan Assessment & Plan (1) Implantable loop recorder present: Code(s): Z95.818 - Presence of other cardiac implants and grafts Category: Medical Plan Coding Level of Care Code Procedure Only Diagnoses Implantable loop recorder present Z95.818 CPT Codes Cardiac Device Check - Cardiac Device 16: 93403-Ezikii Cardiac Interrogation, subcut cardiac rhythm monitor ([id number])
== END ==
PROVIDERS: PCP Nurse Practitioner Primary Care; Visit Provider Internal Medicine Cardiovascular Disease
DX: Z45.09 Encounter for adjustment and management of other cardiac device (principal)
CPT/HCPCS: 93298

== ENCOUNTER → 2025-06-30 23:59 | Outpatient (BNV) | payer MEDICAID, SELFPAY ==
--- NOTE | 2025-07-29 21:27 | A.OFFVIS_ITS ---
Intake Visit Reasons: Remote ILR check- [employer] Allergies No Known Allergies Allergy (Verified 02/15/25 13:26) [facility] Medical History Male circumcision (~2024) Ambulates with cane Hx of degenerative disc disease Back pain Cardiomyopathy Implantable loop recorder present Stable angina NSVT (nonsustained ventricular tachycardia) Unstable angina Carpal tunnel syndrome Nephrolithiasis Phlebitis Arthritis Type 2 diabetes mellitus with unspecified 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 macular edema Essential hypertension Hyperlipidemia LDL goal <70 Anemia HTN (hypertension) Stroke (~2019) Hyperlipemia Diabetes Surgical History Cataract S/P coronary angioplasty H/O cardiac catheterization H/O vitrectomy History of carpal tunnel surgery of right wrist Family History Father Asthma Mother Diabetes mellitus Social History Household Members: None Housing: Apartment Are you a primary in home caregiver to a significant other at home: No Do you presently have visiting nurse or other home services: Yes (daily nurse BP and meds) Alcohol intake: never Comment: S3 Patient Tobacco Use Status: Former Tobacco user Tobacco use type: Cigarette Years Smoked: 6 +/- Advance Directives Date on File: 12/15/22 service: No Office Procedures Cardiac Device Check Cardiac Device Check Details: ILR No new alerts. [id number] Cardiac Interrogation, subcut cardiac rhythm monitor Procedure code (CPT) selection complete Assessment & Plan Assessment & Plan (1) Implantable loop recorder present: Code(s): Z95.818 - Presence of other cardiac implants and grafts Category: Medical Plan Coding Level of Care Code Procedure Only Diagnoses Implantable loop recorder present Z95.818 CPT Codes Cardiac Device Check - Cardiac Device 16: [id number]-Jbirna Cardiac Interrogation, subcut cardiac rhythm monitor ([id number])
== END ==
PROVIDERS: PCP Nurse Practitioner Primary Care; Visit Provider Internal Medicine Cardiovascular Disease
DX: Z45.09 Encounter for adjustment and management of other cardiac device (principal)
CPT/HCPCS: 93298

== ENCOUNTER → 2025-07-31 23:59 | Outpatient (BNV) | payer MEDICAID, SELFPAY ==
--- NOTE | 2025-08-16 21:54 | MHC.OFFVIS ---
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 macular edema Essential hypertension Hyperlipidemia LDL goal <70 Anemia HTN (hypertension) Stroke (~2019) Hyperlipemia Diabetes Surgical History Cataract S/P coronary angioplasty H/O cardiac catheterization H/O vitrectomy History of carpal tunnel surgery of right wrist Family History Father Asthma Mother Diabetes mellitus Social History Household Members: None Housing: Apartment Are you a primary healthcare insurance sales agent to a significant other at home: No Do you presently have visiting nurse or other home services: Yes (daily nurse BP and meds) Alcohol intake: never Comment: S3 Patient Tobacco Use Status: Former Tobacco user Tobacco use type: Cigarette Years Smoked: 6 +/- Advance Directives Date on File: 12/15/22 service: No Office Procedures Cardiac Device Check Cardiac Device Check Details: ILR No new alerts. [id number] Cardiac Interrogation, subcut cardiac rhythm monitor Procedure code (CPT) selection complete Assessment & Plan Assessment & Plan (1) Implantable loop recorder present: Code(s): Z95.818 - Presence of other cardiac implants and grafts Category: Medical Plan Coding Level of Care Code Procedure Only Diagnoses Implantable loop recorder present Z95.818 CPT Codes Cardiac Device Check - Cardiac Device 16: 73874-Fjlyvt Cardiac Interrogation, subcut cardiac rhythm monitor ([id number])
== END ==
PROVIDERS: PCP Nurse Practitioner Primary Care; Visit Provider Internal Medicine Cardiovascular Disease
DX: Z45.09 Encounter for adjustment and management of other cardiac device (principal)
CPT/HCPCS: 93298

== ENCOUNTER → 2025-09-11 10:13 | Outpatient (BNV) | payer MEDICAID, SELFPAY | PROVIDERS: PCP Nurse Practitioner Primary Care; Visit Provider Internal Medicine Cardiovascular Disease | DX: I47.20 Ventricular tachycardia, unspecified (principal); Z95.818 Presence of other cardiac implants and grafts | CPT/HCPCS: 93298 ==